=== PATIENT | female | born 1970 | race Caucasian/White ===

== ENCOUNTER → 2019-03-04 | Outpatient (CLI) | payer MEDICAID | LOC: WOUNDCARE 08:12 | PROVIDERS: ATTEND Surgery | DX: E11.622 Type 2 diabetes mellitus with other skin ulcer (principal); E11.52 Type 2 diabetes mellitus with diabetic peripheral angiopathy with gangrene; L98.492 Non-pressure chronic ulcer of skin of other sites with fat layer exposed; B35.4 Tinea corporis; E66.01 Morbid (severe) obesity due to excess calories; L76.82 Other postprocedural complications of skin and subcutaneous tissue; T65.222A Toxic effect of tobacco cigarettes, intentional self-harm, initial encounter; F17.218 Nicotine dependence, cigarettes, with other nicotine-induced disorders; J44.9 Chronic obstructive pulmonary disease, unspecified; I96 Gangrene, not elsewhere classified | CPT/HCPCS: 11042; 87070; 87205 ==

== ENCOUNTER → 2019-03-04 | Outpatient (CLI) | payer MEDICAID ==
[2019-03-04 10:28] LABS: BASOPHILS % (AUTO) 0 % (0-10); EOSINOPHILS # (AUTO) 0.2 10^3/uL (0.0-0.3); EOSINOPHILS % (AUTO) 2 % (0-10); HEMATOCRIT 38 % (35-52); LYMPHOCYTES # (AUTO) 2.7 X 10^3 (1.0-4.0); LYMPHOCYTES % (AUTO) 31 % (12-44); MEAN CORPUSCULAR HEMOGLOBIN 30 PG (25-34); MEAN CORPUSCULAR HGB CONC 32 G/DL (32-36); MEAN CORPUSCULAR VOLUME 95 FL (80-99); MEAN PLATELET VOLUME 11.3 FL (7.4-10.4); MONOCYTES # (AUTO) 0.4 X 10^3 (0.0-1.0); MONOCYTES % (AUTO) 5 % (0-12); NEUTROPHILS # (AUTO) 5.3 X 10^3 (1.8-7.8); NEUTROPHILS % (AUTO) 62 % (42-75); PLATELET COUNT 272 10^3/uL (130-400); RED CELL DISTRIBUTION WIDTH 14.8 % (10.0-14.5); WHITE BLOOD COUNT 8.7 10^3/uL (4.3-11.0)
[2019-03-04 10:45] LABS: ALBUMIN 4.2 GM/DL (3.2-4.5); BILIRUBIN,TOTAL 0.2 MG/DL (0.1-1.0); CALCIUM 9.4 MG/DL (8.5-10.1); CREATININE SERUM 2.49 MG/DL (0.60-1.30); POTASSIUM 5.2 MMOL/L (3.6-5.0); TOTAL PROTEIN 7.6 GM/DL (6.4-8.2)
== END ==
LOC: LAB 10:04
PROVIDERS: ATTEND Surgery
DX: E11.622 Type 2 diabetes mellitus with other skin ulcer (principal); L98.492 Non-pressure chronic ulcer of skin of other sites with fat layer exposed; E66.01 Morbid (severe) obesity due to excess calories; L76.82 Other postprocedural complications of skin and subcutaneous tissue; T65.222A Toxic effect of tobacco cigarettes, intentional self-harm, initial encounter; F17.218 Nicotine dependence, cigarettes, with other nicotine-induced disorders; J44.9 Chronic obstructive pulmonary disease, unspecified; B35.4 Tinea corporis
CPT/HCPCS: 36415; 80053; 83036; 84134; 85025

== ENCOUNTER → 2019-03-11 | Outpatient (CLI) | payer MEDICAID | LOC: WOUNDCARE 10:14 | PROVIDERS: ATTEND Surgery | DX: I96 Gangrene, not elsewhere classified (principal); L98.492 Non-pressure chronic ulcer of skin of other sites with fat layer exposed; B35.4 Tinea corporis; E66.01 Morbid (severe) obesity due to excess calories; T65.222A Toxic effect of tobacco cigarettes, intentional self-harm, initial encounter; J44.9 Chronic obstructive pulmonary disease, unspecified; L76.82 Other postprocedural complications of skin and subcutaneous tissue; F17.218 Nicotine dependence, cigarettes, with other nicotine-induced disorders | CPT/HCPCS: 11042 ==

== ENCOUNTER → 2019-03-18 | Outpatient (CLI) | payer MEDICAID | LOC: WOUNDCARE 08:37 | PROVIDERS: ATTEND Surgery | DX: L98.492 Non-pressure chronic ulcer of skin of other sites with fat layer exposed (principal); B35.4 Tinea corporis; E66.01 Morbid (severe) obesity due to excess calories; L76.82 Other postprocedural complications of skin and subcutaneous tissue; T65.222A Toxic effect of tobacco cigarettes, intentional self-harm, initial encounter; J44.9 Chronic obstructive pulmonary disease, unspecified; I96 Gangrene, not elsewhere classified; F17.218 Nicotine dependence, cigarettes, with other nicotine-induced disorders | CPT/HCPCS: 11042 ==

== ENCOUNTER → 2019-03-25 | Outpatient (CLI) | payer MEDICAID | LOC: WOUNDCARE 08:59 | PROVIDERS: ATTEND Surgery | DX: L98.492 Non-pressure chronic ulcer of skin of other sites with fat layer exposed (principal); B35.4 Tinea corporis; E66.01 Morbid (severe) obesity due to excess calories; L76.82 Other postprocedural complications of skin and subcutaneous tissue; J44.9 Chronic obstructive pulmonary disease, unspecified; T65.222A Toxic effect of tobacco cigarettes, intentional self-harm, initial encounter; I96 Gangrene, not elsewhere classified; F17.218 Nicotine dependence, cigarettes, with other nicotine-induced disorders | CPT/HCPCS: 11042 ==

== ENCOUNTER → 2019-04-01 | Outpatient (CLI) | payer MEDICAID | LOC: WOUNDCARE 10:21 | PROVIDERS: ATTEND Surgery | DX: L98.492 Non-pressure chronic ulcer of skin of other sites with fat layer exposed (principal); B35.4 Tinea corporis; E66.01 Morbid (severe) obesity due to excess calories; L76.82 Other postprocedural complications of skin and subcutaneous tissue; T65.222A Toxic effect of tobacco cigarettes, intentional self-harm, initial encounter; J44.9 Chronic obstructive pulmonary disease, unspecified; I96 Gangrene, not elsewhere classified; F17.218 Nicotine dependence, cigarettes, with other nicotine-induced disorders | CPT/HCPCS: 11042 ==

== ENCOUNTER → 2019-04-01 | Outpatient (CLI) | payer MEDICAID ==
--- NOTE | 2019-04-01 16:05 | Diagnostic Imaging Report ---
PROCEDURE: US Renal Bilateral. TECHNIQUE: Multiple real-time grayscale images were obtained over the kidneys in various projections bilaterally. INDICATION: Chronic kidney disease, stage IV. FINDINGS: Right kidney measures 10.3 x 5.4 x 6.2 cm and the left kidney measures 11.8 x 5.5 x 5.6 cm. Cortical thickness and echogenicity is normal. No calculi or hydronephrosis are seen. Prevoid bladder volume is 967 mL. Postvoid volume is 50 mL. Bilateral ureteral jets were not visualized. IMPRESSION: Unremarkable renal ultrasound. Small postvoid residual bladder volume was noted. Dictated by: Dictated on workstation # [id number]
== END ==
LOC: RAD 11:17
PROVIDERS: ATTEND Nurse Practitioner
DX: I25.10 Atherosclerotic heart disease of native coronary artery without angina pectoris (principal); D63.1 Anemia in chronic kidney disease; E11.22 Type 2 diabetes mellitus with diabetic chronic kidney disease; I13.0 Hypertensive heart and chronic kidney disease with heart failure and stage 1 through stage 4 chronic kidney disease, or unspecified chronic kidney disease; N18.4 Chronic kidney disease, stage 4 (severe); I50.9 Heart failure, unspecified; E78.49 Other hyperlipidemia; E11.21 Type 2 diabetes mellitus with diabetic nephropathy
CPT/HCPCS: 76770

== ENCOUNTER → 2019-04-08 | Outpatient (CLI) | payer MEDICAID | LOC: WOUNDCARE 09:37 | PROVIDERS: ATTEND Surgery | DX: L98.492 Non-pressure chronic ulcer of skin of other sites with fat layer exposed (principal); B35.4 Tinea corporis; E66.01 Morbid (severe) obesity due to excess calories; L76.82 Other postprocedural complications of skin and subcutaneous tissue; T65.222A Toxic effect of tobacco cigarettes, intentional self-harm, initial encounter; J44.9 Chronic obstructive pulmonary disease, unspecified; I96 Gangrene, not elsewhere classified; F17.218 Nicotine dependence, cigarettes, with other nicotine-induced disorders | CPT/HCPCS: 11042 ==

== ENCOUNTER → 2019-04-22 | Outpatient (CLI) | payer MEDICAID | LOC: WOUNDCARE 10:06 | PROVIDERS: ATTEND Surgery | DX: L98.492 Non-pressure chronic ulcer of skin of other sites with fat layer exposed (principal); B35.4 Tinea corporis; E66.01 Morbid (severe) obesity due to excess calories; J44.9 Chronic obstructive pulmonary disease, unspecified; L76.82 Other postprocedural complications of skin and subcutaneous tissue; T65.222A Toxic effect of tobacco cigarettes, intentional self-harm, initial encounter; F17.218 Nicotine dependence, cigarettes, with other nicotine-induced disorders | CPT/HCPCS: 99213 ==

== ENCOUNTER → 2019-05-03 | Outpatient (CLI) | payer MEDICAID | LOC: WOUNDCARE 08:05 | PROVIDERS: ATTEND Surgery | DX: L98.492 Non-pressure chronic ulcer of skin of other sites with fat layer exposed (principal); B35.4 Tinea corporis; E66.01 Morbid (severe) obesity due to excess calories; J44.9 Chronic obstructive pulmonary disease, unspecified; L76.82 Other postprocedural complications of skin and subcutaneous tissue; T65.222A Toxic effect of tobacco cigarettes, intentional self-harm, initial encounter; F17.218 Nicotine dependence, cigarettes, with other nicotine-induced disorders | CPT/HCPCS: 11042 ==

== ENCOUNTER → 2019-05-13 | Outpatient (CLI) | payer MEDICAID | LOC: WOUNDCARE 13:35 | PROVIDERS: ATTEND Surgery | DX: L98.492 Non-pressure chronic ulcer of skin of other sites with fat layer exposed (principal); B35.4 Tinea corporis; E66.01 Morbid (severe) obesity due to excess calories; L76.82 Other postprocedural complications of skin and subcutaneous tissue; J44.9 Chronic obstructive pulmonary disease, unspecified; T65.222A Toxic effect of tobacco cigarettes, intentional self-harm, initial encounter; I96 Gangrene, not elsewhere classified; F17.218 Nicotine dependence, cigarettes, with other nicotine-induced disorders | CPT/HCPCS: 99212 ==

== ENCOUNTER 2019-11-16 17:25 | Emergency (ER) | payer MEDICARE, MEDICAID ==
[~2019-11-16] VITALS: Ht 172 cm; Wt 177.0 kg
--- OUTSIDE RECORDS SUMMARY | 2019-11-16 17:31 | XMS REPORT | Continuity of Care Document ---
Author Organization Unknown Address Unknown Phone Unavailable Allergies There is no data. Medications There is no data. Problems Date Dx Coded Attending Type Code Diagnosis Diagnosed By 03/06/2019 LEANNE HERNANDEZ MD, Ot B35 .4 TINEA CORPORIS 03/06/2019 LEANNE HERNANDEZ MD Ot E11.52 TYPE 2 DIABETES W DIABETIC PERIPHERAL AN 03/06/2019 ELANNE HERNANDEZ MD, Ot E11.622 TYPE 2 DIABETES MELLITUS WITH OTHER SKIN 03/06/2019 LEANNE HERNANDEZ MD Ot E66.01 MORBID (SEVERE) OBESITY DUE TO EXCESS CA 03/06/2019 LEANNE HERNANDEZ MD Ot F17.218 NICOTINE DEPENDENCE, CIGARETTES, W OTH D 03/06/2019 LEANNE HERNANDEZ MD Ot I96 GANGRENE, NOT ELSEWHERE CLASSIFIED 03/06/2019 LEANNE HERNANDEZ MD Ot J44 .9 CHRONIC OBSTRUCTIVE PULMONARY DISEASE, U 03/06/2019 LEANNE HERNANDEZ MD Ot L76.82 OTH POSTPROCEDURAL COMPLICATIONS OF SKIN 03/06/2019 LEANNE HERNANDEZ MD Ot L98.492 NON-PRS CHRONIC ULCER OF SKIN OF SITES W 03/06/2019 LEANNE HERNANDEZ MD Ot T65.222A TOXIC EFFECT OF TOBACCO CIGARETTES, SELF 03/06/2019 Ot B35.4 TY A CORPORIS 03/06/2019 Ot E11.622 TY PE 2 DIABETES MELLITUS WITH OTHER SKIN 03/06/2019 Ot E66.01 MOR BID (SEVERE) OBESITY DUE TO EXCESS CA 03/06/2019 Ot F17.218 NI COTINE DEPENDENCE, CIGARETTES, W OTH D 03/06/2019 Ot J44.9 HOSPICE PHYSICIAN FATOU OBSTRUCTIVE PULMONARY DISEASE, U 03/06/2019 Ot L76.82 OTH POSTPROCEDURAL COMPLICATIONS OF SKIN 03/06/2019 Ot L98.492 NO N-PRS CHRONIC ULCER OF SKIN OF SITES W 03/06/2019 Ot T65.222A T OXIC EFFECT OF TOBACCO CIGARETTES, SELF 03/10/2019 LEANNE HERNANDEZ MD Ot B35 .4 TINEA CORPORIS 03/10/2019 LEANNE HERNANDEZ MD Ot E11.52 TYPE 2 DIABETES W DIABETIC PERIPHERAL AN 03/10/2019 LEANNE HERNANDEZ MD, Ot E11.622 TYPE 2 DIABETES MELLITUS WITH OTHER SKIN 03/10/2019 LEANNE HERNANDEZ MD Ot E66.01 MORBID (SEVERE) OBESITY DUE TO EXCESS CA 03/10/2019 LEANNE HERNANDEZ MD, Ot F17.218 NICOTINE DEPENDENCE, CIGARETTES, W OTH D 03/10/2019 LEANNE HERNANDEZ MD, Ot I96 GANGRENE, NOT ELSEWHERE CLASSIFIED 03/10/2019 LEANNE HERNANDEZ MD, Ot J44 .9 CHRONIC OBSTRUCTIVE PULMONARY DISEASE, U 03/10/2019 LEANNE HERNANDEZ MD, Ot L76.82 OTH POSTPROCEDURAL COMPLICATIONS OF SKIN 03/10/2019 LEANNE HERNANDEZ MD, Ot L98.492 NON-PRS CHRONIC ULCER OF SKIN OF SITES W 03/10/2019 LEANNE HERNANDEZ MD, Ot T65.222A TOXIC EFFECT OF TOBACCO CIGARETTES, SELF 03/20/2019 LEANNE HERNANDEZ MD, Ot B35 .4 TINEA CORPORIS 03/20/2019 LEANNE HERNANDEZ MD, Ot E66.01 MORBID (SEVERE) OBESITY DUE TO EXCESS CA 03/20/2019 LEANNE HERNANDEZ MD, Ot F17.218 NICOTINE DEPENDENCE, CIGARETTES, W OTH D 03/20/2019 LEANNE HERNANDEZ MD, Ot I96 GANGRENE, NOT ELSEWHERE CLASSIFIED 03/20/2019 LEANNE HERNANDEZ MD, Ot J44 .9 CHRONIC OBSTRUCTIVE PULMONARY DISEASE, U 03/20/2019 LEANNE HERNANDEZ MD, Ot L76.82 OTH POSTPROCEDURAL COMPLICATIONS OF SKIN 03/20/2019 LEANNE HERNANDEZ MD, Ot L98.492 NON-PRS CHRONIC ULCER OF SKIN OF SITES W 03/20/2019 LEANNE HERNANDEZ MD Ot T65.222A TOXIC EFFECT OF TOBACCO CIGARETTES, SELF 03/27/2019 LEANNE HERNANDEZ MD, Ot B35 .4 TINEA CORPORIS 03/27/2019 LEANNE HERNANDEZ MD Ot E66.01 MORBID (SEVERE) OBESITY DUE TO EXCESS CA 03/27/2019 LEANNE HERNANDEZ MD, Ot F17.218 NICOTINE DEPENDENCE, CIGARETTES, W OTH D 03/27/2019 LEANNE HERNANDEZ MD, Ot I96 GANGRENE, NOT ELSEWHERE CLASSIFIED 03/27/2019 LEANNE HERNANDEZ MD, Ot J44 .9 CHRONIC OBSTRUCTIVE PULMONARY DISEASE, U 03/27/2019 LEANNE HERNANDEZ MD, Ot L76.82 OTH POSTPROCEDURAL COMPLICATIONS OF SKIN 03/27/2019 LEANNE HERNANDEZ MD, Ot L98.492 NON-PRS CHRONIC ULCER OF SKIN OF SITES W 03/27/2019 LEANNE HERNANDEZ MD, Ot T65.222A TOXIC EFFECT OF TOBACCO CIGARETTES, SELF 03/31/2019 LAENNE HERNANDEZ MD, Ot B35 .4 TINEA CORPORIS 03/31/2019 LEANNE HERNANDEZ MD, Ot E66.01 MORBID (SEVERE) OBESITY DUE TO EXCESS CA 03/31/2019 LEANNE HERNANDEZ MD, Ot F17.218 NICOTINE DEPENDENCE, CIGARETTES, W OTH D 03/31/2019 LEANNE HERNANDEZ MD, Ot I96 GANGRENE, NOT ELSEWHERE CLASSIFIED 03/31/2019 LEANNE HERNANDEZ MD, Ot J44 .9 CHRONIC OBSTRUCTIVE PULMONARY DISEASE, U 03/31/2019 LEANNE HERNANDEZ MD, Ot L76.82 OTH POSTPROCEDURAL COMPLICATIONS OF SKIN 03/31/2019 LEANNE HERNANDEZ MD, Ot L98.492 NON-PRS CHRONIC ULCER OF SKIN OF SITES W 03/31/2019 LEANNE HERNANDEZ MD, Ot T65.222A TOXIC EFFECT OF TOBACCO CIGARETTES, SELF 04/01/2019 LEANNE HERNANDEZ MD, Ot B35 .4 TINEA CORPORIS 04/01/2019 LEANNE HERNANDEZ MD Ot E11.52 TYPE 2 DIABETES W DIABETIC PERIPHERAL AN 04/01/2019 LEANNE HERNANDEZ MD Ot E11.622 TYPE 2 DIABETES MELLITUS WITH OTHER SKIN 04/01/2019 LEANNE HERNANDEZ MD, Ot E66.01 MORBID (SEVERE) OBESITY DUE TO EXCESS CA 04/01/2019 LEANNE HERNANDEZ MD, Ot F17.218 NICOTINE DEPENDENCE, CIGARETTES, W OTH D 04/01/2019 LEANNE HERNANDEZ MD, Ot I96 GANGRENE, NOT ELSEWHERE CLASSIFIED 04/01/2019 LEANNE HERNANDEZ MD, Ot J44 .9 CHRONIC OBSTRUCTIVE PULMONARY DISEASE, U 04/01/2019 LEANNE HERNANDEZ MD, Ot L76.82 OTH POSTPROCEDURAL COMPLICATIONS OF SKIN 04/01/2019 LEANNE HERNANDEZ MD, Ot L98.492 NON-PRS CHRONIC ULCER OF SKIN OF SITES W 04/01/2019 DAVID MD, LEANNE G Ot T65.222A TOXIC EFFECT OF TOBACCO CIGARETTES, SELF 04/01/2019 Ot B35.4 TY A CORPORIS 04/01/2019 Ot E11.622 TY PE 2 DIABETES MELLITUS WITH OTHER SKIN 04/01/2019 Ot E66.01 MOR BID (SEVERE) OBESITY DUE TO EXCESS CA 04/01/2019 Ot F17.218 NI COTINE DEPENDENCE, CIGARETTES, W OTH D 04/01/2019 Ot J44.9 HOSPICE PHYSICIAN FATOU OBSTRUCTIVE PULMONARY DISEASE, U 04/01/2019 Ot L76.82 OTH POSTPROCEDURAL COMPLICATIONS OF SKIN 04/01/2019 Ot L98.492 NO N-PRS CHRONIC ULCER OF SKIN OF SITES W 04/01/2019 Ot T65.222A T OXIC EFFECT OF TOBACCO CIGARETTES, SELF 04/01/2019 LEANNE HERNANDEZ MD Ot B35 .4 TINEA CORPORIS 04/01/2019 LEANNE HERNANDEZ MD Ot E66.01 MORBID (SEVERE) OBESITY DUE TO EXCESS CA 04/01/2019 LEANNE HERNANDEZ MD Ot F17.218 NICOTINE DEPENDENCE, CIGARETTES, W OTH D 04/01/2019 LEANNE HERNANDEZ MD Ot I96 GANGRENE, NOT ELSEWHERE CLASSIFIED 04/01/2019 LEANNE HERNANDEZ MD, Ot J44 .9 CHRONIC OBSTRUCTIVE PULMONARY DISEASE, U 04/01/2019 LEANNE HERNANDEZ MD Ot L76.82 OTH POSTPROCEDURAL COMPLICATIONS OF SKIN 04/01/2019 LEANNE HERNANDEZ MD Ot L98.492 NON-PRS CHRONIC ULCER OF SKIN OF SITES W 04/01/2019 LEANNE HERNANDEZ MD Ot T65.222A TOXIC EFFECT OF TOBACCO CIGARETTES, SELF 04/01/2019 LEANNE HERNANDEZ MD Ot B35 .4 TINEA CORPORIS 04/01/2019 LEANNE HERNANDEZ MD Ot E66.01 MORBID (SEVERE) OBESITY DUE TO EXCESS CA 04/01/2019 LEANNE HERNANDEZ MD Ot F17.218 NICOTINE DEPENDENCE, CIGARETTES, W OTH D 04/01/2019 LEANNE HERNANDEZ MD Ot I96 GANGRENE, NOT ELSEWHERE CLASSIFIED 04/01/2019 LEANNE HERNANDEZ MD, Ot J44 .9 CHRONIC OBSTRUCTIVE PULMONARY DISEASE, U 04/01/2019 LEANNE HERNANDEZ MD Ot L76.82 OTH POSTPROCEDURAL COMPLICATIONS OF SKIN 04/01/2019 LEANNE HERNANDEZ MD, Ot L98.492 NON-PRS CHRONIC ULCER OF SKIN OF SITES W 04/01/2019 LEANNE HERNANDEZ MD, Ot T65.222A TOXIC EFFECT OF TOBACCO CIGARETTES, SELF 04/01/2019 LEANNE HERNANDEZ MD, Ot B35 .4 TINEA CORPORIS 04/01/2019 LEANNE HERNANDEZ MD, Ot E66.01 MORBID (SEVERE) OBESITY DUE TO EXCESS CA 04/01/2019 LEANNE HERNANDEZ MD, Ot F17.218 NICOTINE DEPENDENCE, CIGARETTES, W OTH D 04/01/2019 LEANNE HERNANDEZ MD, Ot I96 GANGRENE, NOT ELSEWHERE CLASSIFIED 04/01/2019 LEANNE HERNANDEZ MD, Ot J44 .9 CHRONIC OBSTRUCTIVE PULMONARY DISEASE, U 04/01/2019 LEANNE HERNANDEZ MD, Ot L76.82 OTH POSTPROCEDURAL COMPLICATIONS OF SKIN 04/01/2019 LEANNE HERNANDEZ MD, Ot L98.492 NON-PRS CHRONIC ULCER OF SKIN OF SITES W 04/01/2019 LEANNE HERNANDEZ MD, Ot T65.222A TOXIC EFFECT OF TOBACCO CIGARETTES, SELF 04/03/2019 LEANNE HERNANDEZ MD, Ot B35 .4 TINEA CORPORIS 04/03/2019 LEANNE HERNANDEZ MD, Ot E66.01 MORBID (SEVERE) OBESITY DUE TO EXCESS CA 04/03/2019 LEANNE HERNANDEZ MD, Ot F17.218 NICOTINE DEPENDENCE, CIGARETTES, W OTH D 04/03/2019 LEANNE HERNANDEZ MD, Ot I96 GANGRENE, NOT ELSEWHERE CLASSIFIED 04/03/2019 LEANNE HERNANDEZ MD, Ot J44 .9 CHRONIC OBSTRUCTIVE PULMONARY DISEASE, U 04/03/2019 LEANNE HERNANDEZ MD Ot L76.82 OTH POSTPROCEDURAL COMPLICATIONS OF SKIN 04/03/2019 LEANNE HERNANDEZ MD, Ot L98.492 NON-PRS CHRONIC ULCER OF SKIN OF SITES W 04/03/2019 LEANNE HERNANDEZ MD, Ot T65.222A TOXIC EFFECT OF TOBACCO CIGARETTES, SELF 04/04/2019 ROMIE SWANN APRN Ot D63.1 ANEMIA IN CHRONIC KIDNEY DISEASE 04/04/2019 ROMIE SWANN [employer] SUPERVISOR Ot E11.21 TYPE 2 DIABETES MELLITUS WITH DIABETIC N 04/04/2019 ROMIE SWANN [employer] SUPERVISOR Ot E11.22 TYPE 2 DIABETES MELLITUS W DIABETIC HOSPICE PHYSICIAN 04/04/2019 ROMIE SWANN [employer] SUPERVISOR Ot E78.49 OTHER HYPERLIPIDEMIA 04/04/2019 ROMIE SWANN [employer] SUPERVISOR Ot I13.0 HYP HRT CHR [place] DIS W HRT FAIL AND ST 04/04/2019 ROMIE SWANN [employer] SUPERVISOR Ot I25.10 ATHSCL HEART DISEASE OF [place] CORONARY 04/04/2019 ROMIE SWANN [employer] SUPERVISOR Ot I50.9 HEART FAILURE, UNSPECIFIED 04/04/2019 ROMIE SWANN [employer] SUPERVISOR Ot N18.4 CHRONIC KIDNEY DISEASE, STAGE 4 (SEVERE) 04/15/2019 LEANNE HERNANDEZ MD, Ot B35 .4 TINEA CORPORIS 04/15/2019 LEANNE HERNANDEZ MD, Ot E66.01 MORBID (SEVERE) OBESITY DUE TO EXCESS CA 04/15/2019 LEANNE HERNANDEZ MD, Ot F17.218 NICOTINE DEPENDENCE, CIGARETTES, W OTH D 04/15/2019 LEANNE HERNANDEZ MD Ot I96 GANGRENE, NOT ELSEWHERE CLASSIFIED 04/15/2019 LEANNE HERNANDEZ MD, Ot J44 .9 CHRONIC OBSTRUCTIVE PULMONARY DISEASE, U 04/15/2019 LEANNE HERNANDEZ MD Ot L76.82 OTH POSTPROCEDURAL COMPLICATIONS OF SKIN 04/15/2019 LEANNE HERNANDEZ MD Ot L98.492 NON-PRS CHRONIC ULCER OF SKIN OF SITES W 04/15/2019 LEANNE HERNANDEZ MD Ot T65.222A TOXIC EFFECT OF TOBACCO CIGARETTES, SELF 04/24/2019 LEANNE HERNANDEZ MD, Ot B35 .4 TINEA CORPORIS 04/24/2019 LEANNE HERNANDEZ MD Ot E66.01 MORBID (SEVERE) OBESITY DUE TO EXCESS CA 04/24/2019 LEANNE HERNANDEZ MD, Ot F17.218 NICOTINE DEPENDENCE, CIGARETTES, W OTH D 04/24/2019 LEANNE HRENANDEZ MD, Ot J44 .9 CHRONIC OBSTRUCTIVE PULMONARY DISEASE, U 04/24/2019 LEANNE HERNANDEZ MD Ot L76.82 OTH POSTPROCEDURAL COMPLICATIONS OF SKIN 04/24/2019 LEANNE HERNANDEZ MD, Ot L98.492 NON-PRS CHRONIC ULCER OF SKIN OF SITES W 04/24/2019 LEANNE HERNANDEZ MD, Ot T65.222A TOXIC EFFECT OF TOBACCO CIGARETTES, SELF 05/06/2019 LEANNE HERNANDEZ MD, Ot B35 .4 TINEA CORPORIS 05/06/2019 LEANNE HERNANDEZ MD Ot E66.01 MORBID (SEVERE) OBESITY DUE TO EXCESS CA 05/06/2019 LEANNE HERNANDEZ MD, Ot F17.218 NICOTINE DEPENDENCE, CIGARETTES, W OTH D 05/06/2019 LEANNE HERNANDEZ MD Ot J44 .9 CHRONIC OBSTRUCTIVE PULMONARY DISEASE, U 05/06/2019 LEANNE HERNANDEZ MD Ot L76.82 OTH POSTPROCEDURAL COMPLICATIONS OF SKIN 05/06/2019 LEANNE HERNANDEZ MD, Ot L98.492 NON-PRS CHRONIC ULCER OF SKIN OF SITES W 05/06/2019 LEANNE HERNANDEZ MD, Ot T65.222A TOXIC EFFECT OF TOBACCO CIGARETTES, SELF 05/16/2019 LEANNE HERNANDEZ MD, Ot B35 .4 TINEA CORPORIS 05/16/2019 LEANNE HERNANDEZ MD, Ot E66.01 MORBID (SEVERE) OBESITY DUE TO EXCESS CA 05/16/2019 LEANNE HERNANDEZ MD, Ot F17.218 NICOTINE DEPENDENCE, CIGARETTES, W OTH D 05/16/2019 LEANNE HERNANDEZ MD, Ot I96 GANGRENE, NOT ELSEWHERE CLASSIFIED 05/16/2019 LEANNE HERNANDEZ MD, Ot J44 .9 CHRONIC OBSTRUCTIVE PULMONARY DISEASE, U 05/16/2019 LEANNE HERNANDEZ MD Ot L76.82 OTH POSTPROCEDURAL COMPLICATIONS OF SKIN 05/16/2019 LEANNE HERNANDEZ MD, Ot L98.492 NON-PRS CHRONIC ULCER OF SKIN OF SITES W 05/16/2019 LEANNE HERNANDEZ MD, Ot T65.222A TOXIC EFFECT OF TOBACCO CIGARETTES, SELF 05/19/2019 LEANNE HERNANDEZ MD, Ot B35 .4 TINEA CORPORIS 05/19/2019 LEANNE HERNANDEZ MD Ot E66.01 MORBID (SEVERE) OBESITY DUE TO EXCESS CA 05/19/2019 LEANNE HERNANDEZ MD Ot F17.218 NICOTINE DEPENDENCE, CIGARETTES, W OTH D 05/19/2019 LEANNE HERNANDEZ MD, Ot I96 GANGRENE, NOT ELSEWHERE CLASSIFIED 05/19/2019 LEANNE HERNANDEZ MD, Ot J44 .9 CHRONIC OBSTRUCTIVE PULMONARY DISEASE, U 05/19/2019 LEANNE HERNANDEZ MD Ot L76.82 OTH POSTPROCEDURAL COMPLICATIONS OF SKIN 05/19/2019 LEANNE HERNANDEZ MD, Ot L98.492 NON-PRS CHRONIC ULCER OF SKIN OF SITES W 05/19/2019 DAVID PATTERSON, LEANNE Anton Ot T65.222A TOXIC EFFECT OF TOBACCO CIGARETTES, SELF Procedures There is no data. Results Test Result Range Gram stain microscopy - 03/04/19 09:40 Gram stain microscopy No bacteria seen NRG Bacteria identification in wound by cult ure - 03/04/19 09:40 Bacteria identification in wound by culture NG NRG Complete blood count (CBC) with automate d white blood cell (WBC) differential - 03/04/19 10:20 Blood leukocytes automated count (number/volume) 8.7 10*3/uL 4.3-11.0 Blood erythrocytes automated count (number/volume) 3.99 10*6/uL 4.35-5.85 Venous blood hemoglobin measurement (mass/volume) 12.0 g/dL 11.5-16.0 Blood hematocrit (volume fraction) 38 % 35-52 Automated erythrocyte mean corpuscular volume 95 [ foz_us] 80-99 Automated erythrocyte mean corpuscular h emoglobin (mass per erythrocyte) 30 pg 25-34 Automated erythrocyte mean corpuscular h emoglobin concentration measurement (mass/volume) 32 g/dL 32-36 Automated erythrocyte distribution width ratio 14. 8 % 10.0- 14.5 Automated blood platelet count (count/volume) 272 10*3/uL 130-400 Automated blood platelet mean volume measurement 11.3 [foz_us] 7.4-10.4 Automated blood neutrophils/100 leukocytes 62 % 42-75 Automated blood lymphocytes/100 leukocytes 31 % 12-44 Blood monocytes/100 leukocytes 5 % 0-12 Automated blood eosinophils/100 leukocytes 2 % 0-10 Automated blood basophils/100 leukocytes 0 % 0-10 Blood neutrophils automated count (number/volume) 5.3 10*3 1.8-7.8 Blood lymphocytes automated count (number/volume) 2.7 10*3 1.0-4.0 Blood monocytes automated count (number/volume) 0. 4 10*3 0.0-1.0 Automated eosinophil count 0.2 10*3/uL 0 .0-0.3 Automated blood basophil count (count/volume) 0.0 10*3/uL 0.0-0.1 Comprehensive metabolic panel - 03/04/19 10:20 Serum or plasma sodium measurement (moles/volume) 138 mmol/L 135-145 Serum or plasma potassium measurement (moles/volume) 5.2 mmol/L 3.6-5.0 Serum or plasma chloride measurement (moles/volume) 102 mmol/L 98-107 Carbon dioxide 26 mmol/L 21-32 Serum or plasma anion gap determination (moles/volume) 10 mmol/L 5-14 Serum or plasma urea nitrogen measurement (mass/volume ) 52 mg/dL 7-18 Serum or plasma creatinine measurement (mass/volume) 2.49 mg/dL 0.60-1.30 Serum or plasma urea nitrogen/creatinine mass ratio 21 NRG Serum or plasma creatinine measurement w ith calculation of estimated glomerular filtration rate 21 NRG Serum or plasma glucose measurement (mass/volume) 94 mg/dL 70-105 Serum or plasma calcium measurement (mass/volume) 9.4 mg/dL 8.5-10.1 Serum or plasma total bilirubin measurement (mass/volu me) 0.2 mg/dL 0.1-1.0 Serum or plasma alkaline phosphatase celia surement (enzymatic activity/volume) 152 U/L 40-136 Serum or plasma aspartate aminotransfera se measurement (enzymatic activity/volume) 17 U/L 5-34 Serum or plasma alanine aminotransferase measurement (enzymatic activity/volume) 17 U/L 0-55 Serum or plasma protein measurement (mass/volume) 7.6 g/dL 6.4-8.2 Serum or plasma albumin measurement (mass/volume) 4.2 g/dL 3.2-4.5 CALCIUM CORRECTED 9.2 mg/dL 8.5-10.1 Hemoglobin A1c measurement - 03/04/19 10 :20 Blood hemoglobin A1C measurement (mass/volume) 5.9 % 4.0-5.6 MEAN BLOOD GLUCOSE 123 % <=126 Prealbumin - 03/04/19 10:20 Serum or plasma prealbumin measurement (mass/volume) 26.2 % 18.0-37.0 Encounters ACCT No. Visit Date/Time Discharge Status Pt. Type Provider Facility Loc./Unit Complaint [id number] 05/13/2019 13:35:00 23:59:59 CLS Outpatient LEANNE HERNANDEZ MD [facility] [id number] 05/03/2019 08:05:00 23:59:59 CLS Outpatient LEANNE HERNANDEZ MD [facility] [id number] 04/22/2019 10:06:00 23:59:59 CLS Outpatient LEANNE HERNANDEZ MD [facility] [id number] 04/08/2019 09:37:00 23:59:59 CLS Outpatient LEANNE HERNANDEZ MD [facility] [id number] 04/01/2019 11:17:00 23:59:59 CLS Outpatient ROMIE SWANN APRN [facility] RAD CKD STAGE IV [id number] 04/01/2019 10:21:00 23:59:59 CLS Outpatient LEANNE HERNANDEZ MD [facility] [id number] 03/25/2019 08:59:00 23:59:59 CLS Outpatient LEANNE HERNANDEZ MD [facility] [id number] 03/18/2019 08:37:00 23:59:59 CLS Outpatient LEANNE HERNANDEZ MD [facility] [id number] 03/11/2019 10:14:00 23:59:59 CLS Outpatient LEANNE HERNANDEZ MD [facility] [id number] 03/04/2019 08:12:00 23:59:59 CLS Outpatient LEANNE HERNANDEZ MD [facility] [id number] 03/04/2019 10:29:00 Document Registration
[2019-11-16] MEDS ORDERED: NS IV 500 ML 500 ML IV SCH ×2 (17:45→18:15)
--- NOTE | 2019-11-16 17:49 | ED General ---
General Chief Complaint: Chest Pain Stated Complaint: DIZZINESS Nursing Triage Note: PT REPORT BACK PAIN AND CHEST PAIN SINCE YESTERDAY. TODAY SHE HAS HAD SOME DIZZINESS. THE CHEST PAIN IS REPRODUCABLE. Nursing Sepsis Screen: No Definite Risk History of Present Illness Date Seen by Provider: Nov 16, 2019 Time Seen by Provider: 17:40 Initial Comments Pt presents w c/o low back pain that started yesterday and continues today. Worse w movement. Also c/o feeling weak and fell backward landing on her couch after she stood up today because she says she felt dizzy. No recent illness, no fever, chills or cough. some intermittent Chest pain and soa w walking. Hx of HTN and CHF Allergies and Home Medications Allergies Coded Allergies: No Known Drug Allergies (Unverified , 11/16/19) Patient Home Medication List Home Medication List Reviewed: Yes Review of Systems Review of Systems Constitutional: see HPI, dizziness, malaise, weakness EENTM: no symptoms reported Respiratory: No cough; short of breath Cardiovascular: chest pain, edema (chronic, no change); No palpitations, No syncope Gastrointestinal: No abdominal pain, No constipation, No loss of appetite, No nausea, No vomiting Genitourinary: No dysuria, No frequency, No hematuria Musculoskeletal: back pain (lower), muscle pain; No neck pain Skin: No change in color, No lesions, No rash Psychiatric/Neurological: Denies Headache, Denies Numbness, Denies Paresthesia; Weakness Past Buqitkl-Hedlfj-Ivwgke Hx Past Med/Social Hx: Reviewed Nursing Past Med/Soc Hx Patient Social History Recent Foreign Travel: No Contact w/Someone Who Travel: No Recent Infectious Disease Expo: No Physical Abuse: No Sexual Abuse: No Mistreated: No Fear: No Physical Exam Vital Signs Vital Signs - First Documented 11/16/19 11/16/19 17:39 19:25 Temp 36.8 Pulse 82 Resp 18 B/P (MAP) 80/53 (62) Pulse Ox 96 O2 Delivery Room Air O2 Flow Rate 2.00 Capillary Refill : Less Than 3 Seconds Height, Weight, BMI Height: '" Weight: lbs. oz. kg; 59.00 BMI Method: General Appearance: No Apparent Distress, WD/WN, Obese HEENT: PERRL/EOMI, Normal ENT Inspection Neck: Non Tender, Supple Respiratory: Chest Non Tender, Lungs Clear Cardiovascular: Regular Rate, Rhythm, No JVD, Other (LE - chronic edema) Gastrointestinal: Normal Bowel Sounds, Non Tender, Soft; No Distended, No Guarding Back: Normal Inspection, No CVA Tenderness Extremity: Normal Capillary Refill, Non Tender Neurologic/Psychiatric: Alert, Oriented x3, No Motor/Sensory Deficits, Normal Mood/Affect Skin: Normal Color, Warm/Dry Focused Exam Lactate Level 11/16/19 17:44: Lactic Acid Level 2.66*H Lactic Acid Level Laboratory Tests Test 11/16/19 17:44 Lactic Acid Level 2.66 MMOL/L (0.50-2.00) *H Progress/Results/Core Measures Suspected Sepsis Recent Fever Within 48 Hours: No Infection Criteria Present: None New/Unexplained Altered Menta: No Sepsis Screen: No Definite Risk SIRS Temperature: Pulse: Respiratory Rate: 18 Laboratory Tests 11/16/19 17:40: White Blood Count 14.4H Blood Pressure 80 /53 Mean: 62 11/16/19 17:44: Lactic Acid Level 2.66*H Laboratory Tests 11/16/19 17:40: Creatinine 6.89H, Platelet Count 286, Total Bilirubin 0.3 Results/Orders Lab Results Laboratory Tests Test 11/16/19 17:40 11/16/19 17:44 11/16/19 17:49 Range/Units White Blood Count 14.4 H 4.3-11.0 10^3/uL Red Blood Count 4.07 L 4.35-5.85 10^6/uL Hemoglobin 11.1 L 11.5-16.0 G/DL Hematocrit 34 L 35-52 % Mean Corpuscular Volume 85 80-99 FL Mean Corpuscular Hemoglobin 27 25-34 PG Mean Corpuscular Hemoglobin Concent 32 32-36 G/DL Red Cell Distribution Width 14.6 H 10.0-14.5 % Platelet Count 286 130-400 10^3/uL Mean Platelet Volume 11.6 H 7.4-10.4 FL Neutrophils (%) (Auto) 67 42-75 % Lymphocytes (%) (Auto) 26 12-44 % Monocytes (%) (Auto) 5 0-12 % Eosinophils (%) (Auto) 2 0-10 % Basophils (%) (Auto) 0 0-10 % Neutrophils # (Auto) 9.7 H 1.8-7.8 X 10^3 Lymphocytes # (Auto) 3.7 1.0-4.0 X 10^3 Monocytes # (Auto) 0.6 0.0-1.0 X 10^3 Eosinophils # (Auto) 0.2 0.0-0.3 10^3/uL Basophils # (Auto) 0.1 0.0-0.1 10^3/uL Neutrophils % (Manual) 68 % Lymphocytes % (Manual) 26 % Monocytes % (Manual) 5 % Eosinophils % (Manual) 1 % Basophils % (Manual) 0 % Blood Morphology Comment NORMAL Sodium Level 132 L 135-145 MMOL/L Potassium Level 4.4 3.6-5.0 MMOL/L Chloride Level 90 L 98-107 MMOL/L Carbon Dioxide Level 20 L 21-32 MMOL/L Anion Gap 22 H 5-14 MMOL/L Blood Urea Nitrogen 94 H 7-18 MG/DL Creatinine 6.89 H 0.60-1.30 MG/DL Estimat Glomerular Filtration Rate 6 BUN/Creatinine Ratio 14 Glucose Level 98 70-105 MG/DL Calcium Level 8.0 L 8.5-10.1 MG/DL Corrected Calcium 8.2 L 8.5-10.1 MG/DL Total Bilirubin 0.3 0.1-1.0 MG/DL Aspartate Amino Transf (AST/SGOT) 18 5-34 U/L Alanine Aminotransferase (ALT/SGPT) 13 0-55 U/L Alkaline Phosphatase 148 H 40-136 U/L Troponin I < 0.30 <0.30 NG/ML Total Protein 7.2 6.4-8.2 GM/DL Albumin 3.7 3.2-4.5 GM/DL Lactic Acid Level 2.66 *H 0.50-2.00 MMOL/L Glucometer 96 70-110 MG/DL My Orders Orders - ROVENSTINE,MAKENZIE L DO Ed Iv/Invasive Line Start (11/16/19 17:43) Ekg Tracing (11/16/19 17:43) Cbc With Automated Diff (11/16/19 17:43) Comprehensive Metabolic Panel (11/16/19 17:43) Lactic Acid Analyzer (11/16/19 17:43) Troponin I Fs (11/16/19 17:43) Urinalysis (11/16/19 17:43) Chest 1 View Ap/Pa Only (11/16/19 17:43) Ns Iv 500 Ml (Sodium Chloride 0.9%) (11/16/19 17:45) Manual Differential (11/16/19 17:40) Ns Iv 500 Ml (Sodium Chloride 0.9%) (11/16/19 18:15) Norepinephrine 4 Mg/250 Ml (Norepinephri (11/16/19 19:00) Ns Iv 1000 Ml (Sodium Chloride 0.9%) (11/16/19 19:00) Ns Iv 1000 Ml (Sodium Chloride 0.9%) (11/16/19 19:15) Vital Signs/I&O 11/16/19 11/16/19 11/16/19 17:39 17:49 19:25 Temp 36.8 36.1 Pulse 82 Resp 18 20 B/P (MAP) 80/53 (62) 104/76 Pulse Ox 96 94 O2 Delivery Room Air Room Air Nasal Cannula O2 Flow Rate 2.00 Capillary Refill : Less Than 3 Seconds Blood Pressure Mean: 62 Progress Note : Progress Note Patient responded to fluid bolus. Pressures improved at time of calling [facility] for transfer. On departure 100 systolic reached. Diagnostic Imaging Diagonstic Imaging: Xray Plain Films/CT/US/NM/MRI: chest Comments FINDINGS: Heart size and mediastinal contours are unremarkable. There is no identified pneumothorax. There is no large pleural effusion. There are technical limitations of the exam relating to patient body habitus. There is no definite focal airspace consolidation. IMPRESSION: 1. No definite acute cardiopulmonary abnormality. 2. Technically limited exam relating to patient body habitus. Dictated on workstation # [id number] Dict: 11/16/19 1822 Trans: 11/16/19 182 [facility] [id number] Interpreted by: CELINE WADE MD Electronically signed by: Departure Impression Primary Impression: Hypotension due to hypovolemia Additional Impressions: Acute on chronic renal failure Qualified Codes: N17.9 - Acute kidney failure, unspecified; N18.9 - Chronic kidney disease, unspecified Dehydration Disposition: XFER SHT-TRM HOSP Condition: Stable Transfer Transfer Reason: Exceeds level of care Time Spoke to Accepting Phy: 18:54 Transfer Progress Notes [address] Price who defers as pt may need dialysis for ARF. Called [facility] and spoke to Dr Gold @ 1055 who accepts for transfer to TCU bed Method of Transfer: EMS Departure-Patient Inst. Referrals: SELF,TIGIST PATTERSON (PCP/Family) Primary Care Physician MAKENZIE MADDOX DO Nov 16, 2019 17:49
[2019-11-16 18:03] LABS: HEMATOCRIT 34 % (35-52); HEMOGLOBIN 11.1 G/DL (11.5-16.0); MEAN CORPUSCULAR HEMOGLOBIN 27 PG (25-34); MEAN CORPUSCULAR HGB CONC 32 G/DL (32-36); MEAN CORPUSCULAR VOLUME 85 FL (80-99); PLATELET COUNT 286 10^3/uL (130-400); RED CELL DISTRIBUTION WIDTH 14.6 % (10.0-14.5); WHITE BLOOD COUNT 14.4 10^3/uL (4.3-11.0)
[2019-11-16 18:04] LABS: BASOPHILS % (AUTO) 0 % (0-10); EOSINOPHILS # (AUTO) 0.2 10^3/uL (0.0-0.3); EOSINOPHILS % (AUTO) 2 % (0-10); LYMPHOCYTES # (AUTO) 3.7 X 10^3 (1.0-4.0); LYMPHOCYTES % (AUTO) 26 % (12-44); MEAN PLATELET VOLUME 11.6 FL (7.4-10.4); MONOCYTES # (AUTO) 0.6 X 10^3 (0.0-1.0); MONOCYTES % (AUTO) 5 % (0-12); NEUTROPHILS # (AUTO) 9.7 X 10^3 (1.8-7.8); NEUTROPHILS % (AUTO) 67 % (42-75)
[2019-11-16 18:11] LABS: BASOPHILS # (AUTO) 0.1 10^3/uL (0.0-0.1)
[2019-11-16 18:21] LABS: POTASSIUM 4.4 MMOL/L (3.6-5.0); SODIUM 132 MMOL/L (135-145)
[2019-11-16 18:22] LABS: ALANINE AMINOTRANSFERASE 13 U/L (0-55); ALBUMIN 3.7 GM/DL (3.2-4.5); ALKALINE PHOSPHATASE 148 U/L (40-136); BILIRUBIN,TOTAL 0.3 MG/DL (0.1-1.0); BUN/CREATININE RATIO 14; CARBON DIOXIDE 20 MMOL/L (21-32); CHLORIDE 90 MMOL/L (98-107); CREATININE SERUM 6.89 MG/DL (0.60-1.30); GFR ESTIMATED 6; GLUCOSE 98 MG/DL (70-105); TOTAL PROTEIN 7.2 GM/DL (6.4-8.2)
--- NOTE | 2019-11-16 18:26 | Diagnostic Imaging Report ---
EXAMINATION: Chest radiograph, portable AP view. DATE: 11/16/2019 5:56 PM. INDICATION: 49-year-old female, chest pain and dizziness. COMPARISON: None. FINDINGS: Heart size and mediastinal contours are unremarkable. There is no identified pneumothorax. There is no large pleural effusion. There are technical limitations of the exam relating to patient body habitus. There is no definite focal airspace consolidation. IMPRESSION: 1. No definite acute cardiopulmonary abnormality. 2. Technically limited exam relating to patient body habitus. Dictated by: Dictated on workstation # [id number]
[2019-11-16 18:44] LABS: LYMPHOCYTES % (MANUAL) 26 %; MONOCYTES % (MANUAL) 5 %; NEUTROPHILS % (MANUAL) 68 %
[2019-11-16 18:45] LABS: BASOPHILS % (MANUAL) 0 %; EOSINOPHILS % (MANUAL) 1 %; RBC MORPH NORMAL
[2019-11-16] MEDS ORDERED: NOREPINEPHRINE 4 MG/250 ML 250 ML IV SCH (19:00)
[2019-11-16] MEDS ORDERED: NS IV 1000 ML 1,000 ML IV SCH ×2 (19:00→19:15)
[2019-11-16 19:25] VITALS: BP 104/76
--- NOTE | 2019-11-16 19:25 | NUR ---
ems here report and care given
== END 2019-11-16 19:25 | disposition short-term general hospital (02) ==
LOC: EDUNIT# 17:25 → ER FS 17:26
DX: N17.9 Acute kidney failure, unspecified (principal); E86.0 Dehydration; I95.9 Hypotension, unspecified; E86.1 Hypovolemia; I13.0 Hypertensive heart and chronic kidney disease with heart failure and stage 1 through stage 4 chronic kidney disease, or unspecified chronic kidney disease; I50.9 Heart failure, unspecified; N18.9 Chronic kidney disease, unspecified
CPT/HCPCS: 36415; 71045; 80053; 82962; 83605; 84484; 85007; 85027; 93005

== ENCOUNTER → 2020-08-31 | Outpatient (CLI) | payer MEDICARE, MEDICAID ==
--- NOTE | 2020-08-31 16:08 | Diagnostic Imaging Report ---
INDICATION: Right foot pain FINDINGS: Three views of the right foot show no fracture, dislocation or other acute abnormalities. IMPRESSION: Soft tissue swelling over the dorsum of the foot. No fracture, dislocation or radiopaque foreign objects seen. Dictated by: Dictated on workstation # [id number]
== END ==
LOC: RAD FS 09:44
PROVIDERS: ATTEND Family Medicine
DX: M79.671 Pain in right foot (principal); M79.89 Other specified soft tissue disorders
CPT/HCPCS: 73630

== ENCOUNTER → 2020-09-07 | Outpatient (CLI) | payer MEDICARE, MEDICAID ==
--- NOTE | 2020-09-07 10:43 | Diagnostic Imaging Report ---
INDICATION: Right foot pain and swelling COMPARISON: 08/31/2020 AP, oblique and lateral views of the right foot reveal significant further increase in marked swelling about the ankle, hindfoot and midfoot. There is no evidence of an acute fracture. No lytic or sclerotic bony lesion is identified. No radiopaque foreign body is seen. IMPRESSION: Marked edema and possible cellulitis without acute osseous abnormality detected. Dictated by: Dictated on workstation # [id number]
== END ==
LOC: RAD FS 10:10
PROVIDERS: ATTEND Family Medicine
DX: M79.671 Pain in right foot (principal); R60.0 Localized edema
CPT/HCPCS: 73630

== ENCOUNTER → 2021-04-05 | Outpatient (CLI) | payer MEDICARE, MEDICAID ==
[~2021-04-05] VITALS: Ht 172 cm; Wt 170.4 kg
[~2021-04-05] MED LIST: ACETAMINOPHEN 500 MG TAB (TYLENOL) PO PRN; CASIRIVIMAB/IMDEVIMAB 1,200 MG in NS (IVPB) 250 ML IV ONE; EPINEPHrine INJECTION 1 MG/ML AMP IM PRN; ONDANSETRON 4 MG/2 ML (SDV) Z0FRAN IV PRN; diphenhydrAMINE 50 MG/ML INJ (BENADRYL) IV PRN
[2021-04-05 12:58] VITALS: BP 150/112
[2021-04-05 14:39] VITALS: BP 137/56
== END ==
LOC: INFUSION 12:52
PROVIDERS: ATTEND Family Medicine
DX: U07.1 COVID-19 (principal)

== ENCOUNTER → 2021-10-06 | Outpatient (CLI) | payer MEDICARE, MEDICAID ==
--- NOTE | 2021-10-06 11:53 | Diagnostic Imaging Report ---
INDICATION: Left knee pain. TIME OF EXAM: 11:47 AM. FINDINGS: Three views of the left knee demonstrate medial compartmental degenerative change with joint space narrowing and marginal spurring. The lateral and patellofemoral compartments are fairly well maintained. No fracture, dislocation, or effusion is seen. IMPRESSION: Medial compartmental degenerative change. No acute bony abnormality is detected. Dictated by: Dictated on workstation # [id number]
== END ==
LOC: RAD FS 11:31
PROVIDERS: ATTEND Family Medicine
DX: M17.12 Unilateral primary osteoarthritis, left knee (principal)
CPT/HCPCS: 73562

== ENCOUNTER 2022-02-11 11:56 | Emergency (ER) | payer MEDICARE, MEDICAID ==
[~2022-02-11] VITALS: Ht 172.7 cm; Wt 147.8 kg
[2022-02-11 12:29] LABS: BASOPHILS # (AUTO) 0.1 10^3/uL (0.0-0.1); BASOPHILS % (AUTO) 0 % (0-10); EOSINOPHILS % (AUTO) 0 % (0-10); HEMATOCRIT 27 % (35-52); HEMOGLOBIN 8.7 g/dL (11.5-16.0); LYMPHOCYTES # (AUTO) 4.1 10^3/uL (1.0-4.0); LYMPHOCYTES % (AUTO) 18 % (12-44); MEAN CORPUSCULAR HEMOGLOBIN 25 pg (25-34); MEAN CORPUSCULAR HGB CONC 32 g/dL (32-36); MEAN CORPUSCULAR VOLUME 79 fL (80-99); MONOCYTES # (AUTO) 1.3 10^3/uL (0.0-1.0); MONOCYTES % (AUTO) 6 % (0-12); NEUTROPHILS # (AUTO) 16.9 10^3/uL (1.8-7.8); NEUTROPHILS % (AUTO) 75 % (42-75); PLATELET COUNT 551 10^3/uL (130-400); WHITE BLOOD COUNT 22.7 10^3/uL (4.3-11.0)
[2022-02-11] MEDS ORDERED: VANCOMYCIN INJECTION 1,000 MG in NS (IVPB) 250 ML IV ONE (12:30)
[2022-02-11] MEDS ORDERED: PIPERACILLIN SODIUM/TAZOBACTAM 4.5 GM in NS (IVPB) 100 ML IV ONE (12:30)
[2022-02-11] MEDS ORDERED: NS IV 1000 ML 1,000 ML IV SCH ×3 (12:30→14:30)
--- NOTE | 2022-02-11 12:36 | Diagnostic Imaging Report ---
INDICATION: Fever, question infection. TECHNIQUE: Single-view chest at 12:26 p.m. CORRELATION STUDY: 11/16/2019. FINDINGS: Heart size is enlarged but stable. Minimal discoid atelectasis of the left lung. No infiltrate. IMPRESSION: 1. No radiographic evidence to suggest pneumonia. Dictated by: Dictated on workstation # [id number]
[2022-02-11] MEDS ORDERED: KETOROLAC 30 MG/ML VIAL IVP ONE (12:45)
[2022-02-11 12:46] LABS: PROTHROMBIN TIME PATIENT 18.2 SEC (12.2-14.7)
[2022-02-11 12:47] LABS: INR 1.5 (0.8-1.4)
[2022-02-11 12:49] LABS: ALBUMIN 3.6 GM/DL (3.2-4.5); BILIRUBIN,TOTAL 0.3 MG/DL (0.1-1.0); CALCIUM 8.9 MG/DL (8.5-10.1); POTASSIUM 4.5 MMOL/L (3.6-5.0); TOTAL PROTEIN 7.4 GM/DL (6.4-8.2)
[2022-02-11 12:50] LABS: CREATININE SERUM 6.59 MG/DL (0.60-1.30)
--- NOTE | 2022-02-11 12:57 | ED General ---
General Chief Complaint: Fever-Adult/Adol Stated Complaint: FALLS; WEAKNESS; FEVER Nursing Triage Note: Patient reports she has had a wound on her right lower leg for 1 week, states she saw her PCP on Monday and started taking bactrim for presumed MRSA. Patient states a culture was not completed in the clinic. Patient reports fever, chills, and weakness for 2 days with worsening redness and pain in her right lower leg. Family with patient reports patient has been lethargic and had altered mental status since her fever started. Source of Information: Patient Exam Limitations: No Limitations History of Present Illness Date Seen by Provider: Feb 11, 2022 Time Seen by Provider: 12:20 Initial Comments Patient is a 51-year-old female presents with fevers chills sweats after developing a wound in her right leg 1 week ago. Patient was evaluated by her PCP on Monday and started on Bactrim which she has taken. She woke up with chills sweats this morning generalized fatigue weakness and malaise. She has a history of a asplenia. No other acute symptoms or complaints Timing/Duration: 4-6 Hours Severity: Moderate Allergies and Home Medications Allergies Coded Allergies: No Known Drug Allergies (Unverified , 11/16/19) Patient Home Medication List Home Medication List Reviewed: Yes Review of Systems Review of Systems Constitutional: see HPI EENTM: see HPI Respiratory: see HPI Cardiovascular: see HPI Gastrointestinal: see HPI Genitourinary: see HPI Musculoskeletal: see HPI Skin: see HPI Psychiatric/Neurological: See HPI Hematologic/Lymphatic: See HPI Immunological/Allergic: see HPI All Other Systems Reviewed Negative Unless Noted: No Past Vrylsnm-Mrbhvg-Thtlsa Hx Patient Social History Tobacco Use?: Yes Tobacco type used: Cigarettes Use of E-Cig and/or Vaping dev: No Use of E-Cig and/or Vaping [place]: Current Everyday User Substance use?: No Alcohol Use?: No Seasonal Allergies Seasonal Allergies: No Past Medical History Surgeries: Yes Hysterectomy Respiratory: Yes Pulmonary Embolism, COPD Cardiac: Yes Chronic Edema/Swelling, Deep Vein Thrombosis, High Cholesterol, Hypertension Neurological: No Genitourinary: No Gastrointestinal: No Musculoskeletal: Yes Chronic Back Pain Endocrine: Yes Diabetes, Insulin dep HEENT: No Cancer: No Psychosocial: Yes Anxiety, Depression Eczema Blood Disorders: Yes Physical Exam Vital Signs Vital Signs - First Documented 02/11/22 02/11/22 12:03 12:33 Temp 36.9 Pulse 105 Resp 29 B/P (MAP) 84/64 (71) Pulse Ox 91 O2 Delivery Room Air O2 Flow Rate 3.00 Capillary Refill : Less Than 3 Seconds Height, Weight, BMI Height: '" Weight: lbs. oz. kg; 49.00 BMI Method: General Appearance: No Apparent Distress, WD/WN Eyes: Bilateral Eye Normal Inspection, Bilateral Eye PERRL, Bilateral Eye EOMI HEENT: TMs Normal Respiratory: Chest Non Tender, Lungs Clear Cardiovascular: Regular Rate, Rhythm, No Edema Gastrointestinal: Soft Extremity: Other (Right leg cellulitis lower right anterio morgan with weeping.) Neurologic/Psychiatric: Alert, Oriented x3 Focused Exam Sepsis Stage: Septic Shock Lactate Level 02/11/22 12:08: Lactic Acid Level 4.92*H 02/11/22 14:46: Lactic Acid Level 1.02 Time of Focused Exam: 12:56 Respiratory: Lungs Clear Cardiovascular: Regular Rate, Rhythm, No Edema Skin: rash Lactic Acid Level Laboratory Tests Test 02/11/22 12:08 02/11/22 14:46 Lactic Acid Level 4.92 MMOL/L (0.50-2.00) *H 1.02 MMOL/L (0.50-2.00) Within 3hrs of presentation: Admin 30ml/kg IBW due to BMI>30, Admin ABX, Blood cultures prior to ABX's, Lactate level Progress/Results/Core Measures Suspected Sepsis SIRS Temperature: Pulse: 105 Respiratory Rate: 29 Laboratory Tests 02/11/22 12:08: White Blood Count 22.7H Blood Pressure 84 /64 Mean: 71 02/11/22 12:08: Lactic Acid Level 4.92*H 02/11/22 14:46: Lactic Acid Level 1.02 Laboratory Tests 02/11/22 12:08: Creatinine 6.59H, INR Comment 1.5H, Platelet Count 551H, Total Bilirubin 0.3 Results/Orders Lab Results Laboratory Tests Test 02/11/22 12:08 02/11/22 13:14 02/11/22 14:46 Range/Units White Blood Count 22.7 H 4.3-11.0 10^3/uL Red Blood Count 3.42 L 3.80-5.11 10^6/uL Hemoglobin 8.7 L 11.5-16.0 g/dL Hematocrit 27 L 35-52 % Mean Corpuscular Volume 79 L 80-99 fL Mean Corpuscular Hemoglobin 25 25-34 pg Mean Corpuscular Hemoglobin Concent 32 32-36 g/dL Red Cell Distribution Width 16.1 H 10.0-14.5 % Platelet Count 551 H 130-400 10^3/uL Mean Platelet Volume 11.0 9.0-12.2 fL Immature Granulocyte % (Auto) 1 % Neutrophils (%) (Auto) 75 42-75 % Lymphocytes (%) (Auto) 18 12-44 % Monocytes (%) (Auto) 6 0-12 % Eosinophils (%) (Auto) 0 0-10 % Basophils (%) (Auto) 0 0-10 % Neutrophils # (Auto) 16.9 H 1.8-7.8 10^3/uL Lymphocytes # (Auto) 4.1 H 1.0-4.0 10^3/uL Monocytes # (Auto) 1.3 H 0.0-1.0 10^3/uL Eosinophils # (Auto) 0.0 0.0-0.3 10^3/uL Basophils # (Auto) 0.1 0.0-0.1 10^3/uL Immature Granulocyte # (Auto) 0.2 H 0.0-0.1 10^3/uL Neutrophils % (Manual) 75 % Lymphocytes % (Manual) 17 % Monocytes % (Manual) 4 % Eosinophils % (Manual) 1 % Band Neutrophils 3 % Platelet Estimate INCREASED Hypochromasia MODERATE Poikilocytosis SLIGHT Microcytosis 1+ Macrocytosis 1+ Prothrombin Time 18.2 H 12.2-14.7 SEC INR Comment 1.5 H 0.8-1.4 Activated Partial Thromboplast Time 37 H 24-35 SEC Sodium Level 135 135-145 MMOL/L Potassium Level 4.5 3.6-5.0 MMOL/L Chloride Level 93 L 98-107 MMOL/L Carbon Dioxide Level 17 L 21-32 MMOL/L Anion Gap 25 H 5-14 MMOL/L Blood Urea Nitrogen 103 *H 7-18 MG/DL Creatinine 6.59 H 0.60-1.30 MG/DL Estimat Glomerular Filtration Rate 7 BUN/Creatinine Ratio 16 Glucose Level 181 H 70-105 MG/DL Lactic Acid Level 4.92 *H 1.02 0.50-2.00 MMOL/L Calcium Level 8.9 8.5-10.1 MG/DL Corrected Calcium 9.2 8.5-10.1 MG/DL Total Bilirubin 0.3 0.1-1.0 MG/DL Aspartate Amino Transf (AST/SGOT) 20 5-34 U/L Alanine Aminotransferase (ALT/SGPT) 16 0-55 U/L Alkaline Phosphatase 140 H 40-136 U/L Troponin I < 0.30 <0.30 NG/ML Total Protein 7.4 6.4-8.2 GM/DL Albumin 3.6 3.2-4.5 GM/DL Urine Color YELLOW Urine Clarity CLOUDY Urine pH 5.0 5-9 Urine Specific [place] 1.025 H 1.016-1.022 Urine Protein NEGATIVE NEGATIVE Urine Glucose (UA) NEGATIVE NEGATIVE Urine Ketones NEGATIVE NEGATIVE Urine Nitrite NEGATIVE NEGATIVE Urine Bilirubin NEGATIVE NEGATIVE Urine Urobilinogen 0.2 < = 1.0 MG/DL Urine Leukocyte Esterase NEGATIVE NEGATIVE Urine RBC (Auto) NEGATIVE NEGATIVE Urine RBC NONE /HPF Urine WBC 10-25 H /HPF Urine Squamous Epithelial Cells 5-10 /HPF Urine Crystals PRESENT H /LPF Urine Amorphous Sediment RARE LUCA URATES H /LPF Urine Bacteria FEW H /HPF Urine Casts PRESENT /LPF Urine Hyaline Casts >50 H /LPF Urine Mucus LARGE H /LPF Urine Culture Indicated CULTURE PENDING My Orders Orders - DAWSON TRACEY DO Cbc With Automated Diff (02/11/22 12:21) Comprehensive Metabolic Panel (02/11/22 12:21) Blood Culture (02/11/22 12:21) Urinalysis (02/11/22 12:21) Urine Culture (02/11/22 12:21) Protime With Inr (02/11/22 12:21) Partial Thromboplastin Time (02/11/22 12:21) Chest 1 View Ap/Pa Only (02/11/22 12:21) Ed Iv/Invasive Line Start (02/11/22 12:21) Ed Iv/Invasive Line Start (02/11/22 12:21) Vital Signs Adult Sepsis Patie Q15M (02/11/22 12:21) O2 (02/11/22 12:21) Remove Rings In Anticipation O (02/11/22 12:21) Lactic Acid Analyzer (02/11/22 12:21) Ns Iv 1000 Ml (Sodium Chloride 0.9%) (02/11/22 12:30) Piperacillin Sodium/Tazobactam (Zosyn Vi (02/11/22 12:30) Vancomycin Injection (Vancomycin Injecti (02/11/22 12:30) Wound Culture (02/11/22 12:21) Manual Differential (02/11/22 12:08) Ketorolac Injection (Toradol Injection) (02/11/22 12:45) Troponin I Fs (02/11/22 12:52) Sellers Cath (02/11/22 12:58) Ns Iv 1000 Ml (Sodium Chloride 0.9%) (02/11/22 14:00) Ns Iv 1000 Ml (Sodium Chloride 0.9%) (02/11/22 14:30) Medications Given in ED Current Medications Medications Dose Ordered Sig/Lucita Route Start Time Stop Time Status Last Admin Dose Admin Ketorolac Tromethamine 30 mg ONCE ONCE IVP 02/11/22 12:45 02/11/22 12:46 DC 02/11/22 12:48 30 MG Piperacillin Sod/ Tazobactam Sod 4.5 gm/Sodium Chloride 100 ml @ 200 mls/hr ONCE ONCE IV 02/11/22 12:30 02/11/22 12:59 DC 02/11/22 12:47 200 MLS/HR Vancomycin HCl 1000 mg/Sodium Chloride 250 ml @ 250 mls/hr ONCE ONCE IV 02/11/22 12:30 02/11/22 13:29 DC 02/11/22 12:47 250 MLS/HR Vital Signs/I&O 02/11/22 02/11/22 12:03 12:33 Temp 36.9 Pulse 105 Resp 29 B/P (MAP) 84/64 (71) Pulse Ox 91 91 O2 Delivery Room Air Nasal Cannula O2 Flow Rate 3.00 Capillary Refill : Less Than 3 Seconds Blood Pressure Mean: 71 Departure Communication (Admissions) Chest x-ray: No acute cardiopulmonary disease. Severe sepsis with septic shock with lactic acid of 4.9 and creatinine is 6.6. Aggressive IV fluids and antibiotics given. VS stabilized with IVF. Patient accepted at [facility] Impression Primary Impression: Septic shock Additional Impressions: Cellulitis of right leg Acute kidney injury Disposition: XF SHT-TRM HOSP Condition: Stable Transfer Transfer Reason: Exceeds level of care Time Spoke to Accepting Phy: 15:00 Method of Transfer: EMS Departure-Patient Inst. Referrals: SELF,TIGIST PATTERSON (PCP) Primary Care Physician DAWSON TRACEY DO Feb 11, 2022 12:57
[2022-02-11 13:18] LABS: BILIRUBIN,URINE NEGATIVE (NEGATIVE); CLARITY,URINE CLOUDY; COLOR,URINE YELLOW; GLUCOSE, URINE (UA) NEGATIVE (NEGATIVE); KETONES,URINE NEGATIVE (NEGATIVE); LEUKOCYTE ESTERASE ,URINE NEGATIVE (NEGATIVE); NITRITE,URINE NEGATIVE (NEGATIVE); PROTEIN,URINE NEGATIVE (NEGATIVE)
[2022-02-11 13:27] LABS: BAND NEUTROPHILS 3 %; EOSINOPHILS % (MANUAL) 1 %; HYPOCHROMASIA MODERATE; LYMPHOCYTES % (MANUAL) 17 %; MICROCYTOSIS 1+; MONOCYTES % (MANUAL) 4 %; NEUTROPHILS % (MANUAL) 75 %; PLATELET ESTIMATE INCREASED; POIKILOCYTOSIS SLIGHT
[2022-02-11 13:28] LABS: BACTERIA,URINE FEW /HPF
[2022-02-11 13:29] LABS: AMORPHOUS SEDIMENT,UR RARE AMOR URATES /LPF; HYALINE CASTS, URINE >50 /LPF
[2022-02-11 16:24] VITALS: BP 122/73
== END 2022-02-11 16:15 | disposition short-term general hospital (02) ==
LOC: EDUNIT# 11:56 → ER FS 11:57
DX: A41.9 Sepsis, unspecified organism (principal); R65.21 Severe sepsis with septic shock; L03.115 Cellulitis of right lower limb; N17.9 Acute kidney failure, unspecified; E11.9 Type 2 diabetes mellitus without complications; F17.210 Nicotine dependence, cigarettes, uncomplicated; Z28.311 Partially vaccinated for COVID-19; Z79.4 Long term (current) use of insulin
CPT/HCPCS: 36415; 51702; 71045; 80053; 81000; 83605; 84484; 85007; 85027; 85610; 85730; 87040; 87070; 87077; 87088; 87186; 87205; 99291

== ENCOUNTER 2022-03-03 14:33 | Inpatient (IN) | payer MEDICARE, MEDICAID ==
[~2022-03-03] VITALS: Ht 172.7 cm; Wt 165.6 kg
[2022-03-03] MEDS ORDERED: NS IV 1000 ML 1,000 ML IV STA ×2 (14:53→17:14)
[2022-03-03 14:57] VITALS: BP_SYST 103; BP_SYST 108; BP_SYST 95; BP_DIAS 31; BP_DIAS 50; BP_DIAS 62
[2022-03-03] MEDS ORDERED: ONDANSETRON 4 MG/2 ML (SDV) Z0FRAN IVP STA (14:57)
[2022-03-03 15:13] LABS: BASOPHILS # (AUTO) 0.1 10^3/uL (0.0-0.1); BASOPHILS % (AUTO) 1 % (0-10); EOSINOPHILS # (AUTO) 0.2 10^3/uL (0.0-0.3); EOSINOPHILS % (AUTO) 1 % (0-10); HEMATOCRIT 32 % (35-52); HEMOGLOBIN 10.6 g/dL (11.5-16.0); LYMPHOCYTES # (AUTO) 7.5 10^3/uL (1.0-4.0); LYMPHOCYTES % (AUTO) 47 % (12-44); MEAN CORPUSCULAR HEMOGLOBIN 26 pg (25-34); MEAN CORPUSCULAR HGB CONC 33 g/dL (32-36); MEAN CORPUSCULAR VOLUME 79 fL (80-99); MEAN PLATELET VOLUME 11.2 fL (9.0-12.2); MONOCYTES # (AUTO) 1.3 10^3/uL (0.0-1.0); MONOCYTES % (AUTO) 8 % (0-12); NEUTROPHILS # (AUTO) 6.8 10^3/uL (1.8-7.8); NEUTROPHILS % (AUTO) 43 % (42-75); PLATELET COUNT 569 10^3/uL (130-400); WHITE BLOOD COUNT 15.8 10^3/uL (4.3-11.0)
--- NOTE | 2022-03-03 15:30 | ED General ---
General Chief Complaint: Dizziness/Syncope Stated Complaint: DIZZINESS Source of Information: Patient History of Present Illness Date Seen by Provider: Mar 03, 2022 Time Seen by Provider: 14:39 Initial Comments 51-year-old female presenting with complaints of feeling dizzy and lightheaded. She states that this is been getting worse over the last 2 days. She had recently been admitted to [facility] for septic shock and acute renal failure. She states that the kidney function did improve prior to being discharged and she has only been home for a week. She finished her last dose of doxycycline yesterday and feels like the wound on her leg was significantly improved. 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 She states that she has chronic shortness of breath and cough but does not feel like it was any worse than usual. She denies any burning or pain with urination. She has had no headache, chest pain, abdominal pain, fever. She has had chills at home. She also has be en having nausea and vomiting but denies any diarrhea or change in her bowels. She reports trying to get in with Dr. Langford today about the symptoms but they were not able to see her so she decided to come to the emergency department. She felt like her symptoms were severe and states that she has not felt like this previously so she was not sure what was going on for her. Timing/Duration: 1-2 Days Severity: Severe Modifying Factors: worse with Movement (Changing positions makes the dizziness worse but she feels like she is dizzy or "drunk" just laying in the bed as we ll.) Associated Systoms: No Chest Pain; Cough (Chronic and no worse than usual); No Diaphoresis; Fever/Chills (Denies fever but has had chills); No Headaches; Malaise, Nausea/Vomiting; No Rash, No Seizure; Shortness of Air (Chronic and no worse than usual); No Syncope; Weakness (Generalized) Allergies and Home Medications Allergies Coded Allergies: No Known Drug Allergies (Unverified , 11/16/19) Patient Home Medication List Home Medication List Reviewed: Yes Review of Systems Review of Systems Constitutional: chills; No diaphoresis; dizziness; No fever; malaise, weakness EENTM: No ear pain, No vision loss, No epistaxis, No nose congestion Respiratory: see HPI, cough, short of breath; No stridor, No wheezing Cardiovascular: No chest pain; edema Gastrointestinal: No abdominal pain; nausea, vomiting Genitourinary: No dysuria, No frequency Musculoskeletal: No back pain, No muscle pain Skin: see HPI (Healing wound and infection to her right lower extremity) Psychiatric/Neurological: Anxiety Hematologic/Lymphatic: Blood Clots (History of DVT and pulmonary emboli) Past Ahctsvl-Wgghqj-Vkclqg Hx Seasonal Allergies Seasonal Allergies: No Past Medical History Surgery/Hospitalization HX: COPD, hypertension, DVT, PE, chronic kidney disease, insulin-dependent diabetes Surgeries: Yes Hysterectomy Respiratory: Yes Pulmonary Embolism, COPD Cardiac: Yes Chronic Edema/Swelling, Deep Vein Thrombosis, High Cholesterol, Hypertension Neurological: No Genitourinary: No Gastrointestinal: No Musculoskeletal: Yes Chronic Back Pain Endocrine: Yes Diabetes, Insulin dep HEENT: No Cancer: No Psychosocial: Yes Anxiety, Depression Eczema Blood Disorders: Yes Physical Exam Vital Signs Vital Signs - First Documented 03/03/22 14:45 Temp 35.7 Pulse 102 Resp 13 B/P (MAP) 103/62 (76) Pulse Ox 99 O2 Delivery Nasal Cannula O2 Flow Rate 3.00 Capillary Refill : Height, Weight, BMI Height: '" Weight: lbs. oz. kg; 49.00 BMI Method: General Appearance: Mild Distress, Obese HEENT: PERRL/EOMI; No Moist Mucous Membranes (Slightly dry mucous membranes) Neck: Full Range of Motion, Non Tender, Supple Respiratory: Chest Non Tender, No Accessory Muscle Use, No Respiratory Distress, Decreased Breath Sounds Cardiovascular: Normal Peripheral Pulses, Tachycardia Gastrointestinal: Normal Bowel Sounds, No Pulsatile Mass, Non Tender, Soft Rectal: Deferred Extremity: Normal Capillary Refill, Normal Inspection, Pedal Edema (1+ pitting edema bilateral lower extremities) Neurologic/Psychiatric: Alert, Oriented x3, special education para professional II-XII Norm as Tested Skin: Normal Color, Warm/Dry, Other (tender to palpation RLE lateral aspect where she has healing sores without fluctuance or drainage) Focused Exam Sepsis Stage: Sepsis Possible Source: Wound Lactate Level 03/03/22 15:00: Lactic Acid Level 2.21*H 03/03/22 17:00: Lactic Acid Level 2.38*H Time of Focused Exam: 17:30 Respiratory: Chest Non Tender, No Accessory Muscle Use, No Respiratory Distress, Decreased Breath Sounds Cardiovascular: Regular Rate, Rhythm, Normal Peripheral Pulses Capillary Refill: Less Than 3 Seconds Peripheral Pulses: 2+ Carotid (R), 2+ Carotid (L), 2+ Radial Pulses (R), 2+ Radial Pulses (L) Skin: warm/dry; No rash Lactic Acid Level Laboratory Tests Test 03/03/22 15:00 03/03/22 17:00 Lactic Acid Level 2.21 MMOL/L (0.50-2.00) *H 2.38 MMOL/L (0.50-2.00) *H Within 3hrs of presentation: Admin fluids, Admin ABX, Blood cultures prior to ABX's, Focus exam, Lactate level Progress/Results/Core Measures Suspected Sepsis SIRS Temperature: Pulse: 122 Respiratory Rate: Laboratory Tests 03/03/22 15:00: White Blood Count 15.8H Blood Pressure 95 /31 Mean: 52 03/03/22 15:00: Lactic Acid Level 2.21*H 03/03/22 17:00: Lactic Acid Level 2.38*H Laboratory Tests 03/03/22 15:00: Creatinine 2.64H, Platelet Count 569H, Total Bilirubin 0.6 Results/Orders Lab Results Laboratory Tests Test 03/03/22 15:00 03/03/22 16:30 03/03/22 16:34 03/03/22 17:00 Range/Units White Blood Count 15.8 H 4.3-11.0 10^3/uL Red Blood Count 4.08 3.80-5.11 10^6/uL Hemoglobin 10.6 L 11.5-16.0 g/dL Hematocrit 32 L 35-52 % Mean Corpuscular Volume 79 L 80-99 fL Mean Corpuscular Hemoglobin 26 25-34 pg Mean Corpuscular Hemoglobin Concent 33 32-36 g/dL Red Cell Distribution Width 17.9 H 10.0-14.5 % Platelet Count 569 H 130-400 10^3/uL Mean Platelet Volume 11.2 9.0-12.2 fL Immature Granulocyte % (Auto) 0 % Neutrophils (%) (Auto) 43 42-75 % Lymphocytes (%) (Auto) 47 H 12-44 % Monocytes (%) (Auto) 8 0-12 % Eosinophils (%) (Auto) 1 0-10 % Basophils (%) (Auto) 1 0-10 % Neutrophils # (Auto) 6.8 1.8-7.8 10^3/uL Lymphocytes # (Auto) 7.5 H 1.0-4.0 10^3/uL Monocytes # (Auto) 1.3 H 0.0-1.0 10^3/uL Eosinophils # (Auto) 0.2 0.0-0.3 10^3/uL Basophils # (Auto) 0.1 0.0-0.1 10^3/uL Immature Granulocyte # (Auto) 0.1 0.0-0.1 10^3/uL Neutrophils % (Manual) 37 % Lymphocytes % (Manual) 50 % Monocytes % (Manual) 9 % Basophils % (Manual) 1 % Band Neutrophils 3 % Platelet Estimate INCREASED Hypochromasia 1+ Poikilocytosis 1+ Target Cells 1+ Elliptocytes SLIGHT Sodium Level 134 L 135-145 MMOL/L Potassium Level 3.1 L 3.6-5.0 MMOL/L Chloride Level 93 L 98-107 MMOL/L Carbon Dioxide Level 24 21-32 MMOL/L Anion Gap 17 H 5-14 MMOL/L Blood Urea Nitrogen 67 H 7-18 MG/DL Creatinine 2.64 H 0.60-1.30 MG/DL Estimat Glomerular Filtration Rate 21 BUN/Creatinine Ratio 25 Glucose Level 53 *L 70-105 MG/DL Lactic Acid Level 2.21 *H 2.38 *H 0.50-2.00 MMOL/L Calcium Level 9.6 8.5-10.1 MG/DL Corrected Calcium 9.8 8.5-10.1 MG/DL Total Bilirubin 0.6 0.1-1.0 MG/DL Aspartate Amino Transf (AST/SGOT) 27 5-34 U/L Alanine Aminotransferase (ALT/SGPT) 32 0-55 U/L Alkaline Phosphatase 262 H 40-136 U/L Total Protein 7.9 6.4-8.2 GM/DL Albumin 3.7 3.2-4.5 GM/DL Lipase 55 8-78 U/L Urine Color YELLOW Urine Clarity CLEAR Urine pH 5.5 5-9 Urine Specific [place] 1.010 L 1.016-1.022 Urine Protein NEGATIVE NEGATIVE Urine Glucose (UA) NEGATIVE NEGATIVE Urine Ketones NEGATIVE NEGATIVE Urine Nitrite NEGATIVE NEGATIVE Urine Bilirubin NEGATIVE NEGATIVE Urine Urobilinogen 0.2 < = 1.0 MG/DL Urine Leukocyte Esterase NEGATIVE NEGATIVE Urine RBC (Auto) NEGATIVE NEGATIVE Urine RBC NONE /HPF Urine WBC NONE /HPF Urine Squamous Epithelial Cells 2-5 /HPF Urine Crystals NONE /LPF Urine Bacteria NEGATIVE /HPF Urine Casts PRESENT /LPF Urine Hyaline Casts 10-25 H /LPF Urine Mucus NEGATIVE /LPF Urine Culture Indicated NO Glucometer 130 H 70-110 MG/DL My Orders Orders - ANDRIY OLSEN MD Cbc With Automated Diff (03/03/22 14:53) Comprehensive Metabolic Panel (03/03/22 14:53) Blood Culture (03/03/22 14:53) Ua Culture If Indicated (03/03/22 14:53) Ed Iv/Invasive Line Start (03/03/22 14:53) Lactic Acid Analyzer (03/03/22 14:53) Ns Iv 1000 Ml (Sodium Chloride 0.9%) (03/03/22 14:53) Lipase (03/03/22 14:56) Ondansetron Injection (Zofran Injectio (03/03/22 14:57) Manual Differential (03/03/22 15:00) Chest 1 View Ap/Pa Only (03/03/22 15:29) Ct Head Wo (03/03/22 15:33) Ceftriaxone 1 Gm Pre-Mix (Rocephin 1 Gm (03/03/22 17:14) Ns Iv 1000 Ml (Sodium Chloride 0.9%) (03/03/22 17:14) Ed Admission (Communication) (03/03/22 17:59) Lactated Ringers (Lr 1000 Ml Iv Solution (03/03/22 18:15) Vital Signs/I&O 03/03/22 03/03/22 14:45 14:57 Temp 35.7 Pulse 102 82 102 122 Resp 13 B/P (MAP) 103/62 (76) 108/50 (69) 103/62 (76) 95/31 (52) Pulse Ox 99 O2 Delivery Nasal Cannula O2 Flow Rate 3.00 Capillary Refill : Blood Pressure Mean: 52 Progress Note #1: Progress Note Obtain basic labs and urinalysis as well as blood cultures and lactic acid. Urinalysis to look for signs of infection. Orthostatic vital signs were performed and patient and have her blood pressure dropped and her heart rate had increased over 20 bpm. She had increased dizziness with standing. Obtain CT scan of her head to evaluate for intracranial process causing her dizziness. Chest x-ray to look for any signs of infiltrate, mass, effusion. Administer 1 L normal saline IV fluid bolus for her orthostatic vital signs and dizziness. Zofran 4 mg IV for her complaint of nausea and vomiting. Progress Note #2: Progress Note CBC has elevated WBC count to 15.8 with elevated Lymphocytes and 3 % bands. Chemistry shows chronic renal failure with Cr at her baseline of 2.64. Mild hypokalemia with potassium at 3.1. Lactic acid slightly elevated to 2.21. She did have low glucose of 53 so she was given juice and pudding. Chest xray on my review and interpretation did not show acute infiltrate, effusion, mass. CT scan of head reviewed and independently interpreted by myself as no acute intracranial process, hemorrhage, mass or midline shift. Still waiting on UA to check for source of infection. 164 Patient had improved heart rate and blood pressure after NS 1 L IVF bolus for hydration. UA came back showing no acute infection or acute abnormality to account for her symptoms. Will give a dose of Rocephin 1 gm IV to cover her for sepsis with elevated WBC count, tachycardia and elevated Lactic acid. Review results with patient. It's possible that this may be recurrent infection with her leg since [facility] [id number] Stringer client solutions director for [facility] as patient follows with Dr. Langford. I reviewed findings with patient in room. She had repeat lactic acid increase to 2.38 from 2.21. 2nd Liter of NS ordered for sepsis and elevated Lactic acid along with dose of Rocephin. Dr. Stringer in with patient and will call me back as soon as she is free. Progress Note #3: Time: 17:52 Progress Note d/w Dr Stringer about patient having sepsis and no definite source of infection other than possible continued infection from right leg wound. With her initial blood pressure being low and heart rate elevated she did have sepsis findings but was improved with 1 L NS IVF bolus. Added Ceftriaxone 1 gm IV but she stated she would likely broaden the patient's antibiotic coverage and will admit to ICU for closer monitoring and treatment of her sepsis. Her last set of cultures from septic shock visit 02/11 were all negative on blood and urine but she had Methicillin Sensitive Staph Aureus from leg wound. Will continue IVF to help treat for sepsis and elevated lactic acid. Ordered LR at 150 mL/hr to start after her 2nd bolus of NS infused with her antibiotic. Dr. Stringer will place queued orders for her. I called and spoke with doctor at [facility] so that she was aware of patient and had a little summary of what was going on for her. Diagnostic Imaging Diagonstic Imaging: Xray Plain Films/CT/US/NM/MRI: chest Comments [facility], [place] NAME: [facility] REC#: [id number] PT STATUS: REG ER : 1970 PHYSICIAN: ANDRIY OLSEN MD ADMIT DATE: 03/03/22/ER FS Draft Date of Exam:03/03/22 CHEST 1 VIEW AP/PA ONLY INDICATION: Dizziness and syncope. EXAMINATION: Portable chest, 3:45 p.m. FINDINGS: Heart and mediastinum are normal. Lungs are clear. There are no effusions or pneumothoraces. IMPRESSION: No acute abnormalities in the chest. Dictated on workstation # [id number] Dict: 03/03/22 1544 Trans: 03/03/22 1547 [id number] Interpreted by: KIMBER FOOTE MD Electronically signed by: Reviewed: Reviewed by Me Diagonstic Imaging: CT Plain Films/CT/US/NM/MRI: head Comments [facility] [place], [place] NAME: [facility] [place] REC#: [id number] PT STATUS: REG ER : 1970 PHYSICIAN: ANDRIY OLSEN MD ADMIT DATE: 03/03/22/ER FS Draft Date of Exam:03/03/22 CT HEAD WO PROCEDURE: CT head without contrast. TECHNIQUE: Multiple contiguous axial images were obtained through the brain without the use of intravenous contrast. Auto Exposure Controls were utilized during the CT exam to meet ALARA standards for radiation dose reduction. INDICATION: Dizziness, syncope, history of stroke. COMPARISON: No relevant comparison. FINDINGS: There is no intracranial hemorrhage, hydrocephalus, cerebral edema, mass, mass effect, nor evidence for elevated intracerebral pressures. Midline structures are nondisplaced. No abnormal extra-axial collection. Orbits, sinuses, and calvarium where visualized appeared unremarkable. IMPRESSION: No hemorrhage, edema, fracture, or acute appearing abnormalities. Dictated on workstation # [id number] Dict: 03/03/22 1553 Trans: 03/03/22 1558 [id number] Interpreted by: SANDEEP HOLGUIN Electronically signed by: Reviewed: Reviewed by Me Critical Care Note Critical Care Total Time (minutes) 45 minutes Progress 45 minutes of critical care time was spent with the patient. Time was spent obtaining history from patient and friend in the room. Time excludes separately billable procedures. Time spent obtaining history and examining patient, ordering tests and reviewing results, ordering interventions and reviewing response, discussion with consultants and documentation in the chart. Patient was at risk for septic shock and hemodynamic compromise. She required my immediate and constant supervision for managing her hypertension and sepsis. Departure Communication (Admissions) Time/Spoke to Admitting Phy: 17:52 d/w Dr. Stringer and reviewed case and findings. Still unable to find a specific source of infection other than her recent wound to RLE that had caused septic shock and culture grew out MSSA from 02/11. She had low blood pressures initially so will plan admit to ICU for closer monitoring with her being septic and having elevated lactic acid that was going up instead of improving. She was ok with the Rocephin but did feel she needed additional coverage that would be more broad with her recent septic shock and acute on chronic renal failure with admit 3 weeks ago. Impression Primary Impression: Sepsis Qualified Codes: A41.9 - Sepsis, unspecified organism Additional Impressions: Dizziness Orthostatic hypotension Nausea and vomiting in adult Chronic renal failure, stage 4 (severe) Wound of right lower extremity Qualified Codes: S81.801A - Unspecified open wound, right lower leg, initial encounter Disposition: 30 STILL A PATIENT Condition: Critical Admissions Decision to Admit Reason: Admit from ER (General) Decision to Admit/Date: Mar 03, 2022 Time/Decision to Admit Time: 17:52 Departure-Patient Inst. Referrals: TIGIST LANGFORD MD (PCP) Primary Care Physician ANDRIY OLSEN MD Mar 03, 2022 15:30
[2022-03-03 15:48] LABS: POTASSIUM 3.1 MMOL/L (3.6-5.0)
--- NOTE | 2022-03-03 15:48 | Diagnostic Imaging Report ---
INDICATION: Dizziness and syncope. EXAMINATION: Portable chest, 3:45 p.m. FINDINGS: Heart and mediastinum are normal. Lungs are clear. There are no effusions or pneumothoraces. IMPRESSION: No acute abnormalities in the chest. Dictated by: Dictated on workstation # [id number]
[2022-03-03 15:49] LABS: ALBUMIN 3.7 GM/DL (3.2-4.5); BILIRUBIN,TOTAL 0.6 MG/DL (0.1-1.0); CALCIUM 9.6 MG/DL (8.5-10.1); CREATININE SERUM 2.64 MG/DL (0.60-1.30); TOTAL PROTEIN 7.9 GM/DL (6.4-8.2)
[2022-03-03 15:58] LABS: BAND NEUTROPHILS 3 %; BASOPHILS % (MANUAL) 1 %; LYMPHOCYTES % (MANUAL) 50 %; MONOCYTES % (MANUAL) 9 %; NEUTROPHILS % (MANUAL) 37 %
[2022-03-03 15:59] LABS: ELLIPT/OVALOCYTES SLIGHT; HYPOCHROMASIA 1+; PLATELET ESTIMATE INCREASED; POIKILOCYTOSIS 1+; TARGET CELLS 1+
--- NOTE | 2022-03-03 15:59 | Diagnostic Imaging Report ---
PROCEDURE: CT head without contrast. TECHNIQUE: Multiple contiguous axial images were obtained through the brain without the use of intravenous contrast. Auto Exposure Controls were utilized during the CT exam to meet ALARA standards for radiation dose reduction. INDICATION: Dizziness, syncope, history of stroke. COMPARISON: No relevant comparison. FINDINGS: There is no intracranial hemorrhage, hydrocephalus, cerebral edema, mass, mass effect, nor evidence for elevated intracerebral pressures. Midline structures are nondisplaced. No abnormal extra-axial collection. Orbits, sinuses, and calvarium where visualized appeared unremarkable. IMPRESSION: No hemorrhage, edema, fracture, or acute appearing abnormalities. Dictated by: Dictated on workstation # [id number]
[2022-03-03 16:39] LABS: BILIRUBIN,URINE NEGATIVE (NEGATIVE); CLARITY,URINE CLEAR; COLOR,URINE YELLOW; GLUCOSE, URINE (UA) NEGATIVE (NEGATIVE); KETONES,URINE NEGATIVE (NEGATIVE); LEUKOCYTE ESTERASE ,URINE NEGATIVE (NEGATIVE); NITRITE,URINE NEGATIVE (NEGATIVE); PH,URINE 5.5 (5-9); PROTEIN,URINE NEGATIVE (NEGATIVE)
[2022-03-03 16:43] LABS: BACTERIA,URINE NEGATIVE /HPF
[2022-03-03] MEDS ORDERED: cefTRIAXone 1 GM PRE-MIX 50 ML IV STA (17:14)
[2022-03-03] MEDS ORDERED: LACTATED RINGERS 1,000 ML IV STA (18:15)
[2022-03-03] MEDS ORDERED: polyethylene glycoL POWDER 17 GM (MIRALAX) PACK PO PRN (20:00)
[2022-03-03] MEDS ORDERED: NS IV 1000 ML 1,000 ML IV SCH (20:00)
[2022-03-03] MEDS ORDERED: diphenhydrAMINE 25 MG TAB (BENADRYL) PO PRN (20:00)
[2022-03-03] MEDS ORDERED: BISACODYL 10 MG SUPP (DULCOLAX) PR PRN (20:00)
[2022-03-03] MEDS ORDERED: ENOXAPARIN 40 MG/0.4 ML (LOVENOX) SYR SC SCH ×2 (20:00→22:15)
[2022-03-03] MEDS ORDERED: ONDANSETRON 4 MG/2 ML (SDV) Z0FRAN IV PRN (20:00)
[2022-03-03] MEDS ORDERED: MEROPENEM 500 MG in NS (IVPB) 100 ML IV SCH (20:00)
[2022-03-03] MEDS ORDERED: LIDOCAINE UROJET 2% GEL 10 ML PKG TOP ONE (20:00)
[2022-03-03] MEDS ORDERED: diphenhydrAMINE 50 MG/ML INJ (BENADRYL) IVP PRN (20:00)
[2022-03-03] MEDS ORDERED: NS IV 500 ML 500 ML IV PRN (20:00)
[2022-03-03] MEDS ORDERED: ACETAMINOPHEN 325 MG TABLET PO PRN (20:00)
[2022-03-03] MEDS ORDERED: ONDANSETRON 4 MG (ZOFRAN) ORAL DISSOLVE TAB PO PRN (20:00)
[2022-03-03] MEDS ORDERED: ANTACID SUSP 30 ML UDC (MYLANTA) PO PRN (20:00)
[2022-03-03] MEDS ORDERED: VANCOMYCIN INJECTION 0.1 MG in NS (IVPB) 250 ML IV SCH (20:00)
--- NOTE | 2022-03-03 20:55 | Tele-ICU Progress Note ---
Progress Note 51F with HTN, IDDM, COPD, DVT, PE, CKD recent leg cellulitus presented with dizziness and lightheadedness. Getting progressively worse x2 days. Recent admit to [place] for septic shock and CONSUELO. Renal function improved prior to discharge last week. Doxy completed yesterday. Leg wound appears improved. Dissiness iw worse with positional changes, but also occurs while lying in bed. Has not had similar symptoms previously. ED note reports positive orthostasis. No obvious source of sepsis found, but given recent history empriric abx initiated. - dizziness: unclear reason. Given recent history, hypotension, lactic acisosis it is reasonable to treat for sepsis empirically. Would also consider vestibulitis or labrythitis. Cont IVF. Has tenous renal function, creatinine appears to be around baseline. If she were significantly hypovolemic it would be reflected on her renal function. - hypoglycemia: hypoglycemia protocol. Continue insulin sliding scale when glucose rebounds. - anemia, low MCV: send iron, ferritin, retic with AM labs - CKD: creatinine of 2.6. Appears to be around baseline. Was around 6.5 on 02/11/22 and 11/16/19. Transferred to [place] for sepsis and CONSUELO on both of those occasions. But prior on 03/04/19 was 2.5. Suspect this is her baseline with several CONSUELO episodes, transferred before recovery was seen. Avoid hypotension, nephrotoxins. Focused Exam Lactate Level 03/03/22 15:00: Lactic Acid Level 2.21*H 03/03/22 17:00: Lactic Acid Level 2.38*H 03/03/22 20:13: Lactic Acid Level 1.88 Height, Weight, BMI Height: '" Weight: lbs. oz. kg; 49.00 BMI Method: Time of Focused Exam: 17:30 Lactic Acid Level Laboratory Tests Test 03/03/22 17:00 03/03/22 20:13 Lactic Acid Level 2.38 MMOL/L (0.50-2.00) *H 1.88 MMOL/L (0.50-2.00) NEIDA FLORES MD Mar 03, 2022 20:55
[2022-03-03 21:00] VITALS: BP 103/62
[2022-03-03] MEDS ORDERED: MEROPENEM 500 MG VIAL (MERREM) IV ONE (21:00)
[2022-03-03] MEDS ORDERED: NS (IVPB) 100 ML ONE (21:00)
[2022-03-03] MEDS: inSUlin ASPART (NovoLOG) 1 UNIT/0.01 ML (CHARGE PER UNIT) SC SCH (21:04)
[2022-03-03] MEDS: DOCUSATE SODIUM 100 MG (COLACE) CAP PO SCH (21:04)
[2022-03-03] MEDS ORDERED: RT-ALBUTEROL SULF 2.5 MG/3 ML PRE-MIX VIAL INH PRN (21:30)
[2022-03-03] MEDS: NOREPINEPHRINE 8 MG/250 ML 250 ML IV SCH ×2 (21:44→23:43)
[2022-03-03] MEDS ORDERED: ENOXAPARIN 120 MG/0.8 ML (LOVENOX) ONE (21:49)
[2022-03-03] MEDS ORDERED: MELATONIN 3 MG TABLET ONE (21:50)
[2022-03-03] MEDS: MELATONIN 3 MG TABLET PO PRN (21:52)
[2022-03-03] MEDS: MEROPENEM 500 MG in NS (IVPB) 100 ML IV SCH (22:33)
[2022-03-03] MEDS: ENOXAPARIN 40 MG/0.4 ML (LOVENOX) SYR SC SCH (22:33)
[2022-03-03] MEDS: VANCOMYCIN 1 GM/NS 250 ML IVPB IV SCH ×4 (22:45→23:42)
[2022-03-04] MEDS: VANCOMYCIN 1 GM/NS 250 ML IVPB IV SCH ×2 (01:11)
[2022-03-04] MEDS ORDERED: LACTATED RINGERS 1,000 ML IV ONE (03:25)
[2022-03-04] MEDS: LACTATED RINGERS 1,000 ML IV SCH ×4 (03:27→22:01)
[2022-03-04 04:59] LABS: ABSOLUTE RETIC # 159 10e9/uL (24-90); BASOPHILS # (AUTO) 0.1 10^3/uL (0.0-0.1); BASOPHILS % (AUTO) 1 % (0-10); EOSINOPHILS # (AUTO) 0.2 10^3/uL (0.0-0.3); EOSINOPHILS % (AUTO) 1 % (0-10); HEMATOCRIT 30 % (35-52); HEMOGLOBIN 9.6 g/dL (11.5-16.0); LYMPHOCYTES # (AUTO) 6.3 10^3/uL (1.0-4.0); LYMPHOCYTES % (AUTO) 42 % (12-44); MEAN CORPUSCULAR HEMOGLOBIN 26 pg (25-34); MEAN CORPUSCULAR HGB CONC 32 g/dL (32-36); MEAN CORPUSCULAR VOLUME 80 fL (80-99); MEAN PLATELET VOLUME 10.9 fL (9.0-12.2); MONOCYTES # (AUTO) 1.3 10^3/uL (0.0-1.0); MONOCYTES % (AUTO) 9 % (0-12); NEUTROPHILS # (AUTO) 7.1 10^3/uL (1.8-7.8); NEUTROPHILS % (AUTO) 47 % (42-75); PLATELET COUNT 472 10^3/uL (130-400); RETICULOCYTE % 4.27 % (0.50-2.40)
[2022-03-04 05:02] LABS: ABG BASE EXCESS 0.3 MMOL/L (-2.5-2.5); ABG OXYGEN SATURATION 100 % (94-100); ABG PCO2 38 MMHG (35-45); ABG PH 7.42 (7.37-7.43); ABG PO2 125 MMHG (79-93); ABG TCO2 25.6 MMOL/L (21.0-31.0)
[2022-03-04 05:04] LABS: PATIENT TEMP 36.1; VENTILATOR NO
[2022-03-04 05:13] LABS: ALBUMIN 2.9 GM/DL (3.2-4.5)
[2022-03-04 05:14] LABS: POTASSIUM 3.3 MMOL/L (3.6-5.0)
[2022-03-04 05:15] LABS: CALCIUM 8.6 MG/DL (8.5-10.1)
[2022-03-04 05:16] LABS: TOTAL PROTEIN 6.7 GM/DL (6.4-8.2)
[2022-03-04 05:18] LABS: BILIRUBIN,TOTAL 0.7 MG/DL (0.1-1.0)
[2022-03-04 05:19] LABS: PHOSPHORUS 3.6 MG/DL (2.3-4.7)
[2022-03-04 05:20] LABS: CREATININE SERUM 2.19 MG/DL (0.60-1.30)
[2022-03-04 05:23] LABS: MAGNESIUM 1.6 MG/DL (1.6-2.4)
[2022-03-04] MEDS: MEROPENEM 500 MG in NS (IVPB) 100 ML IV SCH ×3 (05:33→21:16)
[2022-03-04] MEDS: KCL 20 MEQ TAB (K-DUR) PO SCH (05:36)
[2022-03-04] MEDS: inSUlin ASPART (NovoLOG) 1 UNIT/0.01 ML (CHARGE PER UNIT) SC SCH ×4 (05:36→20:38)
[2022-03-04] MEDS: POTASSIUM CL 10MEQ/50ML IVPB 50 ML IV SCH (05:41)
[2022-03-04] MEDS: MAGNESIUM 1 GM/100 ML IVPB 100 ML IV SCH (05:42)
[2022-03-04] MEDS ORDERED: MAGNESIUM 1 GM/100 ML IVPB 100 ML IV SCH (05:45)
[2022-03-04] MEDS ORDERED: POTASSIUM CL 10MEQ/50ML IVPB 50 ML IV SCH (05:45)
[2022-03-04] MEDS: DOCUSATE SODIUM 100 MG (COLACE) CAP PO SCH ×2 (08:13→20:19)
--- NOTE | 2022-03-04 09:29 | Tele-ICU Progress Note ---
Subjective Date Seen by a Provider: Mar 04, 2022 Subjective/Events-last exam This virtual visit was conducted using real time audio/video. Thank you for asking us to see this patient for respiratory insufficiency due to COPD, on home O2 3 LPM. Admitted w dizziness, probable sepsis. Recent events: PE: Morbidly obese, comfortable on camera. VSS. O2 sat 100% on 3 LPM NC. HEENT: No obvious masses, adenopathy or JVD. Chest: Diminished on auscultation. CV: RRR S1 S2 No murmur or added sounds. Abd: Non-tender. Bowel sounds Y. : Unremarkable. FoleN. COUNTER TACKER/psychiatric: Grossly intact. No obvious focal findings. Extremities: 1+ R edema, R calf wound. Capillary refill < 3 seconds. Skin: unremarkable. Results: Elevated WCC 15K, BUN 54, Creat 2.19, BG 123. Decreased K 3.3, Hb 9.6. AB.42, 38,125. CXR: Hyperinflated. Available chart/ vitals / labs / images reviewed. Video assessment done using teleICU camera, rest of exam as per RN. A/P: Respiratory insufficiency: Continue present management with albuterol, O2 Monitor for increasing oxygenation needs and/or need for intubation. Critical Care: critically ill patient. Cont. abx, PRN pressor, SSI, Fortunato. 20 Meq PO K ordered. Discussed with DELIA Turner. Asked RN to reach out to eICU if any questions or concerns later. Time spent with patient/coordination of care with other health professionals (mins): 25 Sepsis Event Evaluation Height, Weight, BMI Height: '" Weight: lbs. oz. kg; 48.08 BMI Method: Focused Exam Lactate Level 03/03/22 15:00: Lactic Acid Level 2.21*H 03/03/22 17:00: Lactic Acid Level 2.38*H 03/03/22 20:13: Lactic Acid Level 1.88 Time of Focused Exam: 17:30 Exam Exam Patient acknowledged, consented, and participated in this virtual visit which was conducted using real time audio/video Vital Signs Date Time Temp Pulse Resp B/P (MAP) Pulse Ox O2 Delivery O2 Flow Rate FiO2 03/04/22 08:00 Nasal Cannula 3.00 03/04/22 08:00 96 11 107/80 (89) 100 NIV CPAP 03/04/22 08:00 36.4 03/04/22 07:00 116 03/04/22 07:00 75 15 92/56 (68) 96 NIV CPAP 03/04/22 06:00 75 15 96/64 (75) 99 NIV CPAP 03/04/22 05:00 78 16 95/62 (73) 98 NIV CPAP 03/04/22 04:00 78 12 101/75 (84) 98 NIV CPAP 03/04/22 03:03 NIV CPAP 03/04/22 03:00 83 14 105/69 (81) 98 NIV CPAP 03/04/22 03:00 36.1 NIV CPAP 03/04/22 02:00 90 16 107/70 (82) 97 Nasal Cannula 3.00 03/04/22 01:42 96 03/04/22 01:00 86 15 114/51 (72) 97 Nasal Cannula 3.00 03/04/22 00:05 118/82 03/04/22 00:00 85 16 118/82 (94) 97 Nasal Cannula 3.00 03/04/22 00:00 36.4 NIV CPAP 03/04/22 00:00 NIV CPAP 03/03/22 23:43 76 65/53 03/03/22 23:00 80 15 85/58 (67) 97 Nasal Cannula 3.00 03/03/22 22:51 Nasal Cannula 3.00 03/03/22 22:15 88 22 103/65 (78) 98 Nasal Cannula 3.00 03/03/22 21:30 94 17 112/85 (94) 100 Nasal Cannula 3.00 03/03/22 21:15 93 8 117/86 (96) 100 Nasal Cannula 3.00 03/03/22 21:00 35.7 102 99 32 03/03/22 21:00 97 16 98/80 (86) 99 Nasal Cannula 3.00 03/03/22 20:45 98 21 114/86 (95) 100 Nasal Cannula 3.00 03/03/22 20:30 94 24 100 Nasal Cannula 3.00 03/03/22 20:15 85 24 98/72 (81) 100 Nasal Cannula 3.00 03/03/22 20:04 92 03/03/22 20:00 96 24 126/69 (88) 99 Nasal Cannula 3.00 03/03/22 20:00 36.4 03/03/22 19:45 95 23 114/89 (97) 100 Nasal Cannula 3.00 03/03/22 19:40 Nasal Cannula 3.00 03/03/22 19:35 36.4 Nasal Cannula 3.00 03/03/22 19:30 95 23 130/105 (113) Nasal Cannula 3.00 03/03/22 14:57 82 108/50 (69) 102 103/62 (76) 122 95/31 (52) 03/03/22 14:45 35.7 102 13 103/62 (76) 99 Nasal Cannula 3.00 I & O 03/04/22 07:00 Intake Total 5600 ml Output Total 3000 ml Balance 2600 ml Height & Weight Height: '" Weight: lbs. oz. kg; 48.08 BMI Method: General Appearance: Mild Distress, Obese HEENT: PERRL/EOMI; No Moist Mucous Membranes (Slightly dry mucous membranes) Neck: Full Range of Motion, Non Tender, Supple Respiratory: Chest Non Tender, No Accessory Muscle Use, No Respiratory Distress, Decreased Breath Sounds Cardiovascular: Regular Rate, Rhythm, Normal Peripheral Pulses Capillary Refill: Less Than 3 Seconds Peripheral Pulses: 2+ Carotid (R), 2+ Carotid (L), 2+ Radial Pulses (R), 2+ Radial Pulses (L) Extremity: Normal Capillary Refill, Normal Inspection, Pedal Edema (1+ pitting edema bilateral lower extremities) Neurologic/Psychiatric: Alert, Oriented x3, shipping specialist II-XII Norm as Tested Skin: Normal Color, Warm/Dry, Other (tender to palpation RLE lateral aspect where she has healing sores without fluctuance or drainage) Results Lab Laboratory Tests 03/03/22 15:00 03/04/22 04:42 Assessment/Plan Assessment/Plan See free text. Critical Care: Critically Ill Patient LC DE GUZMAN MD Mar 04, 2022 09:29
[2022-03-04] MEDS ORDERED: KCL 20 MEQ TAB (K-DUR) PO ONE (09:30)
[2022-03-04] MEDS ORDERED: NS IV 1000 ML 1,000 ML IV SCH (11:45)
[2022-03-04] MEDS ORDERED: CYCL10TA25 PO (13:31)
[2022-03-04] MEDS ORDERED: FERR-84 PO (13:31)
[2022-03-04] MEDS ORDERED: MULT-577 PO (13:31)
[2022-03-04] MEDS ORDERED: BUME1TAB8 PO (13:31)
[2022-03-04] MEDS ORDERED: INSU100I14 SC (13:31)
[2022-03-04] MEDS ORDERED: VARE1TAB24 PO (13:31)
[2022-03-04] MEDS ORDERED: DOCU100C37 PO (13:31)
[2022-03-04] MEDS ORDERED: APIX5TAB PO (13:31)
[2022-03-04] MEDS ORDERED: DESV50TA18 PO (13:31)
[2022-03-04] MEDS ORDERED: METO5TAB6 PO (13:31)
[2022-03-04] MEDS ORDERED: OMEP20CA18 PO (13:31)
[2022-03-04] MEDS ORDERED: SEMA2PEN IJ (13:31)
[2022-03-04] MEDS ORDERED: ATOR80TA76 PO (13:31)
[2022-03-04] MEDS ORDERED: UMEC62.5 INH (13:31)
[2022-03-04] MEDS ORDERED: ALLO100T PO (13:31)
[2022-03-04] MEDS ORDERED: HYDR60TA PO (13:31)
[2022-03-04] MEDS ORDERED: QUET300T19 PO (13:31)
[2022-03-04] MEDS ORDERED: BUSP30TA2 PO (13:31)
[2022-03-04] MEDS ORDERED: MONT-40 PO (13:31)
[2022-03-04] MEDS ORDERED: HYDR50TA76 PO ×2 (13:31)
[2022-03-04] MEDS ORDERED: BUPR150T24 PO (13:31)
[2022-03-04] MEDS ORDERED: BUPR300T98 PO (13:31)
[2022-03-04] MEDS ORDERED: LISI5TAB20 PO (13:31)
[2022-03-04] MEDS ORDERED: ALBU18HF2 INH (13:31)
[2022-03-04] MEDS ORDERED: PREG75CA75 PO (13:31)
[2022-03-04] MEDS ORDERED: INSU200I4 SC (13:31)
[2022-03-04] MEDS: RT-ALBUTEROL SULF 2.5 MG/3 ML PRE-MIX VIAL INH SCH ×2 (14:50→21:19)
--- NOTE | 2022-03-04 14:59 | History & Physical-Hospitalist ---
MARCUSMIGUELNEW LYNCH 03/04/22 1459: History of Present Illness HPI/Chief Complaint CC: Sepsis 51yo F with h/o CKD IV, mutliple DVTS, IDDM, COPD, O2 dependence on 3L, and CAD was admitted last night for Acute on Chronic renal failure and sepsis. Last night, pt presented to the ED after experiencing dizziness, lightheadedness, nausea, and vomiting that started 2 days ago and worsened last night. Earlier this month, pt was admitted to [facility] at [place] for septic shock and chronic renal failure. Pt states that earlier this month, she woke up with multiple tender "knots" on her R leg that progressed to ulcerations. Pt states that the uclerations became infected resulting in the sepsis. Pt had a MRSA positive culture of her wounds on 02/11. Pt was DC from [facility] in [place] 2 weeks ago with 2 weeks worth of doxycycline 100mg BID. Pt finished the course 2 days ago. Since finishing her antibiotics, pt states that she started to experience the aforementioned symptoms, prompting her to go to the ED. Pt presented to ED with sepsis that improved with IV fluids. Pt was also given Cefriaxone. Workup found an elevated lactic acid of 2.38, elevated WBC, and elevated AG of 17. CXR, CT head were unremarkable. Pt was admitted to the ICU for further management. Pt was started on 200mls IV Q8H meropenem and completed 3 bags of IV vancomycin. Today, pt continues to be hypotensive at 96/64 while on pressors. Repeat labs were remarkable for mild hyponatremia of 133, mild hypokalemia of 3.3, improved AG of 13, improved WBC, and a negative procalcitonin. Cr is 2.19 which is below pt's baseline of 2.6. In room, pt is sitting comfortably in bed. Pt states that her leg pain and swelling has improved today. Pt states that she is still experiencing some dizziness and lightheadedness and notes that both symptoms are brought on with head movement. Pt is voiding without issue. Pt was able to eat breakfast this morning without issue. Pt has no complaints. Pt denies any vomiting, nausea, CP, worsened SOA, worsened cough, diarrhea, or abd pain. ABG 03/04: pH: 7.42 pCO2: 38 pO2: 125 Source: patient, old records Exam Limitations: no limitations Date Seen 03/04/22 Time Seen by a Provider: 14:48 Attending Physician Gonzalo Langford MD PCP Admitting Physician: Madisyn Adams DO Attending Physician: Madisyn Adams DO Referring Physician Date of Admission Mar 03, 2022 at 19:30 Home Medications & Allergies Home Medications Reviewed patient Home Medication Reconciliation performed by pharmacy medication reconciliations geotechnical laboratory technician and/or nursing. Patients Allergies have been reviewed. Allergies Allergies Coded Allergies No Known Drug Allergies (Unverified11/16/19) Past Xokotcs-Crlbee-Hufhba Hx Patient Social History Employed/Student: unemployed Tobacco Use?: Yes Tobacco type used: Cigarettes Smoking Status: Heavy Tobacco Smoker (.5 pack daily, down from 2 packs a day for the past 30+ yrs) Smokeless Tobacco Frequency: Never a User Use of E-Cig and/or Vaping dev: No Use of E-Cig and/or Vaping [place]: Never a User Substance use?: No Alcohol Use?: No Alcohol Frequency: Once in a while Pt feels they are or have been: No Seasonal Allergies Seasonal Allergies: No Current Status Advance Directives: Yes Advance Directive Location: Home Communicates: Verbally Primary Language: Gambian Preferred Spoken Language: Gambian Is interpretation needed?: No Sensory deficits: Vision impairment Implanted or Applied Medical D: CPAP Past Medical History Surgeries: Abdominal (splenectomy- 2 yrs ago, cholecystectomy ), Hysterectomy Pulmonary Embolism, COPD Chronic Edema/Swelling, Deep Vein Thrombosis, High Cholesterol, Hypertension Chronic Back Pain Diabetes, Insulin dep Anxiety, Depression Eczema Blood Disorders: Yes CKD IV Review of Systems Constitutional: No chills, No diaphoresis, No fever EENTM: No hearing loss, No ear pain, No blurred vision Respiratory: No hemoptysis, No phlegm, No stridor Cardiovascular: No chest pain, No palpitations Gastrointestinal: No abdominal pain, No constipation, No diarrhea, No nausea, No vomiting Genitourinary: No decreased output, No discharge Musculoskeletal: No gout, No joint pain, No muscle stiffness Skin: No change in color, No change in hair/nails Psychiatric/Neurological: Denies Anxiety, Denies Depressed All Other Systems Reviewed Negative Unless Noted: Yes Physical Exam Physical Exam Vital Signs Vital Signs - First Documented 03/03/22 03/03/22 14:45 21:00 Temp 35.7 Pulse 102 Resp 13 B/P (MAP) 103/62 (76) Pulse Ox 99 O2 Delivery Nasal Cannula O2 Flow Rate 3.00 FiO2 32 Capillary Refill : Less Than 3 Seconds Height, Weight, BMI Height: '" Weight: lbs. oz. kg; 48.08 BMI Method: General Appearance: No Apparent Distress, Obese HEENT: PERRL/EOMI, Moist Mucous Membranes Neck: Normal Inspection, Supple Respiratory: Chest Non Tender, No Respiratory Distress, Wheezing (diffusely ) Cardiovascular: Regular Rate, Rhythm, No Gallop, No Murmur Gastrointestinal: Non Tender, Soft, Other (midline vertical and horizontal LLQ surgical scars ) Back: Normal Inspection; No Muscle Spasm Extremity: No Calf Tenderness, Swelling (acute on chronic-improved ) Neurologic/Psychiatric: Alert, Oriented x3 Skin: Warm/Dry, Erythema (R leg, surrounding wounds and nodules located on R morgan), Other (B/l venous stasis dermatitis R>L, Four healing ulcerations located on R morgan and one on back of R calf, two tender nodules located on upper R morgan. Some surrounding erythema present on nodules and healing wounds) Lymphatic: No Adenopathy Results Results/Procedures Labs Laboratory Tests 03/03/22 15:00 03/04/22 04:42 Patient resulted labs reviewed. Assessment/Plan Admission Diagnosis Septic Shock and Acute on Chronic Renal Failure Admission Status: Inpatient Order (span 2 midnights) Reason for Inpatient Admission: Septic Shock and Acute on Chronic Renal Failure Assessment and Plan 1. Septic Shock -Currently on pressors -continue treating source of infection -Monitor BP 2. Acute on Chronic Renal Failure -continue to monitor -baseline Cr 2.6 3. MRSA + Infection of R leg -+ wound culture on leg on 02/11 -currently on 200mls Q8H IV Meropenem 4.H/o DVT and PE -currently on Lovenox -on halfway anti-coagulation at home 5. COPD -3L O2 at home and BiPap 6. Dizziness/lightheadedness -positional, consider inner ear problem or secondary to low BP -improved today 7.Lactic Acidosis -resolved Plan: Continue IV Abx Monitor Kidney function Replace electrolytes as needed Continue to monitor BP, correct as needed MADISYN ADAMS DO 03/05/22 0520: Assessment/Plan Admission Diagnosis Supportive care IV antibiotics Pressor therapy ICU Admission Status: Inpatient Order (span 2 midnights) Reason for Inpatient Admission: Septic shock Supervisory-Addendum Brief Verification & Attestation Participated in pt care: history, MDM, physical Personally performed: exam, history, MDM, supervision of care Care discussed with: Medical Student Procedures: n/a Results interpretation: Verified all documentation Verification and Attestation of Medical Student E/M Service A medical student performed and documented this service in my presence. I reviewed and verified all information documented by the medical student and made modifications to such information, when appropriate. I personally performed the physical exam and medical decision making. Madisyn Adams, Mar 05, 2022,05:19 [place] Mar 04, 2022 14:59 MADISYN ADAMS DO Mar 05, 2022 05:20
[2022-03-04] MEDS: MELATONIN 3 MG TABLET PO PRN (20:19)
[2022-03-04] MEDS: ENOXAPARIN 40 MG/0.4 ML (LOVENOX) SYR SC SCH (21:15)
[2022-03-04] MEDS ORDERED: LIDOCAINE 2% VISCOUS 15 ML UDC PO ONE (21:45)
[2022-03-04] MEDS ORDERED: ANTACID SUSP 30 ML UDC (MYLANTA) PO ONE (21:45)
[2022-03-04] MEDS ORDERED: PANTOPRAZOLE 40 MG (PROTONIX) VIAL IV ONE (21:45)
[2022-03-04] MEDS: NOREPINEPHRINE 8 MG/250 ML 250 ML IV SCH (22:02)
[2022-03-05] VITALS (8 sets, daily range): BP systolic 88–111; BP diastolic 58–81
[2022-03-05 03:16] LABS: BASOPHILS # (AUTO) 0.1 10^3/uL (0.0-0.1); BASOPHILS % (AUTO) 1 % (0-10); EOSINOPHILS # (AUTO) 0.1 10^3/uL (0.0-0.3); EOSINOPHILS % (AUTO) 1 % (0-10); HEMATOCRIT 24 % (35-52); HEMOGLOBIN 7.8 g/dL (11.5-16.0); LYMPHOCYTES # (AUTO) 4.2 10^3/uL (1.0-4.0); LYMPHOCYTES % (AUTO) 32 % (12-44); MEAN CORPUSCULAR HEMOGLOBIN 26 pg (25-34); MEAN CORPUSCULAR HGB CONC 32 g/dL (32-36); MEAN CORPUSCULAR VOLUME 81 fL (80-99); MONOCYTES % (AUTO) 8 % (0-12); NEUTROPHILS # (AUTO) 7.5 10^3/uL (1.8-7.8); NEUTROPHILS % (AUTO) 58 % (42-75); PLATELET COUNT 256 10^3/uL (130-400); WHITE BLOOD COUNT 12.9 10^3/uL (4.3-11.0)
[2022-03-05 03:40] LABS: SMEAR SCAN COMMENT YES
[2022-03-05 03:56] LABS: ALBUMIN 2.3 GM/DL (3.2-4.5); POTASSIUM 3.9 MMOL/L (3.6-5.0)
[2022-03-05 03:57] LABS: CALCIUM 8.1 MG/DL (8.5-10.1)
[2022-03-05 03:58] LABS: TOTAL PROTEIN 5.6 GM/DL (6.4-8.2)
[2022-03-05 04:00] LABS: BILIRUBIN,TOTAL 0.6 MG/DL (0.1-1.0)
[2022-03-05 04:02] LABS: CREATININE SERUM 1.46 MG/DL (0.60-1.30); PHOSPHORUS 2.7 MG/DL (2.3-4.7)
[2022-03-05 04:05] LABS: MAGNESIUM 1.4 MG/DL (1.6-2.4)
[2022-03-05] MEDS: KCL 20 MEQ TAB (K-DUR) PO SCH (04:44)
[2022-03-05] MEDS: inSUlin ASPART (NovoLOG) 1 UNIT/0.01 ML (CHARGE PER UNIT) SC SCH ×4 (04:44→20:18)
[2022-03-05] MEDS: POTASSIUM CL 10MEQ/50ML IVPB 50 ML IV SCH (04:44)
[2022-03-05] MEDS: LACTATED RINGERS 1,000 ML IV SCH ×3 (04:45→19:25)
[2022-03-05] MEDS: MAGNESIUM 1 GM/100 ML IVPB 100 ML IV SCH ×5 (04:51→07:55)
[2022-03-05] MEDS: MEROPENEM 500 MG in NS (IVPB) 100 ML IV SCH ×3 (05:38→18:49)
--- NOTE | 2022-03-05 05:49 | Progress Note - Hospitalist ---
Subjective HPI/CC On Admission Date Seen by Provider: Mar 05, 2022 Time Seen by Provider: 11:00 CC: Sepsis 51yo F with h/o CKD IV, mutliple DVTS, IDDM, COPD, O2 dependence on 3L, and CAD was admitted last night for Acute on Chronic renal failure and sepsis. Last night, pt presented to the ED after experiencing dizziness, lightheadedness, nausea, and vomiting that started 2 days ago and worsened last night. Earlier this month, pt was admitted to [facility] [place] for septic shock and chronic renal failure. Pt states that earlier this month, she woke up with multiple tender "knots" on her R leg that progressed to ulcerations. Pt states that the uclerations became infected resulting in the sepsis. Pt had a MRSA positive culture of her wounds on 02/11. Pt was DC from [facility] in [place] 2 weeks ago with 2 weeks worth of doxycycline 100mg BID. Pt finished the course 2 days ago. Since finishing her antibiotics, pt states that she started to experience the aforementioned symptoms, prompting her to go to the ED. Pt presented to ED with sepsis that improved with IV fluids. Pt was also given Cefriaxone. Workup found an elevated lactic acid of 2.38, elevated WBC, and elevated AG of 17. CXR, CT head were unremarkable. Pt was admitted to the ICU for further management. Pt was started on 200mls IV Q8H meropenem and completed 3 bags of IV vancomycin. Today, pt continues to be hypotensive at 96/64 while on pressors. Repeat labs were remarkable for mild hyponatremia of 133, mild hypokalemia of 3.3, improved AG of 13, improved WBC, and a negative procalcitonin. Cr is 2.19 which is below pt's baseline of 2.6. In room, pt is sitting comfortably in bed. Pt states that her leg pain and swelling has improved today. Pt states that she is still experiencing some dizziness and lightheadedness and notes that both symptoms are brought on with head movement. Pt is voiding without issue. Pt was able to eat breakfast this morning without issue. Pt has no complaints. Pt denies any vomiting, nausea, CP, worsened SOA, worsened cough, diarrhea, or abd pain. ABG 03/04: pH: 7.42 pCO2: 38 pO2: 125 Subjective/Events-last exam Patient began having chest pain today Elevated troponin Dr. Ly will consult Still requiring pressor therapy Very debilitated and chronically ill-appearing Sleeping Review of Systems General: Fatigue, Malaise Focused Exam Lactate Level 03/03/22 15:00: Lactic Acid Level 2.21*H 03/03/22 17:00: Lactic Acid Level 2.38*H 03/03/22 20:13: Lactic Acid Level 1.88 Time of Focused Exam: 17:30 Objective Exam Vital Signs Vital Signs Date Time Temp Pulse Resp B/P (MAP) Pulse Ox O2 Delivery O2 Flow Rate FiO2 03/05/22 20:01 36.1 03/05/22 19:15 100 18 111/81 98 NIV CPAP 3.00 03/05/22 15:45 3 Capillary Refill : Less Than 3 Seconds General Appearance: No Apparent Distress, WD/WN, Chronically ill, Obese Respiratory: Decreased Breath Sounds Cardiovascular: Regular Rate, Rhythm Results/Procedures Lab Laboratory Tests 03/05/22 03:05 Patient resulted labs reviewed. Assessment/Plan Assessment and Plan Assess & Plan/Chief Complaint 1. Septic Shock -Currently on pressors -continue treating source of infection -Monitor BP 2. Acute on Chronic Renal Failure -continue to monitor -baseline Cr 2.6 3. MRSA + Infection of R leg -+ wound culture on leg on 02/11 -currently on 200mls Q8H IV Meropenem 4.H/o DVT and PE -currently on Lovenox -on keno terminal operator anti-coagulation at home 5. COPD -3L O2 at home and BiPap 6. Dizziness/lightheadedness -positional, consider inner ear problem or secondary to low BP -improved today 7.Lactic Acidosis -resolved 8. NSTEMI Plan: Continue IV Abx Monitor Kidney function Replace electrolytes as needed Continue to monitor BP, correct as needed Cardiology consult Critical Care Critically Ill Patient STARLA ADAMS DO Mar 05, 2022 05:49
[2022-03-05] MEDS: DOCUSATE SODIUM 100 MG (COLACE) CAP PO SCH ×2 (08:46→20:18)
[2022-03-05] MEDS ORDERED: ENOXAPARIN 60 MG/0.6 ML (LOVENOX) SYR SC SCH (09:00)
--- NOTE | 2022-03-05 09:32 | Tele-ICU Progress Note ---
Subjective Date Seen by a Provider: Mar 05, 2022 Subjective/Events-last exam This virtual visit was conducted using real time audio/video. Thank you for asking us to see this patient for respiratory insufficiency due to COPD, on home O2 3 LPM. Admitted w dizziness, sepsis. Recent events: Chest pain overnight. Trop elevated, given GI cocktail. Back on Levophed. PE: Morbidly obese, comfortable on camera. VSS. O2 sat 96% on 3 LPM NC. HEENT: No obvious masses, adenopathy or JVD. Chest: Diminished on auscultation. CV: RRR S1 S2 No murmur or added sounds. Abd: Non-tender. Bowel sounds Y. : Unremarkable. Sellers N. WEIGHER AND GRADER/psychiatric: Grossly intact. No obvious focal findings. Extremities: 1+ R edema, R calf wound. Capillary refill < 3 seconds. Skin: unremarkable. Results: Elevated WCC 12.9 decreasing, BUN 33 improved, Creat 1.36 improved, BG 132, Trop 0.038. Decreased Hb 7.8. AB.384/50.3/31. CXR: Hyperinflated. Available chart/ vitals / labs / images reviewed. Video assessment done using teleICU camera, rest of exam as per RN. A/P: Respiratory insufficiency: Continue present management with albuterol, O2. Monitor for increasing oxygenation needs and/or need for intubation. Critical Care: critically ill patient. Cont. abx, PRN pressor, SSI, Fortunato., PPI. Repeat Troponin. Discussed with DELIA Turner. Asked RN to reach out to eICU if any questions or concerns later. Time spent with patient/coordination of care with other health professionals (mins): 28 Sepsis Event Evaluation Height, Weight, BMI Height: '" Weight: lbs. oz. kg; 50.42 BMI Method: Focused Exam Lactate Level 03/03/22 15:00: Lactic Acid Level 2.21*H 03/03/22 17:00: Lactic Acid Level 2.38*H 03/03/22 20:13: Lactic Acid Level 1.88 Time of Focused Exam: 17:30 Exam Exam Patient acknowledged, consented, and participated in this virtual visit which was conducted using real time audio/video Vital Signs Date Time Temp Pulse Resp B/P (MAP) Pulse Ox O2 Delivery O2 Flow Rate FiO2 03/05/22 09:00 79 18 111/76 (88) 99 Nasal Cannula 3.00 03/05/22 08:54 Nasal Cannula 3.00 03/05/22 08:47 36.0 102 95 03/05/22 08:02 37.0 03/05/22 08:00 102 90/76 (81) 100 NIV CPAP 3.00 03/05/22 08:00 Nasal Cannula 3.00 03/05/22 07:00 95 03/05/22 07:00 93 108/80 (89) 100 NIV CPAP 3.00 03/05/22 06:00 95 118/77 (91) 98 NIV CPAP 3.00 03/05/22 05:00 92 113/85 (94) 98 NIV CPAP 3.00 03/05/22 04:00 86 94/70 (78) 98 NIV CPAP 3.00 03/05/22 03:51 NIV CPAP 3.00 03/05/22 03:50 36.2 NIV CPAP 3.00 03/05/22 03:00 92 107/73 (84) 99 NIV CPAP 3.00 03/05/22 02:00 90 105/80 (88) 98 NIV CPAP 3.00 03/05/22 01:00 89 115/86 (96) 99 NIV CPAP 3.00 03/05/22 01:00 101 03/05/22 00:00 93 93/75 (81) 97 NIV CPAP 3.00 03/04/22 23:31 36.0 NIV CPAP 3.00 03/04/22 23:31 Nasal Cannula 3.00 03/04/22 23:00 97 91/71 (78) 97 NIV CPAP 3.00 03/04/22 22:02 87 136/102 03/04/22 22:00 84 92/60 (71) 97 NIV CPAP 3.00 03/04/22 21:00 93 138/98 (111) 96 NIV CPAP 3.00 03/04/22 20:03 36.4 NIV CPAP 3.00 03/04/22 20:00 92 120/90 (100) 96 NIV CPAP 3.00 03/04/22 20:00 Nasal Cannula 3.00 03/04/22 20:00 NIV CPAP 3.00 03/04/22 19:59 36.0 03/04/22 19:00 91 87/60 (69) 100 NIV CPAP 3.00 03/04/22 19:00 90 03/04/22 18:00 88 85/49 (61) 98 NIV CPAP 3.00 03/04/22 17:00 90 115/69 (84) 99 NIV CPAP 3.00 03/04/22 16:00 36.8 03/04/22 16:00 93 26 125/75 (92) 96 NIV CPAP 3.00 03/04/22 16:00 Nasal Cannula 3.00 03/04/22 15:00 87 97 NIV CPAP 03/04/22 14:00 96 93/62 (72) 98 NIV CPAP 03/04/22 13:00 87 03/04/22 13:00 97 106/77 (87) 99 NIV CPAP 03/04/22 12:00 Nasal Cannula 3.00 03/04/22 12:00 95 92/68 (76) 97 NIV CPAP 03/04/22 11:00 91 12 102/51 (68) 98 NIV CPAP 03/04/22 10:00 94 17 119/75 (90) 95 NIV CPAP I & O 03/05/22 07:00 Intake Total 7650 ml Balance 7650 ml Height & Weight Height: '" Weight: lbs. oz. kg; 50.42 BMI Method: General Appearance: No Apparent Distress, Obese HEENT: PERRL/EOMI, Moist Mucous Membranes Neck: Normal Inspection, Supple Respiratory: Chest Non Tender, No Respiratory Distress, Wheezing (diffusely ) Cardiovascular: Regular Rate, Rhythm, No Gallop, No Murmur Capillary Refill: Less Than 3 Seconds Peripheral Pulses: 2+ Carotid (R), 2+ Carotid (L), 2+ Radial Pulses (R), 2+ Radial Pulses (L) Extremity: No Calf Tenderness, Swelling (acute on chronic-improved ) Neurologic/Psychiatric: Alert, Oriented x3 Skin: Warm/Dry, Erythema (R leg, surrounding wounds and nodules located on R morgan), Other (B/l venous stasis dermatitis R>L, Four healing ulcerations located on R morgan and one on back of R calf, two tender nodules located on upper R morgan. Some surrounding erythema present on nodules and healing wounds) Lymphatic: No Adenopathy Results Lab Laboratory Tests 03/03/22 15:00 03/04/22 04:42 03/05/22 03:05 Assessment/Plan Assessment/Plan See free text. Critical Care: Critically Ill Patient LC DE GUZMAN MD Mar 05, 2022 09:32
[2022-03-05] MEDS ORDERED: TROUGH ORDER-PHARMACY XX ONE (10:00)
[2022-03-05] MEDS: NOREPINEPHRINE 8 MG/250 ML 250 ML IV SCH (10:10)
[2022-03-05] MEDS ORDERED: VANCOMYCIN 1500 MG/NS 500 ML IVPB IV SCH ×2 (11:00)
[2022-03-05] MEDS ORDERED: FUROSEMIDE 40 MG/4 ML INJ (LASIX) IVP NR (13:00)
[2022-03-05] MEDS ORDERED: NS IV 500 ML 500 ML IV SCH (13:00)
[2022-03-05] MEDS ORDERED: FAMOTIDINE 20 MG (PEPCID) TABLET PO NR (13:00)
[2022-03-05] MEDS ORDERED: ASPIRIN 81 MG CHEW (CHILDREN'S ASA) PO NR (13:00)
[2022-03-05] MEDS ORDERED: APIXABAN 5 MG (ELIQUIS) TABLET PO NR (13:00)
[2022-03-05] MEDS ORDERED: PANTOPRAZOLE 40 MG (PROTONIX) VIAL IV NR (13:00)
--- NOTE | 2022-03-05 14:49 | Consultation-Cardiology ---
HPI-Cardiology Cardiology Consultation: Date of Consultation 03/05/22 Time Seen by a Provider: 11:00 Date of Admission Attending Physician Gonzalo Langford MD Admitting Physician Admitting Physician: Madisyn Stringer DO Attending Physician: Madisyn Stringer DO Consulting Physician POWER KLEIN MD, MA, FACP, FACC, FSCAI, CCDS Physician requesting consult: Dr Stringer HPI: Chief Complaint: Reason for Card consult: Elevated troponin 51 yo woman admitted on 03/02/22 with dizziness, malaise, nauseas and vomiting. She was diagnosed with sepsis and septic shock. Has been in the ICU, has needed pressor support. Last night had a feeling of gen chest discomfort that has improved but not resolved over 12 hours. BP had improved to some degree after initial admission but has been low again and she is on Levophed at the timeof this exam. She has multiple comorbidities that are listed below. At the time of this exam she was on BiPAP but was able to take it off and answer questions. She reported gen malaise but much chest discomfort. She noted chronic, exertional shortness of breath. Has chronic, intermittent leg swelling. Has had leg ulcers that have healed. She reports gen malaise and weakness. She denies n/v/d. She denies syncop. She was hospitalized at [facility] for renal failure and septic shock earlier this month. Review of Systems-Cardiology Review of Systems Constitutional: malaise, tiredness Eyes: No vision change Ears/Nose/Throat: No ear discharge, No nasal drainage, No recent hearing loss Respiratory: As described under HPI Cardiovascular: As described under HPI Gastrointestinal: As described under HPI Genitourinary: No dysuria, No hematuria Musculoskeletal: No back pain, No joint pain Skin: No rash; ulcerations (on legs recently (now healed)) Psychiatric/Neurological: No seizure, No focal weakness, No syncope Hematologic: No bleeding abnormalities All Other Systems Reviewed Negative Unless Noted: Yes EUI-[id number]-[id number] Hx Patient Social History Employed/Student: unemployed Smoking Status: Heavy Tobacco Smoker (.5 pack daily, down from 2 packs a day for the past 30+ yrs) 2nd Hand Smoke Exposure: No Have you traveled recently?: No Alcohol Use?: No Pt feels they are or have been: No Tobacco type used: Cigarettes Past Medical History PMH As described under Assessment. Family Medical History Family Medical History: She does not report fam h/o early CAD or SCD Allergies and Home Medications Allergies Coded Allergies: No Known Drug Allergies (Unverified , 11/16/19) Patient Home Medication List Home Medication List Reviewed: Yes Albuterol Sulfate (Ventolin Hfa) 90 Mcg Hfa.aer.ad, 2 PUFF INH QID PRN for SHORTNESS OF BREATH, (Reported) Entered as Reported by: CARL LINDSAY on 03/04/221330 Last Action: Reviewed Allopurinol (Allopurinol) 100 Mg Tablet, 100 MG PO DAILY, (Reported) Entered as Reported by: CARL LINDSAY on 03/04/221330 Last Action: Reviewed Apixaban (Eliquis) 5 Mg Tablet, 5 MG PO BID, (Reported) Entered as Reported by: CARL LINDSAY on 03/04/221330 Last Action: Reviewed Atorvastatin Calcium (Atorvastatin Calcium) 80 Mg Tablet, 80 MG PO HS, (Reported) Entered as Reported by: CARL LINDSAY on 03/04/221330 Last Action: Reviewed Bumetanide (Bumetanide) 1 Mg Tablet, 1 MG PO DAILY, (Reported) Entered as Reported by: CARL LINDSAY on 03/04/221330 Last Action: Reviewed Bupropion HCl (Bupropion Xl) 300 Mg Tab.er.24h, 300 MG PO DAILY, (Reported) Entered as Reported by: CARL LINDSAY on 03/04/221330 Last Action: Reviewed Bupropion HCl (Bupropion Xl) 150 Mg Tab.er.24h, 150 MG PO DAILY, (Reported) Entered as Reported by: CARL LINDSAY on 03/04/221330 Last Action: Reviewed Buspirone HCl (Buspirone HCl) 30 Mg Tablet, 30 MG PO BID, (Reported) Entered as Reported by: CARL LINDSAY on 03/04/221330 Last Action: Reviewed Cyclobenzaprine HCl (Cyclobenzaprine HCl) 10 Mg Tablet, 5-10 MG PO TID PRN for MUSCLE SPASMS, (Reported) Entered as Reported by: CARL LINDSAY on 03/04/221330 Last Action: Reviewed Desvenlafaxine Succinate (Desvenlafaxine Succinate ER) 50 Mg Tab.er.24h, 50 MG PO DAILY, (Reported) Entered as Reported by: CARL LINDSAY on 03/04/221330 Last Action: Reviewed Docusate Sodium (Docusate Sodium) 100 Mg Capsule, 100 MG PO BID, (Reported) Entered as Reported by: CARL LINDSAY on 03/04/221330 Last Action: Reviewed Ferrous Sulfate (Iron) 325 Mg (65 Mg Iron) Tablet, 325 MG PO DAILY, (Reported) Entered as Reported by: CARL LINDSAY on 03/04/221330 Last Action: Reviewed Hydrocodone Bitartrate (Hysingla ER) 60 Mg Tab.er.24h, 60 MG PO HS, (Reported) Entered as Reported by: CARL LINDSAY on 03/04/221330 Last Action: Reviewed Hydroxyzine HCl (Hydroxyzine HCl) 50 Mg Tablet, 50 MG PO DAILY, (Reported) Entered as Reported by: CARL LINDSAY on 03/04/221330 Last Action: Reviewed Hydroxyzine HCl (Hydroxyzine HCl) 50 Mg Tablet, 100 MG PO HS, (Reported) Entered as Reported by: CARL LINDSAY on 03/04/221330 Last Action: Reviewed Insulin Aspart (Novolog Flexpen) 100 Unit/Ml (3 Ml) Solution, UNITS SC AC, (Reported) Entered as Reported by: CARL LINDSAY on 03/04/221330 Last Action: Reviewed Insulin Degludec (Tresiba Flextouch U-200) 200 Unit/Ml (3 Ml) Insuln.pen, 20 UNITS SC HS, (Reported) Entered as Reported by: CARL LINDSAY on 03/04/221330 Last Action: Reviewed Lisinopril (Lisinopril) 5 Mg Tablet, 5 MG PO HS, (Reported) Entered as Reported by: CARL LINDSAY on 03/04/221330 Last Action: Reviewed Metolazone (Metolazone) 5 Mg Tablet, 5 MG PO DAILY, (Reported) Entered as Reported by: CARL LINDSAY on 03/04/221330 Last Action: Reviewed Montelukast Sodium (Montelukast Sodium) 10 Mg Tablet, 10 MG PO HS, (Reported) Entered as Reported by: CARL LINDSAY on 03/04/221330 Last Action: Reviewed Multivitamin (Vitamins For Hair) 400 Mcg-400 Mcg Tablet, 1 EACH PO DAILY, (Reported) Entered as Reported by: CARL LINDSAY on 03/04/221330 Last Action: Reviewed Omeprazole (Omeprazole) 20 Mg Capsule.dr, 20 MG PO DAILY, (Reported) Entered as Reported by: CARL LINDSAY on 03/04/221330 Last Action: Reviewed Pregabalin (Pregabalin) 75 Mg Capsule, 75 MG PO QID, (Reported) Entered as Reported by: CARL LINDSAY on 03/04/221330 Last Action: Reviewed Quetiapine Fumarate (Quetiapine Fumarate) 300 Mg Tablet, 300 MG PO HS, (Reported) Entered as Reported by: CARL LINDSAY on 03/04/221330 Last Action: Reviewed Semaglutide (Ozempic) 2 Mg/0.75 Ml (8 Mg/3 Ml) Pen.injctr, 2 MG IJ THUR, (Reported) Entered as Reported by: CARL LINDSAY on 03/04/221330 Last Action: Reviewed Umeclidinium [place] (Incruse Ellipta) 62.5 Mcg/Actuation Blst.w.dev, 1 PUFF INH DAILY, (Reported) Entered as Reported by: CARL LINDSAY on 03/04/221330 Last Action: Reviewed Varenicline Tartrate (Varenicline Tartrate) 1 Mg Tablet, 1 MG PO BID, (Reported) Entered as Reported by: CARL LINDSAY on 03/04/221330 Last Action: Reviewed Physical Exam-Cardiology Physical Exam Vital Signs/I&O 03/05/22 03/05/22 03/05/22 03/05/22 03:00 03:50 03:51 04:00 Temp 36.2 Pulse 92 86 B/P (MAP) 107/73 (84) 94/70 (78) Pulse Ox 99 98 O2 Delivery NIV CPAP NIV CPAP NIV CPAP NIV CPAP O2 Flow Rate 3.00 3.00 3.00 3.00 03/05/22 03/05/22 03/05/22 03/05/22 05:00 06:00 07:00 07:00 Pulse 92 95 93 95 B/P (MAP) 113/85 (94) 118/77 (91) 108/80 (89) Pulse Ox 98 98 100 O2 Delivery NIV CPAP NIV CPAP NIV CPAP O2 Flow Rate 3.00 3.00 3.00 03/05/22 03/05/22 03/05/22 03/05/22 08:00 08:00 08:02 08:47 Temp 37.0 36.0 Pulse 102 102 B/P (MAP) 90/76 (81) Pulse Ox 100 95 O2 Delivery Nasal Cannula NIV CPAP O2 Flow Rate 3.00 3.00 03/05/22 03/05/22 03/05/22 03/05/22 08:54 09:00 10:00 10:03 Pulse 79 100 Resp 18 B/P (MAP) 111/76 (88) 94/71 (79) Pulse Ox 99 98 O2 Delivery Nasal Cannula Nasal Cannula Nasal Cannula NIV CPAP O2 Flow Rate 3.00 3.00 3.00 3.00 03/05/22 03/05/22 03/05/22 03/05/22 10:10 11:00 11:58 12:00 Temp 36.5 Pulse 98 98 102 B/P (MAP) 105/70 109/76 (87) 106/62 (77) Pulse Ox 98 96 O2 Delivery NIV CPAP NIV CPAP O2 Flow Rate 3.00 3.00 03/05/22 12:52 Pulse 103 03/05/22 00:00 Intake Total 4900 ml Balance 4900 ml Capillary Refill : Less Than 3 Seconds Constitutional: AAO x 3, well-developed, well-nourished, other (morbid obesity) HEENT: PERRL, hearing is well preserved, oral hygience is good Neck: No non-tender; carotid pulses are 2 + bilaterally, with good upstrokes Respiratory: No accessory muscle use; other (fair air entry, diminished at the bases) Cardiovascular: regular rate-rhythm, S1 and S2, systolic murmur (soft TERRIE at card bse) Gastrointestinal: No tender; soft; No guarding, No rebound; audible bowel sounds Extremities: swelling (moderate, non-pitting edema of the legs); No clubbing, No cyanosis Neurologic/Psychiatric: oriented x 3, other (moves all limbs equally) Skin: warm/dry; No rash, No rash on exposed areas, No ulcerations on exposed areas Data Review Labs Laboratory Tests 03/04/22 16:06: Glucometer 97 03/04/22 20:11: Glucometer 115H 03/04/22 21:52: Troponin I 0.038H 03/05/22 01:35: Glucometer 145H 03/05/22 03:05: White Blood Count 12.9H, Red Blood Count 3.01L, Hemoglobin 7.8L, Hematocrit 24L, Mean Corpuscular Volume 81, Mean Corpuscular Hemoglobin 26, Mean Corpuscular Hemoglobin Concent 32, Red Cell Distribution Width 18.0H, Platelet Count 256, Mean Platelet Volume 11.0, Immature Granulocyte % (Auto) 0, Neutrophils (%) (Auto) 58, Lymphocytes (%) (Auto) 32, Monocytes (%) (Auto) 8, Eosinophils (%) (Auto) 1, Basophils (%) (Auto) 1, Neutrophils # (Auto) 7.5, Lymphocytes # (Auto) 4.2H, Monocytes # (Auto) 1.0, Eosinophils # (Auto) 0.1, Basophils # (Auto) 0.1, Immature Granulocyte # (Auto) 0.0, Sodium Level 136, Potassium Level 3.9, Chloride Level 103, Carbon Dioxide Level 20L, Anion Gap 13, Blood Urea Nitrogen 33H, Creatinine 1.46H, Estimat Glomerular Filtration Rate 43, BUN/Creatinine Ratio 23, Glucose Level 132H, Calcium Level 8.1L, Corrected Calcium 9.5, Phosphorus Level 2.7, Magnesium Level 1.4L, Total Bilirubin 0.6, Aspartate Amino Transf (AST/SGOT) 19, Alanine Aminotransferase (ALT/SGPT) 24, Alkaline Phosphatase 159H, Total Protein 5.6L, Albumin 2.3L, Smear Scan YES 03/05/22 05:35: Bedside Blood Gas pH (LAB) 7.384, Bedside Blood Gas pCO2 (LAB) 50.3, Bedside Blood Gas pO2 (LAB) 31*L, Bedside Blood Gas HCO3 (LAB) 30.0H, POC Blood Gas Total CO2 Calc 32H, Bedside Bl Gas O2 Saturation (Calc) 56L, Bedside Arterial Blood Base Excess 5H 03/05/22 08:50: Troponin I 2.438*H 03/05/22 10:15: Vancomycin Level Trough 11.5 03/05/22 10:23: Glucometer 166H Microbiology 03/03/22 MRSA Screen - Final, Complete MRSA not isolated 03/03/22 Blood Culture - Preliminary, Resulted No growth Laboratory Tests 03/03/22 15:00 03/04/22 04:42 03/05/22 03:05 A/P-Cardiology Assessment/Admission Diagnosis Mild troponin elevation likely due to hypotension (septic shock) - type 2 NM Septic shock, apparently due to R leg cellulitis - Dr Stringer managing Renal failure of unknown chronicity (eGFR 43 on 03/05/22) Morbid obesity with hypoventilation syndrome and chronic hypoxia requiring supplemental oxygen ?COPD 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 Stop enoxaparin after starting apixaban * Monitor labs closely * Echo * Further recs based on hosp course POWER KLEIN MD FACP FAC CCDS Mar 05, 2022 14:49
[2022-03-05] MEDS: HYDROmorphone 2 MG/ML VIAL (DILAUDID) IV PRN ×2 (15:10→20:19)
[2022-03-05] MEDS ORDERED: KCL 10 MEQ TAB (MICRO K) PO NR (16:30)
[2022-03-05] MEDS ORDERED: KCL 10 MEQ TAB (MICRO K) PO ONE (19:30)
[2022-03-05] MEDS: FAMOTIDINE 20 MG (PEPCID) TABLET PO SCH (20:19)
[2022-03-05] MEDS: APIXABAN 5 MG (ELIQUIS) TABLET PO SCH (20:19)
[2022-03-06] MEDS: MEROPENEM 500 MG in NS (IVPB) 100 ML IV SCH ×5 (00:10→23:58)
[2022-03-06] MEDS: NOREPINEPHRINE 8 MG/250 ML 250 ML IV SCH ×3 (00:13→17:32)
[2022-03-06] MEDS: LACTATED RINGERS 1,000 ML IV SCH ×4 (00:41→21:23)
[2022-03-06] MEDS: HYDROmorphone 2 MG/ML VIAL (DILAUDID) IV PRN ×3 (02:43→16:41)
[2022-03-06 04:06] LABS: BASOPHILS # (AUTO) 0.1 10^3/uL (0.0-0.1); BASOPHILS % (AUTO) 1 % (0-10); EOSINOPHILS # (AUTO) 0.2 10^3/uL (0.0-0.3); EOSINOPHILS % (AUTO) 1 % (0-10); HEMATOCRIT 29 % (35-52); HEMOGLOBIN 9.5 g/dL (11.5-16.0); LYMPHOCYTES # (AUTO) 8.2 10^3/uL (1.0-4.0); LYMPHOCYTES % (AUTO) 47 % (12-44); MEAN CORPUSCULAR HEMOGLOBIN 26 pg (25-34); MEAN CORPUSCULAR HGB CONC 32 g/dL (32-36); MEAN CORPUSCULAR VOLUME 80 fL (80-99); MEAN PLATELET VOLUME 11.2 fL (9.0-12.2); MONOCYTES # (AUTO) 1.3 10^3/uL (0.0-1.0); MONOCYTES % (AUTO) 8 % (0-12); NEUTROPHILS # (AUTO) 7.4 10^3/uL (1.8-7.8); NEUTROPHILS % (AUTO) 43 % (42-75); PLATELET COUNT 396 10^3/uL (130-400); WHITE BLOOD COUNT 17.2 10^3/uL (4.3-11.0)
[2022-03-06 04:21] LABS: ALBUMIN 2.6 GM/DL (3.2-4.5); POTASSIUM 3.4 MMOL/L (3.6-5.0)
[2022-03-06 04:22] LABS: CALCIUM 9.1 MG/DL (8.5-10.1)
[2022-03-06 04:25] LABS: BILIRUBIN,TOTAL 0.9 MG/DL (0.1-1.0)
[2022-03-06 04:27] LABS: CREATININE SERUM 1.45 MG/DL (0.60-1.30); PHOSPHORUS 2.1 MG/DL (2.3-4.7)
[2022-03-06 04:31] LABS: MAGNESIUM 1.7 MG/DL (1.6-2.4)
[2022-03-06] MEDS: MAGNESIUM 1 GM/100 ML IVPB 100 ML IV SCH ×2 (04:40→04:56)
[2022-03-06] MEDS: POTASSIUM CL 10MEQ/50ML IVPB 50 ML IV SCH (04:40)
[2022-03-06] MEDS: inSUlin ASPART (NovoLOG) 1 UNIT/0.01 ML (CHARGE PER UNIT) SC SCH ×4 (04:40→21:00)
[2022-03-06] MEDS: KCL 20 MEQ TAB (K-DUR) PO SCH (04:40)
[2022-03-06] MEDS ORDERED: KCL 20 MEQ TAB (K-DUR) PO ONE (04:45)
--- NOTE | 2022-03-06 05:36 | Progress Note - Hospitalist ---
Subjective HPI/CC On Admission Date Seen by Provider: Mar 06, 2022 Time Seen by Provider: 11:00 CC: Sepsis 51yo F with h/o CKD IV, mutliple DVTS, IDDM, COPD, O2 dependence on 3L, and CAD was admitted last night for Acute on Chronic renal failure and sepsis. Last night, pt presented to the ED after experiencing dizziness, lightheadedness, nausea, and vomiting that started 2 days ago and worsened last night. Earlier this month, pt was admitted to [facility] at [place] for septic shock and chronic renal failure. Pt states that earlier this month, she woke up with multiple tender "knots" on her R leg that progressed to ulcerations. Pt states that the uclerations became infected resulting in the sepsis. Pt had a MRSA positive culture of her wounds on 02/11. Pt was DC from [facility] in [place] 2 weeks ago with 2 weeks worth of doxycycline 100mg BID. Pt finished the course 2 days ago. Since finishing her antibiotics, pt states that she started to experience the aforementioned symptoms, prompting her to go to the ED. Pt presented to ED with sepsis that improved with IV fluids. Pt was also given Cefriaxone. Workup found an elevated lactic acid of 2.38, elevated WBC, and elevated AG of 17. CXR, CT head were unremarkable. Pt was admitted to the ICU for further management. Pt was started on 200mls IV Q8H meropenem and completed 3 bags of IV vancomycin. Today, pt continues to be hypotensive at 96/64 while on pressors. Repeat labs were remarkable for mild hyponatremia of 133, mild hypokalemia of 3.3, improved AG of 13, improved WBC, and a negative procalcitonin. Cr is 2.19 which is below pt's baseline of 2.6. In room, pt is sitting comfortably in bed. Pt states that her leg pain and swelling has improved today. Pt states that she is still experiencing some dizziness and lightheadedness and notes that both symptoms are brought on with head movement. Pt is voiding without issue. Pt was able to eat breakfast this morning without issue. Pt has no complaints. Pt denies any vomiting, nausea, CP, worsened SOA, worsened cough, diarrhea, or abd pain. ABG 03/04: pH: 7.42 pCO2: 38 pO2: 125 Subjective/Events-last exam Patient doing about the same Remains on Levophed Echocardiogram to be done Wearing CPAP all the time Patient very sedentary baseline Review of Systems General: Fatigue, Malaise Pulmonary: Dyspnea Focused Exam Lactate Level 03/03/22 17:00: Lactic Acid Level 2.38*H 03/03/22 20:13: Lactic Acid Level 1.88 Time of Focused Exam: 17:30 Objective Exam Vital Signs Vital Signs Date Time Temp Pulse Resp B/P (MAP) Pulse Ox O2 Delivery O2 Flow Rate FiO2 03/06/22 15:41 36.7 03/06/22 15:00 101 21 100/67 (78) 97 NIV CPAP 3.00 03/05/22 15:45 3 Capillary Refill : Less Than 3 Seconds General Appearance: No Apparent Distress, WD/WN, Chronically ill, Obese Respiratory: No Accessory Muscle Use, No Respiratory Distress, Decreased Breath Sounds Cardiovascular: Regular Rate, Rhythm Neurologic/Psychiatric: Alert, Oriented x3, Depressed Affect Results/Procedures Lab Laboratory Tests 03/06/22 03:56 Patient resulted labs reviewed. Assessment/Plan Assessment and Plan Assess & Plan/Chief Complaint 1. Septic Shock -Currently on pressors -continue treating source of infection -Monitor BP 2. Acute on Chronic Renal Failure -continue to monitor -baseline Cr 2.6 3. MRSA + Infection of R leg -+ wound culture on leg on 02/11 -currently on 200mls Q8H IV Meropenem 4.H/o DVT and PE -currently on Lovenox -on residential anti-coagulation at home 5. COPD -3L O2 at home and BiPap 6. Dizziness/lightheadedness -positional, consider inner ear problem or secondary to low BP -improved today 7.Lactic Acidosis -resolved 8. NSTEMI Plan: Continue IV Abx Monitor Kidney function Replace electrolytes as needed Continue to monitor BP, correct as needed Cardiology consult Critical Care Critically Ill Patient STARLA ADAMS DO Mar 06, 2022 05:36
--- NOTE | 2022-03-06 08:45 | Tele-ICU Progress Note ---
Subjective Date Seen by a Provider: Mar 06, 2022 Time Seen by a Provider: 08:44 Subjective/Events-last exam (Tele-ICU Physician , Progress Note ) Available chart/ vitals / labs / Images reviewed Video assessment done using teleICU camera, rest of exam as per RN Discussed with RN Events overnight : Afebrile hemodynamically stable Respiratory - I/O = Drips: Pressors- no Consultants: Hospital course: A/P Shock , septic presumed - still on levo - will check cortisol ( s/ p trransfusikn p RBC - follow RLE cellulitis - anx to cont Anemia - s/p transfusion 2 u pRBC 03/05 - nop obvious sourse of bleedin -empiric ppt - follow at 14.00 - ( on eliquis CONSUELO/CKD -IMPROVED baseline Cr 2.6 reported - now 1.4 - will decrease IVF if cn wean off pressors COPD - 3 l NS at home - stable DM II - ISS CAD - stable -Mild troponin elevation likely due to hypotension (septic shock) - type 2 NC H/o DVT and PE -currently on Eliquis= monitor carefully Lines : PICC , (Central Line Necessity Reviewed) Sellers: void OG: Nutrition: po Analgesia: Anxiety/ delirium VTE Prophylaxis: eliquis Stress Ulcer Prophylaxis: ppi Plans in collaboration with bedside consultants and IM MDs. Discussed with RN to reach out if any questions or concerns A total of 32 minutes of critical care time was devoted to this patient today, required to treat and/or prevent further deterioration of critical care condition ( as above ) . I am remotely monitoring this patient from another state. I am unable to do the bedside exam, and history/physical and pertinent information is taken from other notes in the computer and bedside staff. Sepsis Event Evaluation Height, Weight, BMI Height: '" Weight: lbs. oz. kg; 51.36 BMI Method: Focused Exam Lactate Level 03/03/22 15:00: Lactic Acid Level 2.21*H 03/03/22 17:00: Lactic Acid Level 2.38*H 03/03/22 20:13: Lactic Acid Level 1.88 Time of Focused Exam: 17:30 Exam Exam Patient acknowledged, consented, and participated in this virtual visit which was conducted using real time audio/video Vital Signs Date Time Temp Pulse Resp B/P (MAP) Pulse Ox O2 Delivery O2 Flow Rate FiO2 03/06/22 08:00 98 16 105/74 (84) 97 NIV CPAP 3.00 03/06/22 07:52 36.3 03/06/22 07:00 97 14 111/78 (89) 97 NIV CPAP 3.00 03/06/22 07:00 104 03/06/22 06:25 96 92/73 03/06/22 06:00 93 115/80 (92) 97 NIV CPAP 3.00 03/06/22 05:00 110 131/90 (104) 96 NIV CPAP 3.00 03/06/22 04:00 93 19 95/66 (76) 96 NIV CPAP 3.00 03/06/22 03:55 96 NIV CPAP 3.00 03/06/22 03:55 36.3 93 18 90/79 (83) 96 NIV CPAP 3.00 03/06/22 03:00 96 19 111/85 (94) 95 NIV CPAP 3.00 03/06/22 02:00 96 19 108/77 (87) 97 NIV CPAP 3.00 03/06/22 01:00 90 17 106/72 (83) 99 NIV CPAP 3.00 03/06/22 01:00 91 03/06/22 00:00 100 NIV CPAP 3.00 03/06/22 00:00 36.0 114 22 108/74 (85) 93 NIV CPAP 3.00 03/05/22 23:37 Nasal Cannula 3.00 03/05/22 23:00 96 120/83 (95) 100 NIV CPAP 3.00 03/05/22 22:00 98 15 94/68 (77) 99 NIV CPAP 3.00 03/05/22 21:20 36.2 95 22 88/58 100 NIV CPAP 3.00 03/05/22 21:00 96 15 87/65 (72) 99 NIV CPAP 3.00 03/05/22 20:01 36.1 03/05/22 20:00 36.8 99 20 97/69 (78) 100 NIV CPAP 3.00 03/05/22 20:00 100 NIV CPAP 3.00 03/05/22 20:00 96 33 117/91 (100) 100 NIV CPAP 3.00 03/05/22 19:15 36.8 100 18 111/81 98 NIV CPAP 3.00 03/05/22 19:13 36.8 100 18 111/81 NIV CPAP 3.00 03/05/22 19:10 NIV CPAP 3.00 03/05/22 19:00 104 03/05/22 19:00 96 96/44 (61) 95 NIV CPAP 3.00 03/05/22 18:51 36.6 109 22 102/72 98 Nasal Cannula 3.00 03/05/22 18:00 96 93/68 (76) 97 NIV CPAP 3.00 03/05/22 17:35 36.8 03/05/22 17:00 101 97/58 (71) 99 NIV CPAP 3.00 03/05/22 16:04 37.0 106 16 102/64 100 NIV CPAP 3.00 03/05/22 16:00 105 102/64 (77) 100 NIV CPAP 3.00 03/05/22 15:54 NIV CPAP 3.00 03/05/22 15:45 36.9 109 16 111/76 100 NIV CPAP 3 03/05/22 15:00 113 112/71 (85) 90 Nasal Cannula 3.00 03/05/22 14:00 110 116/78 (91) 92 Nasal Cannula 3.00 03/05/22 13:00 107 115/75 (88) 98 Nasal Cannula 3.00 03/05/22 12:52 103 03/05/22 12:00 Nasal Cannula 3.00 03/05/22 12:00 102 106/62 (77) 96 NIV CPAP 3.00 03/05/22 11:58 36.5 03/05/22 11:00 98 109/76 (87) 98 NIV CPAP 3.00 03/05/22 10:10 98 105/70 03/05/22 10:03 NIV CPAP 3.00 03/05/22 10:00 100 94/71 (79) 98 Nasal Cannula 3.00 03/05/22 09:00 79 18 111/76 (88) 99 Nasal Cannula 3.00 03/05/22 08:54 Nasal Cannula 3.00 03/05/22 08:47 36.0 102 95 I & O 03/06/22 07:00 Intake Total 6309 ml Output Total 4375 ml Balance 1934 ml Height & Weight Height: '" Weight: lbs. oz. kg; 51.36 BMI Method: General Appearance: No Apparent Distress, WD/WN, Chronically ill, Obese HEENT: PERRL/EOMI, Moist Mucous Membranes Neck: Normal Inspection, Supple Respiratory: Decreased Breath Sounds Cardiovascular: Regular Rate, Rhythm Capillary Refill: Less Than 3 Seconds Peripheral Pulses: 2+ Carotid (R), 2+ Carotid (L), 2+ Radial Pulses (R), 2+ Radial Pulses (L) Extremity: No Calf Tenderness, Swelling (acute on chronic-improved ) Neurologic/Psychiatric: Alert, Oriented x3 Skin: Warm/Dry, Erythema (R leg, surrounding wounds and nodules located on R morgan), Other (B/l venous stasis dermatitis R>L, Four healing ulcerations located on R morgan and one on back of R calf, two tender nodules located on upper R morgan. Some surrounding erythema present on nodules and healing wounds) Lymphatic: No Adenopathy Results Lab Laboratory Tests 03/05/22 03:05 03/06/22 03:56 Assessment/Plan Assessment/Plan 1 FÁTIMA MEDINA MD Mar 06, 2022 08:44
[2022-03-06] MEDS: DOCUSATE SODIUM 100 MG (COLACE) CAP PO SCH ×3 (09:00→21:16)
[2022-03-06] MEDS: FAMOTIDINE 20 MG (PEPCID) TABLET PO SCH ×2 (09:00→21:15)
[2022-03-06] MEDS: ASPIRIN 81 MG CHEW (CHILDREN'S ASA) PO SCH (09:00)
[2022-03-06] MEDS: PANTOPRAZOLE 40 MG (PROTONIX) VIAL IV SCH (09:00)
[2022-03-06] MEDS: APIXABAN 5 MG (ELIQUIS) TABLET PO SCH ×2 (09:03→21:15)
[2022-03-06] MEDS ORDERED: TROUGH ORDER-PHARMACY XX ONE (10:00)
[2022-03-06] MEDS ORDERED: RT-ALBUTEROL SULF 2.5 MG/3 ML PRE-MIX VIAL INH PRN (11:00)
[2022-03-06] MEDS ORDERED: SEMAGLUTIDE 2 MG IJ SCH (11:00)
[2022-03-06] MEDS: hydrOXYzine (VISTARIL/ATARAX) 25 MG capsule/tablet PO SCH ×2 (12:06→21:16)
[2022-03-06] MEDS: FERROUS SULF 325 MG (IRON) TAB PO SCH (12:06)
[2022-03-06] MEDS: ALLOPURINOL 100 MG (ZYLOPRIM) TAB PO SCH (12:06)
[2022-03-06] MEDS: buPROPion SR 150 MG (WELLBUTRIN SR) TAB PO SCH ×2 (12:17→21:16)
[2022-03-06] MEDS: MULTIVIT W/MINERALS TAB (THERAGRAN M) PO SCH (12:17)
[2022-03-06] MEDS: VENlafaxine XR 75 MG (EFFEXOR XR) CAP PO SCH (12:17)
[2022-03-06] MEDS: VANCOMYCIN 1500 MG/NS 500 ML IVPB IV SCH ×2 (13:32)
[2022-03-06] MEDS: PREGABALIN 75 MG (LYRICA) CAP PO SCH ×3 (13:41→21:16)
[2022-03-06] MEDS: busPIRone 15 MG (BUSPAR) TABLET PO SCH ×2 (13:41→21:16)
--- NOTE | 2022-03-06 15:11 | Progress Note - Cardiology ---
Cardiology SOAP Progress Note Subjective: No cp or palp or syncope Shortness of breath improving Gen weakness and malaise are improving No n/v/d Objective: I&O/Vital Signs 03/06/22 03/06/22 03/06/22 03/06/22 03:55 03:55 04:00 05:00 Temp 36.3 Pulse 93 93 110 Resp 18 19 B/P (MAP) 90/79 (83) 95/66 (76) 131/90 (104) Pulse Ox 96 96 96 96 O2 Delivery NIV CPAP NIV CPAP NIV CPAP NIV CPAP O2 Flow Rate 3.00 3.00 3.00 3.00 03/06/22 03/06/22 03/06/22 03/06/22 06:00 06:25 07:00 07:00 Pulse 93 96 104 97 Resp 14 B/P (MAP) 115/80 (92) 92/73 111/78 (89) Pulse Ox 97 97 O2 Delivery NIV CPAP NIV CPAP O2 Flow Rate 3.00 3.00 03/06/22 03/06/22 03/06/22 03/06/22 07:52 08:00 08:00 09:00 Temp 36.3 Pulse 98 112 Resp 16 19 B/P (MAP) 105/74 (84) 129/94 (106) Pulse Ox 97 98 91 O2 Delivery NIV CPAP NIV CPAP NIV CPAP O2 Flow Rate 3.00 3.00 3.00 03/06/22 03/06/22 03/06/22 03/06/22 10:00 11:00 11:41 12:00 Temp 36.4 Pulse 107 101 Resp 17 20 B/P (MAP) 118/83 (95) 118/85 (96) Pulse Ox 99 100 97 O2 Delivery NIV CPAP NIV CPAP NIV CPAP O2 Flow Rate 3.00 3.00 3.00 03/06/22 03/06/22 03/06/22 03/06/22 12:00 13:00 13:00 14:00 Pulse 101 97 105 104 Resp 02 03 22 B/P (MAP) 111/87 (95) 121/83 (96) 108/74 (85) Pulse Ox 99 94 97 O2 Delivery NIV CPAP NIV CPAP NIV CPAP O2 Flow Rate 3.00 3.00 3.00 03/06/22 00:00 Intake Total 3687 ml Output Total 2600 ml Balance 1087 ml Constitutional: AAO x 3, well-developed, well-nourished, other (morbid obesity) Respiratory: No accessory muscle use; other (fair air entry, diminished at the bases) Cardiovascular: regular rate-rhythm, S1 and S2, systolic murmur (soft TERRIE at card bse) Gastrointestional: No tender; soft; No guarding, No rebound; audible bowel sounds Extremities: swelling (moderate, non-pitting edema of the legs); No clubbing, No cyanosis Neurologic/Psychiatric: oriented x 3, other (moves all limbs equally) Skin: warm/dry; No rash, No rash on exposed areas, No ulcerations on exposed areas Results/Procedures: Labs Laboratory Tests 03/05/22 17:14: Glucometer 208H 03/05/22 20:17: Glucometer 126H 03/06/22 03:56: White Blood Count 17.2H, Red Blood Count 3.67L, Hemoglobin 9.5#L, Hematocrit 29L , Mean Corpuscular Volume 80, Mean Corpuscular Hemoglobin 26, Mean Corpuscular Hemoglobin Concent 32, Red Cell Distribution Width 17.1H, Platelet Count 396, Mean Platelet Volume 11.2, Immature Granulocyte % (Auto) 0, Neutrophils (%) (Auto) 43, Lymphocytes (%) (Auto) 47H, Monocytes (%) (Auto) 8, Eosinophils (%) (Auto) 1, Basophils (%) (Auto) 1, Neutrophils # (Auto) 7.4, Lymphocytes # (Auto) 8.2H, Monocytes # (Auto) 1.3H, Eosinophils # (Auto) 0.2, Basophils # (Auto) 0.1, Immature Granulocyte # (Auto) 0.1, Sodium Level 137, Potassium Level 3.4L, Chloride Level 100, Carbon Dioxide Level 26, Anion Gap 11, Blood Urea Nitrogen 25H, Creatinine 1.45H, Estimat Glomerular Filtration Rate 43, BUN/Creatinine Ratio 17, Glucose Level 144H, Calcium Level 9.1, Corrected Calcium 10.2H, Phosphorus Level 2.1L, Magnesium Level 1.7, Total Bilirubin 0.9, Aspartate Amino Transf (AST/SGOT) 30, Alanine Aminotransferase (ALT/SGPT) 26, Alkaline Phosphatase 180H, Total Protein 6.0L, Albumin 2.6L 03/06/22 09:10: 03/06/22 10:57: Glucometer 165H 03/06/22 11:00: Vancomycin Level Trough 9.9L Microbiology 03/03/22 MRSA Screen - Final, Complete MRSA not isolated 03/03/22 Blood Culture - Preliminary, Resulted No growth Laboratory Tests 03/05/22 03:05 03/06/22 03:56 A/P: Assessment: Mild troponin elevation likely due to hypotension (septic shock) - type 2 OK - Echo 03/06/22: LVEF 55-60%, mild MR, PASP 30-35 mmHg Septic shock, apparently due to R leg cellulitis - Dr Stringer managing Renal failure of unknown chronicity (eGFR 43 on 03/05/22) Morbid obesity with hypoventilation syndrome and chronic hypoxia requiring supplemental oxygen ?COPD 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
[2022-03-06 16:35] LABS: HEMATOCRIT 29 % (35-52); HEMOGLOBIN 9.5 g/dL (11.5-16.0); MEAN CORPUSCULAR HEMOGLOBIN 26 pg (25-34); MEAN CORPUSCULAR HGB CONC 33 g/dL (32-36); MEAN CORPUSCULAR VOLUME 80 fL (80-99); MEAN PLATELET VOLUME 11.3 fL (9.0-12.2); PLATELET COUNT 391 10^3/uL (130-400); WHITE BLOOD COUNT 18.9 10^3/uL (4.3-11.0)
[2022-03-06 20:03] VITALS: BP 105/66
[2022-03-06] MEDS ORDERED: HYDROCODONE BITARTRATE 60 MG PO SCH (21:00)
[2022-03-06] MEDS ORDERED: INSULIN DEGLUDEC 20 UNIT SC SCH (21:00)
[2022-03-06] MEDS ORDERED: VARENICLINE TARTRATE 1 MG PO SCH (21:00)
[2022-03-06] MEDS: MONTELUKAST 10 MG (SINGULAIR) TAB PO SCH (21:14)
[2022-03-06] MEDS: lisINopril 5 MG (PRINIVIL) TABLET PO SCH (21:15)
[2022-03-06] MEDS: QUEtiapine 100 MG (SEROquel) TAB IMMEDIATE RELEASE PO SCH (21:15)
[2022-03-07] MEDS: HYDROmorphone 2 MG/ML VIAL (DILAUDID) IV PRN ×2 (00:08→23:16)
[2022-03-07] MEDS: LACTATED RINGERS 1,000 ML IV SCH ×3 (04:22→21:14)
[2022-03-07 04:43] LABS: BASOPHILS # (AUTO) 0.1 10^3/uL (0.0-0.1); BASOPHILS % (AUTO) 0 % (0-10); EOSINOPHILS # (AUTO) 0.3 10^3/uL (0.0-0.3); EOSINOPHILS % (AUTO) 2 % (0-10); HEMATOCRIT 25 % (35-52); HEMOGLOBIN 8.1 g/dL (11.5-16.0); LYMPHOCYTES # (AUTO) 6.3 10^3/uL (1.0-4.0); LYMPHOCYTES % (AUTO) 45 % (12-44); MEAN CORPUSCULAR HEMOGLOBIN 26 pg (25-34); MEAN CORPUSCULAR HGB CONC 32 g/dL (32-36); MEAN CORPUSCULAR VOLUME 80 fL (80-99); MEAN PLATELET VOLUME 11.1 fL (9.0-12.2); MONOCYTES % (AUTO) 7 % (0-12); NEUTROPHILS # (AUTO) 6.2 10^3/uL (1.8-7.8); NEUTROPHILS % (AUTO) 45 % (42-75); PLATELET COUNT 325 10^3/uL (130-400); WHITE BLOOD COUNT 13.8 10^3/uL (4.3-11.0)
[2022-03-07 04:57] LABS: ALBUMIN 2.3 GM/DL (3.2-4.5); POTASSIUM 3.1 MMOL/L (3.6-5.0)
[2022-03-07 04:58] LABS: CALCIUM 8.2 MG/DL (8.5-10.1)
[2022-03-07 04:59] LABS: TOTAL PROTEIN 5.2 GM/DL (6.4-8.2)
[2022-03-07 05:01] LABS: BILIRUBIN,TOTAL 0.6 MG/DL (0.1-1.0)
[2022-03-07 05:02] LABS: PHOSPHORUS 2.2 MG/DL (2.3-4.7)
[2022-03-07 05:03] LABS: CREATININE SERUM 1.28 MG/DL (0.60-1.30)
[2022-03-07 05:05] LABS: MAGNESIUM 1.8 MG/DL (1.6-2.4)
[2022-03-07 05:06] LABS: ABG BASE EXCESS 6.8 MMOL/L (-2.5-2.5); ABG OXYGEN SATURATION 98 % (94-100); ABG PCO2 45 MMHG (35-45); ABG PH 7.45 (7.37-7.43); ABG PO2 75 MMHG (79-93); ABG TCO2 32.4 MMOL/L (21.0-31.0)
[2022-03-07 05:07] LABS: ALLENS TEST YES-POS; INSPIRED O2 40%; PATIENT TEMP 36.6; VENTILATOR NO
[2022-03-07] MEDS: inSUlin ASPART (NovoLOG) 1 UNIT/0.01 ML (CHARGE PER UNIT) SC SCH ×4 (06:02→20:46)
[2022-03-07] MEDS: MAGNESIUM 1 GM/100 ML IVPB 100 ML IV SCH (06:07)
[2022-03-07] MEDS: POTASSIUM CL 10MEQ/50ML IVPB 50 ML IV SCH (06:07)
[2022-03-07] MEDS: MEROPENEM 500 MG in NS (IVPB) 100 ML IV SCH ×4 (06:16→23:14)
[2022-03-07] MEDS: KCL 20 MEQ TAB (K-DUR) PO SCH ×3 (06:17→08:59)
[2022-03-07] MEDS: DOCUSATE SODIUM 100 MG (COLACE) CAP PO SCH ×2 (08:58→21:02)
[2022-03-07] MEDS: buPROPion SR 150 MG (WELLBUTRIN SR) TAB PO SCH ×2 (08:58→21:03)
[2022-03-07] MEDS: PANTOPRAZOLE 40 MG (PROTONIX) VIAL IV SCH (08:58)
[2022-03-07] MEDS: busPIRone 15 MG (BUSPAR) TABLET PO SCH ×2 (08:58→21:02)
[2022-03-07] MEDS: ASPIRIN 81 MG CHEW (CHILDREN'S ASA) PO SCH (08:59)
[2022-03-07] MEDS: PREGABALIN 75 MG (LYRICA) CAP PO SCH ×4 (08:59→21:02)
[2022-03-07] MEDS: ALLOPURINOL 100 MG (ZYLOPRIM) TAB PO SCH (08:59)
[2022-03-07] MEDS: VENlafaxine XR 75 MG (EFFEXOR XR) CAP PO SCH (08:59)
[2022-03-07] MEDS: hydrOXYzine (VISTARIL/ATARAX) 25 MG capsule/tablet PO SCH ×2 (08:59→21:03)
[2022-03-07] MEDS ORDERED: NON-FORMULARY MEDICATION 1 EA EA (Desvenlafaxine Succinate (Desvenlafaxine Succinate ER) 5 PO SCH (09:00)
[2022-03-07] MEDS: FAMOTIDINE 20 MG (PEPCID) TABLET PO SCH ×2 (09:00→21:03)
[2022-03-07] MEDS ORDERED: NON-FORMULARY MEDICATION 1 EA EA (Bupropion HCl (Bupropion Xl) 150 MG) PO SCH (09:00)
[2022-03-07] MEDS: FERROUS SULF 325 MG (IRON) TAB PO SCH (09:00)
[2022-03-07] MEDS ORDERED: OMEPRAZOLE 20 MG (PriLOSEC) CAP NON-FORMULARY PO SCH (09:00)
[2022-03-07] MEDS: MULTIVIT W/MINERALS TAB (THERAGRAN M) PO SCH (09:01)
[2022-03-07] MEDS: APIXABAN 5 MG (ELIQUIS) TABLET PO SCH ×2 (09:03→21:02)
--- NOTE | 2022-03-07 09:17 | Progress Note - Cardiology ---
Cardiology SOAP Progress Note Subjective: Lying in bed CPAP in place No c/o CP, palpitations No c/o n/v/d C/O fatigue Objective: I&O/Vital Signs 03/07/22 03/07/22 03/07/22 03/07/22 19:59 20:00 20:00 20:00 Temp 36.8 Pulse 83 Resp 18 B/P (MAP) 90/54 (72) Pulse Ox 99 99 O2 Delivery NIV CPAP NIV CPAP NIV CPAP O2 Flow Rate 3.00 3.00 3.00 03/07/22 03/07/22 03/07/22 03/07/22 20:49 21:01 22:27 23:00 Pulse 107 89 74 84 Resp 22 19 14 B/P (MAP) 99/70 (75) 101/68 (77) 100/58 (64) Pulse Ox 96 100 O2 Delivery NIV CPAP NIV CPAP NIV CPAP O2 Flow Rate 3.00 3.00 3.00 03/07/22 03/07/22 03/08/22 03/08/22 23:28 23:52 00:05 01:00 Temp 37.4 Pulse 80 77 Resp 20 B/P (MAP) 85/56 (70) Pulse Ox 99 95 O2 Delivery NIV CPAP NIV CPAP O2 Flow Rate 3.00 3.00 03/08/22 03/08/22 03/08/22 03/08/22 01:02 01:03 02:00 03:22 Pulse 93 85 72 78 Resp 29 29 19 B/P (MAP) 103/51 (61) 85/54 (67) 91/57 (71) 98/64 (75) Pulse Ox 92 95 97 O2 Delivery NIV CPAP NIV CPAP NIV CPAP NIV CPAP O2 Flow Rate 3.00 3.00 3.00 3.00 03/08/22 03/08/22 03/08/22 03/08/22 03:38 04:00 04:00 05:00 Temp 36.6 Pulse 72 80 Resp 16 B/P (MAP) 91/52 (67) 90/54 (66) Pulse Ox 92 94 97 O2 Delivery NIV CPAP NIV CPAP NIV CPAP O2 Flow Rate 3.00 3.00 3.00 03/08/22 03/08/22 03/08/22 03/08/22 06:00 06:00 06:18 06:57 Temp 36.7 Pulse 76 76 Resp 14 18 B/P (MAP) 87/47 (60) 80/52 (61) Pulse Ox 95 94 O2 Delivery NIV CPAP NIV CPAP Room Air O2 Flow Rate 3.00 3.00 03/08/22 03/08/22 07:30 07:54 Temp 36.3 Pulse Ox 97 O2 Delivery Nasal Cannula O2 Flow Rate 3.00 03/08/22 00:00 Intake Total 3315 ml Output Total 1500 ml Balance 1815 ml Constitutional: AAO x 3, well-developed, well-nourished, other (morbid obesity) Respiratory: No accessory muscle use; other (fair air entry, diminished at the bases) Cardiovascular: regular rate-rhythm, S1 and S2, systolic murmur (soft TERRIE at card bse) Gastrointestional: No tender; soft; No guarding, No rebound; audible bowel sounds Extremities: swelling (moderate, non-pitting edema of the legs); No clubbing, No cyanosis Neurologic/Psychiatric: oriented x 3, other (moves all limbs equally) Skin: warm/dry; No rash, No rash on exposed areas, No ulcerations on exposed areas Results/Procedures: Labs Laboratory Tests 03/07/22 10:47: Glucometer 137H 03/07/22 11:11: Vancomycin Level Trough 13.1 03/07/22 13:26: Lab Scanned Report Transfusion Reaction Form 03/07/22 16:18: Glucometer 109 03/07/22 20:42: Glucometer 129H 03/08/22 04:19: White Blood Count 12.4H, Red Blood Count 2.92L, Hemoglobin 7.6L, Hematocrit 24L, Mean Corpuscular Volume 82, Mean Corpuscular Hemoglobin 26, Mean Corpuscular Hemoglobin Concent 32, Red Cell Distribution Width 17.6H, Platelet Count 311, Mean Platelet Volume 11.6, Immature Granulocyte % (Auto) 1, Neutrophils (%) (Auto) 44, Lymphocytes (%) (Auto) 45H, Monocytes (%) (Auto) 7, Eosinophils (%) (Auto) 3, Basophils (%) (Auto) 0, Neutrophils # (Auto) 5.4, Lymphocytes # (Auto) 5.6H, Monocytes # (Auto) 0.9, Eosinophils # (Auto) 0.4H, Basophils # (Auto) 0.0, Immature Granulocyte # (Auto) 0.1, Sodium Level 137, Potassium Level 3.8, Chloride Level 104, Carbon Dioxide Level 26, Anion Gap 7, Blood Urea Nitrogen 19H, Creatinine 1.53H, Estimat Glomerular Filtration Rate 41, BUN/Creatinine Ratio 12, Glucose Level 111H, Calcium Level 7.9L, Corrected Calcium 9.3, Phosphorus Level 2.8, Magnesium Level 1.6, Total Bilirubin 0.2, Aspartate Amino Transf (AST/SGOT) 28, Alanine Aminotransferase (ALT/SGPT) 38, Alkaline Phosphatase 165H, Total Protein 5.1L, Albumin 2.2L, Smear Scan YES 03/08/22 05:13: Blood Gas Puncture Site LEFT RADIAL, Blood Gas Patient Temperature 36.8, Arterial Blood pH 7.41, Arterial Blood Partial Pressure CO2 44, Arterial Blood Partial Pressure O2 58L, Arterial Blood HCO3 28H, Arterial Blood Total CO2 28.8, Arterial Blood Oxygen Saturation 93L, Arterial Blood Base Excess 3.2H, Ulises Test YES-POS, Blood Gas Ventilator Setting NO, Blood Gas Inspired Oxygen 3L Microbiology 03/03/22 MRSA Screen - Final, Complete MRSA not isolated 03/03/22 Blood Culture - Preliminary, Resulted No growth A/P: Assessment: Mild troponin elevation likely due to hypotension (septic shock) - type 2 NM - Echo 03/06/22: LVEF 55-60%, mild MR, PASP 30-35 mmHg Septic shock, apparently due to R leg cellulitis - Dr Stringer managing Renal failure of unknown chronicity (eGFR 43 on 03/05/22) Morbid obesity with hypoventilation syndrome and chronic hypoxia requiring supplemental oxygen ?COPD 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
[2022-03-07] MEDS ORDERED: VASOPRESSIN INJECTION 20 UNIT in NS (IVPB) 100 ML IV SCH (09:45)
--- NOTE | 2022-03-07 10:10 | Tele-ICU Progress Note ---
Subjective Date Seen by a Provider: Mar 07, 2022 Time Seen by a Provider: 10:10 Subjective/Events-last exam (Tele-ICU Physician , Progress Note ) Available chart/ vitals / labs / Images reviewed Video assessment done using teleICU camera, rest of exam as per RN Discussed with RN Events overnight : Afebrile hemodynamically stable Respiratory - I/O = Drips: LR 150 Pressors- LEVO 0.09 Consultants: Hospital course: A/P Shock , septic presumed - still on levo - cortisol 17, added vaso - 03/07 ( s/ p trransfusion p RBC RLE cellulitis - anx to cont Anemia - s/p transfusion 2 u pRBC 03/05 - nop obvious sourse of bleedin -empiric ppt IV pish CONSUELO/CKD -IMPROVED baseline Cr 2.6 reported - now 1.3 - will decrease IVF if cn wean off pressors COPD - 3 l NS at home - stable DM II - ISS CAD - stable -Mild troponin elevation likely due to hypotension (septic shock) - type 2 NM H/o DVT and PE -currently on Eliquis= monitor carefully ROSALVA - cont home cpcp with 3 l o2 Lines : PICC , (Central Line Necessity Reviewed) Sellers: void OG: Nutrition: po Analgesia: Anxiety/ delirium VTE Prophylaxis: eliquis Stress Ulcer Prophylaxis: ppi Plans in collaboration with bedside consultants and IM MDs. Discussed with RN to reach out if any questions or concerns A total of 32 minutes of critical care time was devoted to this patient today, required to treat and/or prevent further deterioration of critical care condition ( as above ) . I am remotely monitoring this patient from another state. I am unable to do the bedside exam, and history/physical and pertinent information is taken from other notes in the computer and bedside staff. Sepsis Event Evaluation Height, Weight, BMI Height: '" Weight: lbs. oz. kg; 52.57 BMI Method: Focused Exam Time of Focused Exam: 17:30 Exam Exam Patient acknowledged, consented, and participated in this virtual visit which was conducted using real time audio/video Vital Signs Date Time Temp Pulse Resp B/P (MAP) Pulse Ox O2 Delivery O2 Flow Rate FiO2 03/07/22 08:45 99 18 125/94 (104) 99 Nasal Cannula 3.00 03/07/22 08:30 101 18 79/34 (49) 100 Nasal Cannula 3.00 03/07/22 08:15 92 18 99/58 (72) 99 Nasal Cannula 3.00 03/07/22 08:00 83 18 69/33 (45) 99 Nasal Cannula 3.00 03/07/22 08:00 35.6 03/07/22 07:56 95 Nasal Cannula 3.00 03/07/22 07:38 91 03/07/22 07:00 89 19 106/70 (82) 96 Nasal Cannula 3.00 03/07/22 06:41 Nasal Cannula 3.00 03/07/22 06:15 92 24 93/64 (74) 95 NIV CPAP 3.00 03/07/22 06:15 36.6 03/07/22 05:00 81 16 98/68 (78) 87 NIV CPAP 3.00 03/07/22 04:00 98 NIV CPAP 3.00 03/07/22 04:00 79 14 93/53 (66) 98 NIV CPAP 3.00 03/07/22 03:00 82 15 116/62 (80) 96 NIV CPAP 3.00 03/07/22 02:02 36.6 03/07/22 02:00 93 17 112/77 (89) 96 NIV CPAP 3.00 03/07/22 01:00 82 20 96/59 (71) 96 NIV CPAP 3.00 03/07/22 01:00 82 03/07/22 00:17 36.4 03/07/22 00:12 92 17 109/67 (81) NIV CPAP 3.00 03/07/22 00:00 96 11 90 NIV CPAP 3.00 03/06/22 23:59 96 NIV CPAP 3.00 03/06/22 23:00 89 20 93 NIV CPAP 3.00 03/06/22 22:53 NIV CPAP 3.00 03/06/22 22:00 96 15 95 Nasal Cannula 3.00 03/06/22 21:24 97 16 113/72 (84) 98 Nasal Cannula 3.00 03/06/22 20:25 122 112/85 (94) Nasal Cannula 3.00 03/06/22 20:19 92 15 105/66 (86) 97 Nasal Cannula 3.00 03/06/22 20:03 36.6 92 15 105/66 (79) 97 NIV CPAP 40.00 03/06/22 20:00 94 NIV CPAP 3.00 03/06/22 19:32 36.2 03/06/22 19:00 96 19 96 Nasal Cannula 3.00 03/06/22 19:00 96 03/06/22 18:20 118/83 03/06/22 18:00 106 25 118/83 (95) 94 NIV CPAP 3.00 03/06/22 17:32 108 108/84 03/06/22 17:00 98 13 105/79 (88) 94 NIV CPAP 3.00 03/06/22 16:00 98 11 103/71 (82) 92 NIV CPAP 3.00 03/06/22 16:00 96 Nasal Cannula 3.00 03/06/22 15:41 36.7 03/06/22 15:00 101 21 100/67 (78) 97 NIV CPAP 3.00 03/06/22 14:00 104 22 108/74 (85) 97 NIV CPAP 3.00 03/06/22 13:00 105 22 121/83 (96) 94 NIV CPAP 3.00 03/06/22 13:00 97 03/06/22 12:00 101 9 111/87 (95) 99 NIV CPAP 3.00 03/06/22 12:00 97 NIV CPAP 3.00 03/06/22 11:41 36.4 03/06/22 11:00 101 20 118/85 (96) 100 NIV CPAP 3.00 I & O 03/07/22 06:59 Intake Total 4990 ml Output Total 5150 ml Balance -160 ml Height & Weight Height: '" Weight: lbs. oz. kg; 52.57 BMI Method: General Appearance: No Apparent Distress, WD/WN, Chronically ill, Obese HEENT: PERRL/EOMI, Moist Mucous Membranes Neck: Normal Inspection, Supple Respiratory: No Accessory Muscle Use, No Respiratory Distress, Decreased Breath Sounds Cardiovascular: Regular Rate, Rhythm Capillary Refill: Less Than 3 Seconds Peripheral Pulses: 2+ Carotid (R), 2+ Carotid (L), 2+ Radial Pulses (R), 2+ Radial Pulses (L) Extremity: No Calf Tenderness, Swelling (acute on chronic-improved ) Neurologic/Psychiatric: Alert, Oriented x3, Depressed Affect Skin: Warm/Dry, Erythema (R leg, surrounding wounds and nodules located on R morgan), Other (B/l venous stasis dermatitis R>L, Four healing ulcerations located on R morgan and one on back of R calf, two tender nodules located on upper R morgan. Some surrounding erythema present on nodules and healing wounds) Lymphatic: No Adenopathy Results Lab Laboratory Tests 03/06/22 03:56 03/06/22 16:22 03/07/22 04:35 Assessment/Plan Assessment/Plan 1 FÁTIMA MEDINA MD Mar 07, 2022 10:10
[2022-03-07] MEDS: UMECLIDINIUM BROMIDE (INCRUSE ELLIPTA) 7'S IH SCH (10:49)
[2022-03-07] MEDS ORDERED: TROUGH ORDER-PHARMACY XX ONE (11:00)
--- NOTE | 2022-03-07 12:20 | Progress Note - Cardiology ---
Cardiology SOAP Progress Note Subjective: No cp or palp or syncope Shortness of breath improving Gen weakness and malaise improving No n/v/d No focal weakness Objective: I&O/Vital Signs 03/07/22 03/07/22 03/07/22 03/07/22 00:17 01:00 01:00 02:00 Temp 36.4 Pulse 82 82 93 Resp 20 17 B/P (MAP) 96/59 (71) 112/77 (89) Pulse Ox 96 96 O2 Delivery NIV CPAP NIV CPAP O2 Flow Rate 3.00 3.00 03/07/22 03/07/22 03/07/22 03/07/22 02:02 03:00 04:00 04:00 Temp 36.6 Pulse 82 79 Resp 15 14 B/P (MAP) 116/62 (80) 93/53 (66) Pulse Ox 96 98 98 O2 Delivery NIV CPAP NIV CPAP NIV CPAP O2 Flow Rate 3.00 3.00 3.00 03/07/22 03/07/22 03/07/22 03/07/22 05:00 06:15 06:15 06:41 Temp 36.6 Pulse 81 92 Resp 16 24 B/P (MAP) 98/68 (78) 93/64 (74) Pulse Ox 87 95 O2 Delivery NIV CPAP NIV CPAP Nasal Cannula O2 Flow Rate 3.00 3.00 3.00 03/07/22 03/07/22 03/07/22 03/07/22 07:00 07:38 07:56 08:00 Temp 35.6 Pulse 89 91 Resp 19 B/P (MAP) 106/70 (82) Pulse Ox 96 95 O2 Delivery Nasal Cannula Nasal Cannula O2 Flow Rate 3.00 3.00 03/07/22 03/07/22 03/07/22 03/07/22 08:00 08:15 08:30 08:45 Pulse 83 92 101 99 Resp 18 18 18 18 B/P (MAP) 69/33 (45) 99/58 (72) 79/34 (49) 125/94 (104) Pulse Ox 99 99 100 99 O2 Delivery Nasal Cannula Nasal Cannula Nasal Cannula Nasal Cannula O2 Flow Rate 3.00 3.00 3.00 3.00 03/07/22 03/07/22 03/07/22 03/07/22 09:00 10:00 10:49 11:00 Pulse 94 92 101 Resp 16 16 17 B/P (MAP) 104/63 (77) 97/55 (69) 132/94 (107) Pulse Ox 98 97 100 100 O2 Delivery Nasal Cannula Nasal Cannula Nasal Cannula Nasal Cannula O2 Flow Rate 3.00 3.00 3.00 3.00 03/07/22 00:00 Intake Total 2470 ml Output Total 2350 ml Balance 120 ml Constitutional: AAO x 3, well-developed, well-nourished, other (morbid obesity) Respiratory: No accessory muscle use; other (fair air entry, diminished at the bases) Cardiovascular: regular rate-rhythm, S1 and S2, systolic murmur (soft TERRIE at card bse) Gastrointestional: No tender; soft; No guarding, No rebound; audible bowel sounds Extremities: swelling (moderate, non-pitting edema of the legs); No clubbing, No cyanosis Neurologic/Psychiatric: oriented x 3, other (moves all limbs equally) Skin: warm/dry; No rash, No rash on exposed areas, No ulcerations on exposed areas Results/Procedures: Labs Laboratory Tests 03/06/22 15:33: Glucometer 161H 03/06/22 16:22: White Blood Count 18.9H, Red Blood Count 3.66L, Hemoglobin 9.5L, Hematocrit 29L, Mean Corpuscular Volume 80, Mean Corpuscular Hemoglobin 26, Mean Corpuscular Hemoglobin Concent 33, Red Cell Distribution Width 17.1H, Platelet Count 391, Mean Platelet Volume 11.3 03/06/22 20:21: Glucometer 139H 03/07/22 04:35: White Blood Count 13.8H, Red Blood Count 3.15L, Hemoglobin 8.1L, Hematocrit 25L, Mean Corpuscular Volume 80, Mean Corpuscular Hemoglobin 26, Mean Corpuscular Hemoglobin Concent 32, Red Cell Distribution Width 17.1H, Platelet Count 325, Mean Platelet Volume 11.1, Immature Granulocyte % (Auto) 1, Neutrophils (%) (Auto) 45, Lymphocytes (%) (Auto) 45H, Monocytes (%) (Auto) 7, Eosinophils (%) (Auto) 2, Basophils (%) (Auto) 0, Neutrophils # (Auto) 6.2, Lymphocytes # (Auto) 6.3H, Monocytes # (Auto) 1.0, Eosinophils # (Auto) 0.3, Basophils # (Auto) 0.1, Immature Granulocyte # (Auto) 0.1, Sodium Level 138, Potassium Level 3.1L, Chloride Level 100, Carbon Dioxide Level 29, Anion Gap 9, Blood Urea Nitrogen 17, Creatinine 1.28, Estimat Glomerular Filtration Rate 50, BUN/Creatinine Ratio 13, Glucose Level 135H, Calcium Level 8.2L, Corrected Calcium 9.6, Phosphorus Level 2.2L, Magnesium Level 1.8, Total Bilirubin 0.6, Aspartate Amino Transf (AST/SGOT) 21, Alanine Aminotransferase (ALT/SGPT) 24, Alkaline Phosphatase 156H , Total Protein 5.2L, Albumin 2.3L 03/07/22 05:00: Blood Gas Puncture Site LEFT RADIAL, Blood Gas Patient Temperature 36.6, Arterial Blood pH 7.45H, Arterial Blood Partial Pressure CO2 45, Arterial Blood Partial Pressure O2 75L, Arterial Blood HCO3 31H, Arterial Blood Total CO2 32.4H , Arterial Blood Oxygen Saturation 98, Arterial Blood Base Excess 6.8H, Ulises Test YES-POS, Blood Gas Ventilator Setting NO, Blood Gas Inspired Oxygen 40% 03/07/22 10:47: Glucometer 137H 03/07/22 11:11: Vancomycin Level Trough 13.1 Microbiology 03/03/22 MRSA Screen - Final, Complete MRSA not isolated 03/03/22 Blood Culture - Preliminary, Resulted No growth Laboratory Tests 03/06/22 03:56 03/06/22 16:22 03/07/22 04:35 A/P: Assessment: Mild troponin elevation likely due to hypotension (septic shock) - type 2 CT - Echo 03/06/22: LVEF 55-60%, mild MR, PASP 30-35 mmHg Septic shock, apparently due to R leg cellulitis - Dr Stringer managing Renal failure of unknown chronicity (eGFR 43 on 03/05/22) Morbid obesity with hypoventilation syndrome and chronic hypoxia requiring supplemental oxygen ?COPD 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 We recommend that it be evaluated and treated (Dr Stringer managing) * Replenish K * Monitor labs closely POWER KLEIN MD FACP [facility] Mar 07, 2022 12:19
[2022-03-07] MEDS: VANCOMYCIN 1500 MG/NS 500 ML IVPB IV SCH ×2 (13:10)
--- NOTE | 2022-03-07 13:18 | Physical Therapy Evaluation ---
PT Evaluation-General Medical Diagnosis Admission Date Mar 03, 2022 at 19:30 Medical Diagnosis: sepsis Onset Date: Mar 03, 2022 Therapy Diagnosis Therapy Diagnosis: impaired mobility Precautions Precautions/Isolations: Fall Prevention, Standard Precautions Referral Physician: Anju Reason for Referral: Evaluation/Treatment Medical History Additional Medical History Past Medical History Surgeries: Abdominal (splenectomy- 2 yrs ago, cholecystectomy ), Hysterectomy Pulmonary Embolism, COPD Chronic Edema/Swelling, Deep Vein Thrombosis, High Cholesterol, Hypertension Chronic Back Pain Diabetes, Insulin dep Anxiety, Depression Eczema Blood Disorders: Yes CKD IV Reviewed History: Yes Social History Current Living Status: Friend Entry Into Home: Level Entry Prior Prior Level of Function SCALE: Activities may be completed with or without assistive devices. 4-Blhczfteth-xadwqhf completes the activity by him/herself with no assistance from a helper. 5-Set-up or Clean-up Assistance-helper sets up or cleans up; patient completes activity. [place] assists only prior to or following the activity. 4-Supervision or Touching Assistance-helper provides verbal cues and/or touching/steadying and/or contact guard assistance as patient completes a ctivity. Assistance may be provided throughout the activity or intermittently. 3-Partial/Moderate Assistance-helper does LESS THAN HALF the effort. [place] lifts, holds or supports trunk or limbs, but provides less than half the effort. 2-Substantial/Maximal Assistance-helper does MORE THAN HALF the effort. [place] lifts or holds trunk or limbs and provides more than half the effort. 2-Ewrmfswwg-qydldp does ALL the effort. Patient does none of the effort to complete the activity. Or, the assistance of 2 or more helpers is required for the patient to complete the activity. If activity was not attempted, code reason: 7-Patient Refused. 9-Not Applicable-not attempted and the patient did not perform the activity before the current illness, exacerbation or injury. 10-Not Attempted due to Environmental Limitations-(lack of equipment, weather restraints, etc.). 88-Not Attempted due to Medical Conditions or Safety Concerns. Bed Mobility: 6 Transfers (B,C,W/C): 6 Gait: 6 Indoor Mobility (Ambulation): Independent Prior Devices Use: None PT Evaluation-Current Subjective Patient in recliner pre tx, agrees to PT, has 8/10 pain in her back and legs Pt/Family Goals to be independent at home Objective Patient Orientation: Person, Place, Situation Attachments: Oxygen, IV ROM/Strength ROM Lower Extremities slightly limited due to edema and obesity Strength Lower Extremities LLE (hip flexion 3+/5, knee flexion 4/5, knee extension 4/5, dorsiflexion 5/5), RLE (hip flexion 3+/5, knee flexion 4/5, knee extension 4/5, dorsiflexion 5/5) Sensory Vision: Functional Hearing: Functional Sensation Right Lower Extremit: Impaired Sensation Left Lower Extremity: Impaired Transfers Sit to Stand (QC): 4 Chair/Zey-bp-Gkfyj Xfer(QC): 4 SBA Gait Does the Patient Walk?: Yes Mode of Locomotion: Walk Anticipated Mode of Locomotion: Walk Walk 10 feet (QC): 4 Walk 50 ft with 2 Turns(QC): 4 Distance: 50' Gait Assistive Device: None Comments/Gait Description slow but steady ambulation, slightly dizzy after ambulation but O2 was 100% Balance Sitting Static: Normal Sitting Dynamic: Normal Standing Static: Good Standing Dynamic: Good Treatment BLE seated exercises x20 (AP, LAQ) Assessment/Needs Patient in recliner post tx with nurse call, phone, tray, all needs met. Patient has impaired mobility, dizziness with activity Rehab Potential: Fair PT Controller Instructor Goals Controller Instructor Goals PT Controller Instructor Goals Time Frame: Mar 14, 2022 Roll Left & Right (QC): 6 Sit to Lying (QC): 6 Lying-Sitting on Side/Bed(QC): 6 Sit to Stand (QC): 6 Chair/Jzf-yt-Rvpic Xfer(QC): 6 Walk 10 feet (QC): 6 Walk 50ft with 2 Turns (QC): 6 Walk 150 ft (QC): 6 PT Plan Problem List Problem List: Activity Tolerance, Functional Strength, Safety, Balance, Gait, Transfer, Bed Mobility, ROM Treatment/Plan Treatment Plan: Continue Plan of Care Treatment Plan: Bed Mobility, Education, Functional Activity Chau, Functional Strength, Gait, Safety, Therapeutic Exercise, Transfers Treatment Duration: Mar 14, 2022 Frequency: 6 times per week Estimated Hrs Per Day: .25 hour per day Patient and/or Family Agrees t: Yes Safety Risks/Education Patient Education: Gait Training, Transfer Techniques, Correct Positioning, Safety Issues Teaching Recipient: Patient Teaching Methods: Demonstration, Discussion Response to Teaching: Reinforcement Needed Discharge Recommendations Plan Patient will perform bed mobility and transfer training, balance and endurance training, functional strengthening, gait training, and education, to improve functional mobility and independence at home. Therapy Discharge Recommendati: Scheduled Assistance, Home & Family, Post Acute PT Time/GCodes Time In: 1255 Time Out: 1308 Total Billed Treatment Time: 13 Total Billed Treatment 1 visit RUPAL 13' THIERRY SANCHEZ PT Mar 07, 2022 13:18
[2022-03-07] MEDS: CYCLOBENZAPRINE 10 MG (FLEXERIL) TAB PO PRN (16:47)
--- NOTE | 2022-03-07 17:13 | Progress Note ---
Subjective Subjective/Events-last exam Patient states that she is feeling much better this AM. She is up in chair with NC. Tolerating PO diet. Review of Systems General: Malaise Pulmonary: Dyspnea (with exertion) Cardiovascular: No: Chest Pain, Palpitations Gastrointestinal: No: Abdominal Pain, Diarrhea, Constipation Neurological: Weakness, Incoordination; No: Confusion Focused Exam Time of Focused Exam: 17:30 Objective Exam Last Set of Vital Signs Vital Signs Date Time Temp Pulse Resp B/P (MAP) Pulse Ox O2 Delivery O2 Flow Rate FiO2 03/07/22 16:00 87 10 109/70 (83) 100 Nasal Cannula 3.00 03/07/22 16:00 36.0 03/05/22 15:45 3 Capillary Refill : Less Than 3 Seconds I&O Intake and Output 03/07/22 00:00 Intake Total 5140 ml Output Total 5025 ml Balance 115 ml Intake Oral 2390 ml IV Total 2750 ml Output Urine Total 5025 ml General: Alert, Oriented X3, Mild Distress (with any activity) Lungs: Clear to Auscultation, Normal Air Movement Heart: Regular Rate, No Murmurs Abdomen: Normal Bowel Sounds, Soft Extremities: Other (RLE with erythema and swelling) Neuro: Normal Speech Psych/Mental Status: Mental Status NL, Mood NL Results/Procedures Lab Laboratory Tests 03/06/22 20:21: Glucometer 139H 03/07/22 04:35: White Blood Count 13.8H, Red Blood Count 3.15L, Hemoglobin 8.1L, Hematocrit 25L, Mean Corpuscular Volume 80, Mean Corpuscular Hemoglobin 26, Mean Corpuscular Hemoglobin Concent 32, Red Cell Distribution Width 17.1H, Platelet Count 325, Mean Platelet Volume 11.1, Immature Granulocyte % (Auto) 1, Neutrophils (%) (Auto) 45, Lymphocytes (%) (Auto) 45H, Monocytes (%) (Auto) 7, Eosinophils (%) (Auto) 2, Basophils (%) (Auto) 0, Neutrophils # (Auto) 6.2, Lymphocytes # (Auto) 6.3H, Monocytes # (Auto) 1.0, Eosinophils # (Auto) 0.3, Basophils # (Auto) 0.1, Immature Granulocyte # (Auto) 0.1, Sodium Level 138, Potassium Level 3.1L, Chloride Level 100, Carbon Dioxide Level 29, Anion Gap 9, Blood Urea Nitrogen 17, Creatinine 1.28, Estimat Glomerular Filtration Rate 50, BUN/Creatinine Ratio 13, Glucose Level 135H, Calcium Level 8.2L, Corrected Calcium 9.6, Phosphorus Level 2.2L, Magnesium Level 1.8, Total Bilirubin 0.6, Aspartate Amino Transf (AST/SGOT) 21, Alanine Aminotransferase (ALT/SGPT) 24, Alkaline Phosphatase 156H , Total Protein 5.2L, Albumin 2.3L 03/07/22 05:00: Blood Gas Puncture Site LEFT RADIAL, Blood Gas Patient Temperature 36.6, Arterial Blood pH 7.45H, Arterial Blood Partial Pressure CO2 45, Arterial Blood Partial Pressure O2 75L, Arterial Blood HCO3 31H, Arterial Blood Total CO2 32.4H , Arterial Blood Oxygen Saturation 98, Arterial Blood Base Excess 6.8H, Ulises Test YES-POS, Blood Gas Ventilator Setting NO, Blood Gas Inspired Oxygen 40% 03/07/22 10:47: Glucometer 137H 03/07/22 11:11: Vancomycin Level Trough 13.1 03/07/22 13:26: Lab Scanned Report Transfusion Reaction Form 03/07/22 16:18: Glucometer 109 Microbiology 03/03/22 MRSA Screen - Final, Complete MRSA not isolated 03/03/22 Blood Culture - Preliminary, Resulted No growth Assessment/Plan Assessment/Plan (1) Septic shock Status: Acute Assessment & Plan: 03/07: continues to require levophed, titrate as tolerated, push PO hydration, Continue antibiotics (2) Cellulitis of right leg Status: Acute (3) MRSA (methicillin resistant Staphylococcus aureus) infection Status: Acute (4) Acute on chronic renal failure Status: Resolved (5) Lactic acid acidosis Status: Resolved (6) COPD (chronic obstructive pulmonary disease) Status: Chronic Assessment & Plan: 03/07: Home oxygen requirement 2-3 LPM continuous Qualifiers: Qualified Codes: J44.9 - Chronic obstructive pulmonary disease, unspecified (7) NSTEMI (non-ST elevated myocardial infarction) Status: Acute Assessment & Plan: 03/07: Type 2 likely 2/2 shock, no chest pain (8) ROSALVA treated with BiPAP Status: Chronic (9) Normocytic anemia Status: Acute Assessment & Plan: 03/07: s/p 2 pRBCs since admission, will continue to monitor, normal iron panel (10) IDDM (insulin dependent diabetes mellitus) Status: Chronic (11) BMI 50.0-59.9, adult Status: Chronic SAHRA FOUNTAIN MD Mar 07, 2022 17:13
[2022-03-07] MEDS: NOREPINEPHRINE 8 MG/250 ML 250 ML IV SCH (18:24)
[2022-03-07] MEDS: lisINopril 5 MG (PRINIVIL) TABLET PO SCH (21:00)
[2022-03-07] MEDS: MONTELUKAST 10 MG (SINGULAIR) TAB PO SCH (21:02)
[2022-03-07] MEDS: QUEtiapine 100 MG (SEROquel) TAB IMMEDIATE RELEASE PO SCH (21:02)
[2022-03-08 04:30] LABS: BASOPHILS % (AUTO) 0 % (0-10); EOSINOPHILS # (AUTO) 0.4 10^3/uL (0.0-0.3); EOSINOPHILS % (AUTO) 3 % (0-10); HEMATOCRIT 24 % (35-52); HEMOGLOBIN 7.6 g/dL (11.5-16.0); LYMPHOCYTES # (AUTO) 5.6 10^3/uL (1.0-4.0); LYMPHOCYTES % (AUTO) 45 % (12-44); MEAN CORPUSCULAR HEMOGLOBIN 26 pg (25-34); MEAN CORPUSCULAR HGB CONC 32 g/dL (32-36); MEAN CORPUSCULAR VOLUME 82 fL (80-99); MEAN PLATELET VOLUME 11.6 fL (9.0-12.2); MONOCYTES # (AUTO) 0.9 10^3/uL (0.0-1.0); MONOCYTES % (AUTO) 7 % (0-12); NEUTROPHILS # (AUTO) 5.4 10^3/uL (1.8-7.8); NEUTROPHILS % (AUTO) 44 % (42-75); PLATELET COUNT 311 10^3/uL (130-400); WHITE BLOOD COUNT 12.4 10^3/uL (4.3-11.0)
[2022-03-08 04:36] LABS: SMEAR SCAN COMMENT YES
[2022-03-08 05:09] LABS: ALBUMIN 2.2 GM/DL (3.2-4.5); BILIRUBIN,TOTAL 0.2 MG/DL (0.1-1.0); CALCIUM 7.9 MG/DL (8.5-10.1); CREATININE SERUM 1.53 MG/DL (0.60-1.30); MAGNESIUM 1.6 MG/DL (1.6-2.4); PHOSPHORUS 2.8 MG/DL (2.3-4.7); POTASSIUM 3.8 MMOL/L (3.6-5.0); TOTAL PROTEIN 5.1 GM/DL (6.4-8.2)
[2022-03-08 05:23] LABS: ABG BASE EXCESS 3.2 MMOL/L (-2.5-2.5); ABG OXYGEN SATURATION 93 % (94-100); ABG PCO2 44 MMHG (35-45); ABG PH 7.41 (7.37-7.43); ABG PO2 58 MMHG (79-93); ABG TCO2 28.8 MMOL/L (21.0-31.0)
[2022-03-08 05:26] LABS: ALLENS TEST YES-POS; INSPIRED O2 3L; VENTILATOR NO
[2022-03-08 05:27] LABS: PATIENT TEMP 36.8
[2022-03-08] MEDS: KCL 20 MEQ TAB (K-DUR) PO SCH (05:32)
[2022-03-08] MEDS: inSUlin ASPART (NovoLOG) 1 UNIT/0.01 ML (CHARGE PER UNIT) SC SCH ×4 (05:32→21:09)
[2022-03-08] MEDS: POTASSIUM CL 10MEQ/50ML IVPB 50 ML IV SCH (05:32)
[2022-03-08] MEDS: MAGNESIUM 1 GM/100 ML IVPB 100 ML IV SCH ×2 (06:19→06:20)
[2022-03-08] MEDS: MEROPENEM 500 MG in NS (IVPB) 100 ML IV SCH ×3 (06:19→18:44)
[2022-03-08] MEDS: NOREPINEPHRINE 8 MG/250 ML 250 ML IV SCH ×2 (06:40→20:07)
[2022-03-08] MEDS: LACTATED RINGERS 1,000 ML IV SCH ×2 (06:46→17:13)
[2022-03-08] MEDS: UMECLIDINIUM BROMIDE (INCRUSE ELLIPTA) 7'S IH SCH (06:57)
--- NOTE | 2022-03-08 09:28 | Physical Therapy Daily Note ---
PT Daily Note-Current Subjective Patient in bed pre-tx, reports pain 7/10 in BLE and back, agrees to PT. Pain Section J - Health Conditions 1. Rarely or not at all 2. Occasionally 3. Frequently 4. Almost constantly 8. Unable to answer Pain Effect on Sleep: 2 Pain Interference with Therapy: 2 Pain Interference w/Day-to-Day: 2 Appearance Patient in recliner post-tx with tray, nurse call, lines hooked back up, and all other needs met. Mental Status Patient Orientation: Person, Place, Situation Attachments: Oxygen, IV pulse-ox Transfers SCALE: Activities may be completed with or without assistive devices. 1-Vkumscybqg-ugccxhh completes the activity by him/herself with no assistance from a helper. 5-Set-up or Clean-up Assistance-helper sets up or cleans up; patient completes activity. [place] assists only prior to or following the activity. 4-Supervision or Touching Assistance-helper provides verbal cues and/or touching/steadying and/or contact guard assistance as patient completes activity. Assistance may be provided throughout the activity or intermittently. 3-Partial/Moderate Assistance-helper does LESS THAN HALF the effort. [place] lifts, holds or supports trunk or limbs, but provides less than half the effort. 2-Substantial/Maximal Assistance-helper does MORE THAN HALF the effort. [place] lifts or holds trunk or limbs and provides more than half the effort. 8-Zpbfodzju-nuugnc does ALL the effort. Patient does none of the effort to complete the activity. Or, the assistance of 2 or more helpers is required for the patient to complete the activity. If activity was not attempted, code reason: 7-Patient Refused. 9-Not Applicable-not attempted and the patient did not perform the activity before the current illness, exacerbation or injury. 10-Not Attempted due to Environmental Limitations-(lack of equipment, weather restraints, etc.). 88-Not Attempted due to Medical Conditions or Safety Concerns. Lying to Sitting/Side of Bed(Q: 4 Sit to Stand (QC): 4 Chair/Usv-yx-Gwxyh Xfer(QC): 4 SBA Weight Bearing Right Lower Extremity: Right Full Weight Bearing Left Lower Extremity: Left Full Weight Bearing Gait Training Does the Patient Walk?: Yes Distance: 60' Walk 10 feet (QC): 4 Walk 50 ft with 2 Turns(QC): 4 Gait Persons Needed: 1 Gait Assistive Device: None Patient ambulates with decreased step length and foot clearance, but is pretty steady, SBA Wheelchair Training Does the Pt Use a Wheelchair?: No Exercises Seated Therapy Exercises: Ankle pumps, Long arc quads Seated Reps: 15 Treatments LE Strength, Ambulation Assessment Current Status: Fair Progress Patient gets fatigued and SOB fairly quick, but oxygen stays 100%. Patient did not feel light-headed like the previous visit while walking. PT Intermediate Goals Intermediate Goals PT Intermediate Goals Time Frame: Mar 14, 2022 Roll Left & Right (QC): 6 Sit to Lying (QC): 6 Lying-Sitting on Side/Bed(QC): 6 Sit to Stand (QC): 6 Chair/Pmp-tl-Bwlkf Xfer(QC): 6 Walk 10 feet (QC): 6 Walk 50ft with 2 Turns (QC): 6 Walk 150 ft (QC): 6 PT Plan Problem List Problem List: Activity Tolerance, Functional Strength, Safety, Balance, Gait, Transfer, Bed Mobility, ROM Treatment/Plan Treatment Plan: Continue Plan of Care Treatment Plan: Bed Mobility, Education, Functional Activity Chau, Functional Strength, Gait, Safety, Therapeutic Exercise, Transfers Treatment Duration: Mar 14, 2022 Frequency: 6 times per week Estimated Hrs Per Day: .25 hour per day Patient and/or Family Agrees t: Yes Safety Risks/Education Patient Education: Gait Training, Transfer Techniques, Correct Positioning, Safety Issues Teaching Recipient: Patient Teaching Methods: Demonstration, Discussion Response to Teaching: Verbalize Understanding Time Time In: 0846 Time Out: 0858 Total Billed Treatment Time: 12 Total Billed Treatment 1 visit FA 12min THIERRY SANCHEZ PT Mar 08, 2022 09:28
[2022-03-08] MEDS: ASPIRIN 81 MG CHEW (CHILDREN'S ASA) PO SCH (09:58)
[2022-03-08] MEDS: APIXABAN 5 MG (ELIQUIS) TABLET PO SCH ×2 (09:58→21:09)
[2022-03-08] MEDS: hydrOXYzine (VISTARIL/ATARAX) 25 MG capsule/tablet PO SCH ×2 (10:02→21:08)
[2022-03-08] MEDS: PANTOPRAZOLE 40 MG (PROTONIX) VIAL IV SCH (10:02)
[2022-03-08] MEDS: DOCUSATE SODIUM 100 MG (COLACE) CAP PO SCH ×2 (10:02→21:06)
[2022-03-08] MEDS: busPIRone 15 MG (BUSPAR) TABLET PO SCH ×2 (10:02→21:07)
[2022-03-08] MEDS: VENlafaxine XR 75 MG (EFFEXOR XR) CAP PO SCH (10:03)
[2022-03-08] MEDS: MULTIVIT W/MINERALS TAB (THERAGRAN M) PO SCH (10:03)
[2022-03-08] MEDS: FAMOTIDINE 20 MG (PEPCID) TABLET PO SCH ×2 (10:03→21:08)
[2022-03-08] MEDS: buPROPion SR 150 MG (WELLBUTRIN SR) TAB PO SCH ×2 (10:03→21:08)
[2022-03-08] MEDS: FERROUS SULF 325 MG (IRON) TAB PO SCH (10:03)
[2022-03-08] MEDS: PREGABALIN 75 MG (LYRICA) CAP PO SCH ×4 (10:03→21:08)
[2022-03-08] MEDS: ALLOPURINOL 100 MG (ZYLOPRIM) TAB PO SCH (10:04)
[2022-03-08] MEDS: ALBUMIN 25% 25 GM/100 ML 100 ML IV SCH ×2 (10:04→11:50)
--- NOTE | 2022-03-08 10:06 | Progress Note - Cardiology ---
Cardiology SOAP Progress Note Subjective: Sitting up in bed No c/o CP, SOB, dizziness or weakness No c/o n/v/d Objective: I&O/Vital Signs 03/08/22 03/08/22 03/08/22 03/08/22 20:00 20:00 21:13 22:00 Pulse 85 86 84 Resp 15 20 20 B/P (MAP) 84/52 (61) 102/71 (81) 82/59 (68) Pulse Ox 96 95 94 98 O2 Delivery NIV CPAP NIV CPAP Room Air NIV CPAP O2 Flow Rate 3.00 3.00 3.00 03/08/22 03/08/22 03/08/22 03/08/22 22:00 22:50 23:00 23:12 Temp 36.1 Pulse 79 Resp 16 B/P (MAP) 71/46 (53) 71/46 Pulse Ox 97 O2 Delivery NIV CPAP NIV CPAP O2 Flow Rate 3.00 3.00 03/08/22 03/09/22 03/09/22 03/09/22 23:45 00:00 00:00 00:15 Pulse 71 73 78 Resp 22 30 14 B/P (MAP) 121/81 (102) 122/83 (101) 130/86 (97) Pulse Ox 95 93 97 95 O2 Delivery NIV CPAP NIV CPAP NIV CPAP NIV CPAP O2 Flow Rate 3.00 3.00 3.00 3.00 03/09/22 03/09/22 03/09/22 03/09/22 00:30 00:45 01:00 01:00 Pulse 80 78 79 79 Resp 14 13 13 B/P (MAP) 112/71 (85) 102/68 (79) 109/74 (84) Pulse Ox 96 96 96 O2 Delivery NIV CPAP NIV CPAP NIV CPAP O2 Flow Rate 3.00 3.00 3.00 03/09/22 03/09/22 03/09/22 03/09/22 02:00 02:05 02:30 03:04 Pulse 76 84 Resp 15 19 B/P (MAP) 79/50 (60) 71/50 122/102 (109) 122/102 Pulse Ox 94 94 O2 Delivery NIV CPAP NIV CPAP O2 Flow Rate 3.00 3.00 03/09/22 03/09/22 03/09/22 03/09/22 03:15 04:00 04:00 04:15 Temp 36.8 Pulse 81 73 Resp 17 17 B/P (MAP) 126/79 (95) 109/72 (84) Pulse Ox 99 96 96 O2 Delivery NIV CPAP NIV CPAP NIV CPAP O2 Flow Rate 3.00 3.00 3.00 03/09/22 03/09/22 03/09/22 03/09/22 05:00 06:00 07:23 07:32 Pulse 78 72 80 Resp 13 13 B/P (MAP) 112/77 (89) 109/71 (84) Pulse Ox 97 96 98 O2 Delivery NIV CPAP NIV CPAP Nasal Cannula O2 Flow Rate 3.00 3.00 3.00 03/09/22 00:00 Intake Total 3000 ml Output Total 2400 ml Balance 600 ml Constitutional: AAO x 3, well-developed, well-nourished, other (morbid obesity) Respiratory: No accessory muscle use; other (fair air entry, diminished at the bases) Cardiovascular: regular rate-rhythm, S1 and S2, systolic murmur (soft TERRIE at card bse) Gastrointestional: No tender; soft; No guarding, No rebound; audible bowel sounds Extremities: swelling (moderate, non-pitting edema of the legs); No clubbing, No cyanosis Neurologic/Psychiatric: oriented x 3, other (moves all limbs equally) Skin: warm/dry; No rash, No rash on exposed areas, No ulcerations on exposed areas Results/Procedures: Labs Laboratory Tests 03/08/22 11:19: Glucometer 128H 03/08/22 13:12: White Blood Count 14.2H, Red Blood Count 3.14L, Hemoglobin 8.3L, Hematocrit 26L, Mean Corpuscular Volume 82, Mean Corpuscular Hemoglobin 26, Mean Corpuscular Hemoglobin Concent 32, Red Cell Distribution Width 17.6H, Platelet Count 351, Mean Platelet Volume 11.4, Immature Granulocyte % (Auto) 1, Neutrophils (%) (Auto) 45, Lymphocytes (%) (Auto) 43, Monocytes (%) (Auto) 8, Eosinophils (%) (Auto) 3, Basophils (%) (Auto) 0, Neutrophils # (Auto) 6.3, Lymphocytes # (Auto) 6.1H, Monocytes # (Auto) 1.2H, Eosinophils # (Auto) 0.5H, Basophils # (Auto) 0.0, Immature Granulocyte # (Auto) 0.1 10/25/22 15:34: Glucometer 123H 03/08/22 20:47: Glucometer 148H 03/09/22 05:07: White Blood Count 13.5H, Red Blood Count 3.12L, Hemoglobin 8.3L, Hematocrit 26L, Mean Corpuscular Volume 83, Mean Corpuscular Hemoglobin 27, Mean Corpuscular Hemoglobin Concent 32, Red Cell Distribution Width 17.6H, Platelet Count 381, Mean Platelet Volume 11.3, Immature Granulocyte % (Auto) 1, Neutrophils (%) (Auto) 47, Lymphocytes (%) (Auto) 41, Monocytes (%) (Auto) 8, Eosinophils (%) (Auto) 3, Basophils (%) (Auto) 0, Neutrophils # (Auto) 6.3, Lymphocytes # (Auto) 5.5H, Monocytes # (Auto) 1.1H, Eosinophils # (Auto) 0.4H, Basophils # (Auto) 0.0, Immature Granulocyte # (Auto) 0.1, Sodium Level 140, Potassium Level 4.1, Chloride Level 106, Carbon Dioxide Level 24, Anion Gap 10, Blood Urea Nitrogen 16, Creatinine 1.29, Estimat Glomerular Filtration Rate 50, BUN/Creatinine Ratio 12, Glucose Level 135H, Calcium Level 8.5, Corrected Calcium 9.4, Phosphorus Level 2.7, Magnesium Level 1.9, Total Bilirubin 0.2, Aspartate Amino Transf (AST/SGOT) 32, Alanine Aminotransferase (ALT/SGPT) 49, Alkaline Phosphatase 175H , Total Protein 5.9L, Albumin 2.9L Microbiology 03/03/22 MRSA Screen - Final, Complete MRSA not isolated 03/03/22 Blood Culture - Preliminary, Resulted No growth A/P: Assessment: Mild troponin elevation likely due to hypotension (septic shock) - type 2 RI - Echo 03/06/22: LVEF 55-60%, mild MR, PASP 30-35 mmHg Septic shock, apparently due to R leg cellulitis - Medical services managing Renal failure of unknown chronicity (eGFR 43 on 03/05/22) Morbid obesity with hypoventilation syndrome and chronic hypoxia requiring supplemental oxygen ?COPD 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 We recommend that it be evaluated and treated (Dr Stringer managing) * Hypotension - requiring pressor support - stop Lisinopril * Renal function worsening - stop NATHAN * Monitor labs closely MARTIN MILLER Mar 08, 2022 10:06
[2022-03-08] MEDS: CYCLOBENZAPRINE 10 MG (FLEXERIL) TAB PO PRN ×2 (10:15→17:12)
[2022-03-08] MEDS ORDERED: TROUGH ORDER-PHARMACY XX ONE (11:00)
--- NOTE | 2022-03-08 11:29 | Tele-ICU Progress Note ---
Subjective Date Seen by a Provider: Mar 08, 2022 Time Seen by a Provider: 11:29 Subjective/Events-last exam (Tele-ICU Physician , consultation) Available chart/ vitals / labs / Images reviewed H&P is from ER notes Patient's information available about PMH, allergy reviewed in EMR. ROS as per chart and RN report Video assessment done using teleICU camera, rest of exam as per RN Discussed with RN. Sepsis Event Evaluation Height, Weight, BMI Height: '" Weight: lbs. oz. kg; 54.91 BMI Method: Focused Exam Time of Focused Exam: 17:30 Exam Exam Patient acknowledged, consented, and participated in this virtual visit which was conducted using real time audio/video Vital Signs Date Time Temp Pulse Resp B/P (MAP) Pulse Ox O2 Delivery O2 Flow Rate FiO2 03/08/22 09:00 84 26 105/68 (80) 100 NIV CPAP 3.00 03/08/22 08:00 86 25 81/54 (63) 97 NIV CPAP 3.00 03/08/22 07:54 36.3 03/08/22 07:30 97 Nasal Cannula 3.00 03/08/22 07:29 94 03/08/22 07:00 81 13 83/56 (65) 94 NIV CPAP 3.00 03/08/22 06:57 94 Room Air 03/08/22 06:18 76 18 80/52 (61) NIV CPAP 3.00 03/08/22 06:00 36.7 03/08/22 06:00 76 14 87/47 (60) 95 NIV CPAP 3.00 03/08/22 05:00 80 16 90/54 (66) 97 NIV CPAP 3.00 03/08/22 04:00 36.6 03/08/22 04:00 72 91/52 (67) 94 NIV CPAP 3.00 03/08/22 03:38 92 NIV CPAP 3.00 03/08/22 03:22 78 19 98/64 (75) 97 NIV CPAP 3.00 03/08/22 02:00 72 29 91/57 (71) 95 NIV CPAP 3.00 03/08/22 01:03 85 85/54 (67) NIV CPAP 3.00 03/08/22 01:02 93 29 103/51 (61) 92 NIV CPAP 3.00 03/08/22 01:00 77 03/08/22 00:05 80 20 85/56 (70) 95 NIV CPAP 3.00 03/07/22 23:52 37.4 03/07/22 23:28 99 NIV CPAP 3.00 03/07/22 23:00 84 14 100/58 (64) 100 NIV CPAP 3.00 03/07/22 22:27 74 19 101/68 (77) NIV CPAP 3.00 03/07/22 21:01 89 22 99/70 (75) 96 NIV CPAP 3.00 03/07/22 20:49 107 03/07/22 20:00 36.8 03/07/22 20:00 NIV CPAP 3.00 03/07/22 20:00 83 18 90/54 (72) 99 NIV CPAP 3.00 03/07/22 19:59 99 NIV CPAP 3.00 03/07/22 19:28 90 22 87/60 (69) 97 NIV CPAP 3.00 03/07/22 19:00 80 03/07/22 18:00 87 29 71/49 (56) 99 Nasal Cannula 3.00 03/07/22 17:00 84 14 108/74 (85) 93 Nasal Cannula 3.00 03/07/22 16:00 87 10 109/70 (83) 100 Nasal Cannula 3.00 03/07/22 16:00 36.0 03/07/22 16:00 95 Nasal Cannula 3.00 03/07/22 15:00 84 15 140/102 (115) 100 Nasal Cannula 3.00 03/07/22 14:00 85 25 78/64 (69) 99 Nasal Cannula 3.00 03/07/22 13:33 94 03/07/22 13:00 93 18 94/82 (86) 100 Nasal Cannula 3.00 03/07/22 12:00 95 21 103/81 (88) 99 Nasal Cannula 3.00 03/07/22 12:00 95 Nasal Cannula 3.00 I & O 03/08/22 07:00 Intake Total 6197 ml Output Total 2600 ml Balance 3597 ml Height & Weight Height: '" Weight: lbs. oz. kg; 54.91 BMI Method: General Appearance: No Apparent Distress, WD/WN, Chronically ill, Obese HEENT: PERRL/EOMI, Moist Mucous Membranes Neck: Normal Inspection, Supple Respiratory: No Accessory Muscle Use, No Respiratory Distress, Decreased Breath Sounds Cardiovascular: Regular Rate, Rhythm Capillary Refill: Less Than 3 Seconds Peripheral Pulses: 2+ Carotid (R), 2+ Carotid (L), 2+ Radial Pulses (R), 2+ Radial Pulses (L) Extremity: No Calf Tenderness, Swelling (acute on chronic-improved ) Neurologic/Psychiatric: Alert, Oriented x3, Depressed Affect Skin: Warm/Dry, Erythema (R leg, surrounding wounds and nodules located on R morgan), Other (B/l venous stasis dermatitis R>L, Four healing ulcerations located on R morgan and one on back of R calf, two tender nodules located on upper R morgan. Some surrounding erythema present on nodules and healing wounds) Lymphatic: No Adenopathy Results Lab Laboratory Tests 03/06/22 16:22 03/07/22 04:35 03/08/22 04:19 Assessment/Plan Assessment/Plan 1. Septic shock secondary to cellulitis currently requiring low-dose Levophed 2. Right leg cellulitis 3. Acute on chronic kidney disease secondary to volume deficiency 4. Low urine or secondary to above. 5. Morbid obesity with possibility of pilar and or [facility] Recommendations 1. Continue ivf with Ringer's lactate at 100 cc/h will not increase secondary to increasing edema 2. Anti biotic therapy for primary care physician 3. Will give iv Albumin to increase BPand urine out put 4. x of dvt and pe on aphixaban chronically Critical Care: Critically Ill Patient Time spent with patient (mins): 20 KIRBY DEXTER MD Mar 08, 2022 11:29
[2022-03-08 13:23] LABS: BASOPHILS % (AUTO) 0 % (0-10); EOSINOPHILS # (AUTO) 0.5 10^3/uL (0.0-0.3); EOSINOPHILS % (AUTO) 3 % (0-10); HEMATOCRIT 26 % (35-52); HEMOGLOBIN 8.3 g/dL (11.5-16.0); LYMPHOCYTES # (AUTO) 6.1 10^3/uL (1.0-4.0); LYMPHOCYTES % (AUTO) 43 % (12-44); MEAN CORPUSCULAR HEMOGLOBIN 26 pg (25-34); MEAN CORPUSCULAR HGB CONC 32 g/dL (32-36); MEAN CORPUSCULAR VOLUME 82 fL (80-99); MEAN PLATELET VOLUME 11.4 fL (9.0-12.2); MONOCYTES # (AUTO) 1.2 10^3/uL (0.0-1.0); MONOCYTES % (AUTO) 8 % (0-12); NEUTROPHILS # (AUTO) 6.3 10^3/uL (1.8-7.8); NEUTROPHILS % (AUTO) 45 % (42-75); PLATELET COUNT 351 10^3/uL (130-400); WHITE BLOOD COUNT 14.2 10^3/uL (4.3-11.0)
[2022-03-08] MEDS ORDERED: NS IV 1000 ML 1,000 ML ONE (14:40)
--- NOTE | 2022-03-08 16:49 | Progress Note - Cardiology ---
Cardiology SOAP Progress Note Subjective: No cp or palp or syncope or shortness of breath No n/v/d No focal weakness No swelling Objective: I&O/Vital Signs 03/08/22 03/08/22 03/08/22 03/08/22 05:00 06:00 06:00 06:18 Temp 36.7 Pulse 80 76 76 Resp 16 14 18 B/P (MAP) 90/54 (66) 87/47 (60) 80/52 (61) Pulse Ox 97 95 O2 Delivery NIV CPAP NIV CPAP NIV CPAP O2 Flow Rate 3.00 3.00 3.00 03/08/22 03/08/22 03/08/22 03/08/22 06:57 07:00 07:29 07:30 Pulse 81 94 Resp 13 B/P (MAP) 83/56 (65) Pulse Ox 94 94 97 O2 Delivery Room Air NIV CPAP Nasal Cannula O2 Flow Rate 3.00 3.00 03/08/22 03/08/22 03/08/22 03/08/22 07:54 08:00 09:00 10:00 Temp 36.3 Pulse 86 84 96 Resp 25 26 20 B/P (MAP) 81/54 (63) 105/68 (80) 104/60 (75) Pulse Ox 97 100 98 O2 Delivery NIV CPAP NIV CPAP NIV CPAP O2 Flow Rate 3.00 3.00 3.00 03/08/22 03/08/22 03/08/22 03/08/22 11:00 12:00 12:00 12:00 Temp 36.6 Pulse 92 84 Resp 39 26 B/P (MAP) 110/58 (75) 106/78 (87) Pulse Ox 96 98 94 O2 Delivery NIV CPAP Nasal Cannula NIV CPAP O2 Flow Rate 3.00 3.00 3.00 03/08/22 03/08/22 03/08/22 03/08/22 13:00 13:09 14:00 15:00 Pulse 97 95 92 85 Resp 19 21 58 B/P (MAP) 115/81 (92) 99/61 (74) 72/41 (51) Pulse Ox 99 100 93 O2 Delivery NIV CPAP NIV CPAP NIV CPAP O2 Flow Rate 3.00 3.00 3.00 03/08/22 03/08/22 03/08/22 16:00 16:00 16:30 Temp 36.3 Pulse 82 Resp 17 B/P (MAP) 79/56 (64) Pulse Ox 98 98 O2 Delivery NIV CPAP Nasal Cannula O2 Flow Rate 3.00 3.00 03/08/22 00:00 Intake Total 3315 ml Output Total 1500 ml Balance 1815 ml Constitutional: AAO x 3, well-developed, well-nourished, other (morbid obesity) Respiratory: No accessory muscle use; other (fair air entry, diminished at the bases) Cardiovascular: regular rate-rhythm, S1 and S2, systolic murmur (soft TERRIE at card bse) Gastrointestional: No tender; soft; No guarding, No rebound; audible bowel sounds Extremities: swelling (moderate, non-pitting edema of the legs); No clubbing, No cyanosis Neurologic/Psychiatric: oriented x 3, other (moves all limbs equally) Skin: warm/dry; No rash, No rash on exposed areas, No ulcerations on exposed areas Results/Procedures: Labs Laboratory Tests 03/07/22 20:42: Glucometer 129H 03/08/22 04:19: White Blood Count 12.4H, Red Blood Count 2.92L, Hemoglobin 7.6L, Hematocrit 24L, Mean Corpuscular Volume 82, Mean Corpuscular Hemoglobin 26, Mean Corpuscular Hemoglobin Concent 32, Red Cell Distribution Width 17.6H, Platelet Count 311, Mean Platelet Volume 11.6, Immature Granulocyte % (Auto) 1, Neutrophils (%) (Auto) 44, Lymphocytes (%) (Auto) 45H, Monocytes (%) (Auto) 7, Eosinophils (%) (Auto) 3, Basophils (%) (Auto) 0, Neutrophils # (Auto) 5.4, Lymphocytes # (Auto) 5.6H, Monocytes # (Auto) 0.9, Eosinophils # (Auto) 0.4H, Basophils # (Auto) 0.0, Immature Granulocyte # (Auto) 0.1, Sodium Level 137, Potassium Level 3.8, Chloride Level 104, Carbon Dioxide Level 26, Anion Gap 7, Blood Urea Nitrogen 19H, Creatinine 1.53H, Estimat Glomerular Filtration Rate 41, BUN/Creatinine Ratio 12, Glucose Level 111H, Calcium Level 7.9L, Corrected Calcium 9.3, Phospho siddhartha Level 2.8, Magnesium Level 1.6, Total Bilirubin 0.2, Aspartate Amino Transf (AST/SGOT) 28, Alanine Aminotransferase (ALT/SGPT) 38, Alkaline Phosphatase 165H , Total Protein 5.1L, Albumin 2.2L, Smear Scan YES 03/08/22 05:13: Blood Gas Puncture Site LEFT RADIAL, Blood Gas Patient Temperature 36.8, Arterial Blood pH 7.41, Arterial Blood Partial Pressure CO2 44, Arterial Blood Partial Pressure O2 58L, Arterial Blood HCO3 28H, Arterial Blood Total CO2 28.8, Arterial Blood Oxygen Saturation 93L, Arterial Blood Base Excess 3.2H, Ulises Test YES-POS, Blood Gas Ventilator Setting NO, Blood Gas Inspired Oxygen 3L 03/08/22 11:19: Glucometer 128H 03/08/22 13:12: White Blood Count 14.2H, Red Blood Count 3.14L, Hemoglobin 8.3L, Hematocrit 26L, Mean Corpuscular Volume 82, Mean Corpuscular Hemoglobin 26, Mean Corpuscular Hemoglobin Concent 32, Red Cell Distribution Width 17.6H, Platelet Count 351, Mean Platelet Volume 11.4, Immature Granulocyte % (Auto) 1, Neutrophils (%) (Auto) 45, Lymphocytes (%) (Auto) 43, Monocytes (%) (Auto) 8, Eosinophils (%) (Auto) 3, Basophils (%) (Auto) 0, Neutrophils # (Auto) 6.3, Lymphocytes # (Auto) 6.1H, Monocytes # (Auto) 1.2H, Eosinophils # (Auto) 0.5H, Basophils # (Auto) 0.0, Immature Granulocyte # (Auto) 0.1 03/08/22 15:34: Glucometer 123H Microbiology 03/03/22 MRSA Screen - Final, Complete MRSA not isolated 03/03/22 Blood Culture - Preliminary, Resulted No growth Laboratory Tests 03/07/22 04:35 03/08/22 04:19 03/08/22 13:12 A/P: Assessment: Mild troponin elevation likely due to hypotension (septic shock) - type 2 [place] - Echo 03/06/22: LVEF 55-60%, mild MR, PASP 30-35 mmHg Septic shock, apparently due to R leg cellulitis - Medical services managing Renal failure of unknown chronicity (eGFR 43 on 03/05/22) Morbid obesity with hypoventilation syndrome and chronic hypoxia requiring supplemental oxygen ?COPD 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 Low bp may be spurious - due the use of inappropriately-sized cuff. We recommend monitoring for 24 through art line * Add beta-darian if bp tolerates * Renal function worsening - stop NATHAN * Monitor labs closely POWER KLEIN MD [facility] Mar 08, 2022 16:49
[2022-03-08] MEDS ORDERED: LIDOCAINE 1% INJ 20 ML VIAL ONE (16:57)
--- NOTE | 2022-03-08 17:44 | Anesthesia-Procedure Note ---
Procedures/Interventions Procedure Start/Stop/Diagnosis Date of Procedure: Mar 08, 2022 Start Time: 17:00 Referring Physician: Malachi Preprocedural Diagnosis: Labile B/P Brief History Consulted by Dr. Ly to place A-Line for pt that has been having labile cuff pressures but overall no complaints/asymptomatic. Pt was sitting in her chair A&O without complaints. Pt was moved to her bed per RN and left wrist was prepped out for A-line placement. No palpable radial pulse noted. Small radial artery visualized with U/S. Left wrist was prepped with chlorhexidine and 3cc 2% lidocaine injected to wrist for local anesthesia. I was unable to obtain flash with either gauge Arrow catheters after multiple attempts. Pt elected to stop procedure after 20min. Report to RN and sterile gauze placed on attempt sites. Stop Time: 17:30 Postprocedural Diagnosis: Labile B/P PATY ARNOLD CRNA Mar 08, 2022 17:44
--- NOTE | 2022-03-08 19:57 | Progress Note ---
Subjective Subjective/Events-last exam patient feeling much better this AM. Still having low blood pressures and levo was restarted this AM. Tolerating getting to chair and PO diet Review of Systems General: Fatigue, Malaise Pulmonary: Dyspnea, Cough Cardiovascular: No: Chest Pain, Palpitations, Edema Gastrointestinal: No: Nausea, Vomiting, Abdominal Pain Neurological: Weakness, Incoordination Focused Exam Time of Focused Exam: 17:30 Objective Exam Last Set of Vital Signs Vital Signs Date Time Temp Pulse Resp B/P (MAP) Pulse Ox O2 Delivery O2 Flow Rate FiO2 03/08/22 19:20 36.1 03/08/22 18:00 98 20 129/91 (104) 100 NIV CPAP 3.00 03/05/22 15:45 3 Capillary Refill : Less Than 3 Seconds I&O Intake and Output 03/08/22 00:00 Intake Total 7025 ml Output Total 4500 ml Balance 2525 ml Intake Oral 3100 ml IV Total 3925 ml Output Urine Total 4500 ml # Bowel Movements 1 General: Alert, Oriented X3, No Acute Distress Lungs: Clear to Auscultation, Normal Air Movement Heart: Regular Rate, No Murmurs Abdomen: Normal Bowel Sounds, Soft, No Tenderness, No Masses Extremities: Other (1+ pitting edema) Psych/Mental Status: Mental Status NL, Mood NL Results/Procedures Lab Laboratory Tests 03/07/22 20:42: Glucometer 129H 03/08/22 04:19: White Blood Count 12.4H, Red Blood Count 2.92L, Hemoglobin 7.6L, Hematocrit 24L, Mean Corpuscular Volume 82, Mean Corpuscular Hemoglobin 26, Mean Corpuscular Hemoglobin Concent 32, Red Cell Distribution Width 17.6H, Platelet Count 311, Mean Platelet Volume 11.6, Immature Granulocyte % (Auto) 1, Neutrophils (%) (Auto) 44, Lymphocytes (%) (Auto) 45H, Monocytes (%) (Auto) 7, Eosinophils (%) (Auto) 3, Basophils (%) (Auto) 0, Neutrophils # (Auto) 5.4, Lymphocytes # (Auto) 5.6H, Monocytes # (Auto) 0.9, Eosinophils # (Auto) 0.4H, Basophils # (Auto) 0.0, Immature Granulocyte # (Auto) 0.1, Sodium Level 137, Potassium Level 3.8, Chloride Level 104, Carbon Dioxide Level 26, Anion Gap 7, Blood Urea Nitrogen 19H, Creatinine 1.53H, Estimat Glomerular Filtration Rate 41, BUN/Creatinine Ratio 12, Glucose Level 111H, Calcium Level 7.9L, Corrected Calcium 9.3, Phosphorus Level 2.8, Magnesium Level 1.6, Total Bilirubin 0.2, Aspartate Amino Transf (AST/SGOT) 28, Alanine Aminotransferase (ALT/SGPT) 38, Alkaline Phosphatase 165H, Total Protein 5.1L, Albumin 2.2L, Smear Scan YES 03/08/22 05:13: Blood Gas Puncture Site LEFT RADIAL, Blood Gas Patient Temperature 36.8, Arterial Blood pH 7.41, Arterial Blood Partial Pressure CO2 44, Arterial Blood Partial Pressure O2 58L, Arterial Blood HCO3 28H, Arterial Blood Total CO2 28.8, Arterial Blood Oxygen Saturation 93L, Arterial Blood Base Excess 3.2H, Ulises Test YES-POS, Blood Gas Ventilator Setting NO, Blood Gas Inspired Oxygen 3L 03/08/22 11:19: Glucometer 128H 03/08/22 13:12: White Blood Count 14.2H, Red Blood Count 3.14L, Hemoglobin 8.3L, Hematocrit 26L, Mean Corpuscular Volume 82, Mean Corpuscular Hemoglobin 26, Mean Corpuscular Hemoglobin Concent 32, Red Cell Distribution Width 17.6H, Platelet Count 351, Mean Platelet Volume 11.4, Immature Granulocyte % (Auto) 1, Neutrophils (%) (Auto) 45, Lymphocytes (%) (Auto) 43, Monocytes (%) (Auto) 8, Eosinophils (%) (Auto) 3, Basophils (%) (Auto) 0, Neutrophils # (Auto) 6.3, Lymphocytes # (Auto) 6.1H, Monocytes # (Auto) 1.2H, Eosinophils # (Auto) 0.5H, Basophils # (Auto) 0.0, Immature Granulocyte # (Auto) 0.1 03/08/22 15:34: Glucometer 123H Microbiology 03/03/22 MRSA Screen - Final, Complete MRSA not isolated 03/03/22 Blood Culture - Preliminary, Resulted No growth Assessment/Plan Assessment/Plan (1) Septic shock Status: Acute Assessment & Plan: 03/07: continues to require levophed, titrate as tolerated, push PO hydration, Continue antibiotics 03/08: Restarted levophed this Am due to low blood pressures, patient overall feels much better (2) Cellulitis of right leg Status: Acute Assessment & Plan: 03/08: Notified by Pharm sina was in fact MSSA, antibiotics adjusted (3) Acute on chronic renal failure Status: Resolved (4) Lactic acid acidosis Status: Resolved (5) COPD (chronic obstructive pulmonary disease) Status: Chronic Assessment & Plan: 03/07: Home oxygen requirement 2-3 LPM continuous Qualifiers: Qualified Codes: J44.9 - Chronic obstructive pulmonary disease, unspecified (6) NSTEMI (non-ST elevated myocardial infarction) Status: Acute Assessment & Plan: 03/07: Type 2 likely 2/2 shock, no chest pain (7) ROSALVA treated with BiPAP Status: Chronic (8) Normocytic anemia Status: Acute Assessment & Plan: 03/07: s/p 2 pRBCs since admission, will continue to monitor, normal iron panel (9) IDDM (insulin dependent diabetes mellitus) Status: Chronic (10) BMI 50.0-59.9, adult Status: Chronic SAHRA FOUNTAIN MD Mar 08, 2022 19:56
[2022-03-08] MEDS: QUEtiapine 100 MG (SEROquel) TAB IMMEDIATE RELEASE PO SCH (21:07)
[2022-03-08] MEDS: MONTELUKAST 10 MG (SINGULAIR) TAB PO SCH (21:08)
[2022-03-09] MEDS: LACTATED RINGERS 1,000 ML IV SCH ×2 (02:58→15:27)
[2022-03-09] MEDS: CYCLOBENZAPRINE 10 MG (FLEXERIL) TAB PO PRN ×3 (03:02→16:47)
[2022-03-09] MEDS: NOREPINEPHRINE 8 MG/250 ML 250 ML IV SCH (03:04)
[2022-03-09 05:17] LABS: BASOPHILS % (AUTO) 0 % (0-10); EOSINOPHILS # (AUTO) 0.4 10^3/uL (0.0-0.3); EOSINOPHILS % (AUTO) 3 % (0-10); HEMATOCRIT 26 % (35-52); HEMOGLOBIN 8.3 g/dL (11.5-16.0); LYMPHOCYTES # (AUTO) 5.5 10^3/uL (1.0-4.0); LYMPHOCYTES % (AUTO) 41 % (12-44); MEAN CORPUSCULAR HEMOGLOBIN 27 pg (25-34); MEAN CORPUSCULAR HGB CONC 32 g/dL (32-36); MEAN CORPUSCULAR VOLUME 83 fL (80-99); MEAN PLATELET VOLUME 11.3 fL (9.0-12.2); MONOCYTES # (AUTO) 1.1 10^3/uL (0.0-1.0); MONOCYTES % (AUTO) 8 % (0-12); NEUTROPHILS # (AUTO) 6.3 10^3/uL (1.8-7.8); NEUTROPHILS % (AUTO) 47 % (42-75); PLATELET COUNT 381 10^3/uL (130-400); WHITE BLOOD COUNT 13.5 10^3/uL (4.3-11.0)
[2022-03-09 05:41] LABS: ALBUMIN 2.9 GM/DL (3.2-4.5); BILIRUBIN,TOTAL 0.2 MG/DL (0.1-1.0); CALCIUM 8.5 MG/DL (8.5-10.1); CREATININE SERUM 1.29 MG/DL (0.60-1.30); MAGNESIUM 1.9 MG/DL (1.6-2.4); PHOSPHORUS 2.7 MG/DL (2.3-4.7); POTASSIUM 4.1 MMOL/L (3.6-5.0); TOTAL PROTEIN 5.9 GM/DL (6.4-8.2)
[2022-03-09] MEDS: MAGNESIUM 1 GM/100 ML IVPB 100 ML IV SCH (05:49)
[2022-03-09] MEDS: inSUlin ASPART (NovoLOG) 1 UNIT/0.01 ML (CHARGE PER UNIT) SC SCH ×4 (05:49→19:55)
[2022-03-09] MEDS: POTASSIUM CL 10MEQ/50ML IVPB 50 ML IV SCH (05:49)
[2022-03-09] MEDS: KCL 20 MEQ TAB (K-DUR) PO SCH (05:49)
[2022-03-09] MEDS: UMECLIDINIUM BROMIDE (INCRUSE ELLIPTA) 7'S IH SCH (07:31)
[2022-03-09 08:29] LABS: ABG OXYGEN SATURATION 64 % (94-100); ABG PCO2 48 MMHG (35-45); ABG PH 7.39 (7.37-7.43); ABG TCO2 30.1 MMOL/L (21.0-31.0)
[2022-03-09 08:31] LABS: ABG PO2 35 MMHG (79-93); ALLENS TEST POSITIVE; INSPIRED O2 3 L; PATIENT TEMP 36.7; VENTILATOR NO
--- NOTE | 2022-03-09 08:58 | Progress Note - Cardiology ---
Cardiology SOAP Progress Note Subjective: Sitting up in recliner at the bedside No c/o CP, dizziness Feels breathing is at her baseline Objective: I&O/Vital Signs 03/09/22 03/09/22 03/09/22 03/10/22 19:48 20:34 23:30 01:00 Temp 36.0 36.6 Pulse 85 79 78 Resp 20 B/P (MAP) 82/56 (65) Pulse Ox 94 93 94 O2 Delivery High Flow N/C NIV Bilevel O2 Flow Rate 3.00 03/10/22 03/10/22 03/10/22 03:41 03:46 07:00 Temp 36.6 36.7 Pulse 80 72 Resp 20 B/P (MAP) 124/65 (84) Pulse Ox 96 03/10/22 00:00 Intake Total 1100 ml Output Total 2350 ml Balance -1250 ml Constitutional: AAO x 3, well-developed, well-nourished, other (morbid obesity) Respiratory: No accessory muscle use; other (good air entry, diminished at the bases) Cardiovascular: regular rate-rhythm, S1 and S2, systolic murmur (soft TERRIE at card bse) Gastrointestional: No tender; soft; No guarding, No rebound; audible bowel sounds Extremities: swelling (moderate, non-pitting edema of the legs); No clubbing, No cyanosis Neurologic/Psychiatric: oriented x 3, other (moves all limbs equally) Skin: warm/dry; No rash, No rash on exposed areas, No ulcerations on exposed areas Results/Procedures: Labs Laboratory Tests 03/09/22 08:27: Blood Gas Puncture Site L BRACHIAL, Blood Gas Patient Temperature 36.7, Arterial Blood pH 7.39, Arterial Blood Partial Pressure CO2 48H, Arterial Blood Partial Pressure O2 35*L, Arterial Blood HCO3 29H, Arterial Blood Total CO2 30.1, Arterial Blood Oxygen Saturation 64L, Arterial Blood Base Excess 4.0H, Ulises Test POSITIVE, Blood Gas Ventilator Setting NO, Blood Gas Inspired Oxygen 3 L 03/09/22 12:49: Glucometer 92 03/09/22 16:32: Glucometer 105 03/09/22 19:49: Glucometer 137H 03/10/22 04:13: White Blood Count 12.2H, Red Blood Count 2.81L, Hemoglobin 7.3L, Hematocrit 23L, Mean Corpuscular Volume 83, Mean Corpuscular Hemoglobin 26, Mean Corpuscular Hemoglobin Concent 32, Red Cell Distribution Width 17.8H, Platelet Count 333, Mean Platelet Volume 10.6, Immature Granulocyte % (Auto) 1, Neutrophils (%) (Auto) 37L, Lymphocytes (%) (Auto) 52H, Monocytes (%) (Auto) 8, Eosinophils (%) (Auto) 3, Basophils (%) (Auto) 0, Neutrophils # (Auto) 4.5, Lymphocytes # (Auto) 6.3H, Monocytes # (Auto) 0.9, Eosinophils # (Auto) 0.3, Basophils # (Auto) 0.0, Immature Granulocyte # (Auto) 0.1, Sodium Level 139, Potassium Level 4.2, Chloride Level 106, Carbon Dioxide Level 26, Anion Gap 7, Blood Urea Nitrogen 17, Creatinine 1.51H, Estimat Glomerular Filtration Rate 41, BUN/Creatinine Ratio 11, Glucose Level 113H, Calcium Level 7.8L, Corrected Calcium 9.1, Phosphorus Level 3.1, Magnesium Level 1.9, Total Bilirubin 0.2, Aspartate Amino Transf (AST/SGOT) 28, Alanine Aminotransferase (ALT/SGPT) 41, Alkaline Phosphatase 150H, Total Protein 5.0L, Albumin 2.4L Microbiology 03/03/22 MRSA Screen - Final, Complete MRSA not isolated 03/03/22 Blood Culture - Final, Complete No growth A/P: Assessment: Mild troponin elevation likely due to hypotension (septic shock) - type 2 [place] - Echo 03/06/22: LVEF 55-60%, mild MR, PASP 30-35 mmHg Septic shock, apparently due to R leg cellulitis - Medical services managing Renal failure of unknown chronicity (eGFR 43 on 03/05/22) - eGFR has improved to 50 on lab of 03-09-22 Episodes of asymptomatic hypotension - has been on minimal pressor support Episode of 5 beats WCT on 03-08-22 probably r/t continuing use of vasopressors - no further episodes - unable to tolerate BB d/t hypotension Morbid obesity with hypoventilation syndrome and chronic hypoxia requiring supplemental oxygen ?COPD 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 Low bp may be spurious - due the use of inappropriately-sized cuff. We have recommended monitoring for 24 through art line - per nursing staff they were unable to obtain an art line - BP this morning is 110's systolic on low dose pressor support - wean off today and monitor * Add beta-darian if bp tolerates * has not been able to tolerate thus far d/t hypotension * Renal function has improved today * not suitable for NATHAN d/t worsening renal function on these agents and hypotension * Monitor labs closely MARTIN MILLER [facility] Mar 09, 2022 08:58
[2022-03-09] MEDS: ALLOPURINOL 100 MG (ZYLOPRIM) TAB PO SCH (09:26)
[2022-03-09] MEDS: MULTIVIT W/MINERALS TAB (THERAGRAN M) PO SCH (09:26)
[2022-03-09] MEDS: busPIRone 15 MG (BUSPAR) TABLET PO SCH ×2 (09:26→19:42)
[2022-03-09] MEDS: VENlafaxine XR 75 MG (EFFEXOR XR) CAP PO SCH (09:26)
[2022-03-09] MEDS: hydrOXYzine (VISTARIL/ATARAX) 25 MG capsule/tablet PO SCH ×2 (09:26→19:44)
[2022-03-09] MEDS: APIXABAN 5 MG (ELIQUIS) TABLET PO SCH ×2 (09:27→19:43)
[2022-03-09] MEDS: FAMOTIDINE 20 MG (PEPCID) TABLET PO SCH ×2 (09:27→19:45)
[2022-03-09] MEDS: PREGABALIN 75 MG (LYRICA) CAP PO SCH ×4 (09:27→19:44)
[2022-03-09] MEDS: PANTOPRAZOLE 40 MG (PROTONIX) VIAL IV SCH (09:27)
[2022-03-09] MEDS: FERROUS SULF 325 MG (IRON) TAB PO SCH (09:27)
[2022-03-09] MEDS: buPROPion SR 150 MG (WELLBUTRIN SR) TAB PO SCH ×2 (09:27→19:45)
[2022-03-09] MEDS: DOCUSATE SODIUM 100 MG (COLACE) CAP PO SCH ×2 (09:27→19:42)
--- NOTE | 2022-03-09 09:50 | Tele-ICU Progress Note ---
Subjective Date Seen by a Provider: Mar 09, 2022 Time Seen by a Provider: 09:50 Subjective/Events-last exam (Tele-ICU Physician , Progress Note ) Available chart/ vitals / labs / Images reviewed Video assessment done using teleICU camera, rest of exam as per RN Discussed with RN Events overnight : BACK TO LEVO Afebrile hemodynamically stable Respiratory - 3l I/O =pos 1/5 l Drips: LR 100 Pressors- LEVO OFF Consultants: Hospital course: A/P Shock , septic presumed - still on levo - cortisol 17, added vaso - 03/07 ( s/ p trransfusion p RBC 03/05 BACK ON LEVO LAST NIGHT _ WILL ADD MIDODRINE TID AND FOLLOW RLE cellulitis - anx to cont - exam and abx as per bedside Anemia - s/p transfusion 2 u pRBC 03/05 - nop obvious sourse of bleedin -empiric ppt IV pish - eliquis was on hold 03/08 - NEED TO RESUME SOON CONSUELO/CKD -IMPROVED baseline Cr 2.6 reported - now 1.3 - will stop IVF - FLUID POSITIVE BALANCE > 15 L - gentle diuresis COPD - 3 l NS at home - stable DM II - ISS CAD - stable -Mild troponin elevation likely due to hypotension (septic shock) - type 2 IN H/o DVT and PE -currently on Eliquis= monitor carefully -eliquis was on hold 03/08 - NEED TO RESUME SOON ROSALVA - cont home cpcp with 3 l o2 Lines : PICC , (Central Line Necessity Reviewed) Sellers: void OG: Nutrition: po Analgesia: Anxiety/ delirium VTE Prophylaxis: eliquis ON HOLD 1025 for anemia Stress Ulcer Prophylaxis: ppi Plans in collaboration with bedside consultants and IM MDs. Discussed with RN to reach out if any questions or concerns A total of 32 minutes of critical care time was devoted to this patient today, required to treat and/or prevent further deterioration of critical care condition ( as above ) . I am remotely monitoring this patient from another state. I am unable to do the bedside exam, and history/physical and pertinent information is taken from other notes in the computer and bedside staff. Sepsis Event Evaluation Height, Weight, BMI Height: '" Weight: lbs. oz. kg; 55.99 BMI Method: Focused Exam Time of Focused Exam: 17:30 Exam Exam Patient acknowledged, consented, and participated in this virtual visit which was conducted using real time audio/video Vital Signs Date Time Temp Pulse Resp B/P (MAP) Pulse Ox O2 Delivery O2 Flow Rate FiO2 03/09/22 08:23 36.7 Nasal Cannula 3.00 03/09/22 08:01 97 Nasal Cannula 3.00 03/09/22 07:32 98 Nasal Cannula 3.00 03/09/22 07:23 80 03/09/22 07:00 74 12 95/59 (71) 97 NIV CPAP 3.00 03/09/22 06:00 72 13 109/71 (84) 96 NIV CPAP 3.00 03/09/22 05:00 78 13 112/77 (89) 97 NIV CPAP 3.00 03/09/22 04:15 36.8 03/09/22 04:00 73 17 109/72 (84) 96 NIV CPAP 3.00 03/09/22 04:00 96 NIV CPAP 3.00 03/09/22 03:15 81 17 126/79 (95) 99 NIV CPAP 3.00 03/09/22 03:04 122/102 03/09/22 02:30 84 19 122/102 (109) 94 NIV CPAP 3.00 03/09/22 02:05 71/50 03/09/22 02:00 76 15 79/50 (60) 94 NIV CPAP 3.00 03/09/22 01:00 79 13 109/74 (84) 96 NIV CPAP 3.00 03/09/22 01:00 79 03/09/22 00:45 78 13 102/68 (79) 96 NIV CPAP 3.00 03/09/22 00:30 80 14 112/71 (85) 96 NIV CPAP 3.00 03/09/22 00:15 78 14 130/86 (97) 95 NIV CPAP 3.00 03/09/22 00:00 97 NIV CPAP 3.00 03/09/22 00:00 73 30 122/83 (101) 93 NIV CPAP 3.00 03/08/22 23:45 71 22 121/81 (102) 95 NIV CPAP 3.00 03/08/22 23:12 71/46 03/08/22 23:00 79 16 71/46 (53) 97 NIV CPAP 3.00 03/08/22 22:50 36.1 03/08/22 22:00 NIV CPAP 3.00 03/08/22 22:00 84 20 82/59 (68) 98 NIV CPAP 3.00 03/08/22 21:13 86 20 102/71 (81) 94 Room Air 03/08/22 20:00 85 15 84/52 (61) 95 NIV CPAP 3.00 03/08/22 20:00 96 NIV CPAP 3.00 03/08/22 19:20 36.1 03/08/22 19:00 86 19 89/76 (80) 100 NIV CPAP 3.00 03/08/22 19:00 86 03/08/22 19:00 NIV CPAP 3.00 03/08/22 18:00 98 20 129/91 (104) 100 NIV CPAP 3.00 03/08/22 17:00 107 35 170/77 (108) 96 NIV CPAP 3.00 03/08/22 16:30 98 Nasal Cannula 3.00 03/08/22 16:00 36.3 03/08/22 16:00 82 17 79/56 (64) 98 NIV CPAP 3.00 03/08/22 15:00 85 58 72/41 (51) 93 NIV CPAP 3.00 03/08/22 14:00 92 21 99/61 (74) 100 NIV CPAP 3.00 03/08/22 13:09 95 03/08/22 13:00 97 19 115/81 (92) 99 NIV CPAP 3.00 03/08/22 12:00 36.6 03/08/22 12:00 84 26 106/78 (87) 94 NIV CPAP 3.00 03/08/22 12:00 98 Nasal Cannula 3.00 03/08/22 11:00 92 39 110/58 (75) 96 NIV CPAP 3.00 03/08/22 10:00 96 20 104/60 (75) 98 NIV CPAP 3.00 I & O 03/09/22 07:00 Intake Total 5575 ml Output Total 5400 ml Balance 175 ml Height & Weight Height: '" Weight: lbs. oz. kg; 55.99 BMI Method: General Appearance: No Apparent Distress, WD/WN, Chronically ill, Obese HEENT: PERRL/EOMI, Moist Mucous Membranes Neck: Normal Inspection, Supple Respiratory: No Accessory Muscle Use, No Respiratory Distress, Decreased Breath Sounds Cardiovascular: Regular Rate, Rhythm Capillary Refill: Less Than 3 Seconds Peripheral Pulses: 2+ Carotid (R), 2+ Carotid (L), 2+ Radial Pulses (R), 2+ Rad ial Pulses (L) Extremity: No Calf Tenderness, Swelling (acute on chronic-improved ) Neurologic/Psychiatric: Alert, Oriented x3, Depressed Affect Skin: Warm/Dry, Erythema (R leg, surrounding wounds and nodules located on R morgan), Other (B/l venous stasis dermatitis R>L, Four healing ulcerations located on R morgan and one on back of R calf, two tender nodules located on upper R morgan. Some surrounding erythema present on nodules and healing wounds) Lymphatic: No Adenopathy Results Lab Laboratory Tests 03/08/22 04:19 03/08/22 13:12 03/09/22 05:07 Assessment/Plan Assessment/Plan (Tele-ICU Physician , Progress Note ) Available chart/ vitals / labs / Images reviewed Video assessment done using teleICU camera, rest of exam as per RN Discussed with RN Events overnight : BACK TO LEVO Afebrile hemodynamically stable Respiratory - 3l I/O =pos 1/5 l Drips: LR 100 Pressors- LEVO OFF Consultants: Hospital course: A/P Shock , septic presumed - still on levo - cortisol 17, added vaso - 03/07 ( s/ p trransfusion p RBC 03/05 BACK ON LEVO LAST NIGHT _ WILL ADD MIDODRINE TID AND FOLLOW RLE cellulitis - anx to cont - exam and abx as per bedside Anemia - s/p transfusion 2 u pRBC 03/05 - nop obvious sourse of bleedin -empiric ppt IV pish - eliquis was on hold 03/08 - NEED TO RESUME SOON CONSUELO/CKD -IMPROVED baseline Cr 2.6 reported - now 1.3 - will stop IVF - FLUID POSITIVE BALANCE > 15 L - gentle diuresis COPD - 3 l NS at home - stable DM II - ISS CAD - stable -Mild troponin elevation likely due to hypotension (septic shock) - type 2 IN H/o DVT and PE -currently on Eliquis= monitor carefully -eliquis was on hold 03/08 - NEED TO RESUME SOON ROSALVA - cont home cpcp with 3 l o2 Lines : PICC , (Central Line Necessity Reviewed) Sellers: void OG: Nutrition: po Analgesia: Anxiety/ delirium VTE Prophylaxis: eliquis ON HOLD 1025 for anemia Stress Ulcer Prophylaxis: ppi Plans in collaboration with bedside consultants and IM MDs. Discussed with RN to reach out if any questions or concerns A total of 32 minutes of critical care time was devoted to this patient today, required to treat and/or prevent further deterioration of critical care condition ( as above ) . I am remotely monitoring this patient from another state. I am unable to do the bedside exam, and history/physical and pertinent information is taken from other notes in the computer and bedside staff. FÁTIMA MEDINA MD Mar 09, 2022 09:50
[2022-03-09] MEDS ORDERED: FUROSEMIDE 40 MG/4 ML INJ (LASIX) IVP NR (10:00)
[2022-03-09] MEDS: MIDODRINE 10 MG (PROAMATINE) TAB PO SCH ×3 (10:57→19:43)
[2022-03-09] MEDS: ASPIRIN 81 MG CHEW (CHILDREN'S ASA) PO SCH (11:00)
--- NOTE | 2022-03-09 11:09 | Physical Therapy Daily Note ---
PT Daily Note-Current Subjective Pt. agrees to Rx, needs to get up to use toilet. No c/o SOB. States she has some pain in right hip flexor area Pain Numeric Pain Scale: 3 Location: No Pain Reported, Left Location Body Site: Hip Pain Description: Ache Section J - Health Conditions 1. Rarely or not at all 2. Occasionally 3. Frequently 4. Almost constantly 8. Unable to answer Pain Effect on Sleep: 2 Pain Interference with Therapy: 2 Pain Interference w/Day-to-Day: 2 Mental Status Patient Orientation: Normal For Age Attachments: Oxygen, Other-See Comments (sat monitor, BP cuff), IV Transfers SCALE: Activities may be completed with or without assistive devices. 4-Utdajlkava-nvvxcsx completes the activity by him/herself with no assistance from a helper. 5-Set-up or Clean-up Assistance-helper sets up or cleans up; patient completes activity. [place] assists only prior to or following the activity. 4-Supervision or Touching Assistance-helper provides verbal cues and/or touching/steadying and/or contact guard assistance as patient completes activity. Assistance may be provided throughout the activity or intermittently. 3-Partial/Moderate Assistance-helper does LESS THAN HALF the effort. [place] lifts, holds or supports trunk or limbs, but provides less than half the effort. 2-Substantial/Maximal Assistance-helper does MORE THAN HALF the effort. [place] lifts or holds trunk or limbs and provides more than half the effort. 9-Dvseklift-enwarh does ALL the effort. Patient does none of the effort to complete the activity. Or, the assistance of 2 or more helpers is required for the patient to complete the activity. If activity was not attempted, code reason: 7-Patient Refused. 9-Not Applicable-not attempted and the patient did not perform the activity before the current illness, exacerbation or injury. 10-Not Attempted due to Environmental Limitations-(lack of equipment, weather restraints, etc.). 88-Not Attempted due to Medical Conditions or Safety Concerns. Roll Left & Right (QC): 6 Sit to Lying (QC): 6 Lying to Sitting/Side of Bed(Q: 6 Sit to Stand (QC): 6 Chair/Lds-mr-Ghrhr Xfer(QC): 6 Toilet Transfer (QC): 6 Weight Bearing Right Lower Extremity: Right Full Weight Bearing Left Lower Extremity: Left Full Weight Bearing Gait Training Does the Patient Walk?: Yes Walk 10 feet (QC): 6 Walk 50 ft with 2 Turns(QC): 6 Gait Persons Needed: 0 Gait Assistive Device: None no LOB, moving well Exercises Seated Therapy Exercises: Ankle pumps, Sit to stand, Long arc quads, Hip flexion, Hip abd/add Seated Reps: 12 Treatments as above, up in recliner after rx , gonsales at hand, O2 insitu, nursing present Assessment Current Status: Good Progress increasing funct mob and strength PT Manufacturing Specialist Goals Mcc Goals PT Mcc Goals Time Frame: Mar 14, 2022 Roll Left & Right (QC): 6 Sit to Lying (QC): 6 Lying-Sitting on Side/Bed(QC): 6 Sit to Stand (QC): 6 Chair/Ctk-vp-Xzxxt Xfer(QC): 6 Walk 10 feet (QC): 6 Walk 50ft with 2 Turns (QC): 6 Walk 150 ft (QC): 6 PT Plan Treatment/Plan Treatment Plan: Continue Plan of Care Treatment Plan: Bed Mobility, Education, Functional Activity Chau, Functional Strength, Gait, Safety, Therapeutic Exercise, Transfers Treatment Duration: Mar 14, 2022 Frequency: 6 times per week Estimated Hrs Per Day: .25 hour per day Patient and/or Family Agrees t: Yes Safety Risks/Education Patient Education: Gait Training, Transfer Techniques, Correct Positioning, Disease Process, Safety Issues Teaching Recipient: Patient Teaching Methods: Demonstration, Discussion Response to Teaching: Verbalize Understanding, Return Demonstration Time Time In: 1055 Time Out: 1105 Total Billed Treatment Time: 10 Total Billed Treatment 1,FA10m GURWINDER ALCANTARA PTA Mar 09, 2022 11:09
--- NOTE | 2022-03-09 11:52 | Progress Note - Cardiology ---
Cardiology SOAP Progress Note Subjective: No cp or palp or syncope or shortness of breath No n/v/d No new swelling No focal weakness Objective: I&O/Vital Signs 03/09/22 03/09/22 03/09/22 03/09/22 00:00 00:00 00:15 00:30 Pulse 73 78 80 Resp 30 14 14 B/P (MAP) 122/83 (101) 130/86 (97) 112/71 (85) Pulse Ox 93 97 95 96 O2 Delivery NIV CPAP NIV CPAP NIV CPAP NIV CPAP O2 Flow Rate 3.00 3.00 3.00 3.00 03/09/22 03/09/22 03/09/22 03/09/22 00:45 01:00 01:00 02:00 Pulse 78 79 79 76 Resp 13 13 15 B/P (MAP) 102/68 (79) 109/74 (84) 79/50 (60) Pulse Ox 96 96 94 O2 Delivery NIV CPAP NIV CPAP NIV CPAP O2 Flow Rate 3.00 3.00 3.00 03/09/22 03/09/22 03/09/22 03/09/22 02:05 02:30 03:04 03:15 Pulse 84 81 Resp 19 17 B/P (MAP) 71/50 122/102 (109) 122/102 126/79 (95) Pulse Ox 94 99 O2 Delivery NIV CPAP NIV CPAP O2 Flow Rate 3.00 3.00 03/09/22 03/09/22 03/09/22 03/09/22 04:00 04:00 04:15 05:00 Temp 36.8 Pulse 73 78 Resp 17 13 B/P (MAP) 109/72 (84) 112/77 (89) Pulse Ox 96 96 97 O2 Delivery NIV CPAP NIV CPAP NIV CPAP O2 Flow Rate 3.00 3.00 3.00 03/09/22 03/09/22 03/09/22 03/09/22 06:00 07:00 07:23 07:32 Pulse 72 74 80 Resp 13 12 B/P (MAP) 109/71 (84) 95/59 (71) Pulse Ox 96 97 98 O2 Delivery NIV CPAP NIV CPAP Nasal Cannula O2 Flow Rate 3.00 3.00 3.00 03/09/22 03/09/22 03/09/22 03/09/22 08:01 08:23 09:00 10:00 Temp 36.7 Pulse 88 90 Resp 25 19 B/P (MAP) 105/74 (84) 111/81 (91) Pulse Ox 97 99 99 O2 Delivery Nasal Cannula Nasal Cannula Nasal Cannula Nasal Cannula O2 Flow Rate 3.00 3.00 3.00 3.00 03/09/22 11:00 Pulse 89 Resp 17 B/P (MAP) 105/72 (83) Pulse Ox 99 O2 Delivery Nasal Cannula O2 Flow Rate 3.00 03/09/22 00:00 Intake Total 3000 ml Output Total 2400 ml Balance 600 ml Constitutional: AAO x 3, well-developed, well-nourished, other (morbid obesity) Respiratory: No accessory muscle use; other (good air entry, diminished at the bases) Cardiovascular: regular rate-rhythm, S1 and S2, systolic murmur (soft TERRIE at card bse) Gastrointestional: No tender; soft; No guarding, No rebound; audible bowel sounds Extremities: swelling (moderate, non-pitting edema of the legs); No clubbing, No cyanosis Neurologic/Psychiatric: oriented x 3, other (moves all limbs equally) Skin: warm/dry; No rash, No rash on exposed areas, No ulcerations on exposed areas Results/Procedures: Labs Laboratory Tests 03/08/22 13:12: White Blood Count 14.2H, Red Blood Count 3.14L, Hemoglobin 8.3L, Hematocrit 26L, Mean Corpuscular Volume 82, Mean Corpuscular Hemoglobin 26, Mean Corpuscular Hemoglobin Concent 32, Red Cell Distribution Width 17.6H, Platelet Count 351, Mean Platelet Volume 11.4, Immature Granulocyte % (Auto) 1, Neutrophils (%) (Auto) 45, Lymphocytes (%) (Auto) 43, Monocytes (%) (Auto) 8, Eosinophils (%) (Auto) 3, Basophils (%) (Auto) 0, Neutrophils # (Auto) 6.3, Lymphocytes # (Auto) 6.1H, Monocytes # (Auto) 1.2H, Eosinophils # (Auto) 0.5H, Basophils # (Auto) 0.0, Immature Granulocyte # (Auto) 0.1 03/08/22 15:34: Glucometer 123H 03/08/22 20:47: Glucometer 148H 03/09/22 05:07: White Blood Count 13.5H, Red Blood Count 3.12L, Hemoglobin 8.3L, Hematocrit 26L, Mean Corpuscular Volume 83, Mean Corpuscular Hemoglobin 27, Mean Corpuscular Hemoglobin Concent 32, Red Cell Distribution Width 17.6H, Platelet Count 381, Mean Platelet Volume 11.3, Immature Granulocyte % (Auto) 1, Neutrophils (%) (Auto) 47, Lymphocytes (%) (Auto) 41, Monocytes (%) (Auto) 8, Eosinophils (%) (Auto) 3, Basophils (%) (Auto) 0, Neutrophils # (Auto) 6.3, Lymphocytes # (Auto) 5.5H, Monocytes # (Auto) 1.1H, Eosinophils # (Auto) 0.4H, Basophils # (Auto) 0.0, Immature Granulocyte # (Auto) 0.1, Sodium Level 140, Potassium Level 4.1, Chloride Level 106, Carbon Dioxide Level 24, Anion Gap 10, Blood Urea Nitrogen 16, Creatinine 1.29, Estimat Glomerular Filtration Rate 50, BUN/Creatinine Ratio 12, Glucose Level 135H, Calcium Level 8.5, Corrected Calcium 9.4, Phosphorus Level 2.7, Magnesium Level 1.9, Total Bilirubin 0.2, Aspartate Amino Transf (AST/SGOT) 32, Alanine Aminotransferase (ALT/SGPT) 49, Alkaline Phosphatase 175H , Total Protein 5.9L, Albumin 2.9L 03/09/22 08:27: Blood Gas Puncture Site L BRACHIAL, Blood Gas Patient Temperature 36.7, Arterial Blood pH 7.39, Arterial Blood Partial Pressure CO2 48H, Arterial Blood Partial Pressure O2 35*L, Arterial Blood HCO3 29H, Arterial Blood Total CO2 30.1, Arterial Blood Oxygen Saturation 64L, Arterial Blood Base Excess 4.0H, Ulises Test POSITIVE, Blood Gas Ventilator Setting NO, Blood Gas Inspired Oxygen 3 L Microbiology 03/03/22 MRSA Screen - Final, Complete MRSA not isolated 03/03/22 Blood Culture - Preliminary, Resulted No growth Laboratory Tests 03/08/22 04:19 03/08/22 13:12 03/09/22 05:07 A/P: Assessment: Mild troponin elevation likely due to hypotension (septic shock) - type 2 [place] - Echo 03/06/22: LVEF 55-60%, mild MR, PASP 30-35 mmHg Septic shock, apparently due to R leg cellulitis - Medical services managing Renal failure of unknown chronicity (eGFR 43 on 03/05/22) - eGFR has improved to 50 on lab of 03-09-22 Episodes of asymptomatic hypotension - has been on minimal pressor support Episode of 5 beats WCT on 03-08-22 probably r/t continuing use of vasopressors - no further episodes - unable to tolerate BB d/t hypotension Morbid obesity with hypoventilation syndrome and chronic hypoxia requiring supplemental oxygen ?COPD 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 Low bp may be spurious - due the use of inappropriately-sized cuff. We have recommended monitoring for 24 through art line - per nursing staff they were unable to obtain an art line - BP this morning is 110's systolic on low dose pressor support - wean off today and monitor * Add beta-darian if bp tolerates * has not been able to tolerate thus far d/t hypotension * Renal function has improved today * not suitable for NATHAN d/t worsening renal function on these agents and hypotension * Monitor labs closely POWER KLEIN MD [facility] Mar 09, 2022 11:52
[2022-03-09 17:59] VITALS: BP 112/69
--- NOTE | 2022-03-09 18:27 | Progress Note ---
Subjective Subjective/Events-last exam Patient feeling much better. She has been up in chair and going to commode. Tolerating PO diet. Review of Systems Pulmonary: Dyspnea, Cough Cardiovascular: Edema; No: Chest Pain, Palpitations Gastrointestinal: No: Nausea, Vomiting, Abdominal Pain Neurological: Weakness, Incoordination; No: Confusion Focused Exam Time of Focused Exam: 17:30 Objective Exam Last Set of Vital Signs Vital Signs Date Time Temp Pulse Resp B/P (MAP) Pulse Ox O2 Delivery O2 Flow Rate FiO2 03/09/22 17:59 36.2 87 16 112/69 (83) 98 High Flow N/C 3.00 03/05/22 15:45 3 Capillary Refill : Less Than 3 Seconds I&O Intake and Output 03/09/22 00:00 Intake Total 5022 ml Output Total 3350 ml Balance 1672 ml Intake Oral 2422 ml IV Total 2600 ml Output Urine Total 3350 ml General: Alert, Oriented X3, Cooperative, Mild Distress (with minimal exertion) Lungs: Other (Diminish breath sound) Heart: Regular Rate, No Murmurs Abdomen: Normal Bowel Sounds, Soft, No Tenderness Extremities: Other (2+ pitting edema bilateral LE) Neuro: Normal Speech Results/Procedures Lab Laboratory Tests 03/08/22 20:47: Glucometer 148H 03/09/22 05:07: White Blood Count 13.5H, Red Blood Count 3.12L, Hemoglobin 8.3L, Hematocrit 26L, Mean Corpuscular Volume 83, Mean Corpuscular Hemoglobin 27, Mean Corpuscular Hemoglobin Concent 32, Red Cell Distribution Width 17.6H, Platelet Count 381, Mean Platelet Volume 11.3, Immature Granulocyte % (Auto) 1, Neutrophils (%) (Auto) 47, Lymphocytes (%) (Auto) 41, Monocytes (%) (Auto) 8, Eosinophils (%) (Auto) 3, Basophils (%) (Auto) 0, Neutrophils # (Auto) 6.3, Lymphocytes # (Auto) 5.5H, Monocytes # (Auto) 1.1H, Eosinophils # (Auto) 0.4H, Basophils # (Auto) 0.0, Immature Granulocyte # (Auto) 0.1, Sodium Level 140, Potassium Level 4.1, Chloride Level 106, Carbon Dioxide Level 24, Anion Gap 10, Blood Urea Nitrogen 16, Creatinine 1.29, Estimat Glomerular Filtration Rate 50, BUN/Creatinine Ratio 12, Glucose Level 135H, Calcium Level 8.5, Corrected Calcium 9.4, Phosphorus Level 2.7, Magnesium Level 1.9, Total Bilirubin 0.2, Aspartate Amino Transf (AST/SGOT) 32, Alanine Aminotransferase (ALT/SGPT) 49, Alkaline Phosphatase 175H , Total Protein 5.9L, Albumin 2.9L 03/09/22 08:27: Blood Gas Puncture Site L BRACHIAL, Blood Gas Patient Temperature 36.7, Arterial Blood pH 7.39, Arterial Blood Partial Pressure CO2 48H, Arterial Blood Partial Pressure O2 35*L, Arterial Blood HCO3 29H, Arterial Blood Total CO2 30.1, Arterial Blood Oxygen Saturation 64L, Arterial Blood Base Excess 4.0H, Ulises Test POSITIVE, Blood Gas Ventilator Setting NO, Blood Gas Inspired Oxygen 3 L 03/09/22 12:49: Glucometer 92 03/09/22 16:32: Glucometer 105 Microbiology 03/03/22 MRSA Screen - Final, Complete MRSA not isolated 03/03/22 Blood Culture - Final, Complete No growth Assessment/Plan Assessment/Plan (1) Septic shock Status: Acute Assessment & Plan: 03/07: continues to require levophed, titrate as tolerated, push PO hydration, Continue antibiotics 03/08: Restarted levophed this Am due to low blood pressures, patient overall feels much better 03/09: Resolved, transfer to floor (2) Cellulitis of right leg Status: Acute Assessment & Plan: 03/08: Notified by Pharm sina was in fact MSSA, antibiotics adjusted 03/09: Wound care consulted to help with wrapping of LE bilaterally (3) Acute on chronic renal failure Status: Resolved (4) Lactic acid acidosis Status: Resolved (5) COPD (chronic obstructive pulmonary disease) Status: Chronic Assessment & Plan: 03/07: Home oxygen requirement 2-3 LPM continuous 03/09: On home oxygen Qualifiers: Qualified Codes: J44.9 - Chronic obstructive pulmonary disease, unspecified (6) NSTEMI (non-ST elevated myocardial infarction) Status: Acute Assessment & Plan: 03/07: Type 2 likely 2/2 shock, no chest pain (7) ROSALVA treated with BiPAP Status: Chronic (8) Normocytic anemia Status: Acute Assessment & Plan: 03/07: s/p 2 pRBCs since admission, will continue to monitor, normal iron panel (9) IDDM (insulin dependent diabetes mellitus) Status: Chronic (10) BMI 50.0-59.9, adult Status: Chronic SAHRA FOUNTAIN MD Mar 09, 2022 18:27
[2022-03-09 19:31] VITALS: BP 107/58
[2022-03-09] MEDS: MONTELUKAST 10 MG (SINGULAIR) TAB PO SCH (19:44)
[2022-03-09] MEDS: QUEtiapine 100 MG (SEROquel) TAB IMMEDIATE RELEASE PO SCH (19:45)
[2022-03-09 20:34] VITALS: BP 107/58
[2022-03-09 23:30] VITALS: BP 82/56
[2022-03-10] VITALS (8 sets, daily range): BP systolic 90–133; BP diastolic 53–81
[2022-03-10 04:25] LABS: BASOPHILS % (AUTO) 0 % (0-10); EOSINOPHILS # (AUTO) 0.3 10^3/uL (0.0-0.3); EOSINOPHILS % (AUTO) 3 % (0-10); HEMATOCRIT 23 % (35-52); HEMOGLOBIN 7.3 g/dL (11.5-16.0); LYMPHOCYTES # (AUTO) 6.3 10^3/uL (1.0-4.0); LYMPHOCYTES % (AUTO) 52 % (12-44); MEAN CORPUSCULAR HEMOGLOBIN 26 pg (25-34); MEAN CORPUSCULAR HGB CONC 32 g/dL (32-36); MEAN CORPUSCULAR VOLUME 83 fL (80-99); MEAN PLATELET VOLUME 10.6 fL (9.0-12.2); MONOCYTES # (AUTO) 0.9 10^3/uL (0.0-1.0); MONOCYTES % (AUTO) 8 % (0-12); NEUTROPHILS # (AUTO) 4.5 10^3/uL (1.8-7.8); NEUTROPHILS % (AUTO) 37 % (42-75); PLATELET COUNT 333 10^3/uL (130-400); WHITE BLOOD COUNT 12.2 10^3/uL (4.3-11.0)
[2022-03-10 04:38] LABS: ALBUMIN 2.4 GM/DL (3.2-4.5)
[2022-03-10 04:39] LABS: POTASSIUM 4.2 MMOL/L (3.6-5.0)
[2022-03-10 04:40] LABS: CALCIUM 7.8 MG/DL (8.5-10.1)
[2022-03-10 04:43] LABS: BILIRUBIN,TOTAL 0.2 MG/DL (0.1-1.0)
[2022-03-10 04:44] LABS: PHOSPHORUS 3.1 MG/DL (2.3-4.7)
[2022-03-10 04:45] LABS: CREATININE SERUM 1.51 MG/DL (0.60-1.30)
[2022-03-10 04:47] LABS: MAGNESIUM 1.9 MG/DL (1.6-2.4)
[2022-03-10] MEDS: inSUlin ASPART (NovoLOG) 1 UNIT/0.01 ML (CHARGE PER UNIT) SC SCH ×4 (05:06→20:40)
--- NOTE | 2022-03-10 08:02 | Progress Note - Cardiology ---
Cardiology SOAP Progress Note Objective: I&O/Vital Signs 03/10/22 03/10/22 03/10/22 03/10/22 03:41 03:46 07:00 07:48 Temp 36.6 36.7 36.5 Pulse 80 72 85 Resp 20 20 B/P (MAP) 124/65 (84) 107/62 (77) Pulse Ox 96 95 O2 Delivery Room Air 03/10/22 03/10/22 03/10/22 03/10/22 08:00 10:05 11:08 13:00 Temp 36.4 Pulse 72 82 Resp 20 B/P (MAP) 103/55 (71) Pulse Ox 98 O2 Delivery High Flow N/C Nasal Cannula High Flow N/C O2 Flow Rate 3.00 3.00 3.00 03/10/22 15:21 Temp 36.5 Pulse 74 Resp 20 B/P (MAP) 110/81 (91) Pulse Ox 96 O2 Delivery Nasal Cannula O2 Flow Rate 3.00 03/10/22 00:00 Intake Total 1100 ml Output Total 2350 ml Balance -1250 ml Constitutional: AAO x 3, well-developed, well-nourished, other (morbid obesity) Respiratory: No accessory muscle use; other (good air entry, diminished at the bases) Cardiovascular: regular rate-rhythm, S1 and S2, systolic murmur (soft TERRIE at card bse) Gastrointestional: No tender; soft; No guarding, No rebound; audible bowel sounds Extremities: swelling (moderate, non-pitting edema of the legs); No clubbing, No cyanosis Neurologic/Psychiatric: oriented x 3, other (moves all limbs equally) Skin: warm/dry; No rash, No rash on exposed areas, No ulcerations on exposed areas Results/Procedures: Labs Laboratory Tests 03/09/22 16:32: Glucometer 105 03/09/22 19:49: Glucometer 137H 03/10/22 04:13: White Blood Count 12.2H, Red Blood Count 2.81L, Hemoglobin 7.3L, Hematocrit 23L, Mean Corpuscular Volume 83, Mean Corpuscular Hemoglobin 26, Mean Corpuscular Hemoglobin Concent 32, Red Cell Distribution Width 17.8H, Platelet Count 333, Mean Platelet Volume 10.6, Immature Granulocyte % (Auto) 1, Neutrophils (%) (Auto) 37L, Lymphocytes (%) (Auto) 52H, Monocytes (%) (Auto) 8, Eosinophils (%) (Auto) 3, Basophils (%) (Auto) 0, Neutrophils # (Auto) 4.5, Lymphocytes # (Auto) 6.3H, Monocytes # (Auto) 0.9, Eosinophils # (Auto) 0.3, Basophils # (Auto) 0.0, Immature Granulocyte # (Auto) 0.1, Sodium Level 139, Potassium Level 4.2, Chloride Level 106, Carbon Dioxide Level 26, Anion Gap 7, Blood Urea Nitrogen 17, Creatinine 1.51H, Estimat Glomerular Filtration Rate 41, BUN/Creatinine Ratio 11, Glucose Level 113H, Calcium Level 7.8L, Corrected Calcium 9.1, Phosphorus Level 3.1, Magnesium Level 1.9, Total Bilirubin 0.2, Aspartate Amino Transf (AST/SGOT) 28, Alanine Aminotransferase (ALT/SGPT) 41, Alkaline Phosphatase 150H, Total Protein 5.0L, Albumin 2.4L 03/10/22 11:02: Glucometer 110 Microbiology 03/03/22 MRSA Screen - Final, Complete MRSA not isolated 03/03/22 Blood Culture - Final, Complete No growth A/P: Assessment: Mild troponin elevation likely due to hypotension (septic shock) - type 2 [place] - Echo 03/06/22: LVEF 55-60%, mild MR, PASP 30-35 mmHg Septic shock, apparently due to R leg cellulitis - Medical services managing Renal failure of unknown chronicity (eGFR 43 on 03/05/22) - eGFR has improved to 50 on lab of 03-09-22 Episodes of asymptomatic hypotension - has been on minimal pressor support Episode of 5 beats WCT on 03-08-22 probably r/t continuing use of vasopressors - no further episodes - unable to tolerate BB d/t hypotension Morbid obesity with hypoventilation syndrome and chronic hypoxia requiring supplemental oxygen ?COPD 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
[2022-03-10] MEDS: ASPIRIN 81 MG CHEW (CHILDREN'S ASA) PO SCH (08:10)
[2022-03-10] MEDS: DOCUSATE SODIUM 100 MG (COLACE) CAP PO SCH ×2 (08:10→20:42)
[2022-03-10] MEDS: APIXABAN 5 MG (ELIQUIS) TABLET PO SCH ×2 (08:10→20:42)
[2022-03-10] MEDS: hydrOXYzine (VISTARIL/ATARAX) 25 MG capsule/tablet PO SCH ×2 (08:11→20:43)
[2022-03-10] MEDS: PREGABALIN 75 MG (LYRICA) CAP PO SCH ×4 (08:11→20:43)
[2022-03-10] MEDS: FAMOTIDINE 20 MG (PEPCID) TABLET PO SCH ×2 (08:11→20:42)
[2022-03-10] MEDS: MIDODRINE 10 MG (PROAMATINE) TAB PO SCH ×3 (08:11→20:42)
[2022-03-10] MEDS: buPROPion SR 150 MG (WELLBUTRIN SR) TAB PO SCH ×2 (08:11→20:42)
[2022-03-10] MEDS: VENlafaxine XR 75 MG (EFFEXOR XR) CAP PO SCH (08:11)
[2022-03-10] MEDS: MULTIVIT W/MINERALS TAB (THERAGRAN M) PO SCH (08:11)
[2022-03-10] MEDS: ALLOPURINOL 100 MG (ZYLOPRIM) TAB PO SCH (08:11)
[2022-03-10] MEDS: FERROUS SULF 325 MG (IRON) TAB PO SCH (08:11)
[2022-03-10] MEDS: busPIRone 15 MG (BUSPAR) TABLET PO SCH ×2 (08:27→20:44)
[2022-03-10] MEDS: CYCLOBENZAPRINE 10 MG (FLEXERIL) TAB PO PRN (08:27)
[2022-03-10] MEDS: PANTOPRAZOLE 40 MG (PROTONIX) VIAL IV SCH (08:30)
--- NOTE | 2022-03-10 09:25 | Physical Therapy Daily Note ---
PT Daily Note-Current Subjective Patient in recliner pre-tx, reports no pain, agrees to PT. Pain Section J - Health Conditions 1. Rarely or not at all 2. Occasionally 3. Frequently 4. Almost constantly 8. Unable to answer Pain Effect on Sleep: 2 Pain Interference with Therapy: 2 Pain Interference w/Day-to-Day: 2 Appearance Patient in recliner post-tx with nurse call, tray, phone, and all needs met. Mental Status Patient Orientation: Person, Place, Situation Attachments: Oxygen Transfers SCALE: Activities may be completed with or without assistive devices. 8-Jfsclqcpwl-fhjuamc completes the activity by him/herself with no assistance from a helper. 5-Set-up or Clean-up Assistance-helper sets up or cleans up; patient completes activity. [place] assists only prior to or following the activity. 4-Supervision or Touching Assistance-helper provides verbal cues and/or touching/steadying and/or contact guard assistance as patient completes activity. Assistance may be provided throughout the activity or intermittently. 3-Partial/Moderate Assistance-helper does LESS THAN HALF the effort. [place] lifts, holds or supports trunk or limbs, but provides less than half the effort. 2-Substantial/Maximal Assistance-helper does MORE THAN HALF the effort. [place] lifts or holds trunk or limbs and provides more than half the effort. 4-Zaxzjlhuz-uvjpeo does ALL the effort. Patient does none of the effort to complete the activity. Or, the assistance of 2 or more helpers is required for the patient to complete the activity. If activity was not attempted, code reason: 7-Patient Refused. 9-Not Applicable-not attempted and the patient did not perform the activity before the current illness, exacerbation or injury. 10-Not Attempted due to Environmental Limitations-(lack of equipment, weather restraints, etc.). 88-Not Attempted due to Medical Conditions or Safety Concerns. Sit to Stand (QC): 4 CGA Weight Bearing Right Lower Extremity: Right Full Weight Bearing Left Lower Extremity: Left Full Weight Bearing Gait Training Distance: 225' Walk 10 feet (QC): 4 Walk 50 ft with 2 Turns(QC): 4 Walk 150 ft (QC): 4 Gait Persons Needed: 1 Gait Assistive Device: None CGA, patient has good gait speed, foot clearance, and symmetrical step length, a little slower and unsteady on turns. 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 Time Frame: Mar 14, 2022 Roll Left & Right (QC): 6 Sit to Lying (QC): 6 Lying-Sitting on Side/Bed(QC): 6 Sit to Stand (QC): 6 Chair/Soh-yg-Zgzmh Xfer(QC): 6 Walk 10 feet (QC): 6 Walk 50ft with 2 Turns (QC): 6 Walk 150 ft (QC): 6 PT Plan Problem List Problem List: Activity Tolerance, Functional Strength, Safety, Balance, Gait, Bed Mobility, ROM Treatment/Plan Treatment Plan: Continue Plan of Care Treatment Plan: Bed Mobility, Education, Functional Activity Chau, Functional Strength, Gait, Safety, Therapeutic Exercise, Transfers Treatment Duration: Mar 14, 2022 Frequency: 6 times per week Estimated Hrs Per Day: .25 hour per day Patient and/or Family Agrees t: Yes Safety Risks/Education Patient Education: Gait Training, Transfer Techniques, Correct Positioning, Safety Issues Teaching Recipient: Patient Teaching Methods: Demonstration, Discussion Response to Teaching: Verbalize Understanding Time Time In: 0850 Time Out: 0910 Total Billed Treatment Time: 20 Total Billed Treatment 1 visit FA 20min THIERRY SANCHEZ PT Mar 10, 2022 09:25
--- NOTE | 2022-03-10 09:43 | Progress Note - Cardiology ---
Cardiology SOAP Progress Note Subjective: No cp or palp or syncope or shortness of breath at rest No n/v/d No focal weakness Gen weakness and malaise are present Objective: I&O/Vital Signs 03/09/22 03/10/22 03/10/22 03/10/22 23:30 01:00 03:41 03:46 Temp 36.6 36.6 36.7 Pulse 79 78 80 Resp 20 20 B/P (MAP) 82/56 (65) 124/65 (84) Pulse Ox 94 96 O2 Delivery NIV Bilevel 03/10/22 03/10/22 07:00 07:48 Temp 36.5 Pulse 72 85 Resp 20 B/P (MAP) 107/62 (77) Pulse Ox 95 O2 Delivery Room Air 03/10/22 00:00 Intake Total 1100 ml Output Total 2350 ml Balance -1250 ml Constitutional: AAO x 3, well-developed, well-nourished, other (morbid obesity) Respiratory: No accessory muscle use; other (good air entry, diminished at the bases) Cardiovascular: regular rate-rhythm, S1 and S2, systolic murmur (soft TERRIE at card bse) Gastrointestional: No tender; soft; No guarding, No rebound; audible bowel sounds Extremities: swelling (moderate, non-pitting edema of the legs); No clubbing, No cyanosis Neurologic/Psychiatric: oriented x 3, other (moves all limbs equally) Skin: warm/dry; No rash, No rash on exposed areas, No ulcerations on exposed areas Results/Procedures: Labs Laboratory Tests 03/09/22 12:49: Glucometer 92 03/09/22 16:32: Glucometer 105 03/09/22 19:49: Glucometer 137H 03/10/22 04:13: White Blood Count 12.2H, Red Blood Count 2.81L, Hemoglobin 7.3L, Hematocrit 23L, Mean Corpuscular Volume 83, Mean Corpuscular Hemoglobin 26, Mean Corpuscular Hemoglobin Concent 32, Red Cell Distribution Width 17.8H, Platelet Count 333, Mean Platelet Volume 10.6, Immature Granulocyte % (Auto) 1, Neutrophils (%) (Auto) 37L, Lymphocytes (%) (Auto) 52H, Monocytes (%) (Auto) 8, Eosinophils (%) (Auto) 3, Basophils (%) (Auto) 0, Neutrophils # (Auto) 4.5, Lymphocytes # (Auto) 6.3H, Monocytes # (Auto) 0.9, Eosinophils # (Auto) 0.3, Basophils # (Auto) 0.0, Immature Granulocyte # (Auto) 0.1, Sodium Level 139, Potassium Level 4.2, Chloride Level 106, Carbon Dioxide Level 26, Anion Gap 7, Blood Urea Nitrogen 17, Creatinine 1.51H, Estimat Glomerular Filtration Rate 41, BUN/Creatinine Ratio 11, Glucose Level 113H, Calcium Level 7.8L, Corrected Calcium 9.1, Phosphorus Level 3.1, Magnesium Level 1.9, Total Bilirubin 0.2, Aspartate Amino Transf (AST/SGOT) 28, Alanine Aminotransferase (ALT/SGPT) 41, Alkaline Phosp hatase 150H, Total Protein 5.0L, Albumin 2.4L Microbiology 03/03/22 MRSA Screen - Final, Complete MRSA not isolated 03/03/22 Blood Culture - Final, Complete No growth Laboratory Tests 03/08/22 13:12 03/09/22 05:07 03/10/22 04:13 A/P: Assessment: Mild troponin elevation likely due to hypotension (septic shock) - type 2 MA - Echo 03/06/22: LVEF 55-60%, mild MR, PASP 30-35 mmHg Septic shock, apparently due to R leg cellulitis, now resolved - Medical services managing Renal failure of unknown chronicity (eGFR 43 on 03/05/22) - eGFR has improved to 50 on lab of 03-09-22 Episodes of asymptomatic hypotension - now off vasopressors Episode of 5 beats WCT on 03-08-22 probably r/t continuing use of vasopressors - no further episodes - continue BB Morbid obesity with hypoventilation syndrome and chronic hypoxia requiring supplemental oxygen ?COPD 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 I communicated with Dr Rene and r ecommended consideration of more blood transfusion and w/u for anemia. If apixaban needs to be held for a few days for w/u of anemia, that would be reasonable * Monitor labs closely * Cr up today from yesterday POWER KLEIN MD FACP FAC CCDS Mar 10, 2022 09:43
[2022-03-10] MEDS: UMECLIDINIUM BROMIDE (INCRUSE ELLIPTA) 7'S IH SCH (10:04)
[2022-03-10] MEDS ORDERED: NS IV 500 ML 500 ML IV SCH (13:30)
--- NOTE | 2022-03-10 13:30 | Progress Note ---
Subjective Subjective/Events-last exam Patient states that she is feeling much better and wants to go home. Her Hgb dropped overnight but denies any blood in urine or stool. Denies any pain. Tolerating PO diet and ambulation Review of Systems Pulmonary: Dyspnea (with activity) Cardiovascular: No: Chest Pain, Palpitations Neurological: Weakness, Incoordination Focused Exam Time of Focused Exam: 17:30 Objective Exam Last Set of Vital Signs Vital Signs Date Time Temp Pulse Resp B/P (MAP) Pulse Ox O2 Delivery O2 Flow Rate FiO2 03/10/22 13:00 82 03/10/22 11:08 36.4 20 103/55 (71) High Flow N/C 3.00 03/10/22 10:05 98 03/05/22 15:45 3 Capillary Refill : Less Than 3 Seconds I&O Intake and Output 03/10/22 00:00 Intake Total 3475 ml Output Total 5100 ml Balance -1625 ml Intake Oral 2225 ml IV Total 1250 ml Output Urine Total 5100 ml # Voids 1 General: Alert, Oriented X3, No Acute Distress Lungs: Clear to Auscultation, Normal Air Movement Heart: Regular Rate, No Murmurs Abdomen: Soft, No Tenderness Extremities: Other (2+ pitting edema BL LE) Neuro: Normal Speech, Cranial Nerves 3-12 NL Results/Procedures Lab Laboratory Tests 03/09/22 16:32: Glucometer 105 03/09/22 19:49: Glucometer 137H 03/10/22 04:13: White Blood Count 12.2H, Red Blood Count 2.81L, Hemoglobin 7.3L, Hematocrit 23L, Mean Corpuscular Volume 83, Mean Corpuscular Hemoglobin 26, Mean Corpuscular Hemoglobin Concent 32, Red Cell Distribution Width 17.8H, Platelet Count 333, Mean Platelet Volume 10.6, Immature Granulocyte % (Auto) 1, Neutrophils (%) (Auto) 37L, Lymphocytes (%) (Auto) 52H, Monocytes (%) (Auto) 8, Eosinophils (%) (Auto) 3, Basophils (%) (Auto) 0, Neutrophils # (Auto) 4.5, Lymphocytes # (Auto) 6.3H, Monocytes # (Auto) 0.9, Eosinophils # (Auto) 0.3, Basophils # (Auto) 0.0, Immature Granulocyte # (Auto) 0.1, Sodium Level 139, Potassium Level 4.2, Chloride Level 106, Carbon Dioxide Level 26, Anion Gap 7, Blood Urea Nitrogen 17, Creatinine 1.51H, Estimat Glomerular Filtration Rate 41, BUN/Creatinine Ratio 11, Glucose Level 113H, Calcium Level 7.8L, Corrected Calcium 9.1, Phosphorus Level 3.1, Magnesium Level 1.9, Total Bilirubin 0.2, Aspartate Amino Transf (AST/SGOT) 28, Alanine Aminotransferase (ALT/SGPT) 41, Alkaline Phos phatase 150H, Total Protein 5.0L, Albumin 2.4L 03/10/22 11:02: Glucometer 110 Microbiology 03/03/22 MRSA Screen - Final, Complete MRSA not isolated 03/03/22 Blood Culture - Final, Complete No growth Assessment/Plan Assessment/Plan (1) Septic shock Status: Resolved Assessment & Plan: 03/07: continues to require levophed, titrate as tolerated, push PO hydration, Continue antibiotics 03/08: Restarted levophed this Am due to low blood pressures, patient overall feels much better 03/09: Resolved, transfer to floor (2) Cellulitis of right leg Status: Resolved Assessment & Plan: 03/08: Notified by Pharm sina was in fact MSSA, antibiotics adjusted 03/09: Wound care consulted to help with wrapping of LE bilaterally (3) Acute on chronic renal failure Status: Resolved (4) Lactic acid acidosis Status: Resolved (5) COPD (chronic obstructive pulmonary disease) Status: Chronic Assessment & Plan: 03/07: Home oxygen requirement 2-3 LPM continuous 03/09: On home oxygen Qualifiers: Qualified Codes: J44.9 - Chronic obstructive pulmonary disease, unspecified (6) NSTEMI (non-ST elevated myocardial infarction) Status: Acute Assessment & Plan: 03/07: Type 2 likely 2/2 shock, no chest pain (7) ROSALVA treated with BiPAP Status: Chronic (8) Normocytic anemia Status: Acute Assessment & Plan: 03/07: s/p 2 pRBCs since admission, will continue to monitor, normal iron panel 03/10: 1 unit pRBCs ordered today, no signs of acute infection (9) IDDM (insulin dependent diabetes mellitus) Status: Chronic (10) BMI 50.0-59.9, adult Status: Chronic (11) Discharge planning issues Assessment & Plan: 03/10: Discussed HH at discharge and patient is agreeable SAHRA FOUNTAIN MD Mar 10, 2022 13:30
[2022-03-10] MEDS: MONTELUKAST 10 MG (SINGULAIR) TAB PO SCH (20:43)
[2022-03-10] MEDS: QUEtiapine 100 MG (SEROquel) TAB IMMEDIATE RELEASE PO SCH (20:43)
[2022-03-11] VITALS (7 sets, daily range): BP systolic 92–142; BP diastolic 61–82
[2022-03-11] MEDS: inSUlin ASPART (NovoLOG) 1 UNIT/0.01 ML (CHARGE PER UNIT) SC SCH ×4 (04:59→20:12)
[2022-03-11 05:33] LABS: BASOPHILS # (AUTO) 0.1 10^3/uL (0.0-0.1); BASOPHILS % (AUTO) 1 % (0-10); EOSINOPHILS # (AUTO) 0.4 10^3/uL (0.0-0.3); EOSINOPHILS % (AUTO) 3 % (0-10); HEMATOCRIT 27 % (35-52); HEMOGLOBIN 8.5 g/dL (11.5-16.0); LYMPHOCYTES # (AUTO) 6.2 10^3/uL (1.0-4.0); LYMPHOCYTES % (AUTO) 51 % (12-44); MEAN CORPUSCULAR HEMOGLOBIN 26 pg (25-34); MEAN CORPUSCULAR HGB CONC 32 g/dL (32-36); MEAN CORPUSCULAR VOLUME 84 fL (80-99); MONOCYTES % (AUTO) 8 % (0-12); NEUTROPHILS # (AUTO) 4.5 10^3/uL (1.8-7.8); NEUTROPHILS % (AUTO) 37 % (42-75); PLATELET COUNT 340 10^3/uL (130-400); WHITE BLOOD COUNT 12.2 10^3/uL (4.3-11.0)
[2022-03-11 05:46] LABS: ALBUMIN 2.6 GM/DL (3.2-4.5); POTASSIUM 3.8 MMOL/L (3.6-5.0)
[2022-03-11 05:48] LABS: CALCIUM 8.2 MG/DL (8.5-10.1)
[2022-03-11 05:49] LABS: TOTAL PROTEIN 5.4 GM/DL (6.4-8.2)
[2022-03-11 05:51] LABS: BILIRUBIN,TOTAL 0.2 MG/DL (0.1-1.0)
[2022-03-11 05:52] LABS: PHOSPHORUS 3.5 MG/DL (2.3-4.7)
[2022-03-11 05:53] LABS: CREATININE SERUM 1.42 MG/DL (0.60-1.30)
--- NOTE | 2022-03-11 07:57 | Progress Note - Cardiology ---
Cardiology SOAP Progress Note Objective: I&O/Vital Signs 03/13/22 03/13/22 03/13/22 03/14/22 20:35 20:50 23:46 03:57 Temp 36.4 36.4 36.4 Pulse 78 69 75 Resp 24 18 16 B/P (MAP) 108/54 (72) 93/59 (70) 109/64 (79) Pulse Ox 99 99 94 O2 Delivery Nasal Cannula High Flow N/C NIV CPAP Room Air O2 Flow Rate 3.00 3.00 3.00 03/14/22 03/14/22 07:09 07:58 Temp 36.4 Pulse 74 Resp 20 B/P (MAP) 119/68 (85) Pulse Ox 96 96 O2 Delivery Nasal Cannula NIV CPAP O2 Flow Rate 3.00 03/13/22 23:59 Intake Total 2440 ml Balance 2440 ml Constitutional: AAO x 3, well-developed, well-nourished, other (morbid obesity) Respiratory: No accessory muscle use; other (good air entry, diminished at the bases) Cardiovascular: regular rate-rhythm, S1 and S2, systolic murmur (soft TERRIE at card bse) Gastrointestional: No tender; soft; No guarding, No rebound; audible bowel sounds Extremities: swelling (moderate, non-pitting edema of the legs); No clubbing, No cyanosis Neurologic/Psychiatric: oriented x 3, other (moves all limbs equally) Skin: warm/dry; No rash, No rash on exposed areas, No ulcerations on exposed areas Results/Procedures: Labs Laboratory Tests 03/13/22 11:03: Glucometer 153H 03/13/22 15:29: Glucometer 123H 03/13/22 20:28: Glucometer 141H 03/14/22 05:41: Glucometer 93 03/14/22 05:47: White Blood Count 12.7H, Red Blood Count 3.43L, Hemoglobin 9.2L, Hematocrit 30L, Mean Corpuscular Volume 87, Mean Corpuscular Hemoglobin 27, Mean Corpuscular Hemoglobin Concent 31L, Red Cell Distribution Width 19.9H, Platelet Count 355, Mean Platelet Volume 11.0, Immature Granulocyte % (Auto) 1, Neutrophils (%) (Auto) 48, Lymphocytes (%) (Auto) 39, Monocytes (%) (Auto) 9, Eosinophils (%) (Auto) 3, Basophils (%) (Auto) 0, Neutrophils # (Auto) 6.1, Lymphocytes # (Auto) 5.0H, Monocytes # (Auto) 1.1H, Eosinophils # (Auto) 0.4H, Basophils # (Auto) 0.0, Immature Granulocyte # (Auto) 0.1, Sodium Level 138, Potassium Level 3.8, Chloride Level 104, Carbon Dioxide Level 25, Anion Gap 9, Blood Urea Nitrogen 15, Creatinine 1.46H, Estimat Glomerular Filtration Rate 43, BUN/Creatinine Ratio 10, Glucose Level 94, Calcium Level 8.3L, Corrected Calcium 9.1, Phosphoru s Level 3.7, Magnesium Level 1.8, Total Bilirubin 0.3, Aspartate Amino Transf (AST/SGOT) 53H, Alanine Aminotransferase (ALT/SGPT) 77H, Alkaline Phosphatase 176H, Total Protein 6.3L, Albumin 3.0L Microbiology 03/03/22 MRSA Screen - Final, Complete MRSA not isolated 03/03/22 Blood Culture - Final, Complete No growth A/P: Assessment: Mild troponin elevation likely due to hypotension (septic shock) - type 2 VT - Echo 03/06/22: LVEF 55-60%, mild MR, PASP 30-35 mmHg Septic shock, apparently due to R leg cellulitis, now resolved - Medical services managing Renal failure of unknown chronicity (eGFR 43 on 03/05/22) - eGFR has improved to 50 on lab of 03-09-22 Episodes of asymptomatic hypotension - now off vasopressors Episode of 5 beats WCT on 03-08-22 probably r/t continuing use of vasopressors - no further episodes - continue BB Morbid obesity with hypoventilation syndrome and chronic hypoxia requiring supplemental oxygen ?COPD 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) Marked anemia of undetermined etiology - evaluated and managed by Dr Rene - had dropped again after blood transfusions on 03/05/22 - received 1 unit PRBC yesterday Persistent low bp after treatment of sepsis: spurious (mismatched bp cuff) and/or chronically low bp Plan: * BP has improved - off pressors * Continue beta-darian * Advised if apixaban needs to be held for a few days for w/u of anemia, that would be reasonable * H/H improved following transfusion of 1 unit PRBC yesterday * Monitor labs closely * Renal function stable MARTIN MILLER [facility] Mar 11, 2022 07:57
[2022-03-11] MEDS: UMECLIDINIUM BROMIDE (INCRUSE ELLIPTA) 7'S IH SCH (07:58)
[2022-03-11] MEDS: hydrOXYzine (VISTARIL/ATARAX) 25 MG capsule/tablet PO SCH ×2 (08:19→20:28)
[2022-03-11] MEDS: FAMOTIDINE 20 MG (PEPCID) TABLET PO SCH ×2 (08:20→20:30)
[2022-03-11] MEDS: PANTOPRAZOLE 40 MG (PROTONIX) TAB PO SCH (08:20)
[2022-03-11] MEDS: FERROUS SULF 325 MG (IRON) TAB PO SCH (08:20)
[2022-03-11] MEDS: VENlafaxine XR 75 MG (EFFEXOR XR) CAP PO SCH (08:20)
[2022-03-11] MEDS: PREGABALIN 75 MG (LYRICA) CAP PO SCH ×4 (08:20→20:29)
[2022-03-11] MEDS: busPIRone 15 MG (BUSPAR) TABLET PO SCH ×2 (08:20→20:31)
[2022-03-11] MEDS: buPROPion SR 150 MG (WELLBUTRIN SR) TAB PO SCH ×2 (08:20→20:43)
[2022-03-11] MEDS: MULTIVIT W/MINERALS TAB (THERAGRAN M) PO SCH (08:20)
[2022-03-11] MEDS: DOCUSATE SODIUM 100 MG (COLACE) CAP PO SCH ×2 (08:20→20:30)
[2022-03-11] MEDS: APIXABAN 5 MG (ELIQUIS) TABLET PO SCH ×2 (08:20→20:29)
[2022-03-11] MEDS: ASPIRIN 81 MG CHEW (CHILDREN'S ASA) PO SCH (08:20)
[2022-03-11] MEDS: ALLOPURINOL 100 MG (ZYLOPRIM) TAB PO SCH (08:20)
[2022-03-11] MEDS: MIDODRINE 10 MG (PROAMATINE) TAB PO SCH ×3 (08:21→20:30)
[2022-03-11] MEDS: LORazepam 0.5 MG (ATIVAN) TABLET PO PRN ×2 (08:26→13:59)
[2022-03-11] MEDS: CYCLOBENZAPRINE 10 MG (FLEXERIL) TAB PO PRN ×2 (08:27→13:59)
--- NOTE | 2022-03-11 08:48 | Physical Therapy Daily Note ---
PT Daily Note-Current Subjective Patient in recliner pre-tx, reports pain 8/10 in BLE and back, agrees to PT. Pain Section J - Health Conditions 1. Rarely or not at all 2. Occasionally 3. Frequently 4. Almost constantly 8. Unable to answer Pain Effect on Sleep: 3 Pain Interference with Therapy: 2 Pain Interference w/Day-to-Day: 2 Appearance Patient in recliner post-tx with nurse call, phone, tray, and all needs met. Mental Status Patient Orientation: Person, Place, Situation Attachments: Oxygen Transfers SCALE: Activities may be completed with or without assistive devices. 8-Vaneqakzda-aexozim completes the activity by him/herself with no assistance from a helper. 5-Set-up or Clean-up Assistance-helper sets up or cleans up; patient completes activity. Clinton assists only prior to or following the activity. 4-Supervision or Touching Assistance-helper provides verbal cues and/or touching/steadying and/or contact guard assistance as patient completes activity. Assistance may be provided throughout the activity or intermittently. 3-Partial/Moderate Assistance-helper does LESS THAN HALF the effort. Clinton lifts, holds or supports trunk or limbs, but provides less than half the effort. 2-Substantial/Maximal Assistance-helper does MORE THAN HALF the effort. [place] lifts or holds trunk or limbs and provides more than half the effort. 7-Gvihhupfg-fbyniy does ALL the effort. Patient does none of the effort to complete the activity. Or, the assistance of 2 or more helpers is required for the patient to complete the activity. If activity was not attempted, code reason: 7-Patient Refused. 9-Not Applicable-not attempted and the patient did not perform the activity before the current illness, exacerbation or injury. 10-Not Attempted due to Environmental Limitations-(lack of equipment, weather restraints, etc.). 88-Not Attempted due to Medical Conditions or Safety Concerns. Sit to Stand (QC): 4 SBA Weight Bearing Right Lower Extremity: Right Full Weight Bearing Left Lower Extremity: Left Full Weight Bearing Gait Training Does the Patient Walk?: Yes Distance: 150' Walk 10 feet (QC): 4 Walk 50 ft with 2 Turns(QC): 4 Walk 150 ft (QC): 4 Gait Persons Needed: 1 Gait Assistive Device: None Patient ambulates with decreased step length, decreased foot clearance, decreased endurance, and increased hip ER bilaterally. Wheelchair Training Does the Pt Use a Wheelchair?: No Exercises Seated Therapy Exercises: Ankle pumps (15 reps each leg), Long arc quads (20 reps RLE, 10 reps LLE due to increased pain today) Treatments FA, LE strengthening Assessment Current Status: Fair Progress Patient continues to have SOB after ambulating 150', vitals checked and WNL, increased pain today which restricted patient from completing all exercises. PT Skilled Nursing Goals Planning Specialist Goals PT Skilled Nursing Goals Time Frame: Mar 14, 2022 Roll Left & Right (QC): 6 Sit to Lying (QC): 6 Lying-Sitting on Side/Bed(QC): 6 Sit to Stand (QC): 6 Chair/Xbg-ir-Eggtk Xfer(QC): 6 Walk 10 feet (QC): 6 Walk 50ft with 2 Turns (QC): 6 Walk 150 ft (QC): 6 PT Plan Problem List Problem List: Activity Tolerance, Functional Strength, Safety, Balance, Gait, Transfer, Bed Mobility, ROM Treatment/Plan Treatment Plan: Continue Plan of Care Treatment Plan: Bed Mobility, Education, Functional Activity Chau, Functional Strength, Gait, Safety, Therapeutic Exercise, Transfers Treatment Duration: Mar 14, 2022 Frequency: 6 times per week Estimated Hrs Per Day: .25 hour per day Patient and/or Family Agrees t: Yes Safety Risks/Education Patient Education: Gait Training, Transfer Techniques, Correct Positioning, Safety Issues Teaching Recipient: Patient Teaching Methods: Demonstration, Discussion Response to Teaching: Verbalize Understanding Time Time In: 811 Time Out: 825 Total Billed Treatment Time: 11 Total Billed Treatment 1 visit FA 14min THIERRY SANCHEZ PT Mar 11, 2022 08:47
[2022-03-11] MEDS: HYDROmorphone 2 MG/ML VIAL (DILAUDID) IV PRN ×2 (09:56→13:59)
--- NOTE | 2022-03-11 13:03 | Progress Note - Hospitalist ---
TRISTINNEW Parmar 03/11/22 1303: Subjective HPI/CC On Admission Date Seen by Provider: Mar 11, 2022 Time Seen by Provider: 12:56 CC: Sepsis 51yo F with h/o CKD IV, mutliple DVTS, IDDM, COPD, O2 dependence on 3L, and CAD was admitted last night for Acute on Chronic renal failure and sepsis. Last night, pt presented to the ED after experiencing dizziness, lightheadedness, nausea, and vomiting that started 2 days ago and worsened last night. Earlier this month, pt was admitted to [facility] [place] for septic shock and chronic renal failure. Pt states that earlier this month, she woke up with multiple tender "knots" on her R leg that progressed to ulcerations. Pt states that the uclerations became infected resulting in the sepsis. Pt had a MRSA positive culture of her wounds on 02/11. Pt was DC from [facility] in [place] 2 weeks ago with 2 weeks worth of doxycycline 100mg BID. Pt finished the course 2 days ago. Since f inishing her antibiotics, pt states that she started to experience the aforementioned symptoms, prompting her to go to the ED. Pt presented to ED with sepsis that improved with IV fluids. Pt was also given Cefriaxone. Workup found an elevated lactic acid of 2.38, elevated WBC, and elevated AG of 17. CXR, CT head were unremarkable. Pt was admitted to the ICU for further management. Pt was started on 200mls IV Q8H meropenem and completed 3 bags of IV vancomycin. Today, pt continues to be hypotensive at 96/64 while on pressors. Repeat labs were remarkable for mild hyponatremia of 133, mild hypokalemia of 3.3, improved AG of 13, improved WBC, and a negative procalcitonin. Cr is 2.19 which is below pt's baseline of 2.6. In room, pt is sitting comfortably in bed. Pt states that her leg pain and swelling has improved today. Pt states that she is still experiencing some dizziness and lightheadedness and notes that both symptoms are brought on with head movement. Pt is voiding without issue. Pt was able to eat breakfast this morning without issue. Pt has no complaints. Pt denies any vomiting, nausea, CP, worsened SOA, worsened cough, diarrhea, or abd pain. ABG 10/21: pH: 7.42 pCO2: 38 pO2: 125 Subjective/Events-last exam Pt is resting comfortably in bed with CPAP on. Pt states that she feels well today but does note new onset of sharp, deep, L hip that started yesterday. Pt states that the hip pain starts at the lateral aspect of the L hip and radiates along her pelvis into her groin when she moves her leg to the sides. Pt states that the pain is 9/10 when present and that it is now starting to hurt when walking. Pt denies any recent falls. Otherwise pt has no complaints. Pt has been eating without issue and ambulating with PT. Pt states that she has not had a BM in a few days. Pt's hgb improved from yesterday following transfusion with 1 U PRBCs to 8.5. Pt denies nausea, vomiting, CP, worsening SOA, and abd pain. Hospital Course: 51yo F with h/o CKD IV, mutliple DVTS, IDDM, COPD, O2 dependence on 3L, and CAD was admitted on 03/03 for Acute on Chronic renal failure and septic shock. Earlier this month, pt was admitted to [facility] [place] for septic shock and chronic renal failure. A few weeks ago, pt states that she woke up with multiple tender "knots" on her R leg that progressed to ulcerations. The ulcerations danielle me infected resulting in sepsis. Pt had a MRSA positive culture of her wounds on 02/11 and 03/08. Pt was DC from [facility] in [place] on 02/25 with 2 weeks worth of doxycycline 100mg BID. Pt finished the course 2 days prior to admission and started to experience dizziness/lightheadedness and vomiting soon after. Pt presented to ED with sepsis that improved with IV fluids. Pt was also given Cefriaxone. ED workup found an elevated lactic acid of 2.38, elevated WBC, and elevated AG of 17. CXR, CT head were unremarkable. Pt was admitted to the ICU and started on 200mls IV Q8H meropenem and completed 3 bags of IV vancomycin. Pt had persistent hypotension depsite being on levophed. On 03/05, pt started to experience CP and was found to have an elevated troponin and EKG indicating a type II NSTEMI due to her hypotension. Pt's hypotension resolved on 03/09 and was able to DC levophed and start beta darian. Pt has needed a total of 3 U of PRBCs throughout her stay due to repeated drops in her Hgb, her most recent transfusion was on 03/10. Hgb currently stable at 8.5. Today, pt has had resolution of all her admitting symptoms but has had new onset L hip pain with movement. Pt denies having had a fall. Dr. Rene has spoken to pt regarding HH when discharged and pt was in agreement. Review of Systems General: No Chills, No Night Sweats HEENT: No Head Aches, No Visual Changes Pulmonary: No Dyspnea, No Cough Cardiovascular: No: Chest Pain, Palpitations Gastrointestinal: No: Nausea, Vomiting, Abdominal Pain Genitourinary: No Dysuria, No Frequency Musculoskeletal: leg pain (L hip with movement); No: neck pain, shoulder pain Neurological: No: Weakness, Numbness Focused Exam Time of Focused Exam: 17:30 Objective Exam Vital Signs Vital Signs Date Time Temp Pulse Resp B/P (MAP) Pulse Ox O2 Delivery O2 Flow Rate FiO2 03/11/22 12:30 36.2 03/11/22 11:10 76 18 114/69 (84) 99 High Flow N/C 3.00 03/05/22 15:45 3 Capillary Refill : Less Than 3 Seconds General Appearance: No Apparent Distress, Obese HEENT: PERRL/EOMI, Moist Mucous Membranes Neck: Normal Inspection, Supple Respiratory: Chest Non Tender, No Respiratory Distress, Crackles (diffuse B/L), Inspiration (wheezing diffuse B/L) Cardiovascular: Regular Rate, Rhythm, No Gallop, No Murmur Gastrointestinal: No Pulsatile Mass, Non Tender, Soft; No Distended Back: Normal Inspection, No CVA Tenderness Extremity: Normal Inspection, No Calf Tenderness, Pedal Edema (B/L LE R>L; does have h/o chronic B/L LE sweling) Neurologic/Psychiatric: Alert, Oriented x3 Skin: Normal Color, Warm/Dry Lymphatic: No Adenopathy Results/Procedures Lab Laboratory Tests 03/11/22 05:06 Patient resulted labs reviewed. Assessment/Plan Assessment and Plan Assess & Plan/Chief Complaint 1. Septic Shock -treated with levophed -resolved on 03/09, levophed DC 2. Acute on Chronic Renal Failure -continue to monitor -baseline Cr 2.6 3. MRSA + Infection of R leg -+ wound culture on leg on 02/11 -currently on 200mls Q8H IV Meropenem 03/11: -wounds currently healing and being managed by wound care -completed Abx 4.H/o DVT and PE -currently on Lovenox -on parts counterman anti-coagulation at home 5. COPD -3L O2 at home and BiPap 6. Dizziness/lightheadedness -positional, consider inner ear problem or secondary to low BP -improved today 03/11: -resolved 7.Lactic Acidosis -resolved 8. Type II NSTEMI 03/09: -secondary to hypotension -started on beta darian once hypotension resolved 9. L hip pain Plan: XRAY L hip Replace electrolytes as needed PT/OT SS consult to discuss HH options possible DC tomorrow, f/u for hbg checks every few weeks MADISYN ADAMS DO 03/12/22 0523: Subjective Subjective/Events-last exam Patient doing a lot better Hemoglobin improved Creatinine improved Left hip pain will prompt x-ray Assessment/Plan Assessment and Plan Assess & Plan/Chief Complaint X-ray left hip Supervisory-Addendum Brief Verification & Attestation Participated in pt care: history, MDM, physical Personally performed: exam, history, MDM, supervision of care Care discussed with: Medical Student Procedures: n/a Results interpretation: Verified all documentation Verification and Attestation of Medical Student E/M Service A medical student performed and documented this service in my presence. I reviewed and verified all information documented by the medical student and made modifications to such information, when appropriate. I personally performed the physical exam and medical decision making. Madisyn Adams Mar 12, 2022,05:23 [place] Mar 11, 2022 13:03 MADISYN ADAMS DO Mar 12, 2022 05:23
--- NOTE | 2022-03-11 13:40 | Occupational Therapy Eval ---
OT Evaluation-General/PLF Medical Diagnosis Admission Date Mar 03, 2022 at 19:30 Medical Diagnosis: sepsis Onset Date: Mar 03, 2022 Therapy Diagnosis Therapy Diagnosis: Reduced ADL status Precautions Precautions/Isolations: Standard Precautions Referral Physician: Anju Referral Reason: Evaluation/Treatment Medical History Pertinent Medical History: COPD, DM, HTN Additional Medical History Chronic Renal Failure- stage 4 Current History Pt came to hospital with dizziness, nausea, and vomiting. Pt lives with her best friend in a house/apartment on the ground level. Pt was not using any AD at baseline. She was mod assist with all ADL tasks with either her best friend or her visual merchandising director assisting her. Pt's roommate and visual merchandising director completes all IADL tasks. She reported this is how it has been (assist level) for "the last couple years." Reviewed History: Yes Social History Home: Single Level Current Living Status: Friend Entry Into Home: Level Entry ADL-Prior Level of Function SCALE: Activities may be completed with or without assistive devices. 8-Zsgnxgwqtd-[id number] completes the activity by him/herself with no assistance from a helper. 5-Set-up or Clean-up Assistance-helper sets up or cleans up; patient completes activity. Brayton assists only prior to or following the activity. 4-Supervision or Touching Assistance-helper provides verbal cues and/or touching/steadying and/or contact guard assistance as patient completes activity. Assistance may be provided throughout the activity or intermittently. 3-Partial/Moderate Assistance-helper does LESS THAN HALF the effort. Brayton lifts, holds or supports trunk or limbs, but provides less than half the effort. 2-Substantial/Maximal Assistance-helper does MORE THAN HALF the effort. Brayton lifts or holds trunk or limbs and provides more than half the effort. 5-Xfvgwhmbr-vsjhoy does ALL the effort. Patient does none of the effort to complete the activity. Or, the assistance of 2 or more helpers is required for the patient to complete the activity. If activity was not attempted, code reason: 7-Patient Refused. 9-Not Applicable-not attempted and the patient did not perform the activity before the current illness, exacerbation or injury. 10-Not Attempted due to Environmental Limitations-(lack of equipment, weather restraints, etc.). 88-Not Attempted due to Medical Conditions or Safety Concerns. Self Care: Needed Some Help Functional Cognition: Independent DME/Equipment: Shower DME/Equipment Comments She states that she used to have a shower chair but it broke, so she has an outside folding chair in her shower now, due to inability to afford a new shower chair. She reported she has spoken to her insurance and they will not purchase a new shower chair for her. Drive Self: No OT Current Status Subjective Pt sitting in recliner with her best friend/roommate present in room. Appearance Pt left sitting in recliner about to leave for an x-ray. All needs met at this time. Mental Status/Objective Patient Orientation: Person, Place, Time, Situation Current Glasses/Contacts: Yes Hearing Aids: No Dentures/Partials: No Hand Dominance: Right Upper Extremity ROM WNL Upper Extremity Strength 4/5 at shoulders WNL cyber reverse engineer strength ADL-Treatment Eating (QC): 6 Oral Hygiene (QC): 5 Lower Body Dressing (QC): 2 (per pt this is baseline) On/Off Footwear (QC): 1 (baseline) Pt unable to reach feet. Pt reports that this has been her norm/baseline. Pt and pt's roommate reported that on her "good days" she is able to put her leg on the side of the bed and put on her socks, but does not happen often. She is exper iencing some hip pain right now and is not able to perform socks by putting her leg on the side of the bed. She reports that she needs adequate help with all ADL tasks and that she is at her baseline right now. Her roommate verbalized that she has helped her for years and does not mind continuing to help her. Pt shows good UE strength, ability to perform transfers (SBA) and reports no concerns or problems with any self-care tasks. Per PT, pt has ambulated 150 feet without any device. Pt will be d/c from services at this time. Education OT Patient Education: Correct positioning, Rehab process, Use of adapted equipment Teaching Recipient: Patient, Friend Teaching Methods: Discussion Response to Teaching: Verbalize Understanding OT Hospital Staff Pharmacist Goals Usp Goals 1=Demonstrate adherence to instructed precautions during ADL tasks. 2=Patient will verbalize/demonstrate understanding of assistive devices/modifications for ADL. 3=Patient will improve strength/tolerance for activity to enable patient to perform ADL's. OT Education/Plan Problem List/Assessment Assessment: No Skilled OT Needs ID'd Discharge Recommendations Plan/Recommendations: Discontinue OT Therapy Discharge Recommendati: Scheduled Assistance, Bath Aide, Homemaker Support, Home & Family, Post Acute OT Equpiment Recommendations-D/C: Bath Chair Treatment Plan/Plan of Care Treatment,Training & Education: Yes Patient would benefit from OT for education, treatment and training to promote independence in ADL's, mobility, safety and/or upper extremity function for ADL's. Plan of Care: ADL Retraining, Functional Mobility Treatment Duration: Mar 11, 2022 Frequency: 1 time per week Estimated Hrs Per Day: .25 hour per day Agreement: Yes Rehab Potential: Fair Time/GCodes Start Time: 13:19 Stop Time: 13:32 Total Time Billed (hr/min): 13 Billed Treatment Time 1 visit Peggy Osorio OT Mar 11, 2022 13:40
--- NOTE | 2022-03-11 14:50 | Progress Note - Cardiology ---
Cardiology SOAP Progress Note Subjective: Gen malaise and weakness present No focal weakness No n/v/d No cp or palp or syncope No shortness of breath at rest Objective: I&O/Vital Signs 03/11/22 03/11/22 03/11/22 03/11/22 04:18 07:00 07:36 08:01 Temp 36.1 36.0 Pulse 70 72 97 Resp 16 18 B/P (MAP) 106/63 (77) 106/66 (79) Pulse Ox 95 95 98 O2 Delivery NIV CPAP NIV CPAP Nasal Cannula O2 Flow Rate 3.00 03/11/22 03/11/22 03/11/22 03/11/22 08:56 09:33 09:56 10:26 Temp 36.0 36.0 36.0 Pulse Ox 98 O2 Delivery Nasal Cannula O2 Flow Rate 3.00 03/11/22 03/11/22 03/11/22 11:10 12:30 13:59 Temp 36.2 36.2 36.2 Pulse 76 Resp 18 B/P (MAP) 114/69 (84) Pulse Ox 99 O2 Delivery High Flow N/C O2 Flow Rate 3.00 03/11/22 00:00 Intake Total 1700 ml Balance 1700 ml Constitutional: AAO x 3, well-developed, well-nourished, other (morbid obesity) Respiratory: No accessory muscle use; other (good air entry, diminished at the bases) Cardiovascular: regular rate-rhythm, S1 and S2, systolic murmur (soft TERRIE at card bse) Gastrointestional: No tender; soft; No guarding, No rebound; audible bowel sounds Extremities: swelling (moderate, non-pitting edema of the legs); No clubbing, No cyanosis Neurologic/Psychiatric: oriented x 3, other (moves all limbs equally) Skin: warm/dry; No rash, No rash on exposed areas, No ulcerations on exposed areas Results/Procedures: Labs Laboratory Tests 03/10/22 20:28: Glucometer 137H 03/11/22 04:54: Glucometer 114H 03/11/22 05:06: White Blood Count 12.2H, Red Blood Count 3.22L, Hemoglobin 8.5L, Hematocrit 27L, Mean Corpuscular Volume 84, Mean Corpuscular Hemoglobin 26, Mean Corpuscular Hemoglobin Concent 32, Red Cell Distribution Width 18.0H, Platelet Count 340, Mean Platelet Volume 11.0, Immature Granulocyte % (Auto) 1, Neutrophils (%) (Auto) 37L, Lymphocytes (%) (Auto) 51H, Monocytes (%) (Auto) 8, Eosinophils (%) (Auto) 3, Basophils (%) (Auto) 1, Neutrophils # (Auto) 4.5, Lymphocytes # (Auto) 6.2H, Monocytes # (Auto) 1.0, Eosinophils # (Auto) 0.4H, Basophils # (Auto) 0.1, Immature Granulocyte # (Auto) 0.1, Sodium Level 138, Potassium Level 3.8, Chloride Level 105, Carbon Dioxide Level 25, Anion Gap 8, Blood Urea Nitrogen 18, Creatinine 1.42H, Estimat Glomerular Filtration Rate 45, BUN/Creatinine Ratio 13, Glucose Level 123H, Calcium Level 8.2L, Corrected Calcium 9.3, Phosphorus Level 3.5, Magnesium Level 2.0, Total Bilirubin 0.2, Aspartate Amino Transf (AST/SGOT) 33, Alanine Aminotransferase (ALT/SGPT) 47, Alkaline Phosphatase 154H, Total Protein 5.4L, Albumin 2.6L 03/11/22 11:07: Glucometer 133H Microbiology 03/03/22 MRSA Screen - Final, Complete MRSA not isolated 03/03/22 Blood Culture - Final, Complete No growth Laboratory Tests 03/10/22 04:13 03/11/22 05:06 A/P: Assessment: Mild troponin elevation likely due to hypotension (septic shock) - type 2 MT - Echo 03/06/22: LVEF 55-60%, mild MR, PASP 30-35 mmHg Septic shock, apparently due to R leg cellulitis, now resolved - Medical services managing Renal failure of unknown chronicity (eGFR 43 on 03/05/22) - eGFR has improved to 50 on lab of 03-09-22 Episodes of asymptomatic hypotension - now off vasopressors Episode of 5 beats WCT on 03-08-22 probably r/t continuing use of vasopressors - no further episodes - continue BB Morbid obesity with hypoventilation syndrome and chronic hypoxia requiring supp lemental oxygen ?COPD 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) Marked anemia of undetermined etiology - evaluated and managed by Dr Rene - h/h dropped again after blood transfusions on 03/05/22 - received 1 unit PRBC on 03/10/22 Persistent low bp after treatment of sepsis: spurious (mismatched bp cuff) and/or chronically low bp Plan: * BP has improved - off pressors * Continue beta-darian * Advised if apixaban needs to be held for a few days for w/u of anemia, that would be reasonable * H/H improved following transfusion of 1 unit PRBC yesterday * Monitor labs closely * Renal function stable POWER KLEIN MD FACP [facility] Mar 11, 2022 14:50
--- NOTE | 2022-03-11 15:33 | Diagnostic Imaging Report ---
EXAMINATION: Left hip from 03/11/2022. HISTORY: Left hip pain. No known injuries. Patient did feel a pop. COMPARISON: None available. FINDINGS: Two views of the hip. Examination is somewhat limited by patient body habitus. No obvious fractures or dislocations appreciated. Soft tissues are unremarkable. IMPRESSION: 1. No gross acute abnormality with limitations, as above. Dictated by: Dictated on workstation # [id number]
[2022-03-11] MEDS: QUEtiapine 100 MG (SEROquel) TAB IMMEDIATE RELEASE PO SCH (20:29)
[2022-03-11] MEDS: MONTELUKAST 10 MG (SINGULAIR) TAB PO SCH (20:30)
[2022-03-12 04:00] VITALS: BP 100/76
[2022-03-12] MEDS: inSUlin ASPART (NovoLOG) 1 UNIT/0.01 ML (CHARGE PER UNIT) SC SCH ×4 (05:09→21:15)
[2022-03-12 06:05] LABS: BASOPHILS % (AUTO) 0 % (0-10); EOSINOPHILS # (AUTO) 0.4 10^3/uL (0.0-0.3); EOSINOPHILS % (AUTO) 3 % (0-10); HEMATOCRIT 28 % (35-52); HEMOGLOBIN 8.8 g/dL (11.5-16.0); LYMPHOCYTES # (AUTO) 5.5 10^3/uL (1.0-4.0); LYMPHOCYTES % (AUTO) 43 % (12-44); MEAN CORPUSCULAR HEMOGLOBIN 26 pg (25-34); MEAN CORPUSCULAR HGB CONC 32 g/dL (32-36); MEAN CORPUSCULAR VOLUME 84 fL (80-99); MONOCYTES % (AUTO) 8 % (0-12); NEUTROPHILS # (AUTO) 5.8 10^3/uL (1.8-7.8); NEUTROPHILS % (AUTO) 45 % (42-75); PLATELET COUNT 343 10^3/uL (130-400); WHITE BLOOD COUNT 12.8 10^3/uL (4.3-11.0)
[2022-03-12 06:20] LABS: ALBUMIN 2.7 GM/DL (3.2-4.5)
[2022-03-12 06:22] LABS: CALCIUM 8.4 MG/DL (8.5-10.1)
[2022-03-12 06:23] LABS: TOTAL PROTEIN 5.7 GM/DL (6.4-8.2)
[2022-03-12 06:25] LABS: BILIRUBIN,TOTAL 0.2 MG/DL (0.1-1.0)
[2022-03-12 06:26] LABS: PHOSPHORUS 3.5 MG/DL (2.3-4.7)
[2022-03-12 06:27] LABS: CREATININE SERUM 1.4 MG/DL (0.60-1.30)
[2022-03-12 06:30] LABS: MAGNESIUM 2.1 MG/DL (1.6-2.4)
[2022-03-12 07:43] VITALS: BP 105/70
--- NOTE | 2022-03-12 08:02 | Progress Note - Hospitalist ---
Subjective HPI/CC On Admission Date Seen by Provider: Mar 12, 2022 Time Seen by Provider: 11:00 CC: Sepsis 51yo F with h/o CKD IV, mutliple DVTS, IDDM, COPD, O2 dependence on 3L, and CAD was admitted last night for Acute on Chronic renal failure and sepsis. Last night, pt presented to the ED after experiencing dizziness, lightheadedness, nausea, and vomiting that started 2 days ago and worsened last night. Earlier this month, pt was admitted to [facility] at [place] for septic shock and chronic renal failure. Pt states that earlier this month, she woke up with multiple tender "knots" on her R leg that progressed to ulcerations. Pt states that the uclerations became infected resulting in the sepsis. Pt had a MRSA positive culture of her wounds on 02/11. Pt was DC from [facility] in [place] 2 weeks ago with 2 weeks worth of doxycycline 100mg BID. Pt finished the course 2 days ago. Since finishing her antibiotics, pt states that she started to experience the aforementioned symptoms, prompting her to go to the ED. Pt presented to ED with sepsis that improved with IV fluids. Pt was also given Cefriaxone. Workup found an elevated lactic acid of 2.38, elevated WBC, and elevated AG of 17. CXR, CT head were unremarkable. Pt was admitted to the ICU for further management. Pt was started on 200mls IV Q8H meropenem and completed 3 bags of IV vancomycin. Today, pt continues to be hypotensive at 96/64 while on pressors. Repeat labs were remarkable for mild hyponatremia of 133, mild hypokalemia of 3.3, improved AG of 13, improved WBC, and a negative procalcitonin. Cr is 2.19 which is below pt's baseline of 2.6. In room, pt is sitting comfortably in bed. Pt states that her leg pain and swelling has improved today. Pt states that she is still experiencing some dizziness and lightheadedness and notes that both symptoms are brought on with head movement. Pt is voiding without issue. Pt was able to eat breakfast this morning without issue. Pt has no complaints. Pt denies any vomiting, nausea, CP, worsened SOA, worsened cough, diarrhea, or abd pain. ABG 03/04: pH: 7.42 pCO2: 38 pO2: 125 Subjective/Events-last exam Patient doing a lot better today Left hip pain improved X-ray showed no fracture Hemoglobin 8.8 Creatinine improved Review of Systems General: Fatigue Musculoskeletal: leg pain Focused Exam Time of Focused Exam: 17:30 Objective Exam Vital Signs Vital Signs Date Time Temp Pulse Resp B/P (MAP) Pulse Ox O2 Delivery O2 Flow Rate FiO2 03/12/22 11:05 36.3 71 20 108/72 (84) 98 NIV CPAP 03/12/22 08:40 3.00 03/11/22 18:54 21 Capillary Refill : Less Than 3 Seconds General Appearance: No Apparent Distress, WD/WN, Chronically ill, Obese Respiratory: Lungs Clear, Normal Breath Sounds Cardiovascular: Regular Rate, Rhythm Neurologic/Psychiatric: Alert, Oriented x3, No Motor/Sensory Deficits, Normal Mood/Affect Results/Procedures Lab Laboratory Tests 03/12/22 05:11 Patient resulted labs reviewed. Assessment/Plan Assessment and Plan Assess & Plan/Chief Complaint Assessment: Status post critical illness Right leg cellulitis recurrent in type Severe anemia symptomatic status post transfusions Hypotension now resolved Morbid obesity ROSALVA on CPAP Left hip pain Plan: Continue therapy Monitor closely Critical Care Critically Ill Patient STARLA ADAMS DO Mar 12, 2022 08:02
[2022-03-12] MEDS: hydrOXYzine (VISTARIL/ATARAX) 25 MG capsule/tablet PO SCH ×2 (08:20→21:23)
[2022-03-12] MEDS: FERROUS SULF 325 MG (IRON) TAB PO SCH (08:20)
[2022-03-12] MEDS: DOCUSATE SODIUM 100 MG (COLACE) CAP PO SCH ×2 (08:20→21:24)
[2022-03-12] MEDS: MULTIVIT W/MINERALS TAB (THERAGRAN M) PO SCH (08:21)
[2022-03-12] MEDS: APIXABAN 5 MG (ELIQUIS) TABLET PO SCH ×2 (08:21→21:24)
[2022-03-12] MEDS: VENlafaxine XR 75 MG (EFFEXOR XR) CAP PO SCH (08:22)
[2022-03-12] MEDS: buPROPion SR 150 MG (WELLBUTRIN SR) TAB PO SCH ×2 (08:22→21:24)
[2022-03-12] MEDS: FAMOTIDINE 20 MG (PEPCID) TABLET PO SCH ×2 (08:23→21:25)
[2022-03-12] MEDS: ALLOPURINOL 100 MG (ZYLOPRIM) TAB PO SCH (08:23)
[2022-03-12] MEDS: MIDODRINE 10 MG (PROAMATINE) TAB PO SCH ×3 (08:23→21:24)
[2022-03-12] MEDS: PANTOPRAZOLE 40 MG (PROTONIX) TAB PO SCH (08:23)
[2022-03-12] MEDS: PREGABALIN 75 MG (LYRICA) CAP PO SCH ×4 (08:23→21:32)
[2022-03-12] MEDS: ASPIRIN 81 MG CHEW (CHILDREN'S ASA) PO SCH (08:23)
[2022-03-12] MEDS: busPIRone 15 MG (BUSPAR) TABLET PO SCH ×2 (08:24→21:24)
[2022-03-12] MEDS: UMECLIDINIUM BROMIDE (INCRUSE ELLIPTA) 7'S IH SCH (08:39)
[2022-03-12 11:05] VITALS: BP 108/72
--- NOTE | 2022-03-12 12:03 | Physical Therapy Progress Note ---
Therapy Progress Note Pt covered up and asleep upon arrival to room, requires a couple of attempts to arouse. Once awake, pt states she did not sleep well and would like to rest. 1 visit, refusal TOMMY MARQUEZ PT Mar 12, 2022 12:03
--- NOTE | 2022-03-12 12:13 | Cardiology Progress Note ---
Progress Note-Cardiology Events since last exam Date Seen by Provider: Mar 12, 2022 Time Seen by Provider: 12:10 Events since last exam We are following her due to elevated troponin level and wide-complex tachyca rdia. She remains on the medical/surgical unit. Her main complaint is leg pain. The erythema of her right leg continues to improve. Her chronic edema is about baseline. She denies chest pain. She denies any change in her chronic dyspnea on exertion. She denies palpitations or syncope. Certain portions of this document may have been dictated utilizing voice recognition technology. Inherent to this technology, typographical and grammatical errors may exist. As much as I am diligent to identify and correct these mistakes, some errors may remain in the document. Vitals Last set of Vitals Signs Vital Signs 03/11/22 03/12/22 03/12/22 18:54 08:40 11:05 Temp 36.3 Pulse 71 Resp 20 B/P (MAP) 108/72 (84) Pulse Ox 98 O2 Delivery NIV CPAP O2 Flow Rate 3.00 FiO2 21 Labs Labs Laboratory Tests 03/12/22 05:11 Exam Vital Signs Vital Signs Date Time Temp Pulse Resp B/P (MAP) Pulse Ox O2 Delivery O2 Flow Rate FiO2 03/12/22 11:05 36.3 71 20 108/72 (84) 98 NIV CPAP 03/12/22 08:40 3.00 03/11/22 18:54 21 Physical Exam General: Alert. No acute distress. She is morbidly obese. Eye: No xanthelasma. HENT: Normocephalic. Neck: Jugular venous pressure does not appear elevated. Respiratory: Lungs have decreased breath sounds at the bases bilaterally. Respirations are non-labored. Breath sounds are equal. Symmetrical chest wall expansion. Cardiovascular: Normal rate. Regular rhythm. Distant S1/S2. No murmur. No gallop. 1-2+ bilateral pretibial edema with slight erythema on the right morgan on top of chronic bilateral venous stasis changes. Gastrointestinal: Soft. Normal bowel sounds. Skin: Warm. Dry. Neurologic: Alert and oriented to person, place, time. Cranial nerves 3-11 gr ossly intact. Psychiatric: Cooperative. Appropriate mood & affect. Labs Laboratory Tests Test 03/11/22 15:29 03/11/22 20:03 03/12/22 05:07 03/12/22 05:11 Range/Units Glucometer 115 H 141 H 112 H 70-110 MG/DL White Blood Count 12.8 H 4.3-11.0 10^3/uL Red Blood Count 3.33 L 3.80-5.11 10^6/uL Hemoglobin 8.8 L 11.5-16.0 g/dL Hematocrit 28 L 35-52 % Mean Corpuscular Volume 84 80-99 fL Mean Corpuscular Hemoglobin 26 25-34 pg Mean Corpuscular Hemoglobin Concent 32 32-36 g/dL Red Cell Distribution Width 18.3 H 10.0-14.5 % Platelet Count 343 130-400 10^3/uL Mean Platelet Volume 11.0 9.0-12.2 fL Immature Granulocyte % (Auto) 1 % Neutrophils (%) (Auto) 45 42-75 % Lymphocytes (%) (Auto) 43 12-44 % Monocytes (%) (Auto) 8 0-12 % Eosinophils (%) (Auto) 3 0-10 % Basophils (%) (Auto) 0 0-10 % Neutrophils # (Auto) 5.8 1.8-7.8 10^3/uL Lymphocytes # (Auto) 5.5 H 1.0-4.0 10^3/uL Monocytes # (Auto) 1.0 0.0-1.0 10^3/uL Eosinophils # (Auto) 0.4 H 0.0-0.3 10^3/uL Basophils # (Auto) 0.0 0.0-0.1 10^3/uL Immature Granulocyte # (Auto) 0.1 0.0-0.1 10^3/uL Sodium Level 137 135-145 MMOL/L Potassium Level 4.0 3.6-5.0 MMOL/L Chloride Level 106 98-107 MMOL/L Carbon Dioxide Level 24 21-32 MMOL/L Anion Gap 7 5-14 MMOL/L Blood Urea Nitrogen 17 7-18 MG/DL Creatinine 1.40 H 0.60-1.30 MG/DL Estimat Glomerular Filtration Rate 45 BUN/Creatinine Ratio 12 Glucose Level 112 H 70-105 MG/DL Calcium Level 8.4 L 8.5-10.1 MG/DL Corrected Calcium 9.4 8.5-10.1 MG/DL Phosphorus Level 3.5 2.3-4.7 MG/DL Magnesium Level 2.1 1.6-2.4 MG/DL Total Bilirubin 0.2 0.1-1.0 MG/DL Aspartate Amino Transf (AST/SGOT) 34 5-34 U/L Alanine Aminotransferase (ALT/SGPT) 51 0-55 U/L Alkaline Phosphatase 155 H 40-136 U/L Total Protein 5.7 L 6.4-8.2 GM/DL Albumin 2.7 L 3.2-4.5 GM/DL Test 03/12/22 10:06 03/12/22 11:00 Range/Units Stool Occult Blood Immunoassay POSITIVE H NEGATIVE Glucometer 111 H 70-110 MG/DL Diagnosis/Problems Diagnosis/Problems (1) Troponin level elevated Assessment & Plan: She had a probable type II non-ST elevation myocardial infarction due to acute hypotension resulting in supply/demand mismatch. She is not having chest pain. She has no ischemic changes on her electrocardiogram. She has normal ejection fraction as noted on an echocardiogram during this hospitalization. She should continue on aspirin, beta-darian, and intensive dose statin medication. At some point, she may warrant an ischemic evaluation but this can probably be done as an outpatient. (2) Wide-complex tachycardia Assessment & Plan: Unclear whether or not she may have had some nonsustained ventricular tachycardia. As above, she has normal ejection fraction. Continue beta-darian. (3) Primary hypertension Assessment & Plan: She is now actually on midodrine due to persistently low blood pressures. She is on a low-dose of beta-darian due to the wide-complex tachycardia. (4) Mixed hyperlipidemia Assessment & Plan: Continue atorvastatin. (5) Septic shock Status: Resolved Assessment & Plan: Probably due to the right leg cellulitis. Her blood pressu res have improved but she has required midodrine to help keep her systolic blood pressure above 100 mmHg. The septic shock likely contributed to the elevated troponin level and acute kidney injury. Resolution Date/Time: 03/09/22 @ 17:30 (6) Acute kidney injury superimposed on chronic kidney disease Assessment & Plan: Probably multifactorial. Her renal function has improved. (7) Cellulitis of right leg Status: Resolved Assessment & Plan: This has nearly resolved. Resolution Date/Time: 03/08/22 @ 17:30 (8) Morbid obesity Status: Chronic Assessment & Plan: She needs to work on weight loss. She has been counseled in this regard. MED EPSTEIN JR, MD Mar 12, 2022 12:13
[2022-03-12 16:00] VITALS: BP 102/66
[2022-03-12 20:18] VITALS: BP 104/71
[2022-03-12] MEDS: QUEtiapine 100 MG (SEROquel) TAB IMMEDIATE RELEASE PO SCH (21:23)
[2022-03-12] MEDS: MONTELUKAST 10 MG (SINGULAIR) TAB PO SCH (21:23)
[2022-03-12] MEDS: CYCLOBENZAPRINE 10 MG (FLEXERIL) TAB PO PRN (21:32)
[2022-03-12 23:24] VITALS: BP 104/71
[2022-03-13] VITALS (7 sets, daily range): BP systolic 93–118; BP diastolic 54–73
[2022-03-13] MEDS: inSUlin ASPART (NovoLOG) 1 UNIT/0.01 ML (CHARGE PER UNIT) SC SCH ×4 (05:50→20:35)
[2022-03-13 06:12] LABS: BASOPHILS # (AUTO) 0.1 10^3/uL (0.0-0.1); BASOPHILS % (AUTO) 0 % (0-10); EOSINOPHILS # (AUTO) 0.4 10^3/uL (0.0-0.3); EOSINOPHILS % (AUTO) 3 % (0-10); HEMATOCRIT 29 % (35-52); HEMOGLOBIN 8.8 g/dL (11.5-16.0); LYMPHOCYTES # (AUTO) 6.1 10^3/uL (1.0-4.0); LYMPHOCYTES % (AUTO) 49 % (12-44); MEAN CORPUSCULAR HEMOGLOBIN 26 pg (25-34); MEAN CORPUSCULAR HGB CONC 31 g/dL (32-36); MEAN CORPUSCULAR VOLUME 86 fL (80-99); MEAN PLATELET VOLUME 10.8 fL (9.0-12.2); MONOCYTES # (AUTO) 1.1 10^3/uL (0.0-1.0); MONOCYTES % (AUTO) 9 % (0-12); NEUTROPHILS # (AUTO) 4.6 10^3/uL (1.8-7.8); NEUTROPHILS % (AUTO) 38 % (42-75); PLATELET COUNT 342 10^3/uL (130-400); WHITE BLOOD COUNT 12.4 10^3/uL (4.3-11.0)
--- NOTE | 2022-03-13 06:15 | Progress Note - Hospitalist ---
Subjective HPI/CC On Admission Date Seen by Provider: Mar 13, 2022 Time Seen by Provider: 11:30 CC: Sepsis 51yo F with h/o CKD IV, mutliple DVTS, IDDM, COPD, O2 dependence on 3L, and CAD was admitted last night for Acute on Chronic renal failure and sepsis. Last night, pt presented to the ED after experiencing dizziness, lightheadedness, nausea, and vomiting that started 2 days ago and worsened last night. Earlier this month, pt was admitted to [facility] at [place] for septic shock and chronic renal failure. Pt states that earlier this month, she woke up with multiple tender "knots" on her R leg that progressed to ulcerations. Pt states that the uclerations became infected resulting in the sepsis. Pt had a MRSA positive culture of her wounds on 02/11. Pt was DC from [facility] in [place] 2 weeks ago with 2 weeks worth of doxycycline 100mg BID. Pt finished the course 2 days ago. Since finishing her antibiotics, pt states that she started to experience the aforementioned symptoms, prompting her to go to the ED. Pt presented to ED with sepsis that improved with IV fluids. Pt was also given Cefriaxone. Workup found an elevated lactic acid of 2.38, elevated WBC, and elevated AG of 17. CXR, CT head were unremarkable. Pt was admitted to the ICU for further management. Pt was started on 200mls IV Q8H meropenem and completed 3 bags of IV vancomycin. Today, pt continues to be hypotensive at 96/64 while on pressors. Repeat labs were remarkable for mild hyponatremia of 133, mild hypokalemia of 3.3, improved AG of 13, improved WBC, and a negative procalcitonin. Cr is 2.19 which is below pt's baseline of 2.6. In room, pt is sitting comfortably in bed. Pt states that her leg pain and swelling has improved today. Pt states that she is still experiencing some dizziness and lightheadedness and notes that both symptoms are brought on with head movement. Pt is voiding without issue. Pt was able to eat breakfast this morning without issue. Pt has no complaints. Pt denies any vomiting, nausea, CP, worsened SOA, worsened cough, diarrhea, or abd pain. ABG 03/04: pH: 7.42 pCO2: 38 pO2: 125 Subjective/Events-last exam Patient doing well Ready for discharge tomorrow Home health will be initiated Creatinine good Hemoglobin stable Review of Systems General: Fatigue, Malaise Focused Exam Time of Focused Exam: 17:30 Objective Exam Vital Signs Vital Signs Date Time Temp Pulse Resp B/P (MAP) Pulse Ox O2 Delivery O2 Flow Rate FiO2 03/13/22 11:06 36.1 77 18 111/61 (78) 96 High Flow N/C 3.00 03/12/22 23:24 32 Capillary Refill : Less Than 3 Seconds General Appearance: No Apparent Distress, WD/WN, Chronically ill, Obese Respiratory: Lungs Clear, Normal Breath Sounds Cardiovascular: Regular Rate, Rhythm Neurologic/Psychiatric: Alert, Oriented x3 Results/Procedures Lab Laboratory Tests 03/13/22 05:09 Patient resulted labs reviewed. Assessment/Plan Assessment and Plan Assess & Plan/Chief Complaint Assessment: Status post critical illness Right leg cellulitis recurrent in type Severe anemia symptomatic status post 3 transfusions Hypotension now resolved Morbid obesity ROSALVA on CPAP Left hip pain Hemoccult positive stools needs scopes as outpatient Plan: Continue therapy Monitor closely Critical Care Critically Ill Patient STARLA ADAMS DO Mar 13, 2022 06:15
[2022-03-13 06:21] LABS: ALBUMIN 2.8 GM/DL (3.2-4.5); POTASSIUM 3.9 MMOL/L (3.6-5.0)
[2022-03-13 06:22] LABS: CALCIUM 8.1 MG/DL (8.5-10.1)
[2022-03-13 06:23] LABS: TOTAL PROTEIN 5.7 GM/DL (6.4-8.2)
[2022-03-13 06:25] LABS: BILIRUBIN,TOTAL 0.2 MG/DL (0.1-1.0)
[2022-03-13 06:27] LABS: CREATININE SERUM 1.39 MG/DL (0.60-1.30); PHOSPHORUS 3.4 MG/DL (2.3-4.7)
[2022-03-13 06:29] LABS: MAGNESIUM 2.1 MG/DL (1.6-2.4)
[2022-03-13] MEDS: MIDODRINE 10 MG (PROAMATINE) TAB PO SCH ×3 (08:52→20:58)
[2022-03-13] MEDS: ALLOPURINOL 100 MG (ZYLOPRIM) TAB PO SCH (08:52)
[2022-03-13] MEDS: VENlafaxine XR 75 MG (EFFEXOR XR) CAP PO SCH (08:52)
[2022-03-13] MEDS: APIXABAN 5 MG (ELIQUIS) TABLET PO SCH ×2 (08:52→20:57)
[2022-03-13] MEDS: MULTIVIT W/MINERALS TAB (THERAGRAN M) PO SCH (08:52)
[2022-03-13] MEDS: buPROPion SR 150 MG (WELLBUTRIN SR) TAB PO SCH ×2 (08:52→20:57)
[2022-03-13] MEDS: busPIRone 15 MG (BUSPAR) TABLET PO SCH ×2 (08:52→21:02)
[2022-03-13] MEDS: FERROUS SULF 325 MG (IRON) TAB PO SCH (08:52)
[2022-03-13] MEDS: hydrOXYzine (VISTARIL/ATARAX) 25 MG capsule/tablet PO SCH ×2 (08:52→20:57)
[2022-03-13] MEDS: PREGABALIN 75 MG (LYRICA) CAP PO SCH ×4 (08:52→20:58)
[2022-03-13] MEDS: DOCUSATE SODIUM 100 MG (COLACE) CAP PO SCH ×2 (08:52→20:57)
[2022-03-13] MEDS: PANTOPRAZOLE 40 MG (PROTONIX) TAB PO SCH (08:52)
[2022-03-13] MEDS: ASPIRIN 81 MG CHEW (CHILDREN'S ASA) PO SCH (08:52)
[2022-03-13] MEDS: FAMOTIDINE 20 MG (PEPCID) TABLET PO SCH ×2 (08:52→21:02)
[2022-03-13] MEDS: UMECLIDINIUM BROMIDE (INCRUSE ELLIPTA) 7'S IH SCH (08:54)
[2022-03-13] MEDS: CYCLOBENZAPRINE 10 MG (FLEXERIL) TAB PO PRN ×3 (10:18→21:02)
[2022-03-13] MEDS ORDERED: BUMETANIDE 1 MG (BUMEX) TAB PO ONE (13:00)
--- NOTE | 2022-03-13 13:07 | Cardiology Progress Note ---
Progress Note-Cardiology Events since last exam Date Seen by Provider: Mar 13, 2022 Time Seen by Provider: 13:03 Events since last exam We are following her due to elevated troponin and wide-complex tachycardia. Her peripheral edema is worse today. She denies any change in her chronic dyspnea on exertion. She denies chest pain, palpitations, or syncope. Certain portions of this document may have been dictated utilizing voice recognition technology. Inherent to this technology, typographical and grammat ical errors may exist. As much as I am diligent to identify and correct these mistakes, some errors may remain in the document. Vitals Last set of Vitals Signs Vital Signs 03/12/22 03/13/22 23:24 11:06 Temp 36.1 Pulse 77 Resp 18 B/P (MAP) 111/61 (78) Pulse Ox 96 O2 Delivery High Flow N/C O2 Flow Rate 3.00 FiO2 32 Labs Labs Laboratory Tests 03/13/22 05:09 Exam Vital Signs Vital Signs Date Time Temp Pulse Resp B/P (MAP) Pulse Ox O2 Delivery O2 Flow Rate FiO2 03/13/22 11:06 36.1 77 18 111/61 (78) 96 High Flow N/C 3.00 03/12/22 23:24 32 Physical Exam General: Alert. No acute distress. She is morbidly obese. Eye: No xanthelasma. HENT: Normocephalic. Neck: Jugular venous pressure does not appear elevated. Respiratory: Lungs have decreased breath sounds at the bases bilaterally. Respirations are non-labored. Breath sounds are equal. Symmetrical chest wall expansion. Cardiovascular: Normal rate. Regular rhythm. Distant S1/S2. No murmur. No gallop. 2+ bilateral pretibial edema with slight erythema on the right morgan on top of chronic bilateral venous stasis changes. Gastrointestinal: Soft. Normal bowel sounds. Skin: Warm. Dry. Neurologic: Alert and oriented to person, place, time. Cranial nerves 3-11 grossly intact. Psychiatric: Cooperative. Appropriate mood & affect. Labs Laboratory Tests Test 03/12/22 16:13 03/12/22 20:35 03/13/22 05:03 03/13/22 05:09 Range/Units Glucometer 117 H 123 H 65 L 70-110 MG/DL White Blood Count 12.4 H 4.3-11.0 10^3/uL Red Blood Count 3.34 L 3.80-5.11 10^6/uL Hemoglobin 8.8 L 11.5-16.0 g/dL Hematocrit 29 L 35-52 % Mean Corpuscular Volume 86 80-99 fL Mean Corpuscular Hemoglobin 26 25-34 pg Mean Corpuscular Hemoglobin Concent 31 L 32-36 g/dL Red Cell Distribution Width 19.6 H 10.0-14.5 % Platelet Count 342 130-400 10^3/uL Mean Platelet Volume 10.8 9.0-12.2 fL Immature Granulocyte % (Auto) 1 % Neutrophils (%) (Auto) 38 L 42-75 % Lymphocytes (%) (Auto) 49 H 12-44 % Monocytes (%) (Auto) 9 0-12 % Eosinophils (%) (Auto) 3 0-10 % Basophils (%) (Auto) 0 0-10 % Neutrophils # (Auto) 4.6 1.8-7.8 10^3/uL Lymphocytes # (Auto) 6.1 H 1.0-4.0 10^3/uL Monocytes # (Auto) 1.1 H 0.0-1.0 10^3/uL Eosinophils # (Auto) 0.4 H 0.0-0.3 10^3/uL Basophils # (Auto) 0.1 0.0-0.1 10^3/uL Immature Granulocyte # (Auto) 0.1 0.0-0.1 10^3/uL Sodium Level 138 135-145 MMOL/L Potassium Level 3.9 3.6-5.0 MMOL/L Chloride Level 108 H 98-107 MMOL/L Carbon Dioxide Level 24 21-32 MMOL/L Anion Gap 6 5-14 MMOL/L Blood Urea Nitrogen 15 7-18 MG/DL Creatinine 1.39 H 0.60-1.30 MG/DL Estimat Glomerular Filtration Rate 46 BUN/Creatinine Ratio 11 Glucose Level 79 70-105 MG/DL Calcium Level 8.1 L 8.5-10.1 MG/DL Corrected Calcium 9.1 8.5-10.1 MG/DL Phosphorus Level 3.4 2.3-4.7 MG/DL Magnesium Level 2.1 1.6-2.4 MG/DL Total Bilirubin 0.2 0.1-1.0 MG/DL Aspartate Amino Transf (AST/SGOT) 37 H 5-34 U/L Alanine Aminotransferase (ALT/SGPT) 59 H 0-55 U/L Alkaline Phosphatase 162 H 40-136 U/L Total Protein 5.7 L 6.4-8.2 GM/DL Albumin 2.8 L 3.2-4.5 GM/DL Test 03/13/22 05:48 03/13/22 11:03 Range/Units Glucometer 95 153 H 70-110 MG/DL Diagnosis/Problems Diagnosis/Problems (1) Troponin level elevated Assessment & Plan: She had a probable type II non-ST elevation myocardial infarction due to acute hypotension resulting in supply/demand mismatch. She is not having chest pain. She has no ischemic changes on her electrocardiogram. She has normal ejection fraction as noted on an echocardiogram during this hospitalization. She should continue on aspirin, beta-darian, and intensive dose statin medication. At some point, she may warrant an ischemic evaluation but this can probably be done as an outpatient. (2) Wide-complex tachycardia Assessment & Plan: Unclear whether or not she may have had some nonsustained ventricular tachycardia. As above, she has normal ejection fraction. Continue beta-darian. (3) Lower extremity edema Assessment & Plan: She has chronic peripheral edema and a previous history of deep venous thrombosis. She is also morbidly obese. She has normal ejection fraction. I suspect the majority of her edema may be related to venous insufficiency from previous deep venous thrombosis as well as peripheral venous hypertension due to her morbid obesity. I will restart bumetanide 1 mg once daily which she was taking at home. I will give her a 2 mg dose today. She was also taking metolazone at home but given her chronic kidney disease, I will hold off on restarting this. (4) Primary hypertension Assessment & Plan: She is now actually on midodrine due to persistently low blood pressures. She is on a low-dose of beta-darian due to the wide-complex tachycardia. (5) Mixed hyperlipidemia Assessment & Plan: Continue atorvastatin. (6) Septic shock Status: Resolved Assessment & Plan: Probably due to the right leg cellulitis. Her blood pr essures have improved but she has required midodrine to help keep her systolic blood pressure above 100 mmHg. The septic shock likely contributed to the elevated troponin level and acute kidney injury. Resolution Date/Time: 03/09/22 @ 17:30 (7) Acute kidney injury superimposed on chronic kidney disease Assessment & Plan: Probably multifactorial. Her renal function has improved. (8) Cellulitis of right leg Status: Resolved Assessment & Plan: This is being managed by the hospitalist. Resolution Date/Time: 03/08/22 @ 17:30 (9) History of deep venous thrombosis (10) Morbid obesity Status: Chronic Assessment & Plan: She needs to work on weight loss. She has been counseled in this regard. MED EPSTEIN JR, MD Mar 13, 2022 13:07
--- NOTE | 2022-03-13 16:19 | Consultation - Surgery ---
History of Present Illness History of Present Illness Patient Consulted On(wilson/time) 03/13/22 16:14 Time Seen by Provider: 15:53 History of Present Illness Surgery asked to consult regarding anemia, +FOBT. HPI per ED: 51-year-old female presenting with complaints of feeling dizzy and lightheaded. She states that this is been getting worse over the last 2 days. She had recently been admitted to [facility] for septic shock and acute renal failure. She states that the kidney function did improve prior to being discharged and she has only been home for a week. She finished her last dose of doxycycline yesterday and feels like the wound on her leg was significantly im proved. 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 She states that she has chronic shortness of breath and cough but does not feel like it was any worse than usual. She denies any burning or pain with urination. She has had no headache, chest pain, abdominal pain, fever. She has had chills at home. She also has been having nausea and vomiting but denies any diarrhea or change in her bowels. She reports trying to get in with Dr. Langford today about the symptoms but they were not able to see her so she decided to come to the emergency department. She felt like her symptoms were severe and states that she has not felt like this previously so she was not sure what was going on for her. When I spoke to her she was sitting up in her bed, had CPAP on. She is feeling better since getting blood transfusions and the plan is to send her home tomorrow. Denies any abdominal pain and is tolerating diet with BMs. She denied hematemesis and has had a hysterectomy (so no vaginal bleeding). Allergies and Home Medications Allergies Coded Allergies: No Known Drug Allergies (Unverified , 11/16/19) Patient Home Medication List Home Medication List Reviewed: Yes Albuterol Sulfate (Ventolin Hfa) 90 Mcg Hfa.aer.ad, 2 PUFF INH QID PRN for SHORTNESS OF BREATH, (Reported) Entered as Reported by: CARL LINDSAY on 03/04/22 [id number] Last Action: Continued Allopurinol (Allopurinol) 100 Mg Tablet, 100 MG PO DAILY, (Reported) Entered as Reported by: CARL LINDSAY on 03/04/221330 Last Action: Continued Apixaban (Eliquis) 5 Mg Tablet, 5 MG PO BID, (Reported) Entered as Reported by: CARL LINDSAY on 03/04/221330 Last Action: Held Atorvastatin Calcium (Atorvastatin Calcium) 80 Mg Tablet, 80 MG PO HS, (Reported) Entered as Reported by: CARL LINDSAY on 03/04/221330 Last Action: Continued Bumetanide (Bumetanide) 1 Mg Tablet, 1 MG PO DAILY, (Reported) Entered as Reported by: CARL LINDSAY on 03/04/221330 Last Action: Held Bupropion HCl (Bupropion Xl) 300 Mg Tab.er.24h, 300 MG PO DAILY, (Reported) Entered as Reported by: CARL LINDSAY on 03/04/221330 Last Action: Converted Bupropion HCl (Bupropion Xl) 150 Mg Tab.er.24h, 150 MG PO DAILY, (Reported) Entered as Reported by: CARL LINDSAY on 03/04/221330 Last Action: Converted Buspirone HCl (Buspirone HCl) 30 Mg Tablet, 30 MG PO BID, (Reported) Entered as Reported by: CARL LINDSAY on 03/04/221330 Last Action: Converted Cyclobenzaprine HCl (Cyclobenzaprine HCl) 10 Mg Tablet, 5-10 MG PO TID PRN for MUSCLE SPASMS, (Reported) Entered as Reported by: CARL LINDSAY on 03/04/221330 Last Action: Continued Desvenlafaxine Succinate (Desvenlafaxine Succinate ER) 50 Mg Tab.er.24h, 50 MG PO DAILY, (Reported) Entered as Reported by: CARL LINDSAY on 03/04/221330 Last Action: Converted Docusate Sodium (Docusate Sodium) 100 Mg Capsule, 100 MG PO BID, (Reported) Entered as Reported by: CARL LINDSAY on 03/04/221330 Last Action: Continued Ferrous Sulfate (Iron) 325 Mg (65 Mg Iron) Tablet, 325 MG PO DAILY, (Reported) Entered as Reported by: CARL LINDSAY on 03/04/221330 Last Action: Continued Hydrocodone Bitartrate (Hysingla ER) 60 Mg Tab.er.24h, 60 MG PO HS, (Reported) Entered as Reported by: CARL LINDSAY on 03/04/221330 Last Action: Converted Hydroxyzine HCl (Hydroxyzine HCl) 50 Mg Tablet, 50 MG PO DAILY, (Reported) Entered as Reported by: CARL LINDSAY on 03/04/221330 Last Action: Converted Hydroxyzine HCl (Hydroxyzine HCl) 50 Mg Tablet, 100 MG PO HS, (Reported) Entered as Reported by: CARL LINDSAY on 03/04/221330 Last Action: Converted Insulin Aspart (Novolog Flexpen) 100 Unit/Ml (3 Ml) Solution, UNITS SC AC, (Reported) Entered as Reported by: CARL LINDSAY on 03/04/221330 Last Action: Held Insulin Degludec (Tresiba Flextouch U-200) 200 Unit/Ml (3 Ml) Insuln.pen, 20 UNITS SC HS, (Reported) Entered as Reported by: CARL LINDSAY on 03/04/221330 Last Action: Converted Lisinopril (Lisinopril) 5 Mg Tablet, 5 MG PO HS, (Reported) Entered as Reported by: CARL LINDSAY on 03/04/221330 Last Action: Continued Metolazone (Metolazone) 5 Mg Tablet, 5 MG PO DAILY, (Reported) Entered as Reported by: CARL LINDSAY on 03/04/221330 Last Action: Held Montelukast Sodium (Montelukast Sodium) 10 Mg Tablet, 10 MG PO HS, (Reported) Entered as Reported by: CARL LINDSAY on 03/04/221330 Last Action: Continued Multivitamin (Vitamins For Hair) 400 Mcg-400 Mcg Tablet, 1 EACH PO DAILY, (Reported) Entered as Reported by: CARL LINDSAY on 03/04/221330 Last Action: Converted Omeprazole (Omeprazole) 20 Mg Capsule.dr, 20 MG PO DAILY, (Reported) Entered as Reported by: CARL LINDSAY on 03/04/221330 Last Action: Continued Pregabalin (Pregabalin) 75 Mg Capsule, 75 MG PO QID, (Reported) Entered as Reported by: CARL LINDSAY on 03/04/221330 Last Action: Continued Quetiapine Fumarate (Quetiapine Fumarate) 300 Mg Tablet, 300 MG PO HS, (Reported) Entered as Reported by: CARL LINDSAY on 03/04/221330 Last Action: Converted Semaglutide (Ozempic) 2 Mg/0.75 Ml (8 Mg/3 Ml) Pen.injctr, 2 MG IJ THUR, (Reported) Entered as Reported by: CARL LINDSAY on 03/04/221330 Last Action: Converted Umeclidinium [place] (Incruse Ellipta) 62.5 Mcg/Actuation Blst.w.dev, 1 PUFF INH DAILY, (Reported) Entered as Reported by: CARL LINDSAY on 03/04/221330 Last Action: Continued Varenicline Tartrate (Varenicline Tartrate) 1 Mg Tablet, 1 MG PO BID, (Reported) Entered as Reported by: CARL LINDSAY on 03/04/221330 Last Action: Converted Past Jcbjnnb-Vsbpsa-Tmjdzy Hx Patient Social History Smoking Status: Heavy Tobacco Smoker (.5 pack daily, down from 2 packs a day for the past 30+ yrs) Type Used: Cigarettes 2nd Hand Smoke Exposure: No Recent Hopitalizations: Yes Alcohol Use?: No Have you traveled recently?: No Seasonal Allergies Seasonal Allergies: No Surgeries History of Surgeries: Yes Surgeries: Abdominal (splenectomy- 2 yrs ago, cholecystectomy ), Hysterectomy Respiratory History of Respiratory Disorde: Yes Respiratory Disorders: Pulmonary Embolism, COPD Cardiovascular History of Cardiac Disorders: Yes Cardiac Disorders: Chronic Edema/Swelling, Deep Vein Thrombosis, High Cholesterol, Hypertension Neurological History of Neurological Disord: No Genitourinary History of Genitourinary Disor: No Gastrointestinal History of Gastrointestinal Di: No Musculoskeletal History of Musculoskeletal Dis: Yes Musculoskeletal Disorders: Chronic Back Pain Endocrine History of Endocrine Disorders: Yes Endocrine Disorders: Diabetes, Insulin dep HEENT History of HEENT Disorders: No Cancer History of Cancer: No Psychosocial History of Psychiatric Problem: Yes Behavioral Health Disorders: Anxiety, Depression Integumentary History of Skin or Integumenta: Yes Skin/Integumentary Disorders: Eczema Blood Transfusions History of Blood Disorders: Yes Family Medical History Significant Family History: Cancer (Sister had uterine CA and father had bladder CA), Diabetes, Hypertension Review of Systems-General Constitutional: malaise, weakness EENTM: No blurred vision, No mouth swelling, No epistaxis Respiratory: cough, dyspnea on exertion; No hemoptysis; short of breath Cardiovascular: No chest pain, No palpitations, No syncope Gastrointestinal: No abdominal pain, No jaundice; melena; No nausea, No vomiting Genitourinary: No dysuria, No frequency, No hematuria Musculoskeletal: back pain, joint pain, joint swelling, muscle stiffness Skin: No change in color, No change in hair/nails Psychiatric/Neurological: Anxiety, Depressed; Denies Seizure Physical Exam-General Problems Physical Exam Vital Signs Vital Signs - First Documented 03/07/22 03/07/22 03/07/22 03/11/22 00:00 00:12 00:17 18:54 Temp 36.4 Pulse 96 Resp 11 B/P (MAP) 109/67 (81) Pulse Ox 90 O2 Delivery NIV CPAP O2 Flow Rate 3.00 FiO2 21 Capillary Refill : Less Than 3 Seconds General Appearance: no apparent distress, obese Eyes: Bilateral Eye PERRL, Bilateral Eye EOMI HEENT: pharynx normal; No scleral icterus (R), No scleral icterus (L) Neck: non-tender, supple Respiratory: no respiratory distress, decreased breath sounds, accessory muscle use, rhonchi, wheezing Cardiovascular: regular rate, rhythm, no murmur Gastrointestinal: non tender, soft, no organomegaly Rectal: deferred Back: no CVA tenderness Extremities: no calf tenderness, normal capillary refill Neurologic/Psychiatric: map editor II-XII nml as tested, alert, oriented x 3 Skin: normal color, warm/dry Lymphatic: no adenopathy (neck, axilla or groin) Data Review Labs Laboratory Tests 03/12/22 20:35: Glucometer 123H 03/13/22 05:03: Glucometer 65L 03/13/22 05:09: White Blood Count 12.4H, Red Blood Count 3.34L, Hemoglobin 8.8L, Hematocrit 29L, Mean Corpuscular Volume 86, Mean Corpuscular Hemoglobin 26, Mean Corpuscular Hemoglobin Concent 31L, Red Cell Distribution Width 19.6H, Platelet Count 342, Mean Platelet Volume 10.8, Immature Granulocyte % (Auto) 1, Neutrophils (%) (Auto) 38L, Lymphocytes (%) (Auto) 49H, Monocytes (%) (Auto) 9, Eosinophils (%) (Auto) 3, Basophils (%) (Auto) 0, Neutrophils # (Auto) 4.6, Lymphocytes # (Auto) 6.1H, Monocytes # (Auto) 1.1H, Eosinophils # (Auto) 0.4H, Basophils # (Auto) 0.1, Immature Granulocyte # (Auto) 0.1, Sodium Level 138, Potassium Level 3.9, Chloride Level 108H, Carbon Dioxide Level 24, Anion Gap 6, Blood Urea Nitrogen 15, Creatinine 1.39H, Estimat Glomerular Filtration Rate 46, BUN/Creatinine Ratio 11, Glucose Level 79, Calcium Level 8.1L, Corrected Calcium 9.1, Phosphorus Level 3.4, Magnesium Level 2.1, Total Bilirubin 0.2, Aspartate Amino Transf (AST/SGOT) 37H, Alanine Aminotransferase (ALT/SGPT) 59H, Alkaline Phosphatase 162H, Total Protein 5.7L, Albumin 2.8L 03/13/22 05:48: Glucometer 95 03/13/22 11:03: Glucometer 153H 03/13/22 15:29: Glucometer 123H Microbiology 03/03/22 MRSA Screen - Final, Complete MRSA not isolated 03/03/22 Blood Culture - Final, Complete No growth Assessment/Plan Assessment/Plan Assessment/Plan Anemia +Fecal Occult blood Super Morbidly obese Sleep Apnea COPD DM insulin dependent Pt has improved since coming to the hospital, her Hemoglobin has stabilized and she is being discharged tomorrow. She will need work-up for low hemoglobin; including EGD and colonoscopy. Denied any family hx of colon problems or colon cancer. We discussed the procedures in detail; going over risks and complications not limited to pain, bleeding, infection, esophageal or intestinal perforation. All questions answered to her satisfaction, she will be set up for these procedures as an out patient. SHELLEY MUÑIZ DO Mar 13, 2022 16:19
--- NOTE | 2022-03-13 16:27 | Discharge Inst-Surgical ---
Discharge Inst-Surgical Depart Medication/Instructions Patient Instructions Follow up Appt: Make appointment for 1 week. [phone] Instructions: Use incentive spirometer at home as directed. No Smoking Symptoms to Report: Appetite Changes, Extremity Discoloration, Numbness/Tingling, Swelling Increased, Bleeding Excessive, Eyesight Changes, Pain Increased, Urine Color Change, Constipation(Persistent), Fever over 101 degree F, Pain/Pressure in chest, Urinating Difficulty, Cough Up/Vomit Blood, Heart Beat Irreg/Pounding, Pain/Pressure in jaw, Cramps in feet or legs, Lightheadedness, Pain/Pressure in shoulder, Diarrhea(Persistent), Memory Changes Suddenly, Questions/Concerns, Weight gain consecutive days, Dizziness/Fainting, Nausea/Vomiting, Shortness of Breath, Weight gain over 2 pounds If questions or concerns contact your physician Or seek help at emergency department. Activity Activity as Tolerated: Yes Driving Instructions: You May Drive Diet Discharge Diet: No Restrictions Diet After 24 Hours: Clear Liquid if Nauseous SHELLEY MUÑIZ DO Mar 13, 2022 16:27
[2022-03-13] MEDS: MONTELUKAST 10 MG (SINGULAIR) TAB PO SCH (20:57)
[2022-03-13] MEDS: QUEtiapine 100 MG (SEROquel) TAB IMMEDIATE RELEASE PO SCH (20:57)
[2022-03-14 03:57] VITALS: BP 109/64
[2022-03-14 05:50] LABS: BASOPHILS % (AUTO) 0 % (0-10); EOSINOPHILS # (AUTO) 0.4 10^3/uL (0.0-0.3); EOSINOPHILS % (AUTO) 3 % (0-10); HEMATOCRIT 30 % (35-52); HEMOGLOBIN 9.2 g/dL (11.5-16.0); LYMPHOCYTES % (AUTO) 39 % (12-44); MEAN CORPUSCULAR HEMOGLOBIN 27 pg (25-34); MEAN CORPUSCULAR HGB CONC 31 g/dL (32-36); MEAN CORPUSCULAR VOLUME 87 fL (80-99); MONOCYTES # (AUTO) 1.1 10^3/uL (0.0-1.0); MONOCYTES % (AUTO) 9 % (0-12); NEUTROPHILS # (AUTO) 6.1 10^3/uL (1.8-7.8); NEUTROPHILS % (AUTO) 48 % (42-75); PLATELET COUNT 355 10^3/uL (130-400); WHITE BLOOD COUNT 12.7 10^3/uL (4.3-11.0)
[2022-03-14] MEDS: inSUlin ASPART (NovoLOG) 1 UNIT/0.01 ML (CHARGE PER UNIT) SC SCH (06:03)
[2022-03-14 06:05] LABS: POTASSIUM 3.8 MMOL/L (3.6-5.0)
[2022-03-14 06:06] LABS: CALCIUM 8.3 MG/DL (8.5-10.1)
[2022-03-14 06:08] LABS: TOTAL PROTEIN 6.3 GM/DL (6.4-8.2)
[2022-03-14 06:09] LABS: BILIRUBIN,TOTAL 0.3 MG/DL (0.1-1.0)
[2022-03-14 06:11] LABS: CREATININE SERUM 1.46 MG/DL (0.60-1.30); PHOSPHORUS 3.7 MG/DL (2.3-4.7)
[2022-03-14 06:14] LABS: MAGNESIUM 1.8 MG/DL (1.6-2.4)
[2022-03-14] MEDS: UMECLIDINIUM BROMIDE (INCRUSE ELLIPTA) 7'S IH SCH (07:08)
[2022-03-14 07:58] VITALS: BP 119/68
[2022-03-14] MEDS: busPIRone 15 MG (BUSPAR) TABLET PO SCH (08:06)
[2022-03-14] MEDS: hydrOXYzine (VISTARIL/ATARAX) 25 MG capsule/tablet PO SCH (08:07)
[2022-03-14] MEDS: buPROPion SR 150 MG (WELLBUTRIN SR) TAB PO SCH (08:07)
[2022-03-14] MEDS: DOCUSATE SODIUM 100 MG (COLACE) CAP PO SCH (08:07)
[2022-03-14] MEDS: FAMOTIDINE 20 MG (PEPCID) TABLET PO SCH (08:07)
[2022-03-14] MEDS: PANTOPRAZOLE 40 MG (PROTONIX) TAB PO SCH (08:07)
[2022-03-14] MEDS: MULTIVIT W/MINERALS TAB (THERAGRAN M) PO SCH (08:07)
[2022-03-14] MEDS: ALLOPURINOL 100 MG (ZYLOPRIM) TAB PO SCH (08:07)
[2022-03-14] MEDS: VENlafaxine XR 75 MG (EFFEXOR XR) CAP PO SCH (08:07)
[2022-03-14] MEDS: APIXABAN 5 MG (ELIQUIS) TABLET PO SCH (08:07)
[2022-03-14] MEDS: MIDODRINE 10 MG (PROAMATINE) TAB PO SCH (08:07)
[2022-03-14] MEDS: PREGABALIN 75 MG (LYRICA) CAP PO SCH (08:07)
[2022-03-14] MEDS: ASPIRIN 81 MG CHEW (CHILDREN'S ASA) PO SCH (08:07)
[2022-03-14] MEDS: FERROUS SULF 325 MG (IRON) TAB PO SCH (08:07)
--- NOTE | 2022-03-14 08:19 | Progress Note - Cardiology ---
Cardiology SOAP Progress Note Subjective: Sitting up in bed States she feels well this morning No c/o CP Breathing is at her baseline C/O LE swelling Objective: I&O/Vital Signs 03/13/22 03/13/22 03/14/22 03/14/22 20:50 23:46 03:57 07:09 Temp 36.4 36.4 Pulse 69 75 Resp 18 16 B/P (MAP) 93/59 (70) 109/64 (79) Pulse Ox 99 94 96 O2 Delivery High Flow N/C NIV CPAP Room Air Nasal Cannula O2 Flow Rate 3.00 3.00 3.00 03/14/22 07:58 Temp 36.4 Pulse 74 Resp 20 B/P (MAP) 119/68 (85) Pulse Ox 96 O2 Delivery NIV CPAP 03/14/22 00:00 Intake Total 2440 ml Balance 2440 ml Constitutional: AAO x 3, well-developed, well-nourished, other (morbid obesity) Respiratory: No accessory muscle use; other (good air entry, diminished at the bases) Cardiovascular: regular rate-rhythm, S1 and S2, systolic murmur (soft TERRIE at card bse) Gastrointestional: No tender; soft; No guarding, No rebound; audible bowel sounds Extremities: swelling (bilat LE edema of the legs, pitting and non-pitting); No clubbing, No cyanosis Neurologic/Psychiatric: oriented x 3, other (moves all limbs equally) Skin: warm/dry; No rash, No rash on exposed areas, No ulcerations on exposed areas Results/Procedures: Labs Laboratory Tests 03/13/22 11:03: Glucometer 153H 03/13/22 15:29: Glucometer 123H 03/13/22 20:28: Glucometer 141H 03/14/22 05:41: Glucometer 93 03/14/22 05:47: White Blood Count 12.7H, Red Blood Count 3.43L, Hemoglobin 9.2L, Hematocrit 30L, Mean Corpuscular Volume 87, Mean Corpuscular Hemoglobin 27, Mean Corpuscular Hemoglobin Concent 31L, Red Cell Distribution Width 19.9H, Platelet Count 355, Mean Platelet Volume 11.0, Immature Granulocyte % (Auto) 1, Neutrophils (%) (Auto) 48, Lymphocytes (%) (Auto) 39, Monocytes (%) (Auto) 9, Eosinophils (%) (Auto) 3, Basophils (%) (Auto) 0, Neutrophils # (Auto) 6.1, Lymphocytes # (Auto) 5.0H, Monocytes # (Auto) 1.1H, Eosinophils # (Auto) 0.4H, Basophils # (Auto) 0.0, Immature Granulocyte # (Auto) 0.1, Sodium Level 138, Potassium Level 3.8, Chloride Level 104, Carbon Dioxide Level 25, Anion Gap 9, Blood Urea Nitrogen 15, Creatinine 1.46H, Estimat Glomerular Filtration Rate 43, BUN/Creatinine Ratio 10, Glucose Level 94, Calcium Level 8.3L, Corrected Calcium 9.1, Phosphorus Level 3.7, Magnesium Level 1.8, Total Bilirubin 0.3, Aspartate Amino Transf (AST/SGOT) 53H, Alanine Aminotransferase (ALT/SGPT) 77H, Alkaline Phosphatase 176H, Total Protein 6.3L, Albumin 3.0L Microbiology 03/03/22 MRSA Screen - Final, Complete MRSA not isolated 03/03/22 Blood Culture - Final, Complete No growth Laboratory Tests 03/13/22 05:09 03/14/22 05:47 A/P: Assessment: Mild troponin elevation likely due to hypotension (septic shock) - type 2 DE - Echo 03/06/22: LVEF 55-60%, mild MR, PASP 30-35 mmHg Septic shock, apparently due to R leg cellulitis, now resolved - Medical services managing Renal failure of unknown chronicity (eGFR 43 on 03/05/22) - eGFR has improved to 50 on lab of 03-09-22 Episodes of asymptomatic hypotension - now off vasopressors Episode of 5 beats WCT on 03-08-22 probably r/t continuing use of vasopressors - no further episodes - continue BB Morbid obesity with hypoventilation syndrome and chronic hypoxia requiring supplemental oxygen ?COPD 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 recent GIB - surgical services consulted - plan for out pt endoscopies * Monitor labs closely * Renal function stable * Low dose diuretics resumed yesterday d/t LE swelling - monitor lab closely - Dr. Palomo notes from the weekend have been reviewed MARTIN MILLER [employer] Mar 14, 2022 08:19
[2022-03-14] MEDS ORDERED: BUMETANIDE 1 MG (BUMEX) TAB PO SCH (09:00)
[2022-03-14] MEDS ORDERED: CYANOCOBALAMIN INJ 1000 MCG/ML IM NR (09:30)
[2022-03-14] MEDS ORDERED: CYAN-41 PO (09:52)
[2022-03-14] MEDS ORDERED: APIX5TAB PO (09:52)
[2022-03-14] MEDS ORDERED: MIDO10TA PO (09:52)
[2022-03-14] MEDS ORDERED: FAMO20TA5 PO (09:52)
[2022-03-14] MEDS ORDERED: MTP25TSR PO (09:52)
[2022-03-14] MEDS ORDERED: ASPI81TA64 PO (09:52)
--- NOTE | 2022-03-14 09:53 | D/C HH Face to Face Order ---
D/C Face to Face Orders Reconcile Patient Problems Problems Reviewed?: Yes Instructions for Patient Integrity Patient Instructions/FollowUp: [facility] 1 week Physician to follow Patient: [facility] Discharge Diet for Home: ADA Diet Patient Problems: Anemia Sepsis ROSALVA Patient Data-Allergies,Ht & Wt Patient Allergies: Coded Allergies: No Known Drug Allergies (Unverified , 11/16/19) Home Health Need/Face to Face Date of Face to Face: Mar 14, 2022 Clinical Findings: Generalized weakness and fatigue, Instability, Muscle weakness I have seen Pt [id number]: Yes Discharged To: Home Diagnosis/Conditions: Debility Patient is Homebound due to: Yumiko fall risk due to instabilty, Muscle weakness Homebound Status Due to the above stated illness, injury or surgical procedure (medical condition or diagnosis) and associated clinical findings, the patient is homebound because of his/her inability to leave home except with aid of a supportive device and/or person AND leaving the home requires a considerable and taxing effort or is medically contraindicated. Pt req the following assistanc: [facility] Nursing Orders Home Health Services Order: Nursing Services, Business Enterprise Officer-Evaluate & Treat, Physical Therapy-Evaluate & Treat Home Health Infusion Therapy Line Start Date: Mar 10, 2022 Certify Stmt I certify that this patient is under my care and that I, a nurse practitioner or a physician; a recreation assistant working with me, had a face to face encounter that - meets the physician face to face encounter requirements with this patient as dated. STARLA ADAMS DO Mar 14, 2022 09:53
--- NOTE | 2022-03-14 09:54 | Discharge Summary ---
Discharge Summary Hospital Course Was the Problem List Reviewed?: Yes Problems/Dx: (1) Troponin level elevated (2) Wide-complex tachycardia (3) Lower extremity edema (4) Primary hypertension (5) Mixed hyperlipidemia (6) Septic shock Status: Resolved (7) Acute kidney injury superimposed on chronic kidney disease (8) Cellulitis of right leg Status: Resolved (9) History of deep venous thrombosis (10) Morbid obesity Status: Chronic Hospital Course Date of Admission: Mar 03, 2022 at 19:30 Admission Diagnosis : Family Physician/Provider: Gonzalo Langford MD Date of Discharge: 03/14/22 Discharge Diagnosis: Assessment: Status post critical illness Right leg cellulitis recurrent in type Severe anemia symptomatic status post 3 transfusions Hypotension now resolved Morbid obesity ROSALVA on CPAP Left hip pain Hemoccult positive stools needs scopes as outpatient Plan: Continue therapy Monitor closely Hospital Course: Pt had an uneventful hospital course but it was long. She did have ICU stay for many days due to continued hypotension requiring Levophed pressor therapy antibiotics until the cellulitis of her leg resolved. She was switched to Midodrine to help with orthostatic hypotension. She did require 3 units of blood. Hemoccult positive stools. Dr. Varela will perform scopes as an outpatient. She was found to have Vitamin B12 deficiency, she was given one injection of 1000 MCG and she will take a 1000 MCG pill. Anticoagulation was held until EGD and colonoscopy was completed as an outpatient. She was dis[facility] [place] in improved condition on home health. Poor prognosis remains due to morbid obesity and severe sleep apnea. Labs and Pending Lab Test: Laboratory Tests 03/13/22 11:03: Glucometer 153H 03/13/22 15:29: Glucometer 123H 03/13/22 20:28: Glucometer 141H 03/14/22 05:41: Glucometer 93 03/14/22 05:47: White Blood Count 12.7H, Red Blood Count 3.43L, Hemoglobin 9.2L, Hematocrit 30L, Mean Corpuscular Volume 87, Mean Corpuscular Hemoglobin 27, Mean Corpuscular Hemoglobin Concent 31L, Red Cell Distribution Width 19.9H, Platelet Count 355, Mean Platelet Volume 11.0, Immature Granulocyte % (Auto) 1, Neutrophils (%) (Auto) 48, Lymphocytes (%) (Auto) 39, Monocytes (%) (Auto) 9, Eosinophils (%) (Auto) 3, Basophils (%) (Auto) 0, Neutrophils # (Auto) 6.1, Lymphocytes # (Auto) 5.0H, Monocytes # (Auto) 1.1H, Eosinophils # (Auto) 0.4H, Basophils # (Auto) 0.0, Immature Granulocyte # (Auto) 0.1, Sodium Level 138, Potassium Level 3.8, Chloride Level 104, Carbon Dioxide Level 25, Anion Gap 9, Blood Urea Nitrogen 15, Creatinine 1.46H, Estimat Glomerular Filtration Rate 43, BUN/Creatinine Ratio 10, Glucose Level 94, Calcium Level 8.3L, Corrected Calcium 9.1, Phosphorus Level 3.7, Magnesium Level 1.8, Total Bilirubin 0.3, Aspartate Amino Transf (AST/SGOT) 53H, Alanine Aminotransferase (ALT/SGPT) 77H, Alkaline Phosphatase 176H, Total Protein 6.3L, Albumin 3.0L Microbiology 03/03/22 MRSA Screen - Final, Complete MRSA not isolated 03/03/22 Blood Culture - Final, Complete No growth Home Meds Active Vitamin B-12 (Cyanocobalamin (Vitamin B-12)) 1,000 Mcg Tablet 1,000 Mcg PO DAILY@0700 Famotidine 20 Mg Tablet 20 Mg PO BID Children's Aspirin (Aspirin) 81 Mg Tab.chew 81 Mg PO DAILY Metoprolol Succinate 25 Mg Tab.er.24h 25 Mg PO DAILY Midodrine HCl 10 Mg Tablet 5 Mg PO TID Eliquis (Apixaban) 5 Mg Tablet 5 Mg PO BID 14 Days hold until approved by Dr Varela after EGD and colonoscopy Reported Vitamins For Hair (Multivitamin) 400 Mcg-400 Mcg Tablet 1 Each PO DAILY Iron (Ferrous Sulfate) 325 Mg (65 Mg Iron) Tablet 325 Mg PO DAILY Pregabalin 75 Mg Capsule 75 Mg PO QID Bupropion Xl (Bupropion HCl) 150 Mg Tab.er.24h 150 Mg PO DAILY LAST FILLED 12-01-2021 # DAY SUPPLY TAKES 300MG +150MG TO EQUAL 450MG DAILY Bupropion Xl (Bupropion HCl) 300 Mg Tab.er.24h 300 Mg PO DAILY LAST FILLED 12-01-2021 # DAY SUPPLY TAKES 300MG +150MG TO EQUAL 450MG DAILY Bumetanide 1 Mg Tablet 1 Mg PO DAILY Atorvastatin Calcium 80 Mg Tablet 80 Mg PO HS Montelukast Sodium 10 Mg Tablet 10 Mg PO HS Lisinopril 5 Mg Tablet 5 Mg PO HS Tresiba Flextouch U-200 (Insulin Degludec) 200 Unit/Ml (3 Ml) Insuln.pen 20 Units SC HS Novolog Flexpen (Insulin Aspart) 100 Unit/Ml (3 Ml) Solution Units SC AC USES PER SLIDING SCALE Incruse Ellipta (Umeclidinium [place]) 62.5 Mcg/Actuation Blst.w.dev 1 Puff INH DAILY Quetiapine Fumarate 300 Mg Tablet 300 Mg PO HS Omeprazole 20 Mg Capsule.dr 20 Mg PO DAILY Metolazone 5 Mg Tablet 5 Mg PO DAILY Ventolin Hfa (Albuterol Sulfate) 90 Mcg Hfa.aer.ad 2 Puff INH QID PRN Ozempic (Semaglutide) 2 Mg/0.75 Ml (8 Mg/3 Ml) Pen.injctr 2 Mg IJ THUR Buspirone HCl 30 Mg Tablet 30 Mg PO BID Varenicline Tartrate 1 Mg Tablet 1 Mg PO BID Cyclobenzaprine HCl 10 Mg Tablet 5-10 Mg PO TID PRN Desvenlafaxine Succinate ER (Desvenlafaxine Succinate) 50 Mg Tab.er.24h 50 Mg PO DAILY Hydroxyzine HCl 50 Mg Tablet 100 Mg PO HS TAKES 2 (50MG) TABS Hydroxyzine HCl 50 Mg Tablet 50 Mg PO DAILY Docusate Sodium 100 Mg Capsule 100 Mg PO BID Allopurinol 100 Mg Tablet 100 Mg PO DAILY Hysingla ER (Hydrocodone Bitartrate) 60 Mg Tab.er.24h 60 Mg PO HS Assessment/Pt Instructions PCP in 1 week Discharge Planning: <30 minutes discharge planning Discharge Instructions Discharge Diet: No Restrictions Activity as Tolerated: Yes Discharge Physical Examination Vital Signs Vital Signs Date Time Temp Pulse Resp B/P (MAP) Pulse Ox O2 Delivery O2 Flow Rate FiO2 03/14/22 08:00 High Flow N/C 3.00 03/14/22 07:58 36.4 74 20 119/68 (85) 96 03/12/22 23:24 32 Allergies: Coded Allergies: No Known Drug Allergies (Unverified , 11/16/19) Discharge Summary Date of Admission Mar 03, 2022 at 19:30 Date of Discharge Discharge Date: Mar 14, 2022 Admission Diagnosis Supportive care IV antibiotics Pressor therapy ICU Discharge Diagnosis Assessment: Status post critical illness Right leg cellulitis recurrent in type Severe anemia symptomatic status post 3 transfusions Hypotension now resolved Morbid obesity ROSALVA on CPAP Left hip pain Hemoccult positive stools needs scopes as outpatient Plan: Continue therapy Monitor closely (1) Troponin level elevated Assessment & Plan: She had a probable type II non-ST elevation myocardial infarction due to acute hypotension resulting in supply/demand mismatch. She is not having chest pain. She has no ischemic changes on her electrocardiogram. She has normal ejection fraction as noted on an echocardiogram during this hospitalization. She should continue on aspirin, beta-darian, and intensive dose statin medication. At some point, she may warrant an ischemic evaluation but this can probably be done as an outpatient. (2) Wide-complex tachycardia Assessment & Plan: Unclear whether or not she may have had some nonsustained ventricular tachycardia. As above, she has normal ejection fraction. Continue beta-darian. (3) Lower extremity edema Assessment & Plan: She has chronic peripheral edema and a previous history of deep venous thrombosis. She is also morbidly obese. She has normal ejection fraction. I suspect the majority of her edema may be related to venous insufficiency from previous deep venous thrombosis as well as peripheral venous hypertension due to her morbid obesity. I will restart bumetanide 1 mg once daily which she was taking at home. I will give her a 2 mg dose today. She was also taking metolazone at home but given her chronic kidney disease, I will hold off on restarting this. (4) Primary hypertension Assessment & Plan: She is now actually on midodrine due to persistently low blood pressures. She is on a low-dose of beta-darian due to the wide-complex tachycardia. (5) Mixed hyperlipidemia Assessment & Plan: Continue atorvastatin. (6) Septic shock Status: Resolved Assessment & Plan: Probably due to the right leg cellulitis. Her blood pressures have improved but she has required midodrine to help keep her systolic blood pressure above 100 mmHg. The septic shock likely contributed to the elevated troponin level and acute kidney injury. (7) Acute kidney injury superimposed on chronic kidney disease Assessment & Plan: Probably multifactorial. Her renal function has improved. (8) Cellulitis of right leg Status: Resolved Assessment & Plan: This is being managed by the hospitalist. (9) History of deep venous thrombosis (10) Morbid obesity Status: Chronic Assessment & Plan: She needs to work on weight loss. She has been counseled in this regard. STARLA ADAMS DO Mar 14, 2022 09:54
--- NOTE | 2022-03-14 12:08 | Progress Note - Cardiology ---
Cardiology SOAP Progress Note Subjective: No cp or palp or syncope No shortness of breath at rest Some gen weakness and malaise, improving No n/v/d Objective: I&O/Vital Signs 03/14/22 03/14/22 03/14/22 03/14/22 03:57 07:09 07:58 08:00 Temp 36.4 36.4 Pulse 75 74 Resp 16 20 B/P (MAP) 109/64 (79) 119/68 (85) Pulse Ox 94 96 96 O2 Delivery Room Air Nasal Cannula NIV CPAP High Flow N/C O2 Flow Rate 3.00 3.00 03/14/22 00:00 Intake Total 2440 ml Balance 2440 ml Constitutional: AAO x 3, well-developed, well-nourished, other (morbid obesity) Respiratory: No accessory muscle use; other (good air entry, diminished at the bases) Cardiovascular: regular rate-rhythm, S1 and S2, systolic murmur (soft TERRIE at card bse) Gastrointestional: No tender; soft; No guarding, No rebound; audible bowel sounds Extremities: swelling (bilat LE edema of the legs, pitting and non-pitting); No clubbing, No cyanosis Neurologic/Psychiatric: oriented x 3, other (moves all limbs equally) Skin: warm/dry; No rash, No rash on exposed areas, No ulcerations on exposed areas Results/Procedures: Labs Laboratory Tests 03/13/22 15:29: Glucometer 123H 03/13/22 20:28: Glucometer 141H 03/14/22 05:41: Glucometer 93 03/14/22 05:47: White Blood Count 12.7H, Red Blood Count 3.43L, Hemoglobin 9.2L, Hematocrit 30L, Mean Corpuscular Volume 87, Mean Corpuscular Hemoglobin 27, Mean Corpuscular Hemoglobin Concent 31L, Red Cell Distribution Width 19.9H, Platelet Count 355, Mean Platelet Volume 11.0, Immature Granulocyte % (Auto) 1, Neutrophils (%) (Auto) 48, Lymphocytes (%) (Auto) 39, Monocytes (%) (Auto) 9, Eosinophils (%) (Auto) 3, Basophils (%) (Auto) 0, Neutrophils # (Auto) 6.1, Lymphocytes # (Auto) 5.0H, Monocytes # (Auto) 1.1H, Eosinophils # (Auto) 0.4H, Basophils # (Auto) 0.0, Immature Granulocyte # (Auto) 0.1, Sodium Level 138, Potassium Level 3.8, Chloride Level 104, Carbon Dioxide Level 25, Anion Gap 9, Blood Urea Nitrogen 15, Creatinine 1.46H, Estimat Glomerular Filtration Rate 43, BUN/Creatinine Ratio 10, Glucose Level 94, Calcium Level 8.3L, Corrected Calcium 9.1, Phosphorus Level 3.7, Magnesium Level 1.8, Total Bilirubin 0.3, Aspartate Amino Transf (AST/SGOT) 53H, Alanine Aminotransferase (ALT/SGPT) 77H, Alkaline Phosphatase 176H, Total Protein 6.3L, Albumin 3.0L Microbiology 03/03/22 MRSA Screen - Final, Complete MRSA not isolated 03/03/22 Blood Culture - Final, Complete No growth A/P: Assessment: Mild troponin elevation likely due to hypotension (septic shock) - type 2 ND - Echo 03/06/22: LVEF 55-60%, mild MR, PASP 30-35 mmHg Septic shock, apparently due to R leg cellulitis, now resolved - Medical services managing Renal failure of unknown chronicity (eGFR 43 on 03/05/22) - eGFR has improved to 50 on lab of 03-09-22 Episodes of asymptomatic hypotension - now off vasopressors Episode of 5 beats WCT on 03-08-22 probably r/t continuing use of vasopressors - no further episodes - continue BB Morbid obesity with hypoventilation syndrome and chronic hypoxia requiring supplemental oxygen ?COPD 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) Marked anemia of undetermined etiology - evaluated and managed by Dr Rene - h/h dropped again after blood transfusions on 03/05/22 - received 1 unit PRBC on 03/10/22 - H/H has improved - occult (+) - surgical services consulted - plan for out pt endoscopies Persistent low bp after treatment of sepsis: spurious (mismatched bp cuff) an d/or chronically low bp - this has improved Plan: * BP has improved - off pressors * Continue beta-darian * Advised if apixaban needs to be held for a few days for w/u of anemia, that would be reasonable * H/H has improved * ? recent GIB - surgical services consulted - plan for out pt endoscopies * Monitor labs closely * Renal function stable * Low dose diuretics resumed yesterday d/t LE swelling - monitor lab closely - Dr. Palomo notes from the weekend have been reviewed POWER KLEIN MD [facility] Mar 14, 2022 12:08
[2022-03-15] MEDS ORDERED: CYANOCOBALAMIN 1,000 MCG (VITAMIN B-12) TABLET PO SCH (07:00)
== END 2022-03-14 11:00 | disposition home health service (06) | DRG 871 ==
LOC: EDUNIT# 14:33 → ER FS 14:35 → ICU 19:30 → 4TH 03-09 17:44
PROVIDERS: ADMIT Internal Medicine; ATTEND Internal Medicine
PROC: 5A09357 Assistance with Respiratory Ventilation, Less than 24 Consecutive Hours, Continuous Positive Airway Pressure (ICD-10-PCS; principal; 2022-03-04)
DX: A41.02 Sepsis due to Methicillin resistant Staphylococcus aureus (principal); I21.A1 Myocardial infarction type 2; R65.21 Severe sepsis with septic shock; L03.115 Cellulitis of right lower limb; N17.9 Acute kidney failure, unspecified; L97.219 Non-pressure chronic ulcer of right calf with unspecified severity; L97.819 Non-pressure chronic ulcer of other part of right lower leg with unspecified severity; E87.1 Hypo-osmolality and hyponatremia; N18.4 Chronic kidney disease, stage 4 (severe); E66.2 Morbid (severe) obesity with alveolar hypoventilation; Z68.43 Body mass index [BMI] 50.0-59.9, adult; I87.2 Venous insufficiency (chronic) (peripheral); E87.6 Hypokalemia; I13.10 Hypertensive heart and chronic kidney disease without heart failure, with stage 1 through stage 4 chronic kidney disease, or unspecified chronic kidney disease; E11.22 Type 2 diabetes mellitus with diabetic chronic kidney disease; E11.649 Type 2 diabetes mellitus with hypoglycemia without coma; R42 Dizziness and giddiness; I95.1 Orthostatic hypotension; J44.9 Chronic obstructive pulmonary disease, unspecified; Z99.81 Dependence on supplemental oxygen; I25.10 Atherosclerotic heart disease of native coronary artery without angina pectoris; F17.210 Nicotine dependence, cigarettes, uncomplicated; D64.9 Anemia, unspecified; E78.2 Mixed hyperlipidemia; F41.9 Anxiety disorder, unspecified; E53.8 Deficiency of other specified B group vitamins; H54.7 Unspecified visual loss; Z79.85 Long-term (current) use of injectable non-insulin antidiabetic drugs; Z79.4 Long term (current) use of insulin; Z86.718 Personal history of other venous thrombosis and embolism; Z79.01 Long term (current) use of anticoagulants; Z86.711 Personal history of pulmonary embolism
CPT/HCPCS: 36415; 36569; 36600; 70450; 71045; 73502; 76937; 80053; 80202; 81000; 82274; 82533; 82607; 82728; 82805; 82947; 83540; 83550; 83605; 83690; 83735; 84100; 84145; 84484; 85007; 85025; 85027; 85045; 86850; 86900; 86901; 86920; 87040; 87081; 93005; 93306; 94640; 94664; 94760; 96361; 96365; 96375

== ENCOUNTER 2022-03-17 05:42 | Outpatient (CLI) | payer MEDICARE, MEDICAID ==
[~2022-03-17] VITALS: Ht 172 cm; Wt 166.0 kg
[~2022-03-17 05:42] MED LIST changes: -ACETAMINOPHEN 500 MG TAB (TYLENOL) PO PRN; +ALBU18HF2 INH; +ALLO100T PO; +APIX5TAB PO; +ASPI81TA64 PO; +ATOR80TA76 PO; +BUME1TAB8 PO; +BUPR150T24 PO; +BUPR300T98 PO; +BUSP30TA2 PO; -CASIRIVIMAB/IMDEVIMAB 1,200 MG in NS (IVPB) 250 ML IV ONE; +CYAN-41 PO; +CYCL10TA25 PO; +DESV50TA18 PO; +DOCU100C37 PO; -EPINEPHrine INJECTION 1 MG/ML AMP IM PRN; +FAMO20TA5 PO; +FERR-84 PO; +HYDR50TA76 PO; +HYDR60TA PO; +INSU100I14 SC; +INSU200I4 SC; +LISI5TAB20 PO; +METO5TAB6 PO; +MIDO10TA PO; +MONT-40 PO; +MTP25TSR PO; +MULT-577 PO; +OMEP20CA18 PO; -ONDANSETRON 4 MG/2 ML (SDV) Z0FRAN IV PRN; +PREG75CA75 PO; +QUET300T19 PO; +SEMA2PEN IJ; +UMEC62.5 INH; +VARE1TAB24 PO; -diphenhydrAMINE 50 MG/ML INJ (BENADRYL) IV PRN
[2022-03-18] MEDS ORDERED: GLUC1AUT SQ (10:41)
== END 2022-03-18 12:07 | disposition home or self-care (01) ==
LOC: PREOP 05:42
PROVIDERS: ATTEND Surgery
DX: Z01.818 Encounter for other preprocedural examination (principal)

== ENCOUNTER 2022-03-21 11:22 | Day surgery (SDC) | payer MEDICARE, MEDICAID ==
[2022-03-21] VITALS (9 sets, daily range): BP systolic 88–148; BP diastolic 50–85
[~2022-03-21] VITALS: Ht 172 cm; Wt 166.0 kg
[~2022-03-21 11:22] MED LIST changes: +GLUC1AUT SQ
[2022-03-21] MEDS ORDERED: LACTATED RINGERS 1,000 ML IV ONE (11:36)
--- NOTE | 2022-03-21 12:15 | Progress Note-Pre Operative ---
Pre-Operative Progress Note Date of Available H&P: Mar 15, 2022 Date H&P Reviewed: Mar 21, 2022 Time H&P Reviewed: 12:13 History & Physical: H&P Reviewed, Patient Examed, No changes noted Pre-Operative Diagnosis: rectal bleed, anemia SHELLEY MUÑIZ DO Mar 21, 2022 12:15
[2022-03-21] MEDS ORDERED: PROPOFOL INJECTION 50 ML IV ONE (13:15)
[2022-03-21] MEDS ORDERED: LACTATED RINGERS 1,000 ML IV STA (13:50)
--- NOTE | 2022-03-21 13:56 | Anesthesia-General Post-Op ---
MAC Patient Condition Mental Status/LOC: Same as Preop Cardiovascular: Satisfactory Nausea/Vomiting: Absent Respiratory: Satisfactory Pain: Controlled Complications: Absent Post Op Complications Complications None Follow Up Care/Instructions Patient Instructions None needed. Anesthesiology Discharge Order Discharge Order Patient is doing well, no complaints, stable vital signs, no apparent adverse anesthesia problems. No complications reported per nursing. DEMETRICE TURCIOS CRNA Mar 21, 2022 13:56
[2022-03-21] MEDS ORDERED: HURRICAINE EXT TUBE (BENZOCAINE) XX PRN (14:00)
--- NOTE | 2022-03-21 14:07 | Progress Note-Post Operative ---
Post-Operative Progess Note Surgeon (s)/Green Marketing Analyst (s) Surgeon SHELLEY MUÑIZ DO Green Marketing Analyst: Ttio Campbell, MSIV Pre-Operative Diagnosis rectal bleed, anemia Post-Operative Diagnosis Gastritis Hiatal hernia Poor prep diverticula Procedure & Operative Findings Date of Procedure 03/21/22 Procedure Performed/Findings EGD with bx Colonoscopy PROCEDURE NOTE: After informed consent was obtained, the patient was brought to the endoscopy suite, placed in bed in left lateral decubitus position. She was administered IV sedation by the METROLOGY TECHNICIAN who then monitored vitals the entire time, heart rate, blood pressure and pulse ox and the scope was inserted down the mouth through the esophagus into the stomach. On the way down, noted some mild esophagitis, took a picture, pushed into the stomach, pushed past the antrum into the duodenum. Duodenum looked good, but the antrum appeared to have some mild gastritis. Pulled back and did a biopsy of the antrum, then retroflexed the scope, saw a small hiatal hernia, took a picture of this and then pulled the scope into the GE junction. I then took another picture of the hiatal hernia and did a biopsy of the GE junction. Pushed the scope back into the stomach, suctioned all the air out of the stomach. At this point pulled the scope up the esophagus and out the mouth. Switched camera, switched gloves, went down below, started the colonoscopy. I began pushing in and immediately encountered retained fecal material; thick liquid and vegetable matter. I kept pushing past this and was able to get about 140 cm in; about to ascending colon. Unfortunately, I was unable to clear any of this material and did not want to chance trying to get to cecum and possibly causing a probelm. Therefore at this point I slowly withdrew the scope, insufflating trying to look circumferentially at the beasley. This did not get completely done because of the retained material. I did not see any large mass or signs of bleeding. I went up the ascending colon to the hepatic flexure, then down the transverse colon, splenic flexure, into the descending colon, down into the sigmoid and finally into the rectum. I documented all of the retained material. The patient tolerated the procedure and she recovered in the endoscopy suite. Recommended for repeat colonoscopy anytime within next year because of poor prep. Anesthesia Type IV sedation by METROLOGY TECHNICIAN Estimated Blood Loss Estimated blood loss (mL): scant Specimens/Packing Specimens Removed antral bx GE jxn bx SHELLEY MUÑIZ DO Mar 21, 2022 14:07
--- NOTE | 2022-03-21 14:08 | Endoscopy Discharge Instruct ---
Endo Procedure/Findings Findings 1.: Gastritis 2.: Hiatal Hernia 3.: Diverticulosis 4.: Other Findings (poor prep) Discharge Instructions - Activity: You might feel a little sleepy until tomorrow. This is due to the medicine you received to relax you. Until tomorrow, you should: NOT drive a car, operate machinery or power tools. NOT drink any alcoholic beverages. NOT make any important decisions or sign importortant papers. Do not return to work until tomorrow, unless otherwise instructed. Resume previous activities tomorrow. Diet: Start by taking liquids. If you tolerate liquids, advance to solid food. 1.: EGD in 3 years 2.: Other Recommendation (Colonoscopy in next 1 week to year) Notify Physician - If you experience excessive bleeding, unusual abdominal pain, fever, or chest pain, contact your doctor immediately. SHELLEY MUÑIZ DO Mar 21, 2022 14:08
[2022-03-24] MEDS ORDERED: SULF1TAB38 PO (00:43)
[2022-03-24] MEDS ORDERED: DOXY100T2 PO (00:43)
== END 2022-03-21 14:54 | disposition home or self-care (01) ==
LOC: ENDO 11:22
PROVIDERS: ATTEND Surgery
DX: K29.50 Unspecified chronic gastritis without bleeding (principal); K44.9 Diaphragmatic hernia without obstruction or gangrene; K57.30 Diverticulosis of large intestine without perforation or abscess without bleeding; K20.90 Esophagitis, unspecified without bleeding; D64.9 Anemia, unspecified; E66.01 Morbid (severe) obesity due to excess calories; Z68.43 Body mass index [BMI] 50.0-59.9, adult; F17.210 Nicotine dependence, cigarettes, uncomplicated; Z28.311 Partially vaccinated for COVID-19

== ENCOUNTER 2022-03-23 22:03 | Emergency (ER) | payer MEDICARE, MEDICAID ==
[~2022-03-23] VITALS: Ht 172.7 cm; Wt 166.0 kg
[2022-03-23] MEDS ORDERED: ENOXAPARIN 80 MG/0.8 ML (LOVENOX) SYR SC STA (22:23)
--- NOTE | 2022-03-23 22:25 | ED General ---
General Chief Complaint: General Problems/Pain Stated Complaint: R ARM PAIN Source of Information: Patient, Caregiver, Old Records History of Present Illness Date Seen by Provider: Mar 23, 2022 Time Seen by Provider: 22:06 Initial Comments 51-year-old female presenting with complaints of sudden onset of pain in her right antecubital fossa area. She states that this pain started approximately 2 to 3 hours ago. It feels sharp like a needle was senior care stuck in her arm. She states it feels similar to when she has had veins below when they start an IV. She denies any acute injury. She has recently had multiple IV attempts on Monday for colonoscopy. She had been admitted to [facility] at the end of February for GI bleeding and anemia. She reports that she had a heart attack while she was in the hospital. They had transfused her with 3 units of b lood while she was in the hospital. She was released on and had a colonoscopy Monday. She states that they were not able to complete the colonoscopy and she is to be rescheduled next week. She is being held on her Eliquis until she sees the doctor that performed her colonoscopy again on March 29 for follow-up. Timing/Duration: 1-3 Hours Severity: Moderate Modifying Factors: worse with Movement Associated Systoms: No Chest Pain, No Cough, No Diaphoresis, No Fever/Chills, No Headaches, No Loss of Appetite, No Malaise, No Nausea/Vomiting, No Rash, No Seizure, No Shortness of Air, No Syncope, No Weakness Allergies and Home Medications Allergies Coded Allergies: No Known Drug Allergies (Unverified , 11/16/19) Patient Home Medication List Home Medication List Reviewed: Yes Albuterol Sulfate (Ventolin Hfa) 90 Mcg Hfa.aer.ad, 2 PUFF INH QID PRN for SHORTNESS OF BREATH, (Reported) Entered as Reported by: CARL LINDSAY on 03/04/22 1331 Apixaban (Eliquis) 5 Mg Tablet, 5 MG PO BID Prescribed by: STARLA ADAMS on 03/14/22951 Aspirin (Children's Aspirin) 81 Mg Tab.chew, 81 MG PO DAILY Prescribed by: STARLA ADAMS on 03/14/22951 Atorvastatin Calcium (Atorvastatin Calcium) 80 Mg Tablet, 80 MG PO HS, (Reported) Entered as Reported by: CARL LINDSAY on 03/04/22 133 Bumetanide (Bumetanide) 1 Mg Tablet, 1 MG PO DAILY, (Reported) Entered as Reported by: CARL LINDSAY on 03/04/22 133 Bupropion HCl (Bupropion Xl) 300 Mg Tab.er.24h, 300 MG PO DAILY, (Reported) Entered as Reported by: CARL LINDSAY on 03/04/22 133 Bupropion HCl (Bupropion Xl) 150 Mg Tab.er.24h, 150 MG PO DAILY, (Reported) Entered as Reported by: CARL LINDSAY on 03/04/22 133 Buspirone HCl (Buspirone HCl) 30 Mg Tablet, 30 MG PO BID, (Reported) Entered as Reported by: CARL LINDSAY on 03/04/22 133 Cyclobenzaprine HCl (Cyclobenzaprine HCl) 10 Mg Tablet, 5-10 MG PO TID PRN for MUSCLE SPASMS, (Reported) Entered as Reported by: CARL LINDSAY on 03/04/22 133 Famotidine (Famotidine) 20 Mg Tablet, 20 MG PO BID Prescribed by: STARLA ADASM on 03/14/22 0952 Glucagon (Gvoke Hypopen) 1 Mg/0.2 Ml Auto.injct, 1 MG SQ, (Reported) Entered as Reported by: QUENTIN HINES on 03/18/22 1041 Hydrocodone Bitartrate (Hysingla ER) 60 Mg Tab.er.24h, 60 MG PO HS, (Reported) Entered as Reported by: CARL LINDSAY on 03/04/22 133 Hydroxyzine HCl (Hydroxyzine HCl) 50 Mg Tablet, 50 MG PO DAILY, (Reported) Entered as Reported by: CARL LINDSAY on 03/04/22 133 Hydroxyzine HCl (Hydroxyzine HCl) 50 Mg Tablet, 100 MG PO HS, (Reported) Entered as Reported by: CARL LINDSAY on 03/04/22 133 Insulin Aspart (Novolog Flexpen) 100 Unit/Ml (3 Ml) Solution, UNITS SC AC, (Reported) Entered as Reported by: ACRL LINDSAY on 03/04/22 133 Insulin Degludec (Tresiba Flextouch U-200) 200 Unit/Ml (3 Ml) Insuln.pen, 20 UNITS SC HS, (Reported) Entered as Reported by: CARL LINDSAY on 03/04/221330 Lisinopril (Lisinopril) 5 Mg Tablet, 5 MG PO HS, (Reported) Entered as Reported by: CARL LINDSAY on 03/04/221330 Metoprolol Succinate (Metoprolol Succinate) 25 Mg Tab.er.24h, 25 MG PO DAILY Prescribed by: STARLA ADAMS on 03/14/22951 Midodrine HCl (Midodrine HCl) 10 Mg Tablet, 5 MG PO TID Prescribed by: STARLA ADAMS on 03/14/22951 Montelukast Sodium (Montelukast Sodium) 10 Mg Tablet, 10 MG PO HS, (Reported) Entered as Reported by: CARL LINDSAY on 03/04/221330 Omeprazole (Omeprazole) 20 Mg Capsule.dr, 20 MG PO DAILY, (Reported) Entered as Reported by: CARL LINDSAY on 03/04/221330 Pregabalin (Pregabalin) 75 Mg Capsule, 75 MG PO QID, (Reported) Entered as Reported by: CARL LINDSAY on 03/04/221330 Quetiapine Fumarate (Quetiapine Fumarate) 300 Mg Tablet, 300 MG PO HS, (Reported) Entered as Reported by: CARL LINDSAY on 03/04/221330 Semaglutide (Ozempic) 2 Mg/0.75 Ml (8 Mg/3 Ml) Pen.injctr, 2 MG IJ THUR, (Reported) Entered as Reported by: CARL LINDSAY on 03/04/221330 Umeclidinium Butner (Incruse Ellipta) 62.5 Mcg/Actuation Blst.w.dev, 1 PUFF INH DAILY, (Reported) Entered as Reported by: CARL LINDSAY on 03/04/221330 Varenicline Tartrate (Varenicline Tartrate) 1 Mg Tablet, 1 MG PO BID, (Reported) Entered as Reported by: CARL LINDSAY on 03/04/221330 Discontinued Medications Allopurinol (Allopurinol) 100 Mg Tablet, 100 MG PO DAILY, (Reported) Discontinued Reason: No Longer Taking Entered as Reported by: CARL LINDSAY on 10/21/22 1331 Cyanocobalamin (Vitamin B-12) (Vitamin B-12) 1,000 Mcg Tablet, 1,000 MCG PO DAILY@0700 Discontinued Reason: No Longer Taking Prescribed by: STARLA ADAMS on 03/14/22 0952 Desvenlafaxine Succinate (Desvenlafaxine Succinate ER) 50 Mg Tab.er.24h, 50 MG PO DAILY, (Reported) Discontinued Reason: No Longer Taking Entered as Reported by: CARL LINDSAY on 03/04/22 1331 Docusate Sodium (Docusate Sodium) 100 Mg Capsule, 100 MG PO BID, (Reported) Discontinued Reason: No Longer Taking Entered as Reported by: CARL LINDSAY on 03/04/22 133 Ferrous Sulfate (Iron) 325 Mg (65 Mg Iron) Tablet, 325 MG PO DAILY, (Reported) Discontinued Reason: No Longer Taking Entered as Reported by: CARL LINDSAY on 03/04/22 133 Multivitamin (Vitamins For Hair) 400 Mcg-400 Mcg Tablet, 1 EACH PO DAILY, (Reported) Discontinued Reason: No Longer Taking Entered as Reported by: CARL LINDSAY on 03/04/22 133 Review of Systems Review of Systems Constitutional: No chills, No fever EENTM: no symptoms reported Respiratory: short of breath (Chronic shortness of breath and no worse than usual) Cardiovascular: No chest pain Gastrointestinal: no symptoms reported Genitourinary: no symptoms reported Musculoskeletal: see HPI Skin: No change in color Psychiatric/Neurological: Anxiety (Patient is anxious and worried that she might have a blood clot since she has been off of her Eliquis.) Past Pqtwatm-Gybwpz-Nostae Hx Immunizations Up To Date First/Initial COVID19 Vaccinat: 2020 Second COVID19 Vaccination Rolan: 2020 Third COVID19 Vaccination Date: 2020 Seasonal Allergies Seasonal Allergies: No Past Medical History Surgery/Hospitalization HX: COPD, hypertension, DVT, PE, chronic kidney disease, insulin-dependent diabetes Surgeries: Yes Abdominal, Hysterectomy Respiratory: Yes Pulmonary Embolism, COPD Cardiac: Yes Chronic Edema/Swelling, Deep Vein Thrombosis, High Cholesterol, Hypertension Neurological: No [employer] History: Hysterectomy Genitourinary: No Gastrointestinal: Yes (HERNIAS, RECTAL BLEEDING) Musculoskeletal: Yes Chronic Back Pain Endocrine: Yes Diabetes, Insulin dep HEENT: Yes (GLASSES) Cancer: No Psychosocial: Yes Anxiety, Depression Integumentary: Yes Eczema Blood Disorders: Yes Family Medical History Cancer, Diabetes, Hypertension Physical Exam Vital Signs Vital Signs - First Documented 03/23/22 22:10 Temp 36.5 Pulse 98 Resp 20 B/P (MAP) 142/84 (103) Pulse Ox 96 O2 Delivery Room Air O2 Flow Rate 3.00 Capillary Refill : Height, Weight, BMI Height: '" Weight: lbs. oz. kg; 56.11 BMI Method: General Appearance: No Apparent Distress, Obese Neck: Full Range of Motion, Normal Inspection, Non Tender, Supple Respiratory: Chest Non Tender, Lungs Clear, Normal Breath Sounds, No Accessory Muscle Use, No Respiratory Distress Cardiovascular: Regular Rate, Rhythm, Normal Peripheral Pulses Gastrointestinal: Normal Bowel Sounds, No Pulsatile Mass, Non Tender, Soft Extremity: Normal Capillary Refill, Pedal Edema (Chronic and patient states that is at her baseline), Other (Tender to palpation mildly medial aspect of her right antecubital fossa) Neurologic/Psychiatric: Alert, Oriented x3 Skin: Warm/Dry, Ecchymosis (Multiple areas of bruising in various stages of healing) Progress/Results/Core Measures Suspected Sepsis SIRS Temperature: Pulse: Respiratory Rate: Laboratory Tests 03/23/22 22:30: White Blood Count 13.5H Blood Pressure / Mean: Laboratory Tests 03/23/22 22:30: INR Comment 1.0, Platelet Count 673H Results/Orders Lab Results Laboratory Tests Test 03/23/22 22:30 Range/Units White Blood Count 13.5 H 4.3-11.0 10^3/uL Red Blood Count 4.18 3.80-5.11 10^6/uL Hemoglobin 11.3 L 11.5-16.0 g/dL Hematocrit 35 35-52 % Mean Corpuscular Volume 83 80-99 fL Mean Corpuscular Hemoglobin 27 25-34 pg Mean Corpuscular Hemoglobin Concent 33 32-36 g/dL Red Cell Distribution Width 21.6 H 10.0-14.5 % Platelet Count 673 H 130-400 10^3/uL Mean Platelet Volume 10.6 9.0-12.2 fL Immature Granulocyte % (Auto) 1 % Neutrophils (%) (Auto) 40 L 42-75 % Lymphocytes (%) (Auto) 49 H 12-44 % Monocytes (%) (Auto) 8 0-12 % Eosinophils (%) (Auto) 3 0-10 % Basophils (%) (Auto) 1 0-10 % Neutrophils # (Auto) 5.4 1.8-7.8 10^3/uL Lymphocytes # (Auto) 6.5 H 1.0-4.0 10^3/uL Monocytes # (Auto) 1.0 0.0-1.0 10^3/uL Eosinophils # (Auto) 0.4 H 0.0-0.3 10^3/uL Basophils # (Auto) 0.1 0.0-0.1 10^3/uL Immature Granulocyte # (Auto) 0.1 0.0-0.1 10^3/uL Neutrophils % (Manual) 39 % Lymphocytes % (Manual) 45 % Monocytes % (Manual) 9 % Eosinophils % (Manual) 2 % Metamyelocytes % 1 % Atypical Lymphocytes 1 % Reactive Lymphocytes 3 % Platelet Estimate INCREASED Hypochromasia MODERATE Poikilocytosis MARKED Anisocytosis MODERATE Target Cells MODERATE Ruby Cells SLIGHT Elliptocytes SLIGHT Acanthocytes SLIGHT Schistocytes MODERATE Blood Morphology Comment ABNORMAL Prothrombin Time 13.2 12.2-14.7 SEC INR Comment 1.0 0.8-1.4 Activated Partial Thromboplast Time 29 24-35 SEC D-Dimer 1.34 H 0.00-0.49 UG/ML Smear Scan RBC ABNORMALITIES My Orders Orders - ANDRIY OLSEN MD Cbc With Automated Diff (03/23/22 22:23) Protime With Inr (03/23/22 22:23) Partial Thromboplastin Time (03/23/22 22:23) Enoxaparin Injection (Lovenox Injection) (03/23/22 22:23) Fibrin Degradation Products (03/23/22 22:25) Enoxaparin Injection (Lovenox Injection) (03/23/22 22:44) Manual Differential (03/23/22 22:30) Vital Signs/I&O 03/23/22 22:10 Temp 36.5 Pulse 98 Resp 20 B/P (MAP) 142/84 (103) Pulse Ox 96 O2 Delivery Room Air O2 Flow Rate 3.00 Capillary Refill : Progress Note #1: Progress Note Counseled patient that I did not have ultrasound tonight but could order an outpatient ultrasound for the morning. In the meantime will obtain basic labs to look at blood counts and D-dimer. Administer Lovenox 1 mg/kg subcu x1 to help treat for possible DVT until ultrasound can be performed. Progress Note #2: Progress Note CBC shows improved Hgb from 03/14. She is now up to 11.3. D dimer elevated to 1.6. This elevation of D dimer could be related to recent multiple IV attempts or recent colonoscopy or recent transfusions and nonSTEMI. Again she is treated for possible DVT with the lovenox that will help cover and treat her for at least next 12 hours. Outpatient order for ultrasound of LORI ordered. In the meantime she could take acetaminophen for pain and try cold pack to the area. Departure Impression Primary Impression: Right arm pain Additional Impression: History of blood clots Disposition: HOME, SELF-CARE Condition: Stable Departure-Patient Inst. Decision time for Depature: 23:08 Referrals: TIGIST LANGFORD MD (PCP/Family) Primary Care Physician Patient Instructions: How to Prevent Blood Clots Add. Discharge Instructions: Call radiology scheduling in the morning at [phone]. If you call between 730 and 8 AM and let them know that you have an ultrasound that needs to be scheduled and that you can be here around 9 AM or any specific time that works best for you they could help set you up for an outpatient ultrasound with the multimedia technician here at [facility]. Bring the order sheet with you when you come for the test. The Lovenox shot you received josewiley will treat and cover you for at least the next 12 hours. This will give you time to have the ultrasound performed in the morning and if it is positive and shows a DVT then either Dr. Langford or the emergency department provider would get you started back on a blood thinner. You will then need to work with your doctor about the colonoscopy and looking for source of bleeding. All discharge instructions reviewed with patient and/or family. Voiced understanding. ANDRIY OLSEN MD Mar 23, 2022 22:25
[2022-03-23 22:38] LABS: BASOPHILS # (AUTO) 0.1 10^3/uL (0.0-0.1); BASOPHILS % (AUTO) 1 % (0-10); EOSINOPHILS # (AUTO) 0.4 10^3/uL (0.0-0.3); EOSINOPHILS % (AUTO) 3 % (0-10); HEMATOCRIT 35 % (35-52); HEMOGLOBIN 11.3 g/dL (11.5-16.0); LYMPHOCYTES # (AUTO) 6.5 10^3/uL (1.0-4.0); LYMPHOCYTES % (AUTO) 49 % (12-44); MEAN CORPUSCULAR HEMOGLOBIN 27 pg (25-34); MEAN CORPUSCULAR HGB CONC 33 g/dL (32-36); MEAN CORPUSCULAR VOLUME 83 fL (80-99); MEAN PLATELET VOLUME 10.6 fL (9.0-12.2); MONOCYTES % (AUTO) 8 % (0-12); NEUTROPHILS # (AUTO) 5.4 10^3/uL (1.8-7.8); NEUTROPHILS % (AUTO) 40 % (42-75); PLATELET COUNT 673 10^3/uL (130-400); WHITE BLOOD COUNT 13.5 10^3/uL (4.3-11.0)
[2022-03-23] MEDS ORDERED: ENOXAPARIN 80 MG/0.8 ML (LOVENOX) SYR ONE (22:44)
[2022-03-23 23:05] LABS: FIBRIN DEGRADATION PRODUCTS 1.34 UG/ML (0.00-0.49); PROTHROMBIN TIME PATIENT 13.2 SEC (12.2-14.7)
[2022-03-23 23:13] LABS: SMEAR SCAN COMMENT RBC ABNORMALITIES
[2022-03-23 23:14] LABS: ATYPICAL LYMPHOCYTES 1 %; EOSINOPHILS % (MANUAL) 2 %; HYPOCHROMASIA MODERATE; LYMPHOCYTES % (MANUAL) 45 %; METAMYELOCYTES % 1 %; MONOCYTES % (MANUAL) 9 %; NEUTROPHILS % (MANUAL) 39 %; PLATELET ESTIMATE INCREASED; RBC MORPH ABNORMAL; REACTIVE LYMPHOCYTES 3 %
[2022-03-23 23:15] LABS: ANISOCYTOSIS MODERATE; BURR CELLS SLIGHT; ELLIPT/OVALOCYTES SLIGHT; POIKILOCYTOSIS MARKED; TARGET CELLS MODERATE
[2022-03-23 23:16] LABS: ACANTHOCYTES SLIGHT; SCHISTOCYTES MODERATE
[2022-03-23 23:25] VITALS: BP 111/69
[2022-03-24] MEDS ORDERED: DOXY100T2 PO (00:43)
[2022-03-24] MEDS ORDERED: SULF1TAB38 PO (00:43)
== END 2022-03-23 23:25 | disposition home or self-care (01) ==
LOC: EDUNIT# 22:03 → ER FS 22:04
DX: M79.601 Pain in right arm (principal); E11.9 Type 2 diabetes mellitus without complications; Z79.4 Long term (current) use of insulin; Z79.01 Long term (current) use of anticoagulants; Z28.311 Partially vaccinated for COVID-19
CPT/HCPCS: 36415; 85007; 85027; 85379; 85610; 85730

== ENCOUNTER → 2022-03-24 | Outpatient (CLI) | payer MEDICARE, MEDICAID ==
[~2022-03-24] MED LIST changes: +DOXY100T2 PO; +SULF1TAB38 PO
--- NOTE | 2022-03-24 12:30 | Diagnostic Imaging Report ---
HISTORY: Right arm pain COMPARISON: None TECHNIQUE: Almonte scale, color Doppler and spectral Doppler ultrasound performed of the venous structures in the right upper extremity. FINDINGS: The right subclavian vein, axillary vein, and brachial vein are normal in appearance. These vessels show normal compressibility, color flow and doppler augmentation. The superficial cephalic and basilic veins are patent. The ulnar and radial veins appear patent. IMPRESSION: 1. No sonographic evidence of deep venous thrombosis in the right upper extremity. Dictated by: Dictated on workstation # [id number]
== END ==
LOC: RAD 09:14
PROVIDERS: ATTEND Family Medicine
DX: M79.601 Pain in right arm (principal); Z87.81 Personal history of (healed) traumatic fracture

== ENCOUNTER 2022-12-10 14:21 | Emergency (ER) | payer MEDICARE, MEDICAID ==
[~2022-12-10] VITALS: Ht 172.7 cm; Wt 173.0 kg
[2022-12-10 14:26] VITALS: BP 154/116
[2022-12-10] MEDS ORDERED: DOXYCYCLINE 100 MG (VIBRAMYCIN) TABLET PO STA (14:36)
--- NOTE | 2022-12-10 14:42 | ED General ---
General Stated Complaint: MRSA | SORES Source of Information: Patient Exam Limitations: No Limitations History of Present Illness Date Seen by Provider: Dec 10, 2022 Time Seen by Provider: 14:23 Initial Comments 52-year-old female with recent history of MRSA with a wound on her left posterior scalp that is been there for many months that was positive for MRSA recently, finished 2 rounds of Bactrim a week ago, now with a wound to her right axilla that is more painful. She has a little bit of nausea with it, took her friend Roxana which does help. Otherwise denies any fever, chest pain, shortness of breath, abdominal pain, weakness, numbness, or any other concerns. She follows with her regular doctor, is not set up with the wound clinic. Tetanus is up-to-date. Allergies and Home Medications Allergies Coded Allergies: No Known Drug Allergies (Unverified , 11/16/19) Patient Home Medication List Home Medication List Reviewed: Yes Albuterol Sulfate (Ventolin Hfa) 90 Mcg Hfa.aer.ad, 2 PUFF INH QID PRN for ANTOINETTE RTNESS OF BREATH, (Reported) Entered as Reported by: CARL LINDSAY on 03/04/221330 Apixaban (Eliquis) 5 Mg Tablet, 5 MG PO BID Prescribed by: STARLA ADAMS on 03/14/22 09 Aspirin (Children's Aspirin) 81 Mg Tab.chew, 81 MG PO DAILY Prescribed by: STARLA ADAMS on 03/14/22 0952 Atorvastatin Calcium (Atorvastatin Calcium) 80 Mg Tablet, 80 MG PO HS, (Reported) Entered as Reported by: CARL LINDSAY on 03/04/22 133 Bumetanide (Bumetanide) 1 Mg Tablet, 1 MG PO DAILY, (Reported) Entered as Reported by: CARL LINDSAY on 03/04/22 133 Bupropion HCl (Bupropion Xl) 300 Mg Tab.er.24h, 300 MG PO DAILY, (Reported) Entered as Reported by: CARL LINDSAY on 03/04/22 133 Bupropion HCl (Bupropion Xl) 150 Mg Tab.er.24h, 150 MG PO DAILY, (Reported) Entered as Reported by: CARL LINDSAY on 03/04/22 133 Buspirone HCl (Buspirone HCl) 30 Mg Tablet, 30 MG PO BID, (Reported) Entered as Reported by: CARL LINDSAY on 03/04/22 1331 Cyclobenzaprine HCl (Cyclobenzaprine HCl) 10 Mg Tablet, 5-10 MG PO TID PRN for MUSCLE SPASMS, (Reported) Entered as Reported by: CARL LINDSAY on 03/04/22 133 Doxycycline Hyclate (Doxycycline Hyclate) 100 Mg Tablet, 100 MG PO DAILY, (Reported) Entered as Reported by: ROSCOE DOYLE on 03/24/22 0043 Famotidine (Famotidine) 20 Mg Tablet, 20 MG PO BID Prescribed by: STARLA ADAMS on 03/14/22951 Glucagon (Gvoke Hypopen) 1 Mg/0.2 Ml Auto.injct, 1 MG SQ, (Reported) Entered as Reported by: QUENTIN HINES on 03/18/22 104 Hydrocodone Bitartrate (Hysingla ER) 60 Mg Tab.er.24h, 60 MG PO HS, (Reported) Entered as Reported by: CARL LINDSAY on 03/04/22 133 Hydroxyzine HCl (Hydroxyzine HCl) 50 Mg Tablet, 50 MG PO DAILY, (Reported) Entered as Reported by: CARL LINDSAY on 03/04/22 133 Hydroxyzine HCl (Hydroxyzine HCl) 50 Mg Tablet, 100 MG PO HS, (Reported) Entered as Reported by: CARL LINDSAY on 03/04/22 133 Insulin Aspart (Novolog Flexpen) 100 Unit/Ml (3 Ml) Solution, UNITS SC AC, (Reported) Entered as Reported by: CARL LINDSAY on 03/04/22 133 Insulin Degludec (Tresiba Flextouch U-200) 200 Unit/Ml (3 Ml) Insuln.pen, 20 UNITS SC HS, (Reported) Entered as Reported by: ACRL LINDSAY on 03/04/22 133 Lisinopril (Lisinopril) 5 Mg Tablet, 5 MG PO HS, (Reported) Entered as Reported by: CARL LINDSAY on 03/04/22 133 Metoprolol Succinate (Metoprolol Succinate) 25 Mg Tab.er.24h, 25 MG PO DAILY Prescribed by: STARLA ADAMS on 03/14/22951 Midodrine HCl (Midodrine HCl) 10 Mg Tablet, 5 MG PO TID Prescribed by: STARLA ADAMS on 03/14/22 0952 Montelukast Sodium (Montelukast Sodium) 10 Mg Tablet, 10 MG PO HS, (Reported) Entered as Reported by: CARL LINDSAY on 03/04/22 133 Omeprazole (Omeprazole) 20 Mg Capsule.dr, 20 MG PO DAILY, (Reported) Entered as Reported by: CARL LINDSAY on 03/04/22 133 Pregabalin (Pregabalin) 75 Mg Capsule, 75 MG PO QID, (Reported) Entered as Reported by: CARL LINDSAY on 03/04/22 133 Quetiapine Fumarate (Quetiapine Fumarate) 300 Mg Tablet, 300 MG PO HS, (Reported) Entered as Reported by: CARL LINDSAY on 03/04/221330 Semaglutide (Ozempic) 2 Mg/0.75 Ml (8 Mg/3 Ml) Pen.injctr, 2 MG IJ THUR, (Reported) Entered as Reported by: CARL LINDSAY on 03/04/22 133 Sulfamethoxazole/Trimethoprim (Bactrim Ds Tablet) 1 Each Tablet, 1 EACH PO BID, (Reported) Entered as Reported by: ROSCOE DOYLE on 03/24/22 004 Umeclidinium [place] (Incruse Ellipta) 62.5 Mcg/Actuation Blst.w.dev, 1 PUFF INH DAILY, (Reported) Entered as Reported by: CARL LINDSAY on 03/04/221330 Varenicline Tartrate (Varenicline Tartrate) 1 Mg Tablet, 1 MG PO BID, (Reported) Entered as Reported by: CARL LINDSAY on 03/04/221330 Review of Systems Review of Systems Constitutional: No fever EENTM: no symptoms reported Respiratory: no symptoms reported Cardiovascular: no symptoms reported Gastrointestinal: no symptoms reported Genitourinary: no symptoms reported Musculoskeletal: no symptoms reported Skin: see HPI Psychiatric/Neurological: No Symptoms Reported Hematologic/Lymphatic: No Symptoms Reported Immunological/Allergic: no symptoms reported All Other Systems Reviewed Negative Unless Noted: Yes Past Igebwsb-Tiacsg-Uruwjr Hx Immunizations Up To Date First/Initial COVID19 Vaccinat: 05/2020 Second COVID19 Vaccination Rolan: 2020 Third COVID19 Vaccination Date: 2020 Seasonal Allergies Seasonal Allergies: No Past Medical History Surgery/Hospitalization HX: COPD, hypertension, DVT, PE, chronic kidney disease, insulin-dependent diabetes, heart failure, peripheral vascular insuff., morbid obesity, nicotine dependence, osteroarthritis knees, anxiety, PR 02/2022, Surgeries: Yes Abdominal, Hysterectomy Respiratory: Yes Pulmonary Embolism, COPD Cardiac: Yes Chronic Edema/Swelling, Deep Vein Thrombosis, High Cholesterol, Hypertension Neurological: No [employer] History: Hysterectomy Genitourinary: No Gastrointestinal: Yes (HERNIAS, RECTAL BLEEDING) Musculoskeletal: Yes Chronic Back Pain Endocrine: Yes Diabetes, Insulin dep HEENT: Yes (GLASSES) Cancer: No Psychosocial: Yes Anxiety, Depression Integumentary: Yes Eczema Blood Disorders: Yes Family Medical History Cancer, Diabetes, Hypertension Physical Exam Vital Signs Vital Signs - First Documented 12/10/22 14:26 Temp 36.6 Pulse 116 B/P (MAP) 154/116 (129) O2 Delivery Room Air Capillary Refill : Height, Weight, BMI Height: '" Weight: lbs. oz. kg; 55.00 BMI Method: General Appearance: No Apparent Distress, WD/WN Eyes: Bilateral Eye Normal Inspection HEENT: PERRL/EOMI, Normal ENT Inspection, Pharynx Normal, Other (Scabbed over ulcerative lesion to the left posterior scalp that is 2x1.5cm) Neck: Full Range of Motion, Non Tender, Supple Respiratory: Chest Non Tender, Lungs Clear, No Accessory Muscle Use, No Respiratory Distress Cardiovascular: Regular Rate, Rhythm, Normal Peripheral Pulses Gastrointestinal: Normal Bowel Sounds, Non Tender Extremity: Normal Capillary Refill, Normal Range of Motion, No Calf Tenderness, No Pedal Edema, Other (Right axilla with small fluctuant abscess with no ove rlying cellulitis) Neurologic/Psychiatric: Alert, No Motor/Sensory Deficits, Normal Mood/Affect Skin: Warm/Dry Procedures/Interventions I&D : Site: right axilla Blade Size: 11 Progress The area was cleaned with alcohol, 4 cc of 1% lidocaine were infiltrated into the area with a 27-gauge needle. A single stab incision with an 11 blade was then used with a mild amount of purulent drainage followed by blood. The area was cleaned again and a bandage was applied. Patient tolerated this well. Total amount of bleeding after was minimal. Progress/Results/Core Measures Suspected Sepsis SIRS Temperature: Pulse: Respiratory Rate: Blood Pressure / Mean: Results/Orders My Orders Orders - BRENDA DIOP MD Doxycycline Hyclate Tablet (Vibramycin T (12/10/22 14:36) Vital Signs/I&O 12/10/22 14:26 Temp 36.6 Pulse 116 B/P (MAP) 154/116 (129) O2 Delivery Room Air Capillary Refill : Progress Note : Progress Note 52-year-old female coming in with known history of MRSA with a wound that is not healing, and she has finished with her antibiotics. She had an abscess in her right axilla today which was drained by myself with no complications. We will start her on the doxycycline antibiotic regimen since her culture data from a couple years ago here showed that she grew out staph that was resistant to Bactrim and sensitive to Doxy. I believe she is otherwise stable for discharge with outpatient follow-up. I will give her information on how to follow-up with wound care in [place]. Departure Impression Primary Impression: MRSA (methicillin resistant Staphylococcus aureus) infection Additional Impression: Abscess Disposition: 01 HOME, SELF-CARE Condition: Stable Departure-Patient Inst. Decision time for Depature: 15:10 Referrals: TIGIST RADER MD (PCP) Primary Care Physician Patient Instructions: Abscess Incision and Drainage ED Add. Discharge Instructions: You will be on the antibiotics for the next couple of weeks. Follow back up with your regular doctor, we also recommend following up with the wound care clinic in [place]. To schedule an appointment you can call [phone]. Scripts Ondansetron (Ondansetron Odt) 4 Mg Tab.rapdis 4 MG SL Q6H PRN for NAUSEA/VOMITING for 5 Days, #20 TAB Prov: BRENDA DIOP MD 12/10/22 Doxycycline Hyclate (Doxycycline Hyclate) 100 Mg Tablet 100 MG PO BID for 14 Days, #28 TAB 0 Refills Prov: BRENDA DIOP MD 12/10/22 BRENDA DIOP MD Dec 10, 2022 14:42
[2022-12-10] MEDS ORDERED: DOXY100T2 PO (14:54)
[2022-12-10] MEDS ORDERED: ONDA4TAB11 SL (14:54)
== END 2022-12-10 14:55 | disposition home or self-care (01) ==
LOC: EDUNIT# 14:21 → ER FS 14:23
DX: A49.02 Methicillin resistant Staphylococcus aureus infection, unspecified site (principal); L02.411 Cutaneous abscess of right axilla; E11.9 Type 2 diabetes mellitus without complications; E66.01 Morbid (severe) obesity due to excess calories; R11.0 Nausea; Z79.4 Long term (current) use of insulin; Z68.43 Body mass index [BMI] 50.0-59.9, adult
CPT/HCPCS: 99283

== ENCOUNTER 2023-03-06 14:49 | Emergency (ER) | payer MEDICARE, MEDICAID ==
[~2023-03-06] VITALS: Ht 172.7 cm; Wt 171.5 kg
[~2023-03-06 14:49] MED LIST changes: +ONDA4TAB11 SL; -PREG75CA75 PO; +PREG75CA76 PO
[2023-03-06] MEDS ORDERED: NS IV 500 ML 500 ML IV STA (15:07)
[2023-03-06 15:14] LABS: HEMATOCRIT 38 % (35-52); HEMOGLOBIN 12.6 g/dL (11.5-16.0); MEAN CORPUSCULAR HEMOGLOBIN 29 pg (25-34); WHITE BLOOD COUNT 13.7 10^3/uL (4.3-11.0)
[2023-03-06 15:15] LABS: BASOPHILS % (AUTO) 0 % (0-10); EOSINOPHILS % (AUTO) 0 % (0-10); LYMPHOCYTES % (AUTO) 28 % (12-44); MEAN CORPUSCULAR HGB CONC 33 g/dL (32-36); MEAN CORPUSCULAR VOLUME 87 fL (80-99); MONOCYTES % (AUTO) 8 % (0-12); NEUTROPHILS # (AUTO) 8.6 X 10^3 (1.8-7.8); NEUTROPHILS % (AUTO) 63 % (42-75); PLATELET COUNT 423 10^3/uL (130-400)
[2023-03-06] MEDS ORDERED: ONDANSETRON INJECTION 4 MG/2 ML (SDV) IVP ONE (15:15)
[2023-03-06] MEDS ORDERED: ACETAMINOPHEN 500 MG TABLET PO ONE (15:15)
[2023-03-06 15:16] LABS: EOSINOPHILS # (AUTO) 0.1 10^3/uL (0.0-0.3); LYMPHOCYTES # (AUTO) 3.9 X 10^3 (1.0-4.0); MONOCYTES # (AUTO) 1.1 X 10^3 (0.0-1.0)
--- NOTE | 2023-03-06 15:21 | ED GI ---
General Chief Complaint: Abdominal/GI Problems Stated Complaint: VOMITING; ABN LABS Source of Information: Patient Exam Limitations: No Limitations History of Present Illness Date Seen by Provider: Mar 06, 2023 Time Seen by Provider: 14:50 Initial Comments 52-year-old female with past medical history of COPD, chronic hypoxic respirato ry failure on 3 L oxygen, diabetes, prior PEs and DVTs on Eliquis coming in due to nonbloody nonbilious vomiting. The episodes started Monday night, she last vomited this morning. She had a normal bowel movement, no diarrhea. Has some abdominal cramping, no severe pain. Denies any fever, body aches, chest pain, shortness of breath, weakness, numbness, rash, dysuria, vaginal bleeding, vaginal discharge, or any other concerns. She reportedly had labs done Monday and was told her white blood cell count was slightly elevated. Allergies and Home Medications Allergies Coded Allergies: No Known Drug Allergies (Unverified , 11/16/19) Patient Home Medication List Home Medication List Reviewed: Yes Albuterol Sulfate (Ventolin Hfa) 90 Mcg Hfa.aer.ad, 2 PUFF INH QID PRN for SHORTNESS OF BREATH, (Reported) Entered as Reported by: CARL LINDSAY on 03/04/221330 Apixaban (Eliquis) 5 Mg Tablet, 5 MG PO BID Prescribed by: STARLA ADAMS on 03/14/22951 Aspirin (Children's Aspirin) 81 Mg Tab.chew, 81 MG PO DAILY Prescribed by: STARLA ADAMS on 03/14/22 09 Atorvastatin Calcium (Atorvastatin Calcium) 80 Mg Tablet, 80 MG PO HS, (Reported) Entered as Reported by: CARL LINDSAY on 03/04/22 133 Bumetanide (Bumetanide) 1 Mg Tablet, 1 MG PO DAILY, (Reported) Entered as Reported by: CARL LINDSAY on 03/04/221330 Bupropion HCl (Bupropion Xl) 300 Mg Tab.er.24h, 300 MG PO DAILY, (Reported) Entered as Reported by: CARL LINDSAY on 03/04/221330 Bupropion HCl (Bupropion Xl) 150 Mg Tab.er.24h, 150 MG PO DAILY, (Reported) Entered as Reported by: CARL LINDSAY on 10/21/22 1331 Buspirone HCl (Buspirone HCl) 30 Mg Tablet, 30 MG PO BID, (Reported) Entered as Reported by: CARL LINDSAY on 03/04/22 133 Cyclobenzaprine HCl (Cyclobenzaprine HCl) 10 Mg Tablet, 5-10 MG PO TID PRN for MUSCLE SPASMS, (Reported) Entered as Reported by: CARL LINDSAY on 03/04/22 133 Doxycycline Hyclate (Doxycycline Hyclate) 100 Mg Tablet, 100 MG PO DAILY, (Reported) Entered as Reported by: ROSCOE DOYLE on 03/24/22 0043 Doxycycline Hyclate (Doxycycline Hyclate) 100 Mg Tablet, 100 MG PO BID Prescribed by: BRENDA DIOP on 12/10/22 1454 Famotidine (Famotidine) 20 Mg Tablet, 20 MG PO BID Prescribed by: STARLA ADAMS on 03/14/22 0952 Glucagon (Gvoke Hypopen) 1 Mg/0.2 Ml Auto.injct, 1 MG SQ, (Reported) Entered as Reported by: QUENTIN HINES on 03/18/22 1041 Hydrocodone Bitartrate (Hysingla ER) 60 Mg Tab.er.24h, 60 MG PO HS, (Reported) Entered as Reported by: CARL LINDSAY on 03/04/22 133 Hydroxyzine HCl (Hydroxyzine HCl) 50 Mg Tablet, 50 MG PO DAILY, (Reported) Entered as Reported by: CARL LINDSAY on 03/04/22 133 Hydroxyzine HCl (Hydroxyzine HCl) 50 Mg Tablet, 100 MG PO HS, (Reported) Entered as Reported by: CARL LINDSAY on 03/04/22 133 Insulin Aspart (Novolog Flexpen) 100 Unit/Ml (3 Ml) Solution, UNITS SC AC, (Reported) Entered as Reported by: CARL LINDSAY on 03/04/22 133 Insulin Degludec (Tresiba Flextouch U-200) 200 Unit/Ml (3 Ml) Insuln.pen, 20 UNITS SC HS, (Reported) Entered as Reported by: CARL LINDSAY on 03/04/22 133 Lisinopril (Lisinopril) 5 Mg Tablet, 5 MG PO HS, (Reported) Entered as Reported by: CARL LINDSAY on 03/04/22 133 Metoprolol Succinate (Metoprolol Succinate) 25 Mg Tab.er.24h, 25 MG PO DAILY Prescribed by: STARLA ADAMS on 03/14/22 09 Midodrine HCl (Midodrine HCl) 10 Mg Tablet, 5 MG PO TID Prescribed by: STARLA ADAMS on 03/14/22951 Montelukast Sodium (Montelukast Sodium) 10 Mg Tablet, 10 MG PO HS, (Reported) Entered as Reported by: CARL LINDSAY on 03/04/22 133 Omeprazole (Omeprazole) 20 Mg Capsule.dr, 20 MG PO DAILY, (Reported) Entered as Reported by: CARL LINDSAY on 03/04/221330 Ondansetron (Ondansetron Odt) 4 Mg Tab.rapdis, 4 MG SL Q6H PRN for NAUSEA/VOMITING Prescribed by: BRENDA DIOP on 12/10/22 1454 Pregabalin (Pregabalin) 75 Mg Capsule, 75 MG PO QID, (Reported) Entered as Reported by: CARL LINDSAY on 03/04/22 133 Quetiapine Fumarate (Quetiapine Fumarate) 300 Mg Tablet, 300 MG PO HS, (Reported) Entered as Reported by: CARL LINDSAY on 03/04/221330 Semaglutide (Ozempic) 2 Mg/0.75 Ml (8 Mg/3 Ml) Pen.injctr, 2 MG IJ THUR, (Reported) Entered as Reported by: CARL LINDSAY on 03/04/221330 Sulfamethoxazole/Trimethoprim (Bactrim Ds Tablet) 1 Each Tablet, 1 EACH PO BID, (Reported) Entered as Reported by: ROSCOE DOYLE on 03/24/22 0043 Umeclidinium [place] (Incruse Ellipta) 62.5 Mcg/Actuation Blst.w.dev, 1 PUFF INH DAILY, (Reported) Entered as Reported by: CARL LINDSAY on 03/04/221330 Varenicline Tartrate (Varenicline Tartrate) 1 Mg Tablet, 1 MG PO BID, (Reported) Entered as Reported by: CARL LINDSAY on 03/04/221330 Review of Systems Review of Systems Constitutional: No fever EENTM: No Symptoms Reported Respiratory: No Symptoms Reported Cardiovascular: No Symptoms Reported Gastrointestinal: See HPI Genitourinary: No Symptoms Reported Musculoskeletal: no symptoms reported Skin: no symptoms reported Psychiatric/Neurological: No Symptoms Reported Endocrine: No Symptoms Reported Hematologic/Lymphatic: No Symptoms Reported Past Gudfnps-Evqsiu-Benlmj Hx Patient Social History Tobacco Use?: Yes Tobacco type used: Cigarettes Smoking Status: Current Everyday Smoker Substance use?: No Alcohol Use?: No Pt feels they are or have been: No Immunizations Up To Date Influenza Vaccine Up-to-Date: No; Not Current First/Initial COVID19 Vaccinat: 2 shots Second COVID19 Vaccination Rolan: 2020 Third COVID19 Vaccination Date: 2020 Seasonal Allergies Seasonal Allergies: No Past Medical History Surgery/Hospitalization HX: COPD, hypertension, DVT, PE, chronic kidney disease, insulin-dependent diabetes, heart failure, peripheral vascular insuff., morbid obesity, nicotine dependence, osteroarthritis knees, anxiety, [place] 02/2022, Surgeries: Yes Abdominal, Hysterectomy Respiratory: Yes Pulmonary Embolism, COPD Cardiac: Yes Chronic Edema/Swelling, Deep Vein Thrombosis, High Cholesterol, Hypertension Neurological: No PLASTIC SURGEON History: Hysterectomy Genitourinary: No Gastrointestinal: Yes (HERNIAS, RECTAL BLEEDING) Musculoskeletal: Yes Chronic Back Pain Endocrine: Yes Diabetes, Insulin dep HEENT: Yes (GLASSES) Cancer: No Psychosocial: Yes Anxiety, Depression Integumentary: Yes Eczema Blood Disorders: Yes Family Medical History Cancer, Diabetes, Hypertension Physical Exam Vital Signs Vital Signs - First Documented 03/06/23 15:01 Temp 36.6 Pulse 110 Resp 20 B/P (MAP) 148/59 (88) Pulse Ox 95 O2 Delivery Nasal Cannula O2 Flow Rate 3.00 Capillary Refill : Height/Weight/BMI Height: '" Weight: lbs. oz. kg; 58.00 BMI Method: General Appearance: no apparent distress, obese, other (chronically ill appearing) HEENT: PERRL/EOMI, normal ENT inspection, pharynx normal Neck: non-tender, full range of motion, supple, normal inspection Respiratory: chest non-tender, lungs clear, normal breath sounds, no respiratory distress, no accessory muscle use Cardiovascular: regular rate, rhythm, no edema Gastrointestinal: normal bowel sounds, non tender, soft; No distended, No guarding, No rebound Extremities: normal range of motion, non-tender, normal inspection, no calf tenderness, normal capillary refill Back: normal inspection, no CVA tenderness Neurologic/Psychiatric: no motor/sensory deficits, alert, normal mood/affect, oriented x 3 Skin: normal color, warm/dry Progress/Results/Core Measures Results/Orders Lab Results Laboratory Tests Test 03/06/23 15:01 Range/Units White Blood Count 13.7 H 4.3-11.0 10^3/uL Red Blood Count 4.42 3.80-5.11 10^6/uL Hemoglobin 12.6 11.5-16.0 g/dL Hematocrit 38 35-52 % Mean Corpuscular Volume 87 80-99 fL Mean Corpuscular Hemoglobin 29 25-34 pg Mean Corpuscular Hemoglobin Concent 33 32-36 g/dL Red Cell Distribution Width 15.3 H 10.0-14.5 % Platelet Count 423 H 130-400 10^3/uL Mean Platelet Volume 12.0 9.0-12.2 fL Neutrophils (%) (Auto) 63 42-75 % Lymphocytes (%) (Auto) 28 12-44 % Monocytes (%) (Auto) 8 0-12 % Eosinophils (%) (Auto) 0 0-10 % Basophils (%) (Auto) 0 0-10 % Neutrophils # (Auto) 8.6 H 1.8-7.8 X 10^3 Lymphocytes # (Auto) 3.9 1.0-4.0 X 10^3 Monocytes # (Auto) 1.1 H 0.0-1.0 X 10^3 Eosinophils # (Auto) 0.1 0.0-0.3 10^3/uL Basophils # (Auto) 0.0 0.0-0.1 10^3/uL Prothrombin Time 12.5 12.2-14.7 SEC INR Comment 0.9 0.8-1.4 Activated Partial Thromboplast Time 21 L 24-35 SEC Sodium Level 131 L 135-145 MMOL/L Potassium Level 3.5 L 3.6-5.0 MMOL/L Chloride Level 89 L 98-107 MMOL/L Carbon Dioxide Level 26 21-32 MMOL/L Anion Gap 16 H 5-14 MMOL/L Blood Urea Nitrogen 19 H 7-18 MG/DL Creatinine 1.51 H 0.60-1.30 MG/DL Estimat Glomerular Filtration Rate 41 BUN/Creatinine Ratio 13 Glucose Level 352 H 70-105 MG/DL Calcium Level 10.0 8.5-10.1 MG/DL Corrected Calcium 9.9 8.5-10.1 MG/DL Magnesium Level 1.5 L 1.6-2.4 MG/DL Total Bilirubin 0.5 0.1-1.0 MG/DL Aspartate Amino Transf (AST/SGOT) 22 5-34 U/L Alanine Aminotransferase (ALT/SGPT) 25 0-55 U/L Alkaline Phosphatase 111 40-136 U/L C-Reactive Protein 1.07 H <0.50 MG/DL Total Protein 7.5 6.4-8.2 GM/DL Albumin 4.1 3.2-4.5 GM/DL Lipase 35 8-78 U/L My Orders Orders - BRENDA DIOP MD Ed Iv/Invasive Line Start (03/06/23 15:07) Cbc And Automated Diff (03/06/23 15:07) Comprehensive Metabolic Panel (03/06/23 15:07) Lipase (03/06/23 15:07) Magnesium (03/06/23 15:07) Protime With Inr (03/06/23 15:07) Partial Thromboplastin Time (03/06/23 15:07) Crp Fs (03/06/23 15:07) Ns Iv 500 Ml (Ns Iv 500 Ml) (03/06/23 15:07) Ondansetron Injection (Ondansetron Inj (03/06/23 15:15) Acetaminophen Tablet (Acetaminophen Ta (03/06/23 15:15) Magnesium 1 Gm/100 Ml Ivpb (Magnesium 1 (03/06/23 15:45) Potassium Chloride (Tablet) (Potassium C (03/06/23 15:45) Promethazine Tablet (Promethazine Tabl (03/06/23 15:45) Medications Given in ED Current Medications Medications Dose Ordered Sig/Lucita Route Start Time Stop Time Status Last Admin Dose Admin Acetaminophen 1,000 mg ONCE ONCE PO 03/06/23 15:15 03/06/23 15:16 DC 03/06/23 15:26 1,000 MG Magnesium Sulfate/ Dextrose 100 ml @ 100 mls/hr ONCE ONCE IV 03/06/23 15:45 03/06/23 16:44 03/06/23 15:47 100 MLS/HR Ondansetron HCl 4 mg ONCE ONCE IVP 03/06/23 15:15 03/06/23 15:16 DC 03/06/23 15:26 4 MG Potassium Chloride 20 meq ONCE ONCE PO 03/06/23 15:45 03/06/23 15:46 DC 03/06/23 15:47 20 MEQ Promethazine HCl 25 mg ONCE ONCE PO 03/06/23 15:45 03/06/23 15:46 DC 03/06/23 15:47 25 MG Vital Signs/I&O 03/06/23 15:01 Temp 36.6 Pulse 110 Resp 20 B/P (MAP) 148/59 (88) Pulse Ox 95 O2 Delivery Nasal Cannula O2 Flow Rate 3.00 Progress Progress Note : Progress Note 52-year-old female with above history coming in due to vomiting. ABCs were intact and vitals were stable on presentation. Physical exam reassuring including a soft and nontender abdomen. An IV was placed and basic labs were obtained and were significant for white blood cell count around 13 which is the patient's baseline over many years, creatinine at her baseline around 1.5, potassium just slightly low which should be replaced with oral potassium, magnesium just slightly low which may also replace with IV magnesium. Lipase is normal, CRP just barely elevated, essentially unremarkable. Repeat abdominal exam once again reassuring. I do not believe at this time she requires a CT of her abdomen and pelvis as she is very well-appearing. She did receive some IV Zofran and later some p.o. Phenergan. She is tolerating p.o. here and has not had any episodes of vomiting. I believe she stable for discharge with outpatient follow-up. She was sent home with strict return precautions. Departure Impression Primary Impression: Vomiting in adult Disposition: HOME, SELF-CARE Condition: Stable Departure-Patient Inst. Decision time for Depature: 16:30 Referrals: SELF,TIGIST PATTERSON (PCP) Primary Care Physician Patient Instructions: Nausea and Vomiting, Adult ED Add. Discharge Instructions: You likely you have a GI bug that is going around. It can sometimes take several days for the vomiting to go away. If you develop severe abdominal pain that is not cramping and associated with your vomiting that will not go away despite Tylenol or have black vomit or pure blood vomit then we would want you to come back to the ER to be seen again. Nausea medicines were sent to your pharmacy otherwise. Try to take frequent but small sips of fluids until the vomiting gets better. You can try things such as crackers if you feel like eating. Scripts Promethazine HCl (Promethazine Tablet) 25 Mg Tablet 25 MG PO Q6H PRN for NAUSEA/VOMITING-2ND LINE for 4 Days, #16 TAB Prov: BRENDA DIOP MD 03/06/23 Ondansetron (Ondansetron Odt) 4 Mg Tab.rapdis 4 MG SL Q6H PRN for NAUSEA/VOMITING-1ST LINE for 5 Days, #20 TAB Prov: BRENDA DIOP MD 03/06/23 Work/School Note: Work Release Form Date Seen in the Emergency Department: Mar 06, 2023 Return to Work: Mar 07, 2023 Restrictions: Return-No Vomiting(24hrs) BRENDA DIOP MD Mar 06, 2023 15:21
[2023-03-06 15:27] LABS: INR 0.9 (0.8-1.4); POTASSIUM 3.5 MMOL/L (3.6-5.0); PROTHROMBIN TIME PATIENT 12.5 SEC (12.2-14.7)
[2023-03-06 15:29] LABS: ALBUMIN 4.1 GM/DL (3.2-4.5); BILIRUBIN,TOTAL 0.5 MG/DL (0.1-1.0); CREATININE SERUM 1.51 MG/DL (0.60-1.30); MAGNESIUM 1.5 MG/DL (1.6-2.4); TOTAL PROTEIN 7.5 GM/DL (6.4-8.2)
[2023-03-06] MEDS ORDERED: POTASSIUM CHLORIDE 20 MEQ TABLET PO ONE (15:45)
[2023-03-06] MEDS ORDERED: PROMETHAZINE 25 MG TABLET PO ONE (15:45)
[2023-03-06] MEDS ORDERED: MAGNESIUM 1 GM/100 ML IVPB 100 ML IV ONE (15:45)
[2023-03-06] MEDS ORDERED: PROM25TA14 PO (15:59)
[2023-03-06] MEDS ORDERED: ONDA4TAB11 SL (15:59)
[2023-03-06 16:50] VITALS: BP 148/79
== END 2023-03-06 16:50 | disposition home or self-care (01) ==
LOC: EDUNIT# 14:49 → ER FS 14:51
DX: R11.0 Nausea (principal); I26.99 Other pulmonary embolism without acute cor pulmonale; I82.409 Acute embolism and thrombosis of unspecified deep veins of unspecified lower extremity; E66.01 Morbid (severe) obesity due to excess calories; F17.210 Nicotine dependence, cigarettes, uncomplicated; Z99.81 Dependence on supplemental oxygen; Z79.01 Long term (current) use of anticoagulants; Z68.43 Body mass index [BMI] 50.0-59.9, adult
CPT/HCPCS: 36415; 80053; 83690; 83735; 85025; 85610; 85730; 86141; 96361; 96365; 96375